=== PATIENT | female | born 1935 | race Caucasian/White ===

== ENCOUNTER 2023-07-15 08:33 | Emergency (ER) | payer MEDICARE, BC, SELFPAY ==
[2023-07-15 08:35] VITALS: BP 134/78
--- NOTE | 2023-07-15 11:21 | ED.GENMED ---
History of Present Illness
General
Chief Complaint: Fall
Source: patient
Exam Limitations: none
Time Seen by Provider: 07/15/23 09:14
Nursing documentation reviewed up to this point in time: agreed with
Travel History
Have you had any contact with someone who has COVID-19?: No
Do you have any symptoms of coronavirus? Fever > 100 degrees, chills, cough, shortness of breath, sore throat, loss of taste or smell, muscle aches, or headache?: No
History of Present Illness
History of Present Illness:
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
[facility]
she was using the side rail in her apt hallway to walk and had to let go to go past a door way and when she went to reach for the next railing she missed and fell onto her left side. She hit her left knee on the ground followed by her left elbow
into her ribs, wrist and then face on the left side. Patient had no loss of consciousness and she is not able to walk but she does have pain. Patient says she thought her pain would get better but it really has stayed the same. She has facial
bruising which is less significant than it was, she has continued left rib pain with deep breathing and movement, left knee pain with walking and flexion and mild left first dorsal soreness. Patient is wearing a home wrist brace on it and taking
Tylenol for pain. She decided to come today because she thought she should be better by now. Patient has not had any shortness of breath, fever, chills, coughing blood, passing out, vomiting, hematuria, hip pain
Past History
Past History
ED Past Medical History: COPD, GERD, Hypercholesterolemia, [place], Hypothyroidism, Psychiatric and Other (PE/DVT, Diverticulitis)
ED Past Surgical History: Cardiac (Stents) and Orthopedic
Patient has exhibited threatening behavior?: No
Social History
Tobacco: Former smoker
Alcohol: Daily ( Wine 2 glasses)
Drug: None
Personal:
Living: alone
Employment: Retired
Family History
Family History: Hypertension and Other (Other was prostate cancer)
Review of Systems
Review of Systems
Allergies reviewed?: Yes
All Other Systems: Not applicable
Phy Exam
Physical Exam
Physical Exam:
GENERAL: Alert , in no apparent distress
HEAD: Left periorbital area ecchymosis, slight superior orbital tenderness, able to open eye fully, EOMs intact, no other contusions on head
NECK: no midline tenderness, active ROM intact, no paraspinal muscle tenderness;
EYE: pupils equal and reactive, EOMs intact., No subconjunctival hemorrhage
ENT: o/p clr, mmm. no hemotympanum
CARDIAC: Regular rate and rhythm, no edema
LUNGS: Clear breath sounds bilaterally, no acute respiratory distress, no wheezes/rales/rhonchi
Chest wall: Left-sided lower rib in the mid axillary line with some point tenderness, no ecchymosis, probably in the area of ribs #6 or 7
ABDOMEN: Soft, without focal tenderness, no r/g, no cvat no left upper quadrant tenderness no bruising to the abdomen
NEUROLOGICAL: Alert and oriented, no focal neuro deficits, CN intact, 5/5 strength, sensation intact
SKIN: Warm and dry,
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 Patient has some faded bruising on her left knee and is tender to the patella, is able to flex 30 degrees. She has no calf,
ankle, hip pain on that side.
PSYCH: Normal and appropriate interaction.
Course
Orders/Labs/Results
Orders:
Orders
07/15/23 08:41
CT Head W/o Iv Contrast Urgent
Comment:
Reason For Exam: fall
Orbits wo Contrast CT [CT Orbits W/o Iv Contrast] Urgent
Comment:
Reason For Exam: fall
07/15/23 10:32
CR Knee - Left 4 Or More View* Urgent
Comment:
Reason For Exam: fall
CR Wrist - Left Min 3 Views Urgent
Comment:
Reason For Exam: fall
Ribs, Left 3 View W/PA Chest CR [CR Ribs-left 3 Vw W/pa Chest] Urgent
Comment:
Reason For Exam: fall
07/15/23 12:04
Acetaminophen [Tylenol] 650 mg .ROUTE .STK-MED ONE
07/15/23 12:10
Acetaminophen [Tylenol] 650 mg PO NOW STA
07/15/23 12:22
Incentive Spirometry [Rx Incentive Spirometry] [RESP] Urgent
Frequency: q1h while awake
Vital Signs
Initial and Last Documented VS:
Initial Vital Signs
Temp Pulse Resp BP Pulse Ox
98.4 F 92 18 134/78 97
07/15/23 08:35 07/15/23 08:35 07/15/23 08:35 07/15/23 08:35 07/15/23 08:35
Last Documented Vital Signs
Temp Pulse Resp BP Pulse Ox
98.4 F 92 18 134/78 97
07/15/23 08:35 07/15/23 08:35 07/15/23 08:35 07/15/23 08:35 07/15/23 08:35
MDM/Problems Addressed
Differential Diagnosis Includes:
Rib contusion, pneumonia, pneumothorax, rib fracture, knee contusion
MDM/Problems Addressed:
88-year-old female on thinners presents after a fall 1 week ago when she was walking and missed reaching out for the railing landing on her left side on the ground. She had no loss of consciousness. She has been having some continued left rib pain
especially with deep breathing or movement, left knee pain, left wrist pain. She does have ecchymosis around her left eye and did strike her head but had no loss of consciousness and no significant severe headache. Patient says she thought she
should be better by now. She is taking Tylenol for pain. On exam she does have obvious fading ecchymosis to her left periorbital region, she is otherwise neuro intact. She has no bruising but tenderness to the left lateral ribs, a soft nontender
abdomen, clear lungs, no hip tenderness, some mild discomfort with knee flexion on the left side and some bruising anteriorly with point tenderness over the patella. Her wrist is also arthritic but no obvious signs of trauma. Independently
reviewed the x-rays of her wrist and knee without any obvious fractures but with arthritis. Patient's CT head and CT orbits were negative for fracture or trauma.
CXR SHOWS LEFT 3RD RIB FX; indep reviewed by me
no ptx
atelectasiss
richard give incentive psirometer and recommend f/u with pcp
]
*Critical Care Note
Total Time (30-74mins, 75-104mins- exclusive of procedures): Not Applicable
ED Attending Note
-
Portions of this chart may have been created with voice recognition software.� Occasional wrong word or��sound alike� substitutions may have occurred due to the inherent limitations of voice recognition software.
Discharge Plan
Departure
Patient Disposition: Home (Routine Discharge)
Date of Disposition: 07/15/23
Time of Disposition: 12:13
Patient with high blood pressure during this ER visit?: No
Covid-19: Not Applicable
Discharge Problem:
Fracture of rib, Fall, Contusion
Instructions: Rib Fracture (DC), Contusion (DC)
Prescriptions:
New
lidocaine 5 % adhesive patch,medicated
1 patch topical DAILY PRN (Reason: rib pain) Qty: 15 0RF
No Action
aspirin 81 MG tablet,delayed release (DR/EC)
81 mg PO DAILY Qty: 0 0RF
pantoprazole 40 MG tablet,delayed release (DR/EC)
40 mg PO DAILY
cyanocobalamin (vitamin B-12) 100 MCG tablet
1,000 mcg PO DAILY
sertraline 50 MG tablet
50 mg PO DAILY
simvastatin 40 MG tablet
40 mg PO QPM
alendronate 70 MG tablet
70 mg PO PERSON
cyclosporine [Restasis] 10 DROPS dropperette
1 drp BOTH EYES Q12H
levothyroxine 137 mcg tablet
137 mcg PO DAILY AT 0700
gabapentin 300 mg capsule
300 mg PO BID
albuterol sulfate [ProAir HFA] 90 mcg/actuation Hfa Aerosol Inhaler
2 puff INHALATION R Q6HPRN PRN (Reason: sob)
budesonide-formoterol [Symbicort] 160-4.5 mcg/actuation Hfa Aerosol Inhaler
2 inh INHALATION R BID
Spiriva Respimat 2.5 mcg/actuation mist
2 puff INHALATION R DAILY
Hair, Skin and Nails Advanced 3.3 mg iron-25 mcg Tablet
1 tab PO DAILY
Eliquis 5 mg Tablet
5 mg PO BID
ciprofloxacin HCl 250 mg Tablet
250 mg PO BID@1000,2200 Qty: 12 0RF
prednisone 10 mg Tablet
See Rx Instructions .ROUTE .COMPLEX Qty: 30 0RF
Rx Instructions:
Take By Mouth:
40 mg daily x3 days, 30 mg daily x3 days,
20 mg daily x3 days, 10 mg daily x3 days.
Referrals:
Abraham Gibbs DO [Family Provider] -
Activity Restrictions/Additional Instructions:
You broke your third rib. Take Tylenol 3 times a day. You should take 2 to 6 weeks to heal.
You can apply a lidocaine patch 12 hours on, 12 hours off to the area of pain.
Use the incentive spirometer every 2 hours while awake to help you take deep breaths to avoid getting pneumonia. You had no signs of fracture in your knee or your wrist. Your head and facial bone CT showed no fractures or signs of trauma
Follow-up with your family doctor next week. Return to the ER for any concerns
Interventions
Interventions:
*Risk Screen - Suicide Last Done: 07/15/23 08:35
*General Assessment Last Done: 07/15/23 08:35
*Neglect/Abuse Screening Last Done: 07/15/23 08:35
ED- Fall Risk Assessment Last Done: 07/15/23 08:40
*ED COVID-19 Vaccine History Last Done: 07/15/23 08:40
*Nursing Disposition Last Done: 07/15/23 12:37
ED-Musculoskeletal Assessment Last Done: 07/15/23 12:36
ED- Neurological Assessment Last Done: 07/15/23 12:36
ED-Skin Assessment Last Done: 07/15/23 12:36
Discharge Date and Time
Discharge Date/Time: 07/15/23 12:37
[2023-07-15] MEDS: TYLENOL 650 MG PO (12:10)
== END 2023-07-15 12:37 | disposition home or self-care (01) ==
LOC: EMR 08:33
PROVIDERS: EMERGENCY PHYSICIAN Emergency Medicine; FAMILY PHYSICIAN Student in an Organized Health Care Education/Training Program
DX: S22.32XA Fracture of one rib, left side, initial encounter for closed fracture (principal); S00.12XA Contusion of left eyelid and periocular area, initial encounter; S00.83XA Contusion of other part of head, initial encounter; W22.09XA Striking against other stationary object, initial encounter; E03.9 Hypothyroidism, unspecified; E78.00 Pure hypercholesterolemia, unspecified; J44.9 Chronic obstructive pulmonary disease, unspecified; K21.9 Gastro-esophageal reflux disease without esophagitis; I25.2 Old myocardial infarction; Z82.49 Family history of ischemic heart disease and other diseases of the circulatory system; Z86.711 Personal history of pulmonary embolism; Z86.718 Personal history of other venous thrombosis and embolism; Z87.891 Personal history of nicotine dependence; Z95.5 Presence of coronary angioplasty implant and graft
CPT/HCPCS: 99284; 70450; 70480; 71101; 73110; 73564

== ENCOUNTER → 2024-02-20 07:39 | Outpatient (REF) | payer MEDICARE, BC, SELFPAY | LOC: MRI 07:39 | PROVIDERS: ATTENDING PHYSICIAN Anesthesiology | DX: M54.16 Radiculopathy, lumbar region (principal); M48.062 Spinal stenosis, lumbar region with neurogenic claudication | CPT/HCPCS: 72148 ==

== ENCOUNTER 2024-05-14 16:48 | Emergency (ER) | payer MEDICARE, BC, SELFPAY ==
[2024-05-14 16:54] VITALS: BP 98/63
[2024-05-14 17:02] VITALS: BP 114/75
[2024-05-14 17:06] VITALS: BMI 27.3
--- NOTE | 2024-05-14 17:26 | ED.GENMED ---
History of Present Illness
General
Chief Complaint: Breathing Problem
Source: patient
Exam Limitations: none
Time Seen by Provider: 05/14/24 17:13
History of Present Illness
History of Present Illness:
89-year-old female turned suddenly a week ago became lightheaded disequilibrium fell hitting her head and left lateral ribs. She did not get checked at that time. She has had ongoing left lateral rib pain. No headache no neck pain. Today she
became very lightheaded with standing. Dizziness. At times described more like disequilibrium. At times described more like near syncope. Minimal symptoms at rest except for the left lateral chest pain.
Past History
Past History
ED Past Medical History: COPD, GERD, Hypercholesterolemia, [place], Hypothyroidism, Psychiatric and Other (PE/DVT, Diverticulitis)
ED Past Surgical History: Cardiac (Stents) and Orthopedic
Patient has exhibited threatening behavior?: No
Social History
Tobacco: Former smoker
Alcohol: Daily ( Wine 2 glasses)
Drug: None
Personal:
Living: alone
Employment: Retired
Family History
Family History: Hypertension and Other (Other was prostate cancer)
Review of Systems
Review of Systems
All Other Systems: Not applicable
Constitutional: Denies fever or chills
Respiratory: Denies trouble breathing
ABD/GI: Denies abdominal pain
Phy Exam
Physical Exam
Physical Exam:
TRAUMA EXAM:
VITAL SIGNS: Vital signs reviewed, cooperative
DISTRESS: No active disease
EYES: Pupils reactive, no orbital trauma
NOSE: No deformity or epistaxis
FACE AND SCALP: Area of ecchymosis to the mid forehead. No other scalp trauma
NECK: Supple nontender
BACK: Back nontender, pelvis stable to compression
RESPIRATORY: No distress, breath sounds normal, tenderness left lateral and anterior chest wall that extends down to the left upper quadrant
CARDIAC: No murmur, pulses equal and strong
ABDOMEN: Soft mild tenderness left upper quadrant. Area of bruising to the upper and lower abdomen
SKIN: Skin intact no bleeding, color normal
EXTREMITIES: Scab to the right knee. Skin tear to the right lower leg. All appear to stage of healing. Ecchymosis to left lower leg. No bony tenderness to the extremities.
NEUROLOGICAL: Alert, oriented, no motor deficits
PSYCH: Mood affect normal
Scores
Heart Failure Risk
Heart Failure Risk Score: Not Applicable
Course
Orders/Labs/Results
Orders:
Orders
05/14/24 17:09
Complete Blood Count/With Diff Urgent
Comprehensive Metabolic Panel Urgent
05/14/24 17:23
CT Head W/o Iv Contrast Urgent
Comment:
Reason For Exam: Head injury/anticoagulated
Cardiac Monitoring- Treatment ONCE
Pulse Ox/spot Check [RESP] Urgent
Quantity: 1
05/14/24 17:24
CT Cervical Spine W/o Iv Contr Urgent
Comment:
Reason For Exam: Recent head injury/trauma
CT Chest/abd/pel W Iv Cont Urgent
Reason For Exam: Left lateral rib pain/trauma/anticoagulated
IV Insert/Care/Rem.- Treatment PRN
05/14/24 17:28
EKG [Electrocardiogram (*1)] Urgent
Reason for Study: Other
Other Reason for Exam: Near syncope/disequilibrium
Cardiac Monitoring- Treatment ONCE
Pulse Ox/spot Check [RESP] Urgent
Quantity: 1
05/14/24 17:29
EKG- Treatment ONCE
05/14/24 19:11
Type+Screen Urgent
PT/INR [Prothrombin Time] Urgent
PTT Urgent
Abnormal Lab Results
05/14/24 05/14/24
17:09 19:11
RBC 3.46 L 10^6/uL
(4.20-5.40)
Hgb 11.8 L g/dL
(12.0-16.0)
Hct 35.3 L %
(37.0-47.0)
MCV 102.0 H fL
(81.0-99.0)
MCH 34.1 H pg
(27.0-31.0)
RDW 14.6 H %
(11.5-14.5)
Abs Immat Gran (auto) 0.1 H 10^3/uL
(0-0.05)
Immature Gran % 0.7 H %
(0-0.5)
PT 14.7 H Sec
(11.4-14.6)
Potassium 3.4 L mmol/L
(3.5-5.1)
BUN 19 H mg/dl
(7-17)
Glucose 123 H mg/dl
(70-99)
05/14/24 17:09
05/14/24 17:09
Vital Signs
Initial and Last Documented VS:
Initial Vital Signs
Temp Pulse Resp BP Pulse Ox
98.6 F 98 16 98/63 93
05/14/24 16:54 05/14/24 16:54 05/14/24 16:54 05/14/24 16:54 05/14/24 16:54
Last Documented Vital Signs
Temp Pulse Resp BP Pulse Ox
98.6 F 101 24 113/64 93
05/14/24 16:54 05/14/24 20:00 05/14/24 20:00 05/14/24 20:00 05/14/24 20:00
MDM/Problems Addressed
Differential Diagnosis Includes:
Patient with a recent fall anticoagulated. Complaining of lightheadedness possibly near syncope. With the head injury and anticoagulation she needs a CT of the head along with the cervical spine. She is tenderness to the left lateral chest wall
left upper quadrant. Chest abdomen pelvis will also be scanned. Workup in progress.
*Radiology
Radiology exam reviewed: radiology read reviewed (No acute findings on trauma CT studies. Old left rib fractures)
*Critical Care Note
Total Time (30-74mins, 75-104mins- exclusive of procedures): Not Applicable
Data Reviewed
Review of Other/Old Records Reveals: Labs, Records and Testing
Update Note
Update Note:
Patient is remained medically stable and nontoxic. No arrhythmias. No significant trauma. For discharge to follow-up
ED Attending Note
-
Portions of this chart may have been created with voice recognition software.� Occasional wrong word or��sound alike� substitutions may have occurred due to the inherent limitations of voice recognition software.
Discharge Plan
Departure
Patient Disposition: Home (Routine Discharge)
Date of Disposition: 05/14/24
Time of Disposition: 21:08
Patient with high blood pressure during this ER visit?: No
Discharge Problem:
Recent fall, Closed head injury, Anticoagulated, Blunt chest trauma, Old rib fractures, Transient disequilibrium
Instructions: Head injury in adults, Dizziness, Nonvertigo, (DC), Blunt Chest Trauma (DC), Abrasions ED, Minor Contusion ED
Prescriptions:
No Action
aspirin 81 MG tablet,delayed release (DR/EC)
81 mg PO DAILY Qty: 0 0RF
pantoprazole 40 MG tablet,delayed release (DR/EC)
40 mg PO DAILY
cyanocobalamin (vitamin B-12) 100 MCG tablet
1,000 mcg PO DAILY
sertraline 50 MG tablet
50 mg PO DAILY
simvastatin 40 MG tablet
40 mg PO QPM
alendronate 70 MG tablet
70 mg PO PERSON
cyclosporine [Restasis] 10 DROPS dropperette
1 drp BOTH EYES Q12H
levothyroxine 137 mcg tablet
137 mcg PO DAILY AT 0700
gabapentin 300 mg capsule
300 mg PO BID
albuterol sulfate [ProAir HFA] 90 mcg/actuation Hfa Aerosol Inhaler
2 puff INHALATION R Q6HPRN PRN (Reason: sob)
budesonide-formoterol [Symbicort] 160-4.5 mcg/actuation Hfa Aerosol Inhaler
2 inh INHALATION R BID
Spiriva Respimat 2.5 mcg/actuation mist
2 puff INHALATION R DAILY
Hair, Skin and Nails Advanced 3.3 mg iron-25 mcg Tablet
1 tab PO DAILY
Eliquis 5 mg Tablet
5 mg PO BID
ciprofloxacin HCl 250 mg Tablet
250 mg PO BID@1000,2200 Qty: 12 0RF
prednisone 10 mg Tablet
See Rx Instructions .ROUTE .COMPLEX Qty: 30 0RF
Rx Instructions:
Take By Mouth:
40 mg daily x3 days, 30 mg daily x3 days,
20 mg daily x3 days, 10 mg daily x3 days.
lidocaine 5 % adhesive patch,medicated
1 patch topical DAILY PRN (Reason: rib pain) Qty: 15 0RF
Referrals:
NONE,* [Family Provider] - Follow up in 2-3 days
Activity Restrictions/Additional Instructions:
Follow-up with your physician in 2 to 3 days
Interventions
Interventions:
*Risk Screen - Suicide Last Done: 05/14/24 16:54
*General Assessment Last Done: 05/14/24 16:54
*Neglect/Abuse Screening Last Done: 05/14/24 16:54
ED- Fall Risk Assessment Last Done: 05/14/24 16:54
*ED COVID-19 Vaccine History Last Done: 05/14/24 16:54
ED- Cardiac Assessment Last Done: 05/14/24 17:22
ED- Pulmonary Assessment Last Done: 05/14/24 17:22
Discharge Date and Time
Print Language: MALAY
[2024-05-14 17:41] LABS: % Basophils 0.6 % (0-2); % Immature Granulocytes 0.7 % (0-0.5); % Lymphocytes 29.7 % (20.5-51.1); % Monocytes 7.8 % (1.7-9.3); % Neutrophils 60.2 % (42.2-75.2); Absolute Eosinophils 0.1 10^3/uL (0-0.7); Absolute Immature Granulocytes 0.1 10^3/uL (0-0.05); Absolute Lymphocytes 2.1 10^3/uL (1.2-3.4); Absolute Monocytes 0.5 10^3/uL (0.1-0.6); Absolute Neutrophils 4.2 10^3/uL (1.4-6.5); Hematocrit 35.3 % (37.0-47.0); Hemoglobin 11.8 g/dL (12.0-16.0); Mean Corp Hgb Conc. 33.4 g/dL (33.0-37.0); Mean Corpuscular Hgb 34.1 pg (27.0-31.0); Mean Platelet Volume 9.9 fL (7.4-10.4); Nucleated Red Blood Cells % 0 %; Platelet Count 240 10^3/uL (130-400); Red Blood Cell Count 3.46 10^6/uL (4.20-5.40); Red Cell Dist. Width 14.6 % (11.5-14.5); White Blood Cell Count 6.9 10^3/uL (4.8-10.8)
[2024-05-14 17:57] LABS: ALT (SGPT) 18 U/L (0-35); AST (SGOT) 25 U/L (14-36); Albumin 3.8 g/dl (3.5-5.0); Alkaline Phosphatase 60 U/L (38-126); Blood Urea Nitrogen 19 mg/dl (7-17); Calcium 9.1 mg/dl (8.4-10.2); Carbon Dioxide 25 mmol/L (22-30); Chloride 107 mmol/L (98-107); Estimated Creatinine Clearance 43 ml/min; Glucose 123 mg/dl (70-99); Potassium 3.4 mmol/L (3.5-5.1); Sodium 142 mmol/L (135-145); Total Bilirubin 0.4 mg/dl (0.2-1.3); Total Protein 6.8 g/dl (6.3-8.2); eGFR > 60.00
[2024-05-14 18:00] VITALS: BP 115/62
[2024-05-14 19:14] VITALS: BP 110/53
[2024-05-14 19:40] LABS: APTT 27.1 Sec (23.4-35.0); INR 1.12; PT 14.7 Sec (11.4-14.6)
[2024-05-14 20:00] VITALS: BP 113/64
[2024-05-14 21:00] VITALS: BP 121/65
== END 2024-05-14 22:32 | disposition home or self-care (01) ==
LOC: EMR 16:48
PROVIDERS: Emergency Medicine; EMERGENCY PHYSICIAN Emergency Medicine
DX: S09.90XA Unspecified injury of head, initial encounter (principal); S22.42XA Multiple fractures of ribs, left side, initial encounter for closed fracture; S00.83XA Contusion of other part of head, initial encounter; S80.12XA Contusion of left lower leg, initial encounter; S81.811A Laceration without foreign body, right lower leg, initial encounter; W19.XXXA Unspecified fall, initial encounter; R42 Dizziness and giddiness; E78.00 Pure hypercholesterolemia, unspecified; K21.9 Gastro-esophageal reflux disease without esophagitis; E03.9 Hypothyroidism, unspecified; I25.2 Old myocardial infarction; K57.92 Diverticulitis of intestine, part unspecified, without perforation or abscess without bleeding; Z95.5 Presence of coronary angioplasty implant and graft; Z86.718 Personal history of other venous thrombosis and embolism; Z87.891 Personal history of nicotine dependence; Z86.711 Personal history of pulmonary embolism; Z79.01 Long term (current) use of anticoagulants; Z88.1 Allergy status to other antibiotic agents; Z88.3 Allergy status to other anti-infective agents; Z88.5 Allergy status to narcotic agent; Z88.0 Allergy status to penicillin; Z88.8 Allergy status to other drugs, medicaments and biological substances; Z91.048 Other nonmedicinal substance allergy status
CPT/HCPCS: 99285; 94760; 70450; 71260; 72125; 74177; 80053; 85025; 85610; 85730; 86850; 86900; 86901; 93005; Q9967

== ENCOUNTER 2024-06-04 03:41 | Emergency (ER) | payer MEDICARE, BC, SELFPAY ==
[2024-06-04] VITALS (7 sets, daily range): BP systolic 113–147; BP diastolic 52–90
[2024-06-04 07:55] LABS: ALT (SGPT) 13 U/L (0-35); AST (SGOT) 23 U/L (14-36); Albumin 3.8 g/dl (3.5-5.0); Alkaline Phosphatase 85 U/L (38-126); Blood Urea Nitrogen 16 mg/dl (7-17); Calcium 8.9 mg/dl (8.4-10.2); Carbon Dioxide 27 mmol/L (22-30); Chloride 104 mmol/L (98-107); Glucose 112 mg/dl (70-99); Sodium 140 mmol/L (135-145); Total Bilirubin 0.3 mg/dl (0.2-1.3); Total Protein 6.8 g/dl (6.3-8.2); eGFR > 60.00
[2024-06-04 07:57] LABS: % Basophils 0.8 % (0-2); % Immature Granulocytes 0.4 % (0-0.5); % Lymphocytes 28.2 % (20.5-51.1); % Monocytes 8.1 % (1.7-9.3); % Neutrophils 61.5 % (42.2-75.2); Absolute Basophils 0.1 10^3/uL (0-0.2); Absolute Eosinophils 0.1 10^3/uL (0-0.7); Absolute Lymphocytes 2.1 10^3/uL (1.2-3.4); Absolute Monocytes 0.6 10^3/uL (0.1-0.6); Absolute Neutrophils 4.5 10^3/uL (1.4-6.5); Hematocrit 37.1 % (37.0-47.0); Hemoglobin 12.1 g/dL (12.0-16.0); Mean Corp Hgb Conc. 32.6 g/dL (33.0-37.0); Mean Corpuscular Hgb 33.2 pg (27.0-31.0); Mean Corpuscular Volume 101.6 fL (81.0-99.0); Mean Platelet Volume 10.3 fL (7.4-10.4); Nucleated Red Blood Cells % 0 %; Platelet Count 269 10^3/uL (130-400); Red Blood Cell Count 3.65 10^6/uL (4.20-5.40); White Blood Cell Count 7.3 10^3/uL (4.8-10.8)
[2024-06-04] MEDS: TYLENOL 650 MG PO (08:58)
[2024-06-04 09:24] LABS: Urine Albumin Trace (Neg - Trace); Urine Bilirubin Negative (Negative); Urine Character Very Cloudy (Clear); Urine Color Yellow; Urine Glucose Negative (Negative); Urine Ketone Negative (Negative); Urine Leukocyte 2+ (Negative); Urine Nitrite Positive (Negative); Urine Occult Blood 1+ (Negative); Urine Specific Gravity 1.025 (<1.030); Urine Urobilinogen Negative (Neg - 1+)
[2024-06-04] MEDS: CIPRO 500 MG PO (10:16)
--- NOTE | 2024-06-04 10:20 | ED.GENMED ---
History of Present Illness
General
Chief Complaint: Anxiety
Source: patient
Exam Limitations: none
Time Seen by Provider: 06/04/24 07:32
Nursing documentation reviewed up to this point in time: agreed with
History of Present Illness
History of Present Illness:
pt is a 89 y/o F with h/o COPD, PE, dvt, LAD stent, divertic, chronic R back pain/huip pain
here with multiple complaints
says she fell about 3. 5weeks ago and since has had acute on chronic R back pain/hip pain that is worse at times when she lays on her R hip. she doesn't feel the pain shoot down her leg
she has seen pain management for this for a few years but not recently. she says sometimes she has worse pain after lying and sometimes she feels better
take tylenol
today when she got up sh ehad to have BM but strained and was having R hip pain. she did a self disimpaction and then when she got up from the toilet she felt ok. walked to her bed and then got up a little later to get some water and felt more
pain in her R hip, shakiness all over, and felt like her legs would give out
she has not had any fall today, fever, vomiting, abdomianl pain, focal weakness, cp,k sob
she did notpass out
she uses a walker
from [place]
Past History
Past History
ED Past Medical History: COPD, GERD, Hypercholesterolemia, [place], Hypothyroidism, Psychiatric and Other (PE/DVT, Diverticulitis)
ED Past Surgical History: Cardiac (Stents) and Orthopedic
Patient has exhibited threatening behavior?: No
Social History
Tobacco: Former smoker
Alcohol: Daily ( Wine 2 glasses)
Drug: None
Personal:
Living: alone
Employment: Retired
Family History
Family History: Hypertension and Other (Other was prostate cancer)
Review of Systems
Review of Systems
Allergies reviewed?: Yes
All Other Systems: Not applicable
Phy Exam
Physical Exam
Physical Exam:
GENERAL: Alert , in no apparent distress, mildly anxious
HEAD: NCAT
NECK: no midline tenderness, active ROM intact, no paraspinal muscle tenderness;
CARDIAC: Regular rate and rhythm, no edema
LUNGS: Clear breath sounds bilaterally, no acute respiratory distress, no wheezes/rales/rhonchi
ABDOMEN: Soft, without focal tenderness, no r/g, no cvat, normal bowel sounds, nondistended
NEUROLOGICAL: Alert and oriented, no focal neuro deficits, CN intact, 5/5 strength, sensation intact, ambulation slight limp right leg
SKIN: Warm and dry, no rash
MUSCULOSKELETAL: No edema, well perfused. Normal inspection of the l right hip and leg
Patient has no tenderness to palpation of the hip, minimal tenderness in the SI joint
He has no pain with flexion of the right hip, external rotation, or internal rotation
Back: No midline tenderness, mild dextroscoliosis, slight right paraspinal muscle tenderness on exam, no swelling
negative straight leg raise Bilaterally
PSYCH: Normal and appropriate interaction.
Course
Orders/Labs/Results
Orders:
Orders
06/04/24 07:34
CMP [Comprehensive Metabolic Panel] Urgent
Complete Blood Count/With Diff Urgent
06/04/24 08:02
Electrocardiogram (*1) Urgent
Reason for Study: Vertigo / Dizzy
EKG- Treatment ONCE
06/04/24 08:03
Hip, Right 2-3 Views [CR Hip - RT w/wo Pel 2-3 Vw*] Urgent
Comment:
Reason For Exam: RUIGHT HIP PAIN, FALL 1 MO AGO
Include a pelvis x-ray?: Yes
Lumbar Spine Complete, 4 View [CR Lumbar Spine Comp Min 4 Vw*] Urgent
Comment:
Reason For Exam: LOWER BACK PAIN, FALL 1 MO AGO
06/04/24 08:52
Acetaminophen [Tylenol] 650 mg PO NOW STA
06/04/24 08:59
Urinalysis Reflex To Culture Urgent
Date Specimen was Collected: 06/04/24
Time Specimen was Collected: 08:51
Urine Microscopic Reflex Cult Urgent
Urine Culture Urgent
VAISHALI Source: U
Specimen Description:
Date Specimen was Collected: 06/04/24
Time Specimen was Collected: 08:51
06/04/24 10:10
Ciprofloxacin HCl [Cipro] 500 mg PO NOW STA
06/04/24 10:34
Case Management Consult ONCE
Case Management Consult: Other
Requested By:: NURSING
Comment: PT. is discharged and states she has no money and no way home. Pt. lives in [place].
Abnormal Lab Results
06/04/24 06/04/24
07:34 08:59
RBC 3.65 L 10^6/uL
(4.20-5.40)
MCV 101.6 H fL
(81.0-99.0)
MCH 33.2 H pg
(27.0-31.0)
MCHC 32.6 L g/dL
(33.0-37.0)
Glucose 112 H mg/dl
(70-99)
Ur Occult Blood Reflex 1+ A
(Negative)
Urine Nitrite (Reflex) Positive A
(Negative)
Leukocyte Esterase Rfl 2+ A
(Negative)
Urine WBC (Reflex) >100 A /HPF
(0-5)
Urine Bacteria (Reflex) Many A
(Negative)
06/04/24 07:34
06/04/24 07:34
Vital Signs
Initial and Last Documented VS:
Initial Vital Signs
Temp Pulse Resp BP Pulse Ox
36.4 C 98 22 122/72 98
06/04/24 03:53 06/04/24 03:53 06/04/24 03:53 06/04/24 03:53 06/04/24 03:53
Last Documented Vital Signs
Temp Pulse Resp BP Pulse Ox
36.4 C 98 22 117/58 96
06/04/24 03:53 06/04/24 03:53 06/04/24 03:53 06/04/24 13:00 06/04/24 13:45
MDM/Problems Addressed
Differential Diagnosis Includes:
anxiety, pain, lumbar djd, sciatica, hip arthritis, uti, constipation,
MDM/Problems Addressed:
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 Patient has had this pain in her back for years and saw pain
management and had shots at some point. She is not on any chronic opiates. Patient says that she takes Tylenol for pain but over the last couple weeks it seems like she is having more more trouble getting up from sitting and having pain in her
right hip. She has not had any numbness tingling or weakness. She is chronically mildly incontinent with stress incontinence. She can feel the urge to go the bathroom. She is not having any urinary symptoms but she was having a little bit of
lower abdominal pain that she related to being constipated. Patient self disimpacted this morning and then said after she had gotten up she felt shaky in her legs and a little anxious. Patient now feels better since being here. She was waiting in
the waiting room for a few hours. She is able to ambulate by herself to the bathroom. She has no focal weakness, she is afebrile, vitals are stable, her EKG is normal sinus rhythm without any ischemic changes, her white count is normal, creatinine
normal, urine is nitrate positive with blood and leuks. Given her shakiness and just not feeling right I am going to treat this with an antibiotic. Previous cultures have grown out Klebsiella and she has been sometimes sensitive to
fluoroquinolones and sometimes not. Patient has an allergy to penicillin and cephalosporins. Patient has tolerated Keflex previously however it is resistant to that on a previous urine culture. She could potentially do cefdinir if the Cipro is
resistant but I will try with Cipro since she has tolerated it previously.
Return precautions given
X-rays independently reviewed and show DJD without any obvious new compression fracture, discussed with radiologist
pt ambulated to the [facility]
*Critical Care Note
Total Time (30-74mins, 75-104mins- exclusive of procedures): Not Applicable
ED Attending Note
-
Portions of this chart may have been created with voice recognition software.� Occasional wrong word or��sound alike� substitutions may have occurred due to the inherent limitations of voice recognition software.
Discharge Plan
Departure
Patient Disposition: Home (Routine Discharge)
Date of Disposition: 06/04/24
Time of Disposition: 10:30
Patient with high blood pressure during this ER visit?: No
Condition: Fair
Covid-19: Not Applicable
Discharge Problem:
UTI (urinary tract infection)
Instructions: Degenerative Disc Disease ED, Urinary tract infection in adults - ED discharge instructions
Prescriptions:
New
ciprofloxacin HCl [Cipro] 250 mg tablet
250 mg PO BID Qty: 14 0RF
No Action
aspirin 81 MG tablet,delayed release (DR/EC)
81 mg PO DAILY Qty: 0 0RF
pantoprazole 40 MG tablet,delayed release (DR/EC)
40 mg PO DAILY
cyanocobalamin (vitamin B-12) 100 MCG tablet
1,000 mcg PO DAILY
sertraline 50 MG tablet
50 mg PO DAILY
simvastatin 40 MG tablet
40 mg PO QPM
alendronate 70 MG tablet
70 mg PO PERSON
cyclosporine [Restasis] 10 DROPS dropperette
1 drp BOTH EYES Q12H
levothyroxine 137 mcg tablet
137 mcg PO DAILY AT 0700
gabapentin 300 mg capsule
300 mg PO BID
albuterol sulfate [ProAir HFA] 90 mcg/actuation Hfa Aerosol Inhaler
2 puff INHALATION R Q6HPRN PRN (Reason: sob)
budesonide-formoterol [Symbicort] 160-4.5 mcg/actuation Hfa Aerosol Inhaler
2 inh INHALATION R BID
Spiriva Respimat 2.5 mcg/actuation mist
2 puff INHALATION R DAILY
Hair, Skin and Nails Advanced 3.3 mg iron-25 mcg Tablet
1 tab PO DAILY
Eliquis 5 mg Tablet
5 mg PO BID
ciprofloxacin HCl 250 mg Tablet
250 mg PO BID@1000,2200 Qty: 12 0RF
prednisone 10 mg Tablet
See Rx Instructions .ROUTE .COMPLEX Qty: 30 0RF
Rx Instructions:
Take By Mouth:
40 mg daily x3 days, 30 mg daily x3 days,
20 mg daily x3 days, 10 mg daily x3 days.
lidocaine 5 % adhesive patch,medicated
1 patch topical DAILY PRN (Reason: rib pain) Qty: 15 0RF
Referrals:
NONE,* [Family Provider] -
Activity Restrictions/Additional Instructions:
Your x-rays do show degenerative changes in your lumbar spine which could cause your pain
YOU HAVE A STABLE L4 COMPRESSION FRACTURE
THIS CAN CAUSE CHRONIC PAIN. As far as her shakiness this could be from a urinary tract infection. Take Cipro twice a day for 7 days starting tonight. Drink plenty of fluids. You can use lidocaine patch 12 hours on, 12 hours off for your back
pain. Continue Tylenol 2-3 times a day as needed. Use your walker. Follow-up with your family doctor, return for any concerns
Interventions
Interventions:
*Risk Screen - Suicide Last Done: 06/04/24 03:53
*General Assessment Last Done: 06/04/24 07:22
*Neglect/Abuse Screening Last Done: 06/04/24 03:53
ED- Fall Risk Assessment Last Done: 06/04/24 07:45
*ED COVID-19 Vaccine History Last Done: 06/04/24 07:22
*Nursing Disposition Last Done: 06/04/24 13:53
ED- Cardiac Assessment Last Done: 06/04/24 07:22
ED- Neurological Assessment Last Done: 06/04/24 07:22
ED-Psychological Assessment Last Done: 06/04/24 07:22
ED- Pulmonary Assessment Last Done: 06/04/24 07:22
Discharge Date and Time
Discharge Date/Time: 06/04/24 13:54
Print Language: GUAMANIAN
[2024-06-04 10:30] LABS: Urine Amorphous Seen; Urine Squamous Cell >30 /LPF (Few)
[2024-06-04 10:31] LABS: Urine Bacteria Many (Negative); Urine White Cell >100 /HPF (0-5)
[2024-06-04 10:39] LABS: Urine Red Blood Cell 0-2 /HPF (0-2)
--- NOTE | 2024-06-04 11:03 | CM ---
CM was consulted to assist with transportation. Patient is agreeable to pay for transportation via wheelchair van.
== END 2024-06-04 13:54 | disposition home or self-care (01) ==
LOC: EMR 03:41
PROVIDERS: Physician Assistant; EMERGENCY PHYSICIAN Emergency Medicine
DX: N39.0 Urinary tract infection, site not specified (principal); J44.9 Chronic obstructive pulmonary disease, unspecified; M25.551 Pain in right hip; E78.00 Pure hypercholesterolemia, unspecified; E03.9 Hypothyroidism, unspecified; K21.9 Gastro-esophageal reflux disease without esophagitis; I25.2 Old myocardial infarction; M16.11 Unilateral primary osteoarthritis, right hip; N39.3 Stress incontinence (female) (male); Z82.49 Family history of ischemic heart disease and other diseases of the circulatory system; Z86.718 Personal history of other venous thrombosis and embolism; Z87.891 Personal history of nicotine dependence; Z95.5 Presence of coronary angioplasty implant and graft
CPT/HCPCS: 99283; 72110; 73502; 80053; 81003; 81015; 85025; 87077; 87086; 87186; 93005

== ENCOUNTER 2024-06-22 09:17 | Inpatient (IN) | payer MEDICARE, BC, SELFPAY ==
[2024-06-21] VITALS (13 sets, daily range): BP systolic 99–135; BP diastolic 53–77; BMI 24.4
[2024-06-21 12:09] LABS: % Basophils 0.4 % (0-2); % Eosinophils 0.5 % (0-6); % Immature Granulocytes 0.7 % (0-0.5); % Lymphocytes 32.9 % (20.5-51.1); % Monocytes 10.4 % (1.7-9.3); % Neutrophils 55.1 % (42.2-75.2); Absolute Lymphocytes 1.9 10^3/uL (1.2-3.4); Absolute Monocytes 0.6 10^3/uL (0.1-0.6); Absolute Neutrophils 3.1 10^3/uL (1.4-6.5); Hematocrit 36.2 % (37.0-47.0); Hemoglobin 11.8 g/dL (12.0-16.0); Mean Corp Hgb Conc. 32.6 g/dL (33.0-37.0); Mean Corpuscular Hgb 31.9 pg (27.0-31.0); Mean Corpuscular Volume 97.8 fL (81.0-99.0); Nucleated Red Blood Cells % 0 %; Platelet Count 189 10^3/uL (130-400); Red Cell Dist. Width 13.3 % (11.5-14.5); White Blood Cell Count 5.7 10^3/uL (4.8-10.8)
[2024-06-21 12:10] LABS: Urine Albumin Trace (Neg - Trace); Urine Bilirubin Negative (Negative); Urine Character Very Cloudy (Clear); Urine Color Yellow; Urine Glucose Negative (Negative); Urine Ketone Negative (Negative); Urine Leukocyte 2+ (Negative); Urine Nitrite Negative (Negative); Urine Occult Blood Negative (Negative); Urine Urobilinogen Negative (Neg - 1+)
[2024-06-21 12:12] LABS: COVID-19 Antigen Positive (Negative)
[2024-06-21 12:26] LABS: ALT (SGPT) 16 U/L (0-35); AST (SGOT) 25 U/L (14-36); Alkaline Phosphatase 69 U/L (38-126); Blood Urea Nitrogen 17 mg/dl (7-17); Calcium 8.4 mg/dl (8.4-10.2); Carbon Dioxide 27 mmol/L (22-30); Chloride 100 mmol/L (98-107); Estimated Creatinine Clearance 36 ml/min; Glucose 105 mg/dl (70-99); Potassium 3.4 mmol/L (3.5-5.1); Sodium 135 mmol/L (135-145); Total Bilirubin 0.4 mg/dl (0.2-1.3); Total Protein 6.2 g/dl (6.3-8.2); eGFR 54.53
--- NOTE | 2024-06-21 13:11 | ED.GENMED ---
History of Present Illness
General
Chief Complaint: Weakness
Time Seen by Provider: 06/21/24 12:16
History of Present Illness
History of Present Illness:
89-year-old female with history of COPD, hypertension,, hyperlipidemia, and CAD presents to the emergency department for evaluation of general malaise and failure to thrive ongoing for the past month. She was seen in this emergency department just
over 2 weeks ago for similar symptoms and found to have pyuria, subsequent urine culture did grow out E. coli. She was prescribed Bactrim however her daughter states that she is only taken 1 dose thus far. Over the past week she has had
progressive decline, has been unable to ambulate and fell last night trying to get into the tub. Per daughter she has not been taking any of her medications for likely several weeks but clearly not in the past several days. Patient states she
feels weak and achy all over.
Past History
Past History
ED Past Medical History: COPD, GERD, Hypercholesterolemia, [place], Hypothyroidism, Psychiatric and Other (PE/DVT, Diverticulitis)
ED Past Surgical History: Cardiac (Stents) and Orthopedic
Patient has exhibited threatening behavior?: No
Social History
Tobacco: Former smoker
Alcohol: Daily ( Wine 2 glasses)
Drug: None
Personal:
Living: alone
Employment: Retired
Family History
Family History: Hypertension and Other (Other was prostate cancer)
Review of Systems
Review of Systems
Allergies reviewed?: Yes
All Other Systems: ROS reviewed and negative except as documented in HPI and ROS
Phy Exam
Physical Exam
Physical Exam:
GEN: Well appearing, NAD, WDWN
Eyes: PERRLA, EOMs intact, no scleral icterus
HENT: NCAT, oral mucosa dry. Positive low midline cervical spine tenderness
Lungs: CTAB, no wheezes, rales, rhonchi, normal chest wall excursion
Cardiac: RRR, no M/R/G, no peripheral edema. Radial pulses 2+ bilat
Abdomen: S, NT, ND, NABS, no masses or hepatosplenomegaly
Neuro: AO x 3, no focal deficits to BUE/BLE, normal sensation throughout
MSK: No gross deformity or ecchymosis. No edema. No digital clubbing
Skin: No rashes, petechiae. Normal color, no pallor or jaundice.
Psych: Calm, cooperative, proper hygiene
Course
Orders/Labs/Results
Orders:
Orders
06/21/24 11:42
COVID-19 Antigen Urgent
Source: Nasal Swab
Complete Blood Count/With Diff Urgent
Comprehensive Metabolic Panel Urgent
Creatine Phosphokinase Urgent
Comment: ADD ON
Urinalysis Reflex To Culture Urgent
Date Specimen was Collected: 06/21/24
Time Specimen was Collected: 11:38
Urine Microscopic Reflex Cult Urgent
Influenza A+B Rapid Molecular Urgent
VAISHALI Source: Nasal Swab
Specimen Description:
Date Specimen was Collected: 06/21/24
Time Specimen was Collected: 11:38
Urine Culture Urgent
VAISHALI Source: U
Specimen Description:
Obtained by: Random
Date Specimen was Collected: 06/21/24
Time Specimen was Collected: 11:38
06/21/24 11:59
Straight cath- Treatment ONCE
CXR2 [CR Chest - 2 Views ] Urgent
Comment:
Reason For Exam: cough
06/21/24 12:14
EKG [Electrocardiogram (*1)] Urgent
Reason for Study: Bradycardia / Tachycardia
EKG- Treatment ONCE
06/21/24 13:11
Add On- LAB Urgent
Tests Added?: CPK
CT Cervical Spine W/o Iv Contr Urgent
Comment:
Reason For Exam: fall neck pain
06/21/24 15:12
Sulfamethox./Trimethoprim Ds [Bactrim Ds 800 mg/160 mg] 1 tablet PO NOW STA
Abnormal Lab Results
06/21/24
11:42
RBC 3.70 L 10^6/uL
(4.20-5.40)
Hgb 11.8 L g/dL
(12.0-16.0)
Hct 36.2 L %
(37.0-47.0)
MCH 31.9 H pg
(27.0-31.0)
MCHC 32.6 L g/dL
(33.0-37.0)
MPV 11.0 H fL
(7.4-10.4)
Immature Gran % 0.7 H %
(0-0.5)
Monocytes % 10.4 H %
(1.7-9.3)
Potassium 3.4 L mmol/L
(3.5-5.1)
Glucose 105 H mg/dl
(70-99)
Total Protein 6.2 L g/dl
(6.3-8.2)
Albumin 3.0 L g/dl
(3.5-5.0)
Leukocyte Esterase Rfl 2+ A
(Negative)
Urine RBC 3-6 A /HPF
(0-2)
Urine WBC (Reflex) 16-20 A /HPF
(0-5)
Urine Bacteria (Reflex) Many A
(Negative)
SARS-CoV-2 Antigen Positive A
(Negative)
06/21/24 11:42
06/21/24 11:42
Vital Signs
Initial and Last Documented VS:
Initial Vital Signs
Temp Pulse Resp BP Pulse Ox
98.2 F 104 14 120/59 98
06/21/24 11:33 06/21/24 11:33 06/21/24 11:33 06/21/24 11:33 06/21/24 11:33
Last Documented Vital Signs
Temp Pulse Resp BP Pulse Ox
98.2 F 93 9 128/72 93
06/21/24 11:33 06/21/24 15:00 06/21/24 15:00 06/21/24 15:00 06/21/24 14:15
MDM/Problems Addressed
MDM/Problems Addressed:
Patient's urinalysis is consistent with UTI, prior urine culture grew pansensitive E. coli, will treat with Bactrim due to allergy profile. Ultimately she is profoundly weak and not suitable for discharge home given that she lives alone, she is
also positive for COVID-19 however not hypoxic with a clear chest x-ray. Labs are reassuring. CT of the cervical spine was obtained due to reports of neck pain after fall last night, this was unremarkable
*Critical Care Note
Total Time (30-74mins, 75-104mins- exclusive of procedures): Not Applicable
ED Attending Note
-
Portions of this chart may have been created with voice recognition software.� Occasional wrong word or��sound alike� substitutions may have occurred due to the inherent limitations of voice recognition software.
Discharge Plan
Departure
Patient Disposition: Admit
Date of Disposition: 06/21/24
Time of Disposition: 15:17
Presentation/result/management discussed w/ accepting MD/DO: Hospitalist
Discharge Problem:
COVID-19, Urinary tract infection
Prescriptions:
No Action
aspirin 81 MG tablet,delayed release (DR/EC)
81 mg PO DAILY Qty: 0 0RF
pantoprazole 40 MG tablet,delayed release (DR/EC)
40 mg PO DAILY
cyanocobalamin (vitamin B-12) 100 MCG tablet
1,000 mcg PO DAILY
sertraline 50 MG tablet
50 mg PO DAILY
simvastatin 40 MG tablet
40 mg PO QPM
alendronate 70 MG tablet
70 mg PO PERSON
cyclosporine [Restasis] 10 DROPS dropperette
1 drp BOTH EYES Q12H
levothyroxine 137 mcg tablet
137 mcg PO DAILY AT 0700
gabapentin 300 mg capsule
300 mg PO BID
albuterol sulfate [ProAir HFA] 90 mcg/actuation Hfa Aerosol Inhaler
2 puff INHALATION R Q6HPRN PRN (Reason: sob)
budesonide-formoterol [Symbicort] 160-4.5 mcg/actuation Hfa Aerosol Inhaler
2 inh INHALATION R BID
Spiriva Respimat 2.5 mcg/actuation mist
2 puff INHALATION R DAILY
Hair, Skin and Nails Advanced 3.3 mg iron-25 mcg Tablet
1 tab PO DAILY
Eliquis 5 mg Tablet
5 mg PO BID
ciprofloxacin HCl 250 mg Tablet
250 mg PO BID@1000,2200 Qty: 12 0RF
prednisone 10 mg Tablet
See Rx Instructions .ROUTE .COMPLEX Qty: 30 0RF
Rx Instructions:
Take By Mouth:
40 mg daily x3 days, 30 mg daily x3 days,
20 mg daily x3 days, 10 mg daily x3 days.
lidocaine 5 % adhesive patch,medicated
1 patch topical DAILY PRN (Reason: rib pain) Qty: 15 0RF
ciprofloxacin HCl [Cipro] 250 mg tablet
250 mg PO BID Qty: 14 0RF
Referrals:
PRIVATE,PHYSICIAN [Family Provider] -
Interventions
Interventions:
*Risk Screen - Suicide Last Done: 06/21/24 11:36
*General Assessment Last Done: 06/21/24 11:36
*Neglect/Abuse Screening Last Done: 06/21/24 11:36
ED- Fall Risk Assessment Last Done: 06/21/24 11:59
*ED COVID-19 Vaccine History Last Done: 06/21/24 11:36
ED- Cardiac Assessment Last Done: 06/21/24 12:00
ED- Neurological Assessment Last Done: 06/21/24 12:00
ED- Pulmonary Assessment Last Done: 06/21/24 12:00
Discharge Date and Time
Print Language: HEBREW
[2024-06-21 13:22] LABS: Urine Squamous Cell 16-20 /LPF (Few)
[2024-06-21 13:23] LABS: Urine Bacteria Many (Negative); Urine White Cell 16-20 /HPF (0-5)
[2024-06-21 14:43] LABS: Creatine Phosphokinase 37 U/L (30-135)
--- NOTE | 2024-06-21 15:20 | HPS.HSE ---
Family Physician
-
Family Physician: PHYSICIAN PRIVATE
Chief Complaint
-
general malaise and failure to thrive
History of Present Illness
Patient is a 89-year-old female with past medical history significant for COPD, hypertension, hyperlipidemia, hypothyroidism, GERD, depression and hx DVT/PE who presented to [facility] ED for evaluation of general malaise and failure to thrive for
the past month. Patient is poor historian with daughter present who states patient lives alone and she knows minimal, she also states patient son does not know details. Patient states she has not been feeling well for sometime and is tired of
feeling that way. She claims she stopped taking all her medication, she is unsure when she stopped but states it was when she started not feeling well. Daughter reports that her and her brother took patient to primary doctor on Wednesday who suggested
patient not return to apartment alone and wrote referrals to [facility] for services. They have not heard from [facility] since referral sent and patient had fall at daughters home yesterday evening where she hit head and neck on bathtub. Daughter states
her and her brother are both unable to care for mom in the home. Patient denies any fever, chills, cough, shortness of breath, chest pain, nausea, vomiting, constipation, diarrhea or urinary symptoms. Patient reports with decline and not being able
to be independent she wishes to speak with hospice to see if she is appropriate for care.
Medical History
Past Medical History
Past Medical History: Reports Other
Additional Past Medical History:
COPD
hypertension
hyperlipidemia
hypothyroidism
GERD
depression
hx DVT/PE
anxiety
Hx OR
TIA
Past Surgical History: Reports Other
Additional Past Surgical History:
right lung biopsy
cardiac cath (2013)
left shoulder replacement (2013)
cardiac stent
left rotator cuff
Social History
Tobacco: Non-smoker
Alcohol: Daily (winde daily up till a few weeks ago when she started feeling lousy)
Living: Alone
Employment: Retired
Family History
Family History: Not pertinent
Allergies / Home Medications
Allergies reflects when Allergies were last updated in [facility].
Home Medications with original date entered in [facility]
Allergy/Medication List:
Allergies
Allergy/AdvReac Type Severity Reaction Status Date / Time
atorvastatin calcium Allergy muscle Verified 06/21/24 11:32
[From Lipitor] aches
Cephalosporins Allergy Unknown Verified 06/21/24 11:32
erythromycin base Allergy Upset Verified 06/21/24 11:32
[Erythromycin Base] Stomach
grass pollen Allergy COUGH/CONFE Verified 06/21/24 11:32
STION
insulin detemir Allergy Unknown Verified 06/21/24 11:32
moxifloxacin HCl Allergy Unknown Verified 06/21/24 11:32
[From Avelox]
oxycodone HCl [From Percocet] Allergy Shaky and Verified 06/21/24 11:32
weakness
penicillin V Allergy Rash Verified 06/21/24 11:32
Penicillins Allergy Rash Verified 06/21/24 11:32
rosuvastatin calcium Allergy muscle Verified 06/21/24 11:32
[From Crestor] aches
tree and shrub pollen Allergy COUGH/CONGE Verified 06/21/24 11:32
STION
Home Medications
aspirin 81 mg tablet,delayed release 81 mg PO DAILY ##0 07/18/13
sertraline 50 mg tablet 75 mg PO DAILY Mental Health/Anxiety 09/12/13
alendronate 70 mg tablet 70 mg PO PERSON OSTEOPOROSIS 11/05/16
simvastatin 40 mg tablet 40 mg PO QPM High cholesterol 11/05/16
apixaban 5 mg tablet (Eliquis) 5 mg PO BID Blood Clot Prevention/Tx 12/18/22
levothyroxine 150 mcg tablet 150 mcg PO DAILY 06/21/24
meclizine 12.5 mg tablet 12.5 mg PO Q8HPRN PRN vertigo 06/21/24
ondansetron HCl 4 mg tablet 4 mg PO Q8HPRN PRN nausea 06/21/24
Review of Systems
-
History Source: Patient
Constitutional: Reports No Symptoms
EENT: Reports No Symptoms
Respiratory: Reports No Symptoms
Cardiac: Reports No Symptoms
Abdomen/GI: Reports No Symptoms
: Reports No Symptoms
Musculoskeletal: Reports No Symptoms
Skin: Reports No Symptoms
Neurological: Reports Weakness
Endocrine: Reports No Symptoms
Hematologic/Lymphatic: Reports No Symptoms
Psych: Reports No Symptoms
Physical Exam
Vital Signs
Vital Signs
Temp Pulse Resp BP Pulse Ox
98.2 F 93 9 128/72 93
06/21/24 11:33 06/21/24 15:00 06/21/24 15:00 06/21/24 15:00 06/21/24 14:15
Physical Exam
General: Well Developed, Well Nourished, No Apparent Distress, Comfortable and Conversant
HEENT: NormoCephalic, Moist mucous membranes, Atraumatic, Campus Conjunctivae, Nose Appears Normal and Ears Appear Normal
Respiratory: Clear, Non Labored Respirations and Decreased Breath Sounds
Cardiac: S1/S2 and Regular Rhythm; No Murmur, Rub or Gallop
Breast: Deferred by me
GI: Soft, Non Tender, Non Distended and Normal Bowel Sounds; No Organomegaly
Rectal: Deferred by Provider
Genito-urinary: Deferred by me
Musculoskeletal: No Clubbing, No Cyanosis, No Edema and Other (soreness to neck s/p fall, soreness to left lower extremity)
Skin: Warm and IV/Catheter Site; No Rash
Neuro: Awake, Alert, AO x 3 and Nonfocal/grossly intact
Psych: Calm and Depressed
Laboratory Results
-
06/21/24 11:42
06/21/24 11:42
Laboratory Results
Total Bilirubin 0.4 mg/dl (0.2-1.3) 06/21/24 11:42
AST 25 U/L (14-36) 06/21/24 11:42
ALT 16 U/L (0-35) 06/21/24 11:42
Alkaline Phosphatase 69 U/L (38-126) 06/21/24 11:42
Data Reviewed
-
CT Scan: Report Reviewed by me (C-Spine: No evidence of acute injury of the cervical spine. Multilevel degenerative disc disease as described above. Mild reversal of the normal cervical spinal lordosis. This can be seen with muscular spasm. Stable)
Lab Data: Labs Reviewed by me
Impression/Plan
-
IMPRESSION/PLAN:
#UTI
#Covid
UA: indicative of UTI
UA C&S: Pending
Covid: positive
Influenza: negative
CXR: pending report
- Admit to med/surg for observation
- candi IVF
- Cipro
- supportive care
#failure to thrive
#fall
Patient requests hospice consult
C-Spine CT: No evidence of acute injury of the cervical spine.
Multilevel degenerative disc disease as described above.
Mild reversal of the normal cervical spinal lordosis. This can be seen with muscular spasm. Stable
- PT/OT consult
- Case management consult
- hospice consult
#hypertension
- monitor VS
#hyperlipidemia
- continue simvastatin
#hypothyroidism
- continue levothyroxine
#depression
patient expresses dislike if unable to live independently
- continue sertraline
- consult hospice and case management
#hx DVT/PE
- continue eliquis
#GERD
#COPD
Code Status: DNR
DVT Prophylaxis: Eliquis
[2024-06-21] MEDS: BACTRIM DS 800 MG/160 MG 1 TABLET PO (15:27)
--- NOTE | 2024-06-21 16:07 | W.PN.UPDATE ---
Update Note
Progress Note Update
This is an addendum to the H&P written by Sandhya Alcantara on 06/21/2024. Patient seen and examined independently with BACK JOINER.
89-year-old female past medical history of CAD, COPD, hypertension, hyperlipidemia, hypothyroidism, DVT/PE, presenting with generalized malaise and failure to thrive for the past month. She came to the ER 2 weeks ago with similar symptoms found to
have pyuria with urine culture growing E. coli and prescribed Cipro but only took 1 dose.
Patient stating that she does not want to live if she cannot be independent. She lives at [facility] in her own apartment.
Urinalysis at this time shows 16-28 WBC, very cloudy urine, plus leukocyte Estrace. COVID also positive. Urine culture from 06/04 shows pansensitive E. coli.
Patient with normal vital signs. She is not hypoxic. Labs show mild hypokalemia.
Chest x-ray pending. Urine culture pending.
Weakness/generalized malaise secondary to UTI and COVID. IV fluids. Ciprofloxacin. PT/OT. Case management consulted.
--- NOTE | 2024-06-21 20:45 | PTCARENOTE ---
pt received as admission from ED to room 2122. pt pulled over from stretcher to bed. Pt AAOX3, forgetful at times. pt states she normally uses a walker at home. admission questions completed. pt oriented to room and unit.
[2024-06-21] MEDS: NSS 1000 IV (21:10)
[2024-06-21] MEDS: ZOFRAN 4 MG IV (21:36)
[2024-06-21] MEDS: TYLENOL 650 MG PO (21:59)
[2024-06-21] MEDS: CIPRO 250 MG PO (21:59)
[2024-06-21] MEDS: ELIQUIS 5 MG PO (21:59)
[2024-06-22] MEDS: SYNTHROID 150 MCG PO (05:09)
[2024-06-22 05:53] VITALS: BP 151/73
[2024-06-22 06:31] LABS: Hematocrit 34.1 % (37.0-47.0); Hemoglobin 11.3 g/dL (12.0-16.0); Mean Corp Hgb Conc. 33.1 g/dL (33.0-37.0); Mean Corpuscular Hgb 32.5 pg (27.0-31.0); Mean Platelet Volume 11.2 fL (7.4-10.4); Platelet Count 175 10^3/uL (130-400); Red Blood Cell Count 3.48 10^6/uL (4.20-5.40); Red Cell Dist. Width 13.5 % (11.5-14.5); White Blood Cell Count 4.8 10^3/uL (4.8-10.8)
[2024-06-22 06:57] LABS: Blood Urea Nitrogen 14 mg/dl (7-17); Calcium 7.6 mg/dl (8.4-10.2); Carbon Dioxide 26 mmol/L (22-30); Chloride 104 mmol/L (98-107); Estimated Creatinine Clearance 40 ml/min; Glucose 92 mg/dl (70-99); Potassium 3.8 mmol/L (3.5-5.1); Sodium 137 mmol/L (135-145); eGFR > 60.00
[2024-06-22 07:24] VITALS: BP 127/68
[2024-06-22] MEDS: ELIQUIS 5 MG PO ×2 (08:41→20:02)
[2024-06-22] MEDS: ASPIR LOW (ENTERIC COATED) 81 MG PO (08:42)
[2024-06-22] MEDS: ZOLOFT 75 MG PO (08:42)
[2024-06-22] MEDS: CIPRO 250 MG PO (08:42)
[2024-06-22] MEDS: NSS 1000 IV (08:43)
--- NOTE | 2024-06-22 09:29 | CM ---
CM consult completed for hospice eval
tt Kimberly Cobb -Referral entered in [facility]
[2024-06-22 09:44] VITALS: BP 141/72; BP 143/77; PULSE 90; O2SAT 98
--- NOTE | 2024-06-22 10:13 | HOSPNOTE ---
Addendum entered by Melanie Zee RN 06/22/24 11:17:
CM asked this RN to call Makenna and speak to her again about hospice. Makenna reports now that the patient can not go back home with her as she is not able to care for the patient. It is unclear at this moment if the patient would be safe to go back to
[facility] and live independently. Reviewed options with Makenna of placement with hospice. She requested that CM discuss patients options with the patient and see what the patient is thinking. Is it possible that the patient could go to a SNF for
rehab and then if unable to rehab transition to hospice care? I have updated CM and asked CM to speak with the patient. I reviewed with Makenna we will update her after speaking to the patient and developing a plan being that patient cant go back to
the home with Makenna. Hospice will continue to be available.
Original Note:
Referral received. I had spoken to this patients daughter regarding hospice prior to the patient going to the hospital. The daughter will need aide services 5-7 days a week. She is aware that our agency can not provide that. She was going to review
other agencies that could offer this service to her. CM is updated on this situation and will speak to the daughter and begin assisting with an agency that can provide the services she is requesting. Hospice will sign off.
[2024-06-22 12:18] VITALS: BMI 24.4
--- NOTE | 2024-06-22 12:31 | CM ---
Case management consult for eval for hospice completed.
Hospice nurse spoke with daughter Makenna prior to coming in to the hospital (see note)
CM met with patient at bedside.
Discussed options with the patient hospice, PT rec SNF - Patient has been at [facility] in past
Patient states would think about going to SNF, she states 'I don't feel good right now' 'come back later'
Discussed with daughter Makenna who stated maybe she will bounce back? CM to revisit conversation with patient tomorrow.
IA completed.
Lives at [facility] alone, no steps
PLOF: Ambulates with walker
DME: [facility] in past, [facility] in past
PCP: Bree Leslie
Pharmacy: [address], [place]
PLAN: ?SNF vs. hospice
--- NOTE | 2024-06-22 13:36 | W.PN.HOSP.TC ---
Today's Communication/Plan
-
abx
pt/ot
dispo
Assessment / Plan
Assessment / Plan
Physical Exam
General: Well Developed, Well Nourished, No Apparent Distress, Comfortable and Conversant
HEENT: NormoCephalic, Moist mucous membranes, Atraumatic, [place] Conjunctivae, Nose Appears Normal and Ears Appear Normal
Respiratory: Clear, Non Labored Respirations and Decreased Breath Sounds
Cardiac: S1/S2 and Regular Rhythm; No Murmur, Rub or Gallop
Breast: Deferred by me
GI: Soft, Non Tender, Non Distended and Normal Bowel Sounds; No Organomegaly
Rectal: Deferred by Provider
Genito-urinary: Deferred by me
Musculoskeletal: No Clubbing, No Cyanosis, No Edema and Other (soreness to neck s/p fall, soreness to left lower extremity)
Skin: Warm and IV/Catheter Site; No Rash
Neuro: Awake, Alert, AO x 3 and Nonfocal/grossly intact
Psych: Calm and Depressed
#UTI
#Covid
UA: indicative of UTI
UA C&S: Pending
Covid: positive
Influenza: negative
CXR: pending report
- Admit to med/surg for observation
- candi IVF
- Cipro
- supportive care
#failure to thrive
#fall
Patient requests hospice consult
C-Spine CT: No evidence of acute injury of the cervical spine.
Multilevel degenerative disc disease as described above.
Mild reversal of the normal cervical spinal lordosis. This can be seen with muscular spasm. Stable
- PT/OT consult
- Case management consult
- hospice consult
#hypertension
- monitor VS
#hyperlipidemia
- continue simvastatin
#hypothyroidism
- continue levothyroxine
#depression
patient expresses dislike if unable to live independently
- continue sertraline
- consult hospice and case management
#hx DVT/PE
- continue eliquis
#GERD
#COPD
Anticipated Discharge: Within 24 hours
Subjective/Interval History
-
Date of Service: June 22, 2024
No acute events overnight
Objective Data
-
Labs:
Laboratory Results
06/22/24
05:05
WBC 4.8
Hgb 11.3 L
Hct 34.1 L
Plt Count 175
Sodium 137
Potassium 3.8
Chloride 104
Carbon Dioxide 26
BUN 14
Creatinine 0.9
Glucose 92
Calcium 7.6 L
Vital Signs:
Vital Signs
Temp Pulse Resp BP Pulse Ox
97.7 F 88 16 127/68 93
06/22/24 07:24 06/22/24 07:24 06/22/24 07:24 06/22/24 07:24 06/22/24 07:24
Review of Systems
-
History Source: Patient
All other systems: Not reviewed unless documented
Physical Exam
-
General: No Apparent Distress
HEENT: Normocephalic and Atraumatic
Cardiac: Negative S1/S2 or Irregular Rhythm
GI: Soft
Genito-urinary: No Costovertebral Tender
Neuro: AO x 3
Hematologic / Lymphatic: No Lymphadenopathy
Psych: Calm
Data Reviewed
-
Total Time Spent with Patient (in minutes): 45
Diagnostic Radiology: Report Reviewed by me
CT Scan: Report Reviewed by me
Labs: Labs Reviewed by me
[2024-06-22] MEDS: ZOFRAN 4 MG IV (14:15)
[2024-06-22] MEDS: OMNICEF 300 MG PO (14:15)
[2024-06-22 15:19] VITALS: BP 103/60
[2024-06-22 23:18] VITALS: BP 129/76
[2024-06-23] MEDS: SYNTHROID 150 MCG PO (05:02)
[2024-06-23 06:25] VITALS: BMI 24.3
[2024-06-23 07:34] VITALS: BP 144/73
[2024-06-23] MEDS: ASPIR LOW (ENTERIC COATED) 81 MG PO (09:23)
[2024-06-23] MEDS: ZOLOFT 75 MG PO (09:23)
[2024-06-23] MEDS: ELIQUIS 5 MG PO ×2 (09:23→19:57)
[2024-06-23] MEDS: ZOFRAN 4 MG IV (11:49)
[2024-06-23] MEDS: MUCINEX 600 MG PO ×2 (12:44→19:57)
[2024-06-23] MEDS: SENOKOT 8.6 MG PO ×2 (12:44→19:57)
[2024-06-23] MEDS: KEFLEX 500 MG PO ×2 (12:44→19:57)
--- NOTE | 2024-06-23 13:55 | CM ---
Discussed discharge plan with patient.
PT recommending skilled rehab.
patient agreeable, will send referrals to area facilities.
Patient Covid + and she is aware many facilities will not accept with Covid.
Plan: skilled rehab once bed available
--- NOTE | 2024-06-23 14:52 | W.PN.HOSP.TC ---
Today's Communication/Plan
-
DC ready, bottle caser aware
Cephalexin
Assessment / Plan
Assessment / Plan
Physical Exam
General: Well Developed, Well Nourished, No Apparent Distress, Comfortable and Conversant
HEENT: NormoCephalic, Moist mucous membranes, Atraumatic, [place] Conjunctivae, Nose Appears Normal and Ears Appear Normal
Respiratory: Clear, Non Labored Respirations and Decreased Breath Sounds
Cardiac: S1/S2 and Regular Rhythm; No Murmur, Rub or Gallop
Breast: Deferred by me
GI: Soft, Non Tender, Non Distended and Normal Bowel Sounds; No Organomegaly
Rectal: Deferred by Provider
Genito-urinary: Deferred by me
Musculoskeletal: No Clubbing, No Cyanosis, No Edema and Other (soreness to neck s/p fall, soreness to left lower extremity)
Skin: Warm and IV/Catheter Site; No Rash
Neuro: Awake, Alert, AO x 3 and Nonfocal/grossly intact
Psych: Calm and Depressed
#UTI, Streptococcus
#Covid
UA: indicative of UTI
UA C&S: Pending
Covid: positive
Influenza: negative
CXR: pending report
- Admit to med/surg for observation
- candi IVF
- cephalexin
- supportive care
#failure to thrive
#fall
Patient requests hospice consult
C-Spine CT: No evidence of acute injury of the cervical spine.
Multilevel degenerative disc disease as described above.
Mild reversal of the normal cervical spinal lordosis. This can be seen with muscular spasm. Stable
- PT/OT consult
- Case management consult
- hospice consult
#hypertension
- monitor VS
#hyperlipidemia
- continue simvastatin
#hypothyroidism
- continue levothyroxine
#depression
patient expresses dislike if unable to live independently
- continue sertraline
- consult hospice and case management
#hx DVT/PE
- continue eliquis
#GERD
#COPD
Anticipated Discharge: Within 24 hours
Subjective/Interval History
-
Date of Service: June 23, 2024
no acute events, appears more energetic today
Objective Data
-
Vital Signs:
Vital Signs
Temp Pulse Resp BP Pulse Ox
98.8 F 94 17 144/73 92
06/23/24 07:34 06/23/24 07:34 06/23/24 07:34 06/23/24 07:34 06/23/24 08:00
I&O
06/22/24 06/23/24 06/24/24
06:59 06:59 06:59
Intake Total 780 / 780
Balance 780 / 780
Review of Systems
-
History Source: Patient
All other systems: Not reviewed unless documented
Physical Exam
-
General: No Apparent Distress
HEENT: Normocephalic and Atraumatic
Cardiac: Negative S1/S2 or Irregular Rhythm
GI: Soft
Genito-urinary: No Costovertebral Tender
Neuro: AO x 3
Hematologic / Lymphatic: No Lymphadenopathy
Psych: Calm
Data Reviewed
-
Total Time Spent with Patient (in minutes): 45
Diagnostic Radiology: Report Reviewed by me
CT Scan: Report Reviewed by me
Labs: Labs Reviewed by me
[2024-06-23 15:26] VITALS: BP 132/92
--- NOTE | 2024-06-23 16:30 | HOSPNOTE ---
Notified by CM that patient is agreeable to SNF with rehab. Patient does not wish for hospice services at this time. Hospice will sign off.
[2024-06-23 23:12] VITALS: BP 172/89
[2024-06-24 00:29] VITALS: BP 130/82
[2024-06-24 02:49] VITALS: BP 140/72
[2024-06-24 06:00] VITALS: BMI 23.5
[2024-06-24] MEDS: SYNTHROID 150 MCG PO (06:22)
[2024-06-24 07:15] VITALS: BP 147/90
[2024-06-24 08:13] LABS: Hematocrit 36.1 % (37.0-47.0); Hemoglobin 11.9 g/dL (12.0-16.0); Mean Corpuscular Hgb 32.3 pg (27.0-31.0); Mean Corpuscular Volume 98.1 fL (81.0-99.0); Mean Platelet Volume 10.1 fL (7.4-10.4); Platelet Count 213 10^3/uL (130-400); Red Blood Cell Count 3.68 10^6/uL (4.20-5.40); Red Cell Dist. Width 13.5 % (11.5-14.5); White Blood Cell Count 5.2 10^3/uL (4.8-10.8)
[2024-06-24 08:31] LABS: Blood Urea Nitrogen 8 mg/dl (7-17); Calcium 8.2 mg/dl (8.4-10.2); Carbon Dioxide 27 mmol/L (22-30); Chloride 101 mmol/L (98-107); Estimated Creatinine Clearance 45 ml/min; Glucose 89 mg/dl (70-99); Potassium 3.9 mmol/L (3.5-5.1); Sodium 136 mmol/L (135-145); eGFR > 60.00
[2024-06-24] MEDS: MUCINEX 600 MG PO ×2 (08:42→20:50)
[2024-06-24] MEDS: SENOKOT 8.6 MG PO ×2 (08:43→20:51)
[2024-06-24] MEDS: ELIQUIS 5 MG PO ×2 (08:43→20:49)
[2024-06-24] MEDS: KEFLEX 500 MG PO ×2 (08:43→20:50)
[2024-06-24] MEDS: ASPIR LOW (ENTERIC COATED) 81 MG PO (08:43)
[2024-06-24] MEDS: ZOLOFT 75 MG PO (08:43)
--- NOTE | 2024-06-24 11:00 | CM ---
Addendum entered by Carie Drummond 06/24/24 14:32:
no beds at [facility], [facility] or [facility], reviewed with liaison. She will look again on wednesday. CM sent message to Yefri with update regarding date of positive test.
Original Note:
CM spoke with admissions liaison at [facility], [facility] and [facility] awaiting confirmation of bed. Clarified the date of positive test. CM will continue to follow for discharge planning needs.
SNF; pending bed availability
--- NOTE | 2024-06-24 11:18 | W.PN.HOSP.TC ---
Today's Communication/Plan
-
dc ready, cm aware
Assessment / Plan
Assessment / Plan
Physical Exam
General: Well Developed, Well Nourished, No Apparent Distress, Comfortable and Conversant
HEENT: NormoCephalic, Moist mucous membranes, Atraumatic, [place] Conjunctivae, Nose Appears Normal and Ears Appear Normal
Respiratory: Clear, Non Labored Respirations and Decreased Breath Sounds
Cardiac: S1/S2 and Regular Rhythm; No Murmur, Rub or Gallop
Breast: Deferred by me
GI: Soft, Non Tender, Non Distended and Normal Bowel Sounds; No Organomegaly
Rectal: Deferred by Provider
Genito-urinary: Deferred by me
Musculoskeletal: No Clubbing, No Cyanosis, No Edema and Other (soreness to neck s/p fall, soreness to left lower extremity)
Skin: Warm and IV/Catheter Site; No Rash
Neuro: Awake, Alert, AO x 3 and Nonfocal/grossly intact
Psych: Calm and Depressed
#UTI, Streptococcus
#Covid
Influenza: negative
CXR: pending report
- Admit to med/surg for observation
- candi IVF
- cephalexin�complete 5-day course
- supportive care
#failure to thrive
#fall
Patient requests hospice consult
C-Spine CT: No evidence of acute injury of the cervical spine.
Multilevel degenerative disc disease as described above.
Mild reversal of the normal cervical spinal lordosis. This can be seen with muscular spasm. Stable
- PT/OT consult
- Case management consult
- hospice consult
#hypertension
- monitor VS
#hyperlipidemia
- continue simvastatin
#hypothyroidism
- continue levothyroxine
#depression
patient expresses dislike if unable to live independently
- continue sertraline
- consult hospice and case management
#hx DVT/PE
- continue eliquis
#GERD
#COPD
Anticipated Discharge: 24 - 48 hours
Subjective/Interval History
-
Date of Service: June 24, 2024
No acute events
Objective Data
-
Labs:
Laboratory Results
06/24/24
07:07
WBC 5.2
Hgb 11.9 L
Hct 36.1 L
Plt Count 213 D
Sodium 136
Potassium 3.9
Chloride 101
Carbon Dioxide 27
BUN 8
Creatinine 0.8
Glucose 89
Calcium 8.2 L
Vital Signs:
Vital Signs
Temp Pulse Resp BP Pulse Ox
98.4 F 98 16 147/90 96
06/24/24 07:15 06/24/24 07:15 06/24/24 07:15 06/24/24 07:15 06/24/24 09:56
I&O
06/23/24 06/24/24 06/25/24
06:59 06:59 06:59
Intake Total 780 / 780 360 / 360
Balance 780 / 780 360 / 360
Review of Systems
-
History Source: Patient
All other systems: Not reviewed unless documented
Physical Exam
-
General: No Apparent Distress
HEENT: Normocephalic and Atraumatic
Cardiac: Negative S1/S2 or Irregular Rhythm
GI: Soft
Genito-urinary: No Costovertebral Tender
Neuro: AO x 3
Hematologic / Lymphatic: No Lymphadenopathy
Psych: Calm
Data Reviewed
-
Total Time Spent with Patient (in minutes): 45
Diagnostic Radiology: Report Reviewed by me
CT Scan: Report Reviewed by me
Labs: Labs Reviewed by me
[2024-06-24 11:23] VITALS: BP 109/62
--- NOTE | 2024-06-24 11:26 | PTCARENOTE ---
Addendum entered by Corrina Christian RN 06/24/24 12:04:
Patient saturated brief and pad, post void bladder scan 0ml. Patient states relief in dizziness/lightheadedness upon laying down.
Original Note:
Patient encouraged to get OOB to chair with this RN, upon being assisted to sitting position on side of bed, patient c/o dizziness and lightheadedness. BP 109/62 HR 120, patient stating she cannot stand with assistance d/t dizziness. Patient
assisted back into bed in laying position. Bladder scan 400 ml, patient placed on bedpan and encouraged to urinate. MD made aware, no new orders at this time.
[2024-06-24 15:26] VITALS: BP 122/80; BP 149/89; PULSE 102; O2SAT 96
[2024-06-24 15:43] VITALS: BP 147/88
[2024-06-25 00:09] VITALS: BP 143/87
[2024-06-25] MEDS: TYLENOL 650 MG PO ×2 (00:13→16:54)
[2024-06-25 06:00] VITALS: BMI 23.4
[2024-06-25] MEDS: FOSAMAX 70 MG PO (06:41)
[2024-06-25] MEDS: SYNTHROID 150 MCG PO (06:41)
[2024-06-25 07:05] VITALS: BP 128/79
[2024-06-25] MEDS: MUCINEX 600 MG PO ×2 (08:57→21:34)
[2024-06-25] MEDS: ASPIR LOW (ENTERIC COATED) 81 MG PO (08:57)
[2024-06-25] MEDS: SENOKOT 8.6 MG PO (08:57)
[2024-06-25] MEDS: KEFLEX 500 MG PO ×2 (08:57→21:34)
[2024-06-25] MEDS: ELIQUIS 5 MG PO ×2 (08:58→21:34)
[2024-06-25] MEDS: ZOFRAN 4 MG IV ×2 (08:58→17:16)
[2024-06-25] MEDS: ZOLOFT 75 MG PO (08:58)
--- NOTE | 2024-06-25 12:02 | W.PN.HOSP.TC ---
Today's Communication/Plan
-
monitor fever, ensure fever free x 24 hours
awaiting dispo
cont abx
Assessment / Plan
Assessment / Plan
Physical Exam
General: Well Developed, Well Nourished, No Apparent Distress, Comfortable and Conversant
HEENT: NormoCephalic, Moist mucous membranes, Atraumatic, [place] Conjunctivae, Nose Appears Normal and Ears Appear Normal
Respiratory: Clear, Non Labored Respirations and Decreased Breath Sounds
Cardiac: S1/S2 and Regular Rhythm; No Murmur, Rub or Gallop
Breast: Deferred by me
GI: Soft, Non Tender, Non Distended and Normal Bowel Sounds; No Organomegaly
Rectal: Deferred by Provider
Genito-urinary: Deferred by me
Musculoskeletal: No Clubbing, No Cyanosis, No Edema and Other (soreness to neck s/p fall, soreness to left lower extremity)
Skin: Warm and IV/Catheter Site; No Rash
Neuro: Awake, Alert, AO x 3 and Nonfocal/grossly intact
Psych: Calm and Depressed
#UTI, Streptococcus
#Covid
Influenza: negative
CXR: pending report
- Admit to med/surg for observation
- candi IVF
- cephalexin�complete 5-day course
- supportive care
#Febrile episode
� 100.9 Fahrenheit overnight, continue to monitor
� Defervesced on her own
#failure to thrive
#fall
Patient requests hospice consult
C-Spine CT: No evidence of acute injury of the cervical spine.
Multilevel degenerative disc disease as described above.
Mild reversal of the normal cervical spinal lordosis. This can be seen with muscular spasm. Stable
- PT/OT consult
- Case management consult
- hospice consult
#hypertension
- monitor VS
#hyperlipidemia
- continue simvastatin
#hypothyroidism
- continue levothyroxine
#depression
patient expresses dislike if unable to live independently
- continue sertraline
- consult hospice and case management
#GERD
#COPD
#hx DVT/PE
- continue eliquis
Anticipated Discharge: Within 24 hours
Subjective/Interval History
-
Date of Service: June 25, 2024
Spiked temperature overnight 100.9, defervesced on her own
Objective Data
-
Vital Signs:
Vital Signs
Temp Pulse Resp BP Pulse Ox
98.7 F 98 16 128/79 96
06/25/24 07:05 06/25/24 07:05 06/25/24 07:05 06/25/24 07:05 06/25/24 07:05
I&O
06/24/24 06/25/24 06/26/24
06:59 06:59 06:59
Intake Total 360 / 360 720 / 720
Balance 360 / 360 720 / 720
Review of Systems
-
History Source: Patient
All other systems: Not reviewed unless documented
Physical Exam
-
General: No Apparent Distress
HEENT: Normocephalic and Atraumatic
Cardiac: Negative S1/S2 or Irregular Rhythm
GI: Soft
Genito-urinary: No Costovertebral Tender
Neuro: AO x 3
Hematologic / Lymphatic: No Lymphadenopathy
Psych: Calm
Data Reviewed
-
Total Time Spent with Patient (in minutes): 45
Diagnostic Radiology: Report Reviewed by me
CT Scan: Report Reviewed by me
Labs: Labs Reviewed by me
[2024-06-25 15:25] VITALS: BP 114/59
[2024-06-25] MEDS: SENOKOT PO (21:34)
[2024-06-25 22:58] VITALS: BP 114/58
[2024-06-26 05:03] VITALS: BMI 23.4
[2024-06-26] MEDS: SYNTHROID 150 MCG PO (05:48)
[2024-06-26 07:00] VITALS: BP 124/83
[2024-06-26 07:49] LABS: Blood Urea Nitrogen 11 mg/dl (7-17); Calcium 7.9 mg/dl (8.4-10.2); Carbon Dioxide 25 mmol/L (22-30); Chloride 102 mmol/L (98-107); Estimated Creatinine Clearance 51 ml/min; Glucose 83 mg/dl (70-99); Potassium 3.9 mmol/L (3.5-5.1); Sodium 136 mmol/L (135-145); eGFR > 60.00
[2024-06-26 07:50] LABS: Hematocrit 35.8 % (37.0-47.0); Hemoglobin 11.5 g/dL (12.0-16.0); Mean Corp Hgb Conc. 32.1 g/dL (33.0-37.0); Mean Corpuscular Hgb 31.8 pg (27.0-31.0); Mean Corpuscular Volume 98.9 fL (81.0-99.0); Mean Platelet Volume 10.2 fL (7.4-10.4); Platelet Count 298 10^3/uL (130-400); Red Blood Cell Count 3.62 10^6/uL (4.20-5.40); Red Cell Dist. Width 13.5 % (11.5-14.5); White Blood Cell Count 6.8 10^3/uL (4.8-10.8)
[2024-06-26] MEDS: ZOLOFT 75 MG PO (08:40)
[2024-06-26] MEDS: ASPIR LOW (ENTERIC COATED) 81 MG PO (08:40)
[2024-06-26] MEDS: MUCINEX 600 MG PO ×2 (08:40→20:19)
[2024-06-26] MEDS: SENOKOT PO ×3 (08:40→20:19)
[2024-06-26] MEDS: KEFLEX 500 MG PO ×2 (08:40→20:19)
[2024-06-26] MEDS: ELIQUIS 5 MG PO ×2 (08:41→20:19)
--- NOTE | 2024-06-26 12:32 | W.PN.HOSP.TC ---
Today's Communication/Plan
-
Keflex day 4/5
Continue supportive care
PT/OT
Assessment / Plan
Assessment / Plan
#UTI, Streptococcus
-Urinary culture growing Streptococcus species, unspecified, no sensitivities
-Was initially on ciprofloxacin, transition to Keflex for planned 5-day course
-Remains on supportive IV fluids; no fevers or leukocytosis today
-Continue to monitor clinically, trend CBC and temperature
-Last day of Keflex planned 06/27
#Covid
-Chest x-ray without any acute consolidation or opacifications
-Influenza testing and other viral respiratory testing negative
-Unclear when symptoms began, not started on Paxlovid at admission
-At this point likely no benefit to Paxlovid
-Not requiring O2, no indication for steroid
-Continue with supportive care
#Febrile episode
� 100.9 Fahrenheit overnight, continue to monitor
� Defervesced on her own
#failure to thrive
#fall
-Patient requested hospice consult upon admission, does not seem like she was seen by hospice
-CT C-spine without contrast did not show any acute traumatic injuries
-Case management and PT/OT are following
-Encourage p.o. intake, calorie counts, Ensure with meals
#Hypertension
-No known history of hypertensive systemic disease
-Home medications do not include any first-line antihypertensive
-Monitor VS, BP has been well-controlled
#Hyperlipidemia
-No known history of ASCVD
-Home medications include simvastatin
#Hypothyroidism
-Unclear etiology, home medications include levothyroxine 150 mcg
-Appears euthyroid at this time, no signs or symptoms of dysfunction
#Depression
-continue sertraline
-consult hospice and case management
#GERD
-Home medications do not include any PPI or antihistamines
-No known history of BE or erosive disease
#COPD
-Home medications do not include any standing inhalers
-No home O2 requirements, no signs of exacerbation
#H/O DVT/PE
-Unclear nature of her DVT/PE, remains on home Eliquis
DVT prophylaxis: Home Eliquis
Diet: 2 g sodium restricted
CODE STATUS: DNR
Anticipated Discharge: Within 24 hours
Subjective/Interval History
-
Date of Service: June 26, 2024
Seen and examined at the bedside. No acute events reported overnight. AFVSS this morning
Patient states she feels unwell. Not requiring any oxygen. Labs stable.
Denies any new complaints today
Objective Data
-
Labs:
Laboratory Results
06/26/24
06:34
WBC 6.8
Hgb 11.5 L
Hct 35.8 L
Plt Count 298 D
Sodium 136
Potassium 3.9
Chloride 102
Carbon Dioxide 25
BUN 11
Creatinine 0.7
Glucose 83
Calcium 7.9 L
Vital Signs:
Vital Signs
Temp Pulse Resp BP Pulse Ox
99.3 F 103 20 124/83 92
06/26/24 07:00 06/26/24 07:00 06/26/24 07:00 06/26/24 07:00 06/26/24 08:40
I&O
06/25/24 06/26/24 06/27/24
06:59 06:59 06:59
Intake Total 720 / 720 480 / 480
Balance 720 / 720 480 / 480
Review of Systems
-
History Source: Patient
All other systems: Reviewed and negative
Physical Exam
-
General: Well Developed, No Apparent Distress, Comfortable, Appears Chronically Ill and Other (Frail-appearing)
HEENT: Normocephalic, Atraumatic and Moist Mucous Membranes
Respiratory: Clear to Auscultation and Non Labored Respirations
Cardiac: Regular Rhythm and S1/S2; Negative Murmur, Rub or Gallop
GI: Soft, Nontender, Nondistended and Normal Bowel Sounds
Musculoskeletal: No Clubbing, No Cyanosis and No Edema
Skin: Warm, Dry and Normal Turgor; Negative Rash
Neuro: AO x 3 and Nonfocal/Grossly Intact; Negative Tremors
Psych: Calm
Data Reviewed
-
Labs: Labs Reviewed by me and Discussed with Patient
[2024-06-26 15:01] VITALS: BP 133/73
--- NOTE | 2024-06-26 15:39 | PTCARENOTE ---
pt worked with therapy. OOB to chair. eating a late lunch. continues to be flat/withdrawn. dtr called for update. No change in assessment.
--- NOTE | 2024-06-26 15:51 | CM ---
Patient chart reviewed.
PT rec SNF-Referrals entered
Called yolie Mensah & updated. Prefer [facility] will call CM regarding bed avail jrery & called Ebonie at [facility] &
PLAN: SNF, pending bed availability
[2024-06-26] MEDS: TYLENOL 650 MG PO (22:44)
[2024-06-26 23:27] VITALS: BP 135/75
[2024-06-27] MEDS: SYNTHROID 150 MCG PO (05:28)
[2024-06-27 07:22] VITALS: BP 136/85
[2024-06-27] MEDS: ASPIR LOW (ENTERIC COATED) 81 MG PO (08:58)
[2024-06-27] MEDS: ZOLOFT 75 MG PO (08:58)
[2024-06-27] MEDS: KEFLEX 500 MG PO ×2 (08:58→20:11)
[2024-06-27] MEDS: MUCINEX 600 MG PO ×2 (08:58→20:11)
[2024-06-27] MEDS: SENOKOT 8.6 MG PO ×2 (08:58→20:11)
[2024-06-27] MEDS: ELIQUIS 5 MG PO ×2 (08:59→20:12)
--- NOTE | 2024-06-27 10:55 | CM ---
Addendum entered by Renetta Weber 06/27/24 16:10:
spoke with son Kristian who stated he & his sister Makenna prefer [facility]
Called [facility] for bed availability
Addendum entered by Renetta Weber 06/27/24 11:47:
No bed available at [facility]
Called daughter Makenna and updated-she will get back to
Original Note:
Patient seen at bedside.
IMM explained & signed. In chart
[facility] at [facility] cannot accept at this time d/t Covid
Called Anastasiya at [facility] she is checking for bed availability
PLAN: SNF, pending bed availability
--- NOTE | 2024-06-27 12:08 | W.PN.HOSP.TC ---
Today's Communication/Plan
-
Last day of Keflex
Supportive management
Monitor temperature curve
Discharge to SNF when bed available
Assessment / Plan
Assessment / Plan
#UTI, Streptococcus
-Urinary culture growing Streptococcus species, unspecified, no sensitivities
-Was initially on ciprofloxacin, transition to Keflex for planned 5-day course
-Remains on supportive IV fluids; no fevers or leukocytosis today
-Continue to monitor clinically, trend CBC and temperature
-Last day of Keflex planned 06/27
#Covid
-Chest x-ray without any acute consolidation or opacifications
-Influenza testing and other viral respiratory testing negative
-Unclear when symptoms began, not started on Paxlovid at admission
-At this point likely no benefit to Paxlovid
-Not requiring O2, no indication for steroid
-Continue with supportive care
#Febrile episode
-Likely secondary to COVID and UTI
-100.9 Fahrenheit overnight, continue to monitor
-Defervesced on her own, no fever since
#failure to thrive
#fall
-Patient requested hospice consult upon admission, does not seem like she was seen by hospice
-CT C-spine without contrast did not show any acute traumatic injuries
-Case management and PT/OT are following
-Encourage p.o. intake, calorie counts, Ensure with meals
#Hypertension
-No known history of hypertensive systemic disease
-Home medications do not include any first-line antihypertensive
-Monitor VS, BP has been well-controlled
#Hyperlipidemia
-No known history of ASCVD
-Home medications include simvastatin
#Hypothyroidism
-Unclear etiology, home medications include levothyroxine 150 mcg
-Appears euthyroid at this time, no signs or symptoms of dysfunction
#Depression
-continue sertraline
-consult hospice and case management
#GERD
-Home medications do not include any PPI or antihistamines
-No known history of BE or erosive disease
#COPD
-Home medications do not include any standing inhalers
-No home O2 requirements, no signs of exacerbation
#H/O DVT/PE
-Unclear nature of her DVT/PE, remains on home Eliquis
DVT prophylaxis: Home Eliquis
Diet: 2 g sodium restricted
CODE STATUS: DNR
Medically stable for discharge to SNF when insurance authorization obtained and bed available
Anticipated Discharge: Within 24 hours
Subjective/Interval History
-
Date of Service: June 27, 2024
Seen and examined at the bedside. No acute events overnight. AFVSS this morning
States she feels slightly better than yesterday, though still weak
Denies any new complaints.
Objective Data
-
Vital Signs:
Vital Signs
Temp Pulse Resp BP Pulse Ox
98.5 F 98 18 136/85 96
06/27/24 07:22 06/27/24 07:22 06/27/24 07:22 06/27/24 07:22 06/27/24 07:22
I&O
06/26/24 06/27/24 06/28/24
06:59 06:59 06:59
Intake Total 480 / 480 240 / 240
Output Total 100 / 100
Balance 480 / 480 140 / 140
Review of Systems
-
History Source: Patient
All other systems: Reviewed and negative
Physical Exam
-
General: Well Developed, No Apparent Distress, Appears Chronically Ill and Other (Frail-appearing)
HEENT: Normocephalic, Atraumatic, Moist Mucous Membranes and Anicteric
Respiratory: Clear to Auscultation and Non Labored Respirations
Cardiac: Regular Rhythm and S1/S2; Negative Murmur, Rub or Gallop
GI: Soft, Nontender, Nondistended and Normal Bowel Sounds
Musculoskeletal: No Clubbing, No Cyanosis and No Edema
Skin: Warm and Dry; Negative Rash
Neuro: AO x 3 and Nonfocal/Grossly Intact
Psych: Calm
Data Reviewed
-
Labs: Labs Reviewed by me and Discussed with Patient
[2024-06-27 14:34] VITALS: BP 114/79; BP 99/61; PULSE 107; O2SAT 95
[2024-06-27 15:47] VITALS: BP 133/71
[2024-06-27 23:47] VITALS: BP 135/70
--- NOTE | 2024-06-28 02:32 | DOWNTIME ---
There was a [employer] Worker Downtime on 06/28/2024 from 0100 to 06/28/2023 at 0205 . Downtime documentation of patient's care, including medication administrations, has been reconciled in the electronic record per guidelines. Refer to the
patient's paper chart under the miscellaneous tab to see printed paper medication records and downtime forms.
[2024-06-28] MEDS: SYNTHROID 150 MCG PO (06:04)
[2024-06-28 07:15] VITALS: BP 140/76
[2024-06-28] MEDS: ELIQUIS 5 MG PO (09:25)
[2024-06-28] MEDS: SENOKOT 8.6 MG PO (09:25)
[2024-06-28] MEDS: ZOLOFT 75 MG PO (09:26)
[2024-06-28] MEDS: MUCINEX 600 MG PO (09:26)
[2024-06-28] MEDS: ASPIR LOW (ENTERIC COATED) 81 MG PO (09:26)
--- NOTE | 2024-06-28 09:48 | W.PN.HOSP.TC ---
Today's Communication/Plan
-
Discharge to SNF
Assessment / Plan
Assessment / Plan
#UTI, Streptococcus
-Urinary culture growing Streptococcus species, unspecified, no sensitivities
-Was initially on ciprofloxacin, transition to Keflex for planned 5-day course
-Remains on supportive IV fluids; no fevers or leukocytosis today
-Continue to monitor clinically, trend CBC and temperature
-S/p 5-day course of Keflex
#Covid
-Chest x-ray without any acute consolidation or opacifications
-Influenza testing and other viral respiratory testing negative
-Unclear when symptoms began, not started on Paxlovid at admission
-At this point likely no benefit to Paxlovid
-Not requiring O2, no indication for steroid
-Continue with supportive care
#Febrile episode
-Likely secondary to COVID and UTI
-100.9 Fahrenheit overnight, continue to monitor
-Defervesced on her own, no fever since
#failure to thrive
#fall
-Patient requested hospice consult upon admission, does not seem like she was seen by hospice
-CT C-spine without contrast did not show any acute traumatic injuries
-Case management and PT/OT are following
-Encourage p.o. intake, calorie counts, Ensure with meals
#Hypertension
-No known history of hypertensive systemic disease
-Home medications do not include any first-line antihypertensive
-Monitor VS, BP has been well-controlled
#Hyperlipidemia
-No known history of ASCVD
-Home medications include simvastatin
#Hypothyroidism
-Unclear etiology, home medications include levothyroxine 150 mcg
-Appears euthyroid at this time, no signs or symptoms of dysfunction
#Depression
-continue sertraline
-consult hospice and case management
#GERD
-Home medications do not include any PPI or antihistamines
-No known history of BE or erosive disease
#COPD
-Home medications do not include any standing inhalers
-No home O2 requirements, no signs of exacerbation
#H/O DVT/PE
-Unclear nature of her DVT/PE, remains on home Eliquis
DVT prophylaxis: Home Eliquis
Diet: 2 g sodium restricted
CODE STATUS: DNR
Medically stable for discharge to SNF when insurance authorization obtained and bed available
Anticipated Discharge: Today
Subjective/Interval History
-
Date of Service: June 28, 2024
Seen and examined at the bedside. No acute events overnight. AFVSS this morning
Patient appears more alert and vibrant. States she feels well, denies dyspnea or fevers and chills. Denies urinary issues
No new complaints
Objective Data
-
Vital Signs:
Vital Signs
Temp Pulse Resp BP Pulse Ox
98.6 F 102 17 140/76 96
06/28/24 07:15 06/28/24 07:15 06/28/24 07:15 06/28/24 07:15 06/28/24 07:15
I&O
06/27/24 06/28/24 06/29/24
06:59 06:59 06:59
Intake Total 240 / 240 840 / 840
Output Total 100 / 100
Balance 140 / 140 840 / 840
Review of Systems
-
History Source: Patient
All other systems: Reviewed and negative
Physical Exam
-
General: Well Developed, Well Nourished, No Apparent Distress, Comfortable and Other (Frail-appearing)
HEENT: Normocephalic, Atraumatic and Moist Mucous Membranes; Negative Good Dentition
Respiratory: Clear to Auscultation and Non Labored Respirations
Cardiac: Regular Rhythm and S1/S2; Negative Murmur, Rub or Gallop
GI: Soft, Nontender, Nondistended and Normal Bowel Sounds
Musculoskeletal: No Clubbing, No Cyanosis and No Edema
Skin: Warm and Dry; Negative Rash
Neuro: AO x 3 and Nonfocal/Grossly Intact
Psych: Calm
--- NOTE | 2024-06-28 10:19 | CM ---
Addendum entered by Renetta Weber 06/28/24 11:02:
Bed available at [facility] today
Discussed with patient
Called daughter Makenna and discussed
PLAN: [facility]
Report #: [phone]
Fax #: [phone]
Original Note:
Called Domitila liaison at [facility]
Will be getting back to CM on bed availability
--- NOTE | 2024-06-28 13:35 | W.DCSUMMARY ---
Discharge Summary
Discharge Data
Date of Admission: 06/22/24
Date of Discharge: 06/28/24
-
Pending Results: No
Hospital Course
89-year-old female with COPD, HTN, HLD, GERD, hypothyroidism, CAD s/p PCI, H/O DVT/PE on Eliquis that presented to the hospital with weakness. Found to have urinary tract infection and COVID. Did not require supplemental oxygen, was outside of the
window for Paxlovid. Received 5 days of antibiotics that included Keflex for her UTI. COVID symptoms were managed supportively, did not require steroid or other intervention while in the hospital. Mentions of failure to thrive in the outpatient
setting, was provided with oral nutrition and Ensure shakes, monitored with calorie counts in the hospital. PT recommending SNF at discharge. Stable for discharge to SNF on 06/28/2024
Discharge Plan
-
Patient Disposition: Longterm/SNF
Discharge Diagnosis/Procedures: Urinary tract infection
COVID
Weakness
Condition: Fair
Diet: No restrictions
Activity: As tolerated
Driving Restrictions: Not until seen by your Dr
Bathing Restrictions: None
Blood Work: BMP and CBC 1 week after hospital discharge
Others Tests: N/A
Other Services: PT and OT
Activity Restrictions/Additional Instructions:
Schedule follow-up appointment with family physician within 1 to 2 weeks of discharge from rehab
Instructions: Urinary tract infections in adults, COVID-19 - ED discharge instructions
Referrals:
PRIVATE,PHYSICIAN [Family Provider] -
Additional Discharge Medication Instructions: No more antibiotics needed, completed course 06/27/24
Prescriptions:
New
guaifenesin 600 mg Tablet Extended Release 12hr
600 mg PO Q12 7 Days Qty: 14 0RF
Continued
aspirin 81 MG tablet,delayed release (DR/EC)
81 mg PO DAILY Qty: 0 0RF
sertraline 50 MG tablet
75 mg PO DAILY
simvastatin 40 MG tablet
40 mg PO QPM
alendronate 70 MG tablet
70 mg PO PERSON
Eliquis 5 mg Tablet
5 mg PO BID
ondansetron HCl 4 mg tablet
4 mg PO Q8HPRN PRN (Reason: nausea)
levothyroxine 150 mcg tablet
150 mcg PO DAILY
Discontinued
meclizine 12.5 mg tablet
12.5 mg PO Q8HPRN PRN (Reason: vertigo)
Discharge Orders:
Discharge Patient (As Directed); Ordered 06/28/24
Ordered By: Jeremy Davis
Discharge Date and Time
Print Language: MALIAN
[2024-06-28 13:51] VITALS: BP 134/79
--- NOTE | 2024-06-28 14:13 | PTCARENOTE ---
This RN attempted to call report to Darleen Torres at #[phone]. Darleen Torres took call back number for the unit. This RN then attempted to call back x2 with no answer. Awaiting call back from SNF to give report on pt. 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
[phone].
== END 2024-06-28 15:04 | DRG 689 ==
LOC: 2 NORTH 09:17
PROVIDERS: Internal Medicine; Nurse Practitioner Family; ADMITTING PHYSICIAN Hospitalist; ATTENDING PHYSICIAN Internal Medicine; EMERGENCY PHYSICIAN Emergency Medicine
DX: N39.0 Urinary tract infection, site not specified (principal); U07.1 COVID-19; Z79.82 Long term (current) use of aspirin; Z79.83 Long term (current) use of bisphosphonates; Z79.01 Long term (current) use of anticoagulants; Z79.890 Hormone replacement therapy; R62.7 Adult failure to thrive; J44.9 Chronic obstructive pulmonary disease, unspecified; I10 Essential (primary) hypertension; E78.00 Pure hypercholesterolemia, unspecified; E03.9 Hypothyroidism, unspecified; K21.9 Gastro-esophageal reflux disease without esophagitis; F32.A Depression, unspecified; Z86.718 Personal history of other venous thrombosis and embolism; Z86.711 Personal history of pulmonary embolism; Z91.128 Patient's intentional underdosing of medication regimen for other reason; F41.9 Anxiety disorder, unspecified; I25.2 Old myocardial infarction; Z96.612 Presence of left artificial shoulder joint; Z95.5 Presence of coronary angioplasty implant and graft; Z87.891 Personal history of nicotine dependence; Z88.1 Allergy status to other antibiotic agents; Z88.0 Allergy status to penicillin; Z88.5 Allergy status to narcotic agent; Z88.8 Allergy status to other drugs, medicaments and biological substances; Z66 Do not resuscitate; B95.5 Unspecified streptococcus as the cause of diseases classified elsewhere; W18.30XA Fall on same level, unspecified, initial encounter; K57.90 Diverticulosis of intestine, part unspecified, without perforation or abscess without bleeding
CPT/HCPCS: 51701; 71046; 72125; 80048; 80053; 81003; 81015; 82550; 85025; 85027; 87040; 87077; 87086; 87502; 87811; 93005; 93970; 97162; 97166; 97530; 99285

== ENCOUNTER 2024-08-05 23:48 | Inpatient (IN) | payer MEDICARE, BC, SELFPAY ==
[2024-08-05 20:43] VITALS: BP 98/65
[2024-08-05 20:49] VITALS: BP 135/68
[2024-08-05 21:00] VITALS: BP 122/64
[2024-08-05 21:11] LABS: % Basophils 0.2 % (0-2); % Eosinophils 0.4 % (0-6); % Immature Granulocytes 0.2 % (0-0.5); % Lymphocytes 21.4 % (20.5-51.1); % Monocytes 7.1 % (1.7-9.3); % Neutrophils 70.7 % (42.2-75.2); Absolute Lymphocytes 1.1 10^3/uL (1.2-3.4); Absolute Monocytes 0.4 10^3/uL (0.1-0.6); Absolute Neutrophils 3.6 10^3/uL (1.4-6.5); Hematocrit 33.9 % (37.0-47.0); Hemoglobin 10.9 g/dL (12.0-16.0); Mean Corp Hgb Conc. 32.2 g/dL (33.0-37.0); Mean Corpuscular Hgb 31.2 pg (27.0-31.0); Mean Corpuscular Volume 97.1 fL (81.0-99.0); Mean Platelet Volume 10.6 fL (7.4-10.4); Nucleated Red Blood Cells % 0 %; Platelet Count 169 10^3/uL (130-400); Red Blood Cell Count 3.49 10^6/uL (4.20-5.40); Red Cell Dist. Width 13.3 % (11.5-14.5)
[2024-08-05] MEDS: NSS 1000 IV (21:13)
[2024-08-05 21:25] LABS: COVID-19 Antigen Negative (Negative)
[2024-08-05 21:27] LABS: ALT (SGPT) < 10 U/L (0-35); AST (SGOT) 22 U/L (14-36); Albumin 3.3 g/dl (3.5-5.0); Alkaline Phosphatase 69 U/L (38-126); Blood Urea Nitrogen 15 mg/dl (7-17); Calcium 8.3 mg/dl (8.4-10.2); Carbon Dioxide 25 mmol/L (22-30); Chloride 99 mmol/L (98-107); Glucose 93 mg/dl (70-99); Potassium 4.6 mmol/L (3.5-5.1); Sodium 132 mmol/L (135-145); Total Bilirubin 0.5 mg/dl (0.2-1.3); Total Protein 6.6 g/dl (6.3-8.2); eGFR > 60.00
[2024-08-05 22:01] VITALS: BP 130/63
--- NOTE | 2024-08-05 22:02 | ED.GENMED ---
History of Present Illness
General
Chief Complaint: Breathing Problem
Time Seen by Provider: 08/05/24 21:03
History of Present Illness
History of Present Illness:
89-year-old female with history of hyperlipidemia, CAD, hypertension, history of PE on Eliquis presenting to the emergency department for shortness of breath and cough. Patient reports symptoms for the past several weeks. Does note that she had
COVID a few weeks ago, however never felt better. Denies any known fevers. Denies chest pain. Cough has been productive. Denies abdominal pain or GI symptoms. Denies any known sick contacts. Denies additional acute medical complaints. She is
not on oxygen at home
Past History
Past History
ED Past Medical History: COPD, GERD, Hypercholesterolemia, [place], Hypothyroidism, Psychiatric and Other (PE/DVT, Diverticulitis)
ED Past Surgical History: Cardiac (Stents) and Orthopedic
Patient has exhibited threatening behavior?: No
Social History
Tobacco: Former smoker
Alcohol: Daily ( Wine 2 glasses)
Drug: None
Personal:
Living: alone
Employment: Retired
Family History
Family History: Hypertension and Other (Other was prostate cancer)
Phy Exam
Physical Exam
Physical Exam:
General: Well-appearing, no clinical signs of dehydration, nontoxic and in no acute distress
HEENT: protecting airway
Neck: appears supple
CV: Normal heart rate, regular rhythm
Resp: No accessory muscle use, no increased work of breathing, rhonchorous breath sounds bilaterally
Abd: Soft and non-distended, no tenderness to palpation
Extremities: No deformities, no swelling
Neuro: alert, no focal neurologic deficit
: deferred
Rectal: deferred
Psych: Normal affect
Skin: Intact
Scores
Heart Failure Risk
Heart Failure Risk Score: Not Applicable
Course
Orders/Labs/Results
Orders:
Orders
08/05/24 20:44
Electrocardiogram (*1) Urgent
Reason for Study: Shortness of Breath
EKG- Treatment ONCE
08/05/24 21:01
CXR2 [CR Chest - 2 Views ] Urgent
Comment:
Reason For Exam: shortness of breath, hypoxia
08/05/24 21:02
COVID-19 Antigen Urgent
Source: Nasal Swab
Complete Blood Count/With Diff Urgent
Comprehensive Metabolic Panel Urgent
Influenza A+B Rapid Molecular Urgent
VAISHALI Source: Nasal Swab
Specimen Description:
08/05/24 21:13
0.9% Sodium Chloride 1000 ml [Nss] 1,000 ml IV BOLUS
08/05/24 23:00
Flush (0.9% Sodium Chloride) [Flush (Nss)] See Dose Instructions IV PER PROTOCOL
08/05/24 23:31
Admit/Transfer Patient As Directed
Co-Sign Provider:
Level of Care: Inpatient admission
Assign to:: Medical/Surgical
Physician / Group: hospitalist
Diagnosis: influenza a
Reason for Hospitalization: hypoxia
Expected length of stay greater than two midnights?: Yes
ELOS- Estimated Length of Stay in days: 2
I certify the patient meets the requirements for IP care: Yes
PRN Pain Medication Management As Directed
May give lesser potent ordered pain med per pt: Yes
preference::
Protocol:: Medication orders for pain may be administered in a
manner that supports deferring to patient preference
when the pt is:
- Requesting an ordered lesser potent pain medication.
Least to most potent pain medications are defined
as: acetaminophen < NSAID < tramadol < opioids
(morphine, oxycodone, hydromorphone).
- Requesting a lesser dose of the same medication IF
ORDERED.
- Requesting a less intrusive route of administration
if both routes are prescribed by the provider (PO <
IV).
08/05/24 23:32
Code Status As Directed
Resuscitation Status: Do not resuscitate
Reached after discussion with pt or family/Healthcare POA: Yes
DNR Bracelet Application ONCE
08/05/24 23:35
Ipratropium/Albuterol Sulfate [Duoneb] 3 ml INH R NOW ONE
Prednisone [Deltasone] 40 mg PO NOW STA
08/06/24 00:54
0.9% Sodium Chloride 1000 ml [Nss] 1,000 ml IV 75 mls/hr
Acetaminophen [Tylenol] 650 mg PO Q4HPRN PRN
Guaifenesin/Dextromethorphan [Robitussin Dm] 5 ml PO Q4HPRN PRN
Ipratropium/Albuterol Sulfate [Duoneb] 3 ml INH R Q4HPRN PRN
Ondansetron Injectable [Zofran] 4 mg IV Q6HPRN PRN
08/06/24 00:54
VTE Contraindication Routine
VTE Mechanical Device Contraindication: Medical Contraindication
Pharmocologic Contraindication: Medical Contraindication
Activity As Directed
Activity Level: With Assistance
Vital Signs As Directed
Frequency: Per unit guidelines
Incentive Spirometry [Rx Incentive Spirometry] [RESP] Routine
Frequency: q1h while awake
O2 Therapy [RESP] Routine
Nasal Cannula Liter Flow: 2 LPM
Titrate/Wean O2 to maintain O2 sat greater than (%): 93
Contact provider if nasal cannula O2 requirement > 6 liters: Yes
Pt Eval And Treat Routine
Activity Level: With Assistance
08/06/24 06:00
Basic Metabolic Panel IN AM
Complete Blood Count/No Diff IN AM
Procalcitonin IN AM
PCT Algorithmm Indication: Respiratory
Levothyroxine [Synthroid] 150 mcg PO DAILY @ 0600
08/06/24 08:00
Apixaban [Eliquis] 5 mg PO BID
Aspirin Low Dose EC [Aspir Low (Enteric Coated)] 81 mg PO DAILY
Ipratropium/Albuterol Sulfate [Duoneb] 3 ml INH R QID
Prednisone [Deltasone] 40 mg PO DAILY
Sertraline HCl [Zoloft] 75 mg PO DAILY
08/06/24 Dinner
Regular
At Your Request: Full Participation
08/06/24 18:00
Atorvastatin [Lipitor] 20 mg PO QPM
Abnormal Lab Results
08/05/24
21:02
RBC 3.49 L 10^6/uL
(4.20-5.40)
Hgb 10.9 L g/dL
(12.0-16.0)
Hct 33.9 L %
(37.0-47.0)
MCH 31.2 H pg
(27.0-31.0)
MCHC 32.2 L g/dL
(33.0-37.0)
MPV 10.6 H fL
(7.4-10.4)
Absolute Lymphs (auto) 1.1 L 10^3/uL
(1.2-3.4)
Sodium 132 L mmol/L
(135-145)
Calcium 8.3 L mg/dl
(8.4-10.2)
Albumin 3.3 L g/dl
(3.5-5.0)
08/05/24 21:02
08/05/24 21:02
Vital Signs
Initial and Last Documented VS:
Initial Vital Signs
Temp Pulse Resp BP Pulse Ox
99.1 F 118 16 98/65 94
08/05/24 20:43 08/05/24 20:43 08/05/24 20:43 08/05/24 20:43 08/05/24 20:43
Last Documented Vital Signs
Temp Pulse Resp BP Pulse Ox
98.4 F 112 17 125/73 92
08/06/24 01:13 08/06/24 01:13 08/06/24 01:13 08/06/24 01:13 08/06/24 01:30
MDM/Problems Addressed
MDM/Problems Addressed:
89-year-old female with history of hyperlipidemia, PE on Eliquis, hypertension presenting for cough and shortness of breath. Vital signs on arrival significant for hypoxia to 88%, low-grade fever and tachycardia.
On exam, patient is in no acute respiratory distress, stable on supplemental O2. Symptoms concerning for pneumonia versus viral syndrome such as influenza or COVID. Plan for chest x-ray, viral swabs, laboratory analysis.
22:00 - Patient is positive for flu, consistent with symptoms. Given oxygen status, will require admission
*Critical Care Note
Total Time (30-74mins, 75-104mins- exclusive of procedures): Not Applicable
ED Attending Note
-
Portions of this chart may have been created with voice recognition software.� Occasional wrong word or��sound alike� substitutions may have occurred due to the inherent limitations of voice recognition software.
Discharge Plan
Departure
Patient Disposition: Admit
Date of Disposition: 08/05/24
Time of Disposition: 23:03
Presentation/result/management discussed w/ accepting MD/DO: Hospitalist
Patient with high blood pressure during this ER visit?: No
Condition: Fair
Discharge Problem:
Influenza A, Hypoxia
Interventions
Interventions:
*Risk Screen - Suicide Last Done: 08/06/24 01:36
*General Assessment Last Done: 08/05/24 21:03
*Neglect/Abuse Screening Last Done: 08/05/24 20:44
ED- Fall Risk Assessment Last Done: 08/05/24 23:08
*ED COVID-19 Vaccine History Last Done: 08/06/24 01:36
*Nursing Disposition Last Done: 08/06/24 00:52
ED- Cardiac Assessment Last Done: 08/05/24 21:03
ED- Pulmonary Assessment Last Done: 08/05/24 21:03
Discharge Date and Time
Discharge Date/Time: 08/06/24 00:53
[2024-08-05 22:31] VITALS: BP 113/78
[2024-08-05 23:00] VITALS: BP 123/63
--- NOTE | 2024-08-05 23:18 | HPS.HSE ---
Family Physician
-
Family Physician: Avery Morales MD
Chief Complaint
-
Cough and weakness.
History of Present Illness
Patient is a 89-year-old female with past medical history significant for COPD not on home O2, CAD status post PCI, history of pulmonary embolism on anticoagulation with Eliquis, hypothyroidism and hypertension as well as hyperlipidemia who was
recently admitted to the hospital for COVID and urinary tract infection about a month ago status post antibiotics Keflex for UTI, symptomatic management for COVID and discharged who now returns to the hospital with worsening cough and shortness of
breath as well as decreased appetite and weakness.
Patient reports that after discharge for COVID she was sent to rehab because she was not strong enough to return to her independent living. She states that she still has not gained her strength back but was not having any trouble with coughing or
shortness of breath until about 1 week ago. She says she has a mostly nonproductive cough. She feels some chest congestion. She denies nasal congestion, rhinorrhea, sore throat. She denies having fevers or chills. She reports mild dyspnea on
exertion. She denies having any increased wheezing. She reports that she has had decreased p.o. intake. More short of breath the last few days. She reported having an episode of diarrhea 4 days ago but now resolved. She also reports episode of
nausea with nonbloody nonbilious emesis at that time now resolved. He has no known sick contacts. She denies generalized myalgias or bone pain.
On arrival here in the ED she was hypoxic to 88%, afebrile, blood pressure was 113/80 and she was tachycardic to 103 with respiratory rate mildly elevated at 25. ECG shows sinus tachycardia at a rate of 103. She had T wave inversions throughout
all the leads. Influenza test was positive. Chest x-ray shows no acute infiltrates. CBC was unremarkable. Electrolytes BUN/creatinine were in the normal range and unremarkable.
Medical History
Past Medical History
Past Medical History: Reports Other
Additional Past Medical History:
COPD
hypertension
hyperlipidemia
hypothyroidism
GERD
depression
hx DVT/PE
anxiety
Hx [place]
TIA
Past Surgical History: Reports Other
Additional Past Surgical History:
right lung biopsy
cardiac cath (2013)
left shoulder replacement (2013)
cardiac stent
left rotator cuff
Social History
Tobacco: Former Smoker
Alcohol: Occasional (winde daily up till a few weeks ago when she started feeling lousy)
Living: Alone
Employment: Retired
Family History
Family History: Not pertinent
Allergies / Home Medications
Allergies reflects when Allergies were last updated in [facility].
Home Medications with original date entered in [facility]
Allergy/Medication List:
Allergies
Allergy/AdvReac Type Severity Reaction Status Date / Time
atorvastatin calcium Allergy muscle Verified 06/21/24 11:32
[From Lipitor] aches
erythromycin base Allergy Upset Verified 06/21/24 11:32
[Erythromycin Base] Stomach
grass pollen Allergy COUGH/CONFE Verified 06/21/24 11:32
STION
insulin detemir Allergy Unknown Verified 06/21/24 11:32
moxifloxacin HCl Allergy Unknown Verified 06/21/24 11:32
[From Avelox]
oxycodone HCl [From Percocet] Allergy Shaky and Verified 06/21/24 11:32
weakness
penicillin V Allergy Rash Verified 06/21/24 11:32
Penicillins Allergy Rash Verified 06/21/24 11:32
rosuvastatin calcium Allergy muscle Verified 06/21/24 11:32
[From Crestor] aches
tree and shrub pollen Allergy COUGH/CONGE Verified 06/21/24 11:32
STION
Home Medications
aspirin 81 mg tablet,delayed release 81 mg PO DAILY ##0 07/18/13
sertraline 50 mg tablet 75 mg PO DAILY Mental Health/Anxiety 09/12/13
alendronate 70 mg tablet 70 mg PO PERSON OSTEOPOROSIS 11/05/16
simvastatin 40 mg tablet 40 mg PO QPM High cholesterol 11/05/16
apixaban 5 mg tablet (Eliquis) 5 mg PO BID Blood Clot Prevention/Tx 12/18/22
levothyroxine 150 mcg tablet 150 mcg PO DAILY 06/21/24
ondansetron HCl 4 mg tablet 4 mg PO Q8HPRN PRN nausea 06/21/24
guaifenesin 600 mg tablet, extended release 12 hr 600 mg PO Q12 1 week #14 tabs 06/27/24
Review of Systems
-
History Source: Patient
Constitutional: Reports Fatigue
EENT: Reports No Symptoms
Respiratory: Reports Cough and Trouble Breathing
Cardiac: Reports No Symptoms
Abdomen/GI: Reports Nausea and Diarrhea
: Reports No Symptoms
Musculoskeletal: Reports No Symptoms
Skin: Reports No Symptoms
Neurological: Reports No Symptoms
Endocrine: Reports No Symptoms
Hematologic/Lymphatic: Reports No Symptoms
Psych: Reports No Symptoms
Physical Exam
Vital Signs
Vital Signs
Temp Pulse Resp BP Pulse Ox
99.1 F 102 27 123/63 97
08/05/24 20:43 08/05/24 23:00 08/05/24 23:00 08/05/24 23:00 08/05/24 23:00
Physical Exam
General: Well Developed, Comfortable and Conversant; No Fever or Chills
HEENT: NormoCephalic, Anicteric, Moist mucous membranes, Atraumatic, PERRLA and Oxygen
Respiratory: Wheezes (faint wheezes and occasional rhonchi mostly in the upper lobes bilaterally)
Cardiac: S1/S2 and Regular Rhythm
Breast: Deferred by me
GI: Soft, Non Tender, Non Distended and Normal Bowel Sounds
Rectal: Deferred by Provider
Genito-urinary: Deferred by me
Musculoskeletal: No Clubbing, No Cyanosis and No Edema
Skin: Warm
Neuro: AO x 3 and Nonfocal/grossly intact
Hematologic/Lymphatic: No Lymphadenopathy
Psych: Calm
Laboratory Results
-
08/05/24 21:02
08/05/24 21:
Laboratory Results
Total Bilirubin 0.5 mg/dl (0.2-1.3) 08/05/24 21:
AST 22 U/L (14-36) 08/05/24 21:
ALT < 10 U/L (0-35) 08/05/24 21:
Alkaline Phosphatase 69 U/L (38-126) 08/05/24 21:
Data Reviewed
-
Diagnostic Radiology: Image Personally Visualized and interpreted
Medical Tests (Nuc Med, Echo, EKG etc): Image Personally Visualized and interpreted
Lab Data: Labs Reviewed by me
Old Records: Reviewed
Impression/Plan
-
IMPRESSION:
89 y.o female with multiple commorbidities including COPD not on home O2, HTN, HLD, CAD s/p stents, PE on eliquis presents with 1 week of cough and found to be hypoxic to 88% with + Influenza. No infiltrates on Xray. Exam with mild wheezes
throughout. Suspect mild COPD exacerbation from flu. Symptoms started about 7 days ago. Afebrile and HD stable.
PLAN:
Influenza A with mild hypoxia - Out of window for tamiflu. No infiltrates to suggest pneumonia. No fevers or chills. Mild COPD exacerbation.
- admit to med/surg
- check procal
- no indication for tamiflu or abx at this time
- short steroid taper and nebs
- incentive spirometry
- gently hydration
- PT eval
PE
- continue eliquis 5 bid
CAD
- continue aaspirin and statin
Code status - DNR
[2024-08-06] VITALS (7 sets, daily range): BP systolic 104–125; BP diastolic 55–77; PULSE 96; O2SAT 97; BMI 22.1
[2024-08-06] MEDS: DUONEB 3 ML INH ×3 (00:26→11:17)
[2024-08-06] MEDS: DELTASONE 40 MG PO ×2 (00:26→10:34)
[2024-08-06] MEDS: NSS 1000 IV ×2 (01:15→15:17)
[2024-08-06] MEDS: SYNTHROID 150 MCG PO (05:09)
[2024-08-06] MEDS: TYLENOL 650 MG PO (05:36)
[2024-08-06 05:37] LABS: Hematocrit 31.8 % (37.0-47.0); Hemoglobin 10.5 g/dL (12.0-16.0); Mean Corpuscular Hgb 31.5 pg (27.0-31.0); Mean Corpuscular Volume 95.5 fL (81.0-99.0); Platelet Count 155 10^3/uL (130-400); Red Blood Cell Count 3.33 10^6/uL (4.20-5.40); Red Cell Dist. Width 13.2 % (11.5-14.5); White Blood Cell Count 4.2 10^3/uL (4.8-10.8)
[2024-08-06 06:01] LABS: Procalcitonin < 0.05 ng/ml (0.0-0.25)
[2024-08-06 06:08] LABS: Blood Urea Nitrogen 13 mg/dl (7-17); Calcium 7.7 mg/dl (8.4-10.2); Carbon Dioxide 20 mmol/L (22-30); Chloride 104 mmol/L (98-107); Estimated Creatinine Clearance 51 ml/min; Glucose 162 mg/dl (70-99); Potassium 4.5 mmol/L (3.5-5.1); Sodium 134 mmol/L (135-145); eGFR > 60.00
--- NOTE | 2024-08-06 08:27 | W.PN.HOSP.TC ---
Today's Communication/Plan
-
see bold
Assessment / Plan
Assessment / Plan
HPI: 89 y.o female with multiple commorbidities including COPD not on home O2, HTN, HLD, CAD s/p stents, PE on eliquis presents with 1 week of cough and found to be hypoxic to 88% with + Influenza. No infiltrates on Xray. Exam with mild wheezes
throughout. Suspect mild COPD exacerbation from flu. Symptoms started about 7 days ago. Afebrile and HD stable.
Acute hypoxic respiratory insufficiency
Acute mild COPD exacerbation
Influenza A with mild hypoxia
- Out of window for tamiflu. No infiltrates to suggest pneumonia. No fevers or chills. Procalcitonin negative
- Continue burst dose prednisone day 2/5, bronchodilators changed to ipratropium/Cefanex due to complaints of shakiness
- Start doxycycline 100 mg twice daily for 5 days anti-inflammatory effects
- Currently requiring 2 L of oxygen, wean as tolerated
- PT/OT, patient from [facility] short-term rehab, she resides at [facility]
Acute toxic metabolic encephalopathy
- Patient not oriented to time or place
- Suspect secondary to influenza infection, check B12, TSH/free T4, monitor for now
PE
- Continue Eliquis 5 bid
CAD
- Continue aspirin and statin
Hyponatremia
-Mild, monitor
Hypothyroidism
� Continue levothyroxine
Anxiety/depression
� Continue SSRI
Hyperlipidemia
� Continue statin
DVT prophylaxis�Eliquis as above
Code status - DNR
Updated daughter on phone 08/06
Total time spent to see the patient on the floor, examine the patient, review data and lab results, discuss treatment plan with patient, nursing staff around 51 minutes.
Physical Exam
General: No acute distress
HEENT: Normocephalic, Atraumatic, EOMI, MMM
Respiratory: Coarse breath
Cardiac: Normal S1/S2, Regular Rate and Rhythm
GI: Soft, Nontender, Nondistended, Normal Bowel Sounds
Extremities: No Clubbing, Cyanosis, or Edema
Neuro: Pleasantly confused
Psych: Calm, Cooperative
Anticipated Discharge: 24 - 48 hours
Subjective/Interval History
-
Date of Service: August 06, 2024
Patient denies shortness of breath, denies coughing. No chest pain. No fever, no vomiting.
Objective Data
-
Labs:
Laboratory Results
08/05/24 08/06/24
21:02 05:13
WBC 5.0 4.2 L
Hgb 10.9 L 10.5 L
Hct 33.9 L 31.8 L
Plt Count 169 155
Sodium 132 L 134 L
Potassium 4.6 4.5
Chloride 99 104
Carbon Dioxide 25 20 L
BUN 15 13
Creatinine 0.7 0.7
Glucose 93 162 H
Calcium 8.3 L 7.7 L
Total Bilirubin 0.5
AST 22
ALT < 10
Alkaline Phosphatase 69
Vital Signs:
Vital Signs
Temp Pulse Resp BP Pulse Ox
98.4 F 110 15 104/61 94
08/06/24 07:15 08/06/24 07:37 08/06/24 07:37 08/06/24 07:15 08/06/24 07:37
I&O
08/05/24 08/06/24 08/07/24
06:59 06:59 06:59
Intake Total 465 / 465
Balance 465 / 465
[2024-08-06] MEDS: ELIQUIS 5 MG PO ×2 (10:32→20:56)
[2024-08-06] MEDS: ASPIR LOW (ENTERIC COATED) 81 MG PO (10:32)
[2024-08-06] MEDS: ZOLOFT 75 MG PO (10:34)
[2024-08-06] MEDS: VIBRAMYCIN 100 MG PO ×2 (12:54→20:56)
[2024-08-06] MEDS: XOPENEX 1.25 MG INHALANT SOLUTION INH ×2 (13:27→19:58)
[2024-08-06] MEDS: PULMICORT INH (13:27)
[2024-08-06] MEDS: ATROVENT NEBULES INH (13:27)
[2024-08-06] MEDS: LIPITOR 20 MG PO (16:46)
[2024-08-06] MEDS: PULMICORT 0.5 MG INH (19:58)
[2024-08-06] MEDS: ATROVENT NEBULES 0.5 MG INH (19:58)
[2024-08-07] MEDS: SYNTHROID 150 MCG PO (05:07)
[2024-08-07] MEDS: PULMICORT 0.5 MG INH (07:29)
[2024-08-07] MEDS: XOPENEX 1.25 MG INHALANT SOLUTION INH ×2 (07:29→13:27)
[2024-08-07] MEDS: ATROVENT NEBULES 0.5 MG INH ×2 (07:29→13:27)
[2024-08-07 07:35] LABS: Hematocrit 27.9 % (37.0-47.0); Hemoglobin 8.9 g/dL (12.0-16.0); Mean Corp Hgb Conc. 31.9 g/dL (33.0-37.0); Mean Corpuscular Hgb 30.9 pg (27.0-31.0); Mean Corpuscular Volume 96.9 fL (81.0-99.0); Mean Platelet Volume 11.3 fL (7.4-10.4); Platelet Count 152 10^3/uL (130-400); Red Blood Cell Count 2.88 10^6/uL (4.20-5.40); Red Cell Dist. Width 13.3 % (11.5-14.5); White Blood Cell Count 4.2 10^3/uL (4.8-10.8)
[2024-08-07 07:40] VITALS: BP 129/77
[2024-08-07 07:59] LABS: Blood Urea Nitrogen 14 mg/dl (7-17); Calcium 7.9 mg/dl (8.4-10.2); Carbon Dioxide 22 mmol/L (22-30); Chloride 106 mmol/L (98-107); Estimated Creatinine Clearance 59 ml/min; Glucose 119 mg/dl (70-99); Magnesium 1.9 mg/dl (1.6-2.3); Potassium 4.2 mmol/L (3.5-5.1); Sodium 137 mmol/L (135-145); eGFR > 60.00
[2024-08-07 08:30] LABS: TSH Reflex To Free T4 < 0.02 uIU/ml (0.47-4.68)
[2024-08-07] MEDS: ZOLOFT 75 MG PO (08:37)
[2024-08-07] MEDS: ASPIR LOW (ENTERIC COATED) 81 MG PO (08:37)
[2024-08-07] MEDS: DELTASONE 40 MG PO (08:37)
[2024-08-07] MEDS: ELIQUIS 5 MG PO (08:37)
[2024-08-07] MEDS: VIBRAMYCIN 100 MG PO (08:37)
[2024-08-07 08:49] LABS: Vitamin B12 222 pg/ml (239-931)
[2024-08-07] MEDS: NSS IV (08:54)
[2024-08-07 08:56] LABS: Free T4 2.67 ng/dl (0.78-2.19)
[2024-08-07 09:31] VITALS: BP 122/70; PULSE 107
--- NOTE | 2024-08-07 10:57 | CM ---
Addendum entered by Renetta Weber 08/07/24 12:47:
IMM explained & signed. in chart
Notified Domitila
Called daughter - discussed cost of wheelchair van transport-agreeable
PLAN: [facility]
Report #:[phone]
Fax #: [phone]
wheelchair van transport, time tbd
Original Note:
Met with patient at bedside
+influenza
IA completed
Came from [facility] rehab stay, referral entered in [facility] to return to [facility]
PT rec SNF
Lives at [facility] alone, no steps
PLOF: Ambulates with walker
DME: walker
[facility] in past, [facility] in past
PCP: Bree Leslie
Pharmacy: [address], [place]
PLAN: Return to [facility] when medically stable
[facility]
Report #:[phone]
Fax #: [phone]
--- NOTE | 2024-08-07 12:28 | W.DS.TRANS ---
DC Summary - [place] Worker
-
Discharge Instructions:
Discharge Diagnosis/Procedures Influenza bronchitis
Diet Regular
Instructions:
Stand-Alone Forms:
Changes to Home Medications: Yes
Discharge Medications:
DC Medications w/original date entered in [facility]
aspirin 81 mg tablet,delayed release 81 mg PO DAILY ##0 07/18/13
sertraline 50 mg tablet 75 mg PO DAILY Mental Health/Anxiety 09/12/13
alendronate 70 mg tablet 70 mg PO PERSON OSTEOPOROSIS 11/05/16
simvastatin 40 mg tablet 40 mg PO QPM High cholesterol 11/05/16
apixaban 5 mg tablet (Eliquis) 5 mg PO BID Blood Clot Prevention/Tx 12/18/22
levothyroxine 150 mcg tablet 150 mcg PO DAILY 06/21/24
ondansetron HCl 4 mg tablet 4 mg PO Q8HPRN PRN nausea 06/21/24
guaifenesin 600 mg tablet, extended release 12 hr 600 mg PO Q12 1 week #14 tabs 06/27/24
budesonide 0.5 mg/2 mL suspension for nebulization 0.5 mg (2 mL) inhalation R BID #60 mL 08/07/24
doxycycline hyclate 100 mg capsule 100 mg PO Q12 #6 caps 08/07/24
Home Medication Changes
Antibiotics and ICS-LABA
Pending Results: No
[2024-08-07 15:13] VITALS: BP 120/89
== END 2024-08-07 15:16 | DRG 193 ==
LOC: 2 NORTH 23:48
PROVIDERS: Family Medicine; ADMITTING PHYSICIAN Internal Medicine; ATTENDING PHYSICIAN Internal Medicine; EMERGENCY PHYSICIAN Student in an Organized Health Care Education/Training Program; FAMILY PHYSICIAN Family Medicine
DX: J10.1 Influenza due to other identified influenza virus with other respiratory manifestations (principal); G93.41 Metabolic encephalopathy; J44.0 Chronic obstructive pulmonary disease with (acute) lower respiratory infection; J44.1 Chronic obstructive pulmonary disease with (acute) exacerbation; E87.1 Hypo-osmolality and hyponatremia; I25.10 Atherosclerotic heart disease of native coronary artery without angina pectoris; E86.0 Dehydration; E03.9 Hypothyroidism, unspecified; F32.A Depression, unspecified; F41.9 Anxiety disorder, unspecified; R09.02 Hypoxemia; Z86.711 Personal history of pulmonary embolism; Z79.01 Long term (current) use of anticoagulants; Z79.82 Long term (current) use of aspirin
CPT/HCPCS: 71046; 80048; 80053; 82607; 83735; 84145; 84439; 84443; 85025; 85027; 87502; 87811; 93005; 94640; 96360; 97116; 97163; 97166; 99285

== ENCOUNTER 2024-09-23 22:17 | Emergency (ER) | payer MEDICARE, BC, SELFPAY ==
[2024-09-23 22:22] VITALS: BP 114/59
--- NOTE | 2024-09-23 22:35 | ED.GENMED ---
History of Present Illness
General
Chief Complaint: Weakness
Source: patient
Exam Limitations: none
Time Seen by Provider: 09/23/24 22:25
Nursing documentation reviewed up to this point in time: agreed with
History of Present Illness
History of Present Illness:
89-year-old female with history as documented presents for generalized weakness. Admission in August for flu and bronchitis. Past few days has had increased generalized weakness, fever. Has had urinary frequency/urgency. She says she has also had
persistent cough. Denies abdominal pain. Denies flank pain. Denies nausea/vomiting. She denies any chest pain or shortness of breath.
Past History
Past History
ED Past Medical History: COPD, GERD, Hypercholesterolemia, [place], Hypothyroidism, Psychiatric and Other (PE/DVT, Diverticulitis)
ED Past Surgical History: Cardiac (Stents) and Orthopedic
Patient has exhibited threatening behavior?: No
Social History
Tobacco: Former smoker
Alcohol: Daily ( Wine 2 glasses)
Drug: None
Personal:
Living: alone
Employment: Retired
Family History
Family History: Hypertension and Other (Other was prostate cancer)
Review of Systems
Review of Systems
All Other Systems: ROS reviewed and negative except as documented in HPI and ROS
Constitutional: Reports fever, fatigue and chills
EENT: Reports runny nose
Respiratory: Reports cough; Denies trouble breathing
Cardiac: Denies chest pain or palpitations
ABD/GI: Denies abdominal pain, nausea, vomiting or diarrhea
: Reports dysuria and frequency; Denies flank pain
Musculoskeletal: Denies neck pain or back pain
Neurological: Denies dizzy or headache
Phy Exam
Physical Exam
Physical Exam:
General: Awake, alert, no acute distress
Head: Normocephalic, atraumatic
Eyes: Conjunctiva normal, sclera anicteric
Throat: Airway intact, handling secretions
Neck: Trachea midline, supple without meningismus
Lungs: Faint rales at the right lung base; lungs otherwise clear, pulse ox normal, respiratory rate normal
Heart: Regular rate and rhythm, no murmurs, gallops, or rubs
Abd: Soft, non distended, mild bladder tenderness
Neuro: No gross deficits
Skin: no rash
Extremities: Warm and well-perfused
Scores
Heart Failure Risk
Heart Failure Risk Score: Not Applicable
Heart Score for Chest Pain Patients
STEMI patient?: Not applicable
Withdrawal Assessment of Alcohol
Withdrawal Assessment Completed?: Not applicable
Course
Orders/Labs/Results
Orders:
Orders
09/23/24 22:32
Urinalysis Reflex To Culture Urgent
Date Specimen was Collected: 09/24/24
Time Specimen was Collected: 00:20
09/23/24 22:35
CR Chest Portable - 1 View Urgent
Comment:
Reason For Exam: fever
Reason Study Needs to be Portable: Unable to Transport
09/23/24 22:55
COVID-19 Antigen Urgent
Source: Nasal Swab
Complete Blood Count/With Diff Urgent
Comprehensive Metabolic Panel Urgent
Lactate Level [Lactic Acid] Urgent
Blood Culture Q30M
VAISHALI Source: Blood/Venous
Specimen Description:
Blood Culture Q30M
VAISHALI Source: Blood/Venous
Specimen Description:
Influenza A+B Rapid Molecular Urgent
VAISHALI Source: Nasal Swab
Specimen Description:
09/23/24 23:51
Straight cath- Treatment ONCE
09/24/24 00:20
Urine Microscopic Reflex Cult Urgent
Urine Culture Urgent
VAISHALI Source: U
Specimen Description:
Date Specimen was Collected: 09/24/24
Time Specimen was Collected: 00:20
09/24/24 00:40
CefTRIAXone [Rocephin] 1,000 mg IV NOW STA
09/24/24 00:53
NSS 500mL Bolus over 1 hr 0.9% Sodium Chloride 500 ml [Nss] 500 ml IV BOLUS
Abnormal Lab Results
09/23/24 09/24/24
22:55 00:20
RBC 2.73 L 10^6/uL
(4.20-5.40)
Hgb 8.1 L g/dL
(12.0-16.0)
Hct 24.8 L %
(37.0-47.0)
MCHC 32.7 L g/dL
(33.0-37.0)
RDW 15.4 H %
(11.5-14.5)
Lymphocytes % 15.6 L %
(20.5-51.1)
Calcium 7.6 L mg/dl
(8.4-10.2)
Total Protein 5.5 L g/dl
(6.3-8.2)
Albumin 2.1 L g/dl
(3.5-5.0)
Ur Occult Blood Reflex 1+ A
(Negative)
Urine Nitrite (Reflex) Positive A
(Negative)
Leukocyte Esterase Rfl 1+ A
(Negative)
09/23/24 22:55
09/23/24 22:55
Vital Signs
Initial and Last Documented VS:
Initial Vital Signs
Temp Pulse Resp BP Pulse Ox
37.4 C 107 19 114/59 95
09/23/24 22:22 09/23/24 22:22 09/23/24 22:22 09/23/24 22:22 09/23/24 22:22
Last Documented Vital Signs
Temp Pulse Resp BP Pulse Ox
37.4 C 97 22 123/54 92
09/23/24 22:22 09/24/24 00:30 09/24/24 00:30 09/24/24 00:00 09/24/24 00:30
MDM/Problems Addressed
Differential Diagnosis Includes:
UTI, pneumonia, viral illness
MDM/Problems Addressed:
89-year-old female with generalized weakness, fever, urinary symptoms, cough. Recent admission with flu and bronchitis. Check labs, urine studies, chest x-ray, viral swabs.
CBC shows stable anemia, CMP unremarkable. Her urinalysis is positive for infection. COVID and flu negative. Chest x-ray reviewed by me shows no pneumonia. Patient has been hemodynamically stable, blood pressure normal, heart rate in the 90s.
Offered admission patient prefers trial of outpatient antibiotics. Will dose with IV Rocephin here. Discharged on oral antibiotic with strict return precautions. [facility] spoke with [facility] staff to confirm close follow-up plan. All questions
answered.
*Radiology
Radiology exam reviewed: radiology read reviewed
*Pulse Oximetry
Patient hypoxic: no
*Critical Care Note
Total Time (30-74mins, 75-104mins- exclusive of procedures): Not Applicable
Data Reviewed
Review of Other/Old Records Reveals: Labs and Records
Source: patient and records
Patient Management
Social determinants of health affecting care: Living situation (Lives in an monitored setting)
Discussion with other providers: assisted staff (Spoke directly with nursing staff)
Escalation/DeEscalation of care consider admission/obs:
Offered admission�shared decision making we will discharge for trial of outpatient antibiotics
ED Attending Note
-
Portions of this chart may have been created with voice recognition software.� Occasional wrong word or��sound alike� substitutions may have occurred due to the inherent limitations of voice recognition software.
Discharge Plan
Departure
Discharge Problem:
Acute UTI
Instructions: Urinary tract infections in adults
Prescriptions:
New
cefdinir 300 mg capsule
300 mg PO BID Qty: 14 0RF
No Action
aspirin 81 MG tablet,delayed release (DR/EC)
81 mg PO DAILY Qty: 0 0RF
sertraline 50 MG tablet
75 mg PO DAILY
simvastatin 40 MG tablet
40 mg PO QPM
alendronate 70 MG tablet
70 mg PO PERSON
Eliquis 5 mg Tablet
5 mg PO BID
ondansetron HCl 4 mg tablet
4 mg PO Q8HPRN PRN (Reason: nausea)
levothyroxine 150 mcg tablet
150 mcg PO DAILY
guaifenesin 600 mg Tablet Extended Release 12hr
600 mg PO Q12 7 Days Qty: 14 0RF
budesonide 0.5 mg/2 mL Suspension For Nebulization
0.5 mg inhalation R BID Qty: 60 0RF
doxycycline hyclate 100 mg Capsule
100 mg PO Q12 Qty: 6 0RF
Referrals:
NONE,* [Family Provider] -
Activity Restrictions/Additional Instructions:
Thank you for visiting the Emergency Department at [facility].
1. Please schedule a follow up appointment as directed. Call first thing tomorrow morning to make an appointment.
2. If indicated, please take your medications as instructed and indicated on discharge paperwork.
3. If any of your symptoms do not improve, or persist, or become more severe within 6-12 hours, please return to the emergency department for further care.
4. Please return to the emergency department if you develop a headache, neck pain/stiffness, fever greater than 100.4F, chest pain, shortness of breath, persistent nausea, vomiting, slurred speech, difficulty walking, numbness/tingling, weakness,
signs of infection or any other symptoms that are worrisome to you.
Please call [phone] if you have any questions.
Interventions
Interventions:
*Risk Screen - Suicide Last Done: 09/23/24 22:22
*General Assessment Last Done: 09/23/24 22:22
*Neglect/Abuse Screening Last Done: 09/23/24 22:22
ED- Cardiac Assessment Last Done: 09/23/24 22:39
ED- Neurological Assessment Last Done: 09/23/24 22:39
ED- Pulmonary Assessment Last Done: 09/23/24 22:39
Discharge Date and Time
Print Language: BHUTANESE
[2024-09-23 22:39] VITALS: BMI 20.8
[2024-09-23 23:00] VITALS: BP 100/48
[2024-09-23 23:08] LABS: % Basophils 0.4 % (0-2); % Immature Granulocytes 0.4 % (0-0.5); % Lymphocytes 15.6 % (20.5-51.1); % Neutrophils 74.6 % (42.2-75.2); Absolute Eosinophils 0.1 10^3/uL (0-0.7); Absolute Lymphocytes 1.2 10^3/uL (1.2-3.4); Absolute Monocytes 0.6 10^3/uL (0.1-0.6); Absolute Neutrophils 5.9 10^3/uL (1.4-6.5); Hematocrit 24.8 % (37.0-47.0); Hemoglobin 8.1 g/dL (12.0-16.0); Mean Corp Hgb Conc. 32.7 g/dL (33.0-37.0); Mean Corpuscular Hgb 29.7 pg (27.0-31.0); Mean Corpuscular Volume 90.8 fL (81.0-99.0); Nucleated Red Blood Cells % 0 %; Platelet Count 251 10^3/uL (130-400); Red Blood Cell Count 2.73 10^6/uL (4.20-5.40); Red Cell Dist. Width 15.4 % (11.5-14.5); White Blood Cell Count 7.9 10^3/uL (4.8-10.8)
[2024-09-23 23:21] LABS: ALT (SGPT) 11 U/L (0-35); AST (SGOT) 20 U/L (14-36); Albumin 2.1 g/dl (3.5-5.0); Alkaline Phosphatase 96 U/L (38-126); Blood Urea Nitrogen 12 mg/dl (7-17); Calcium 7.6 mg/dl (8.4-10.2); Carbon Dioxide 25 mmol/L (22-30); Chloride 107 mmol/L (98-107); Estimated Creatinine Clearance 51 ml/min; Glucose 98 mg/dl (70-99); Lactic Acid 0.9 mmol/L (0.7-2.0); Potassium 4.4 mmol/L (3.5-5.1); Sodium 136 mmol/L (135-145); Total Bilirubin 0.3 mg/dl (0.2-1.3); Total Protein 5.5 g/dl (6.3-8.2); eGFR > 60.00
[2024-09-23 23:25] LABS: COVID-19 Antigen Negative (Negative)
[2024-09-24] VITALS: BP 123/54
[2024-09-24 00:33] LABS: Urine Albumin Negative (Neg - Trace); Urine Bilirubin Negative (Negative); Urine Character Clear (Clear); Urine Color Yellow; Urine Glucose Negative (Negative); Urine Ketone Negative (Negative); Urine Leukocyte 1+ (Negative); Urine Nitrite Positive (Negative); Urine Occult Blood 1+ (Negative); Urine Urobilinogen Negative (Neg - 1+)
[2024-09-24] MEDS: ROCEPHIN 1000 MG IV (00:46)
[2024-09-24] MEDS: NSS 500 IV (00:55)
[2024-09-24 01:00] VITALS: BP 125/54
[2024-09-24 01:12] LABS: Urine Bacteria Many (Negative)
[2024-09-24 01:13] LABS: Urine Red Blood Cell 0-2 /HPF (0-2); Urine White Cell 30-40 /HPF (0-5)
== END 2024-09-24 01:38 | disposition home or self-care (01) ==
LOC: EMR 22:17
PROVIDERS: EMERGENCY PHYSICIAN Emergency Medicine
DX: N39.0 Urinary tract infection, site not specified (principal); J44.9 Chronic obstructive pulmonary disease, unspecified; K21.9 Gastro-esophageal reflux disease without esophagitis; E78.00 Pure hypercholesterolemia, unspecified; I25.2 Old myocardial infarction; E03.9 Hypothyroidism, unspecified; Z82.49 Family history of ischemic heart disease and other diseases of the circulatory system; Z86.718 Personal history of other venous thrombosis and embolism; Z87.891 Personal history of nicotine dependence; Z95.5 Presence of coronary angioplasty implant and graft
CPT/HCPCS: 99283; 96374; 96361; 71045; 80053; 81003; 81015; 83605; 85025; 87040; 87077; 87086; 87502; 87811

== ENCOUNTER 2024-10-07 13:10 | Emergency (ER) | payer MEDICARE, BC, SELFPAY ==
[2024-10-07] VITALS (9 sets, daily range): BP systolic 96–138; BP diastolic 42–68; BMI 19.7
--- NOTE | 2024-10-07 13:34 | ED.GENMED ---
History of Present Illness
General
Chief Complaint: Fall
Source: patient
Exam Limitations: dementia
Time Seen by Provider: 10/07/24 13:17
History of Present Illness
History of Present Illness:
See MDM
Past History
Past History
ED Past Medical History: COPD, GERD, Hypercholesterolemia, ID, Hypothyroidism, Psychiatric and Other (PE/DVT, Diverticulitis)
ED Past Surgical History: Cardiac (Stents) and Orthopedic
Patient has exhibited threatening behavior?: No
Social History
Tobacco: Former smoker
Alcohol: Daily ( Wine 2 glasses)
Drug: None
Personal:
Living: alone
Employment: Retired
Family History
Family History: Hypertension and Other (Other was prostate cancer)
Phy Exam
Physical Exam
Physical Exam:
See MDM
Course
Orders/Labs/Results
Orders:
Orders
10/07/24 13:32
CT Head W/o Iv Contrast Urgent
Comment:
Reason For Exam: fall
0.9% Sodium Chloride 1000 ml [Nss] 1,000 ml IV BOLUS
Hip, Left 2-3 Views [CR Hip - LT w/wo Pel 2-3 Vw*] Urgent
Comment:
Reason For Exam: fall, left hip pain
Include a pelvis x-ray?: Yes
10/07/24 13:33
Electrocardiogram (*1) Urgent
Reason for Study: Tachycardia
EKG- Treatment ONCE
10/07/24 13:37
CR Chest - 2 Views Urgent
Comment:
Reason For Exam: cough
10/07/24 13:40
COVID-19 Antigen Urgent
Source: Nasal Swab
CPK [Creatine Phosphokinase] Urgent
Complete Blood Count/With Diff Urgent
Comprehensive Metabolic Panel Urgent
Influenza A+B Rapid Molecular Urgent
VAISHALI Source: Nasal Swab
Specimen Description:
10/07/24 16:21
Add On- LAB Urgent
Tests Added?: TSH reflex Free T4
Metoprolol [Lopressor] 5 mg IV NOW STA
10/07/24 16:32
Straight cath- Treatment ONCE
10/07/24 16:33
Acetaminophen [Tylenol] 1,000 mg PO NOW STA
10/07/24 17:01
Urinalysis Reflex To Culture Urgent
Date Specimen was Collected: 10/07/24
Time Specimen was Collected: 17:00
10/07/24 17:37
Azithromycin [Zithromax] 500 mg PO NOW STA
Abnormal Lab Results
10/07/24
13:40
RBC 3.33 L 10^6/uL
(4.20-5.40)
Hgb 9.8 L g/dL
(12.0-16.0)
Hct 30.8 L %
(37.0-47.0)
MCHC 31.8 L g/dL
(33.0-37.0)
RDW 15.3 H %
(11.5-14.5)
Abs Immat Gran (auto) 0.1 H 10^3/uL
(0-0.05)
Absolute Neuts (auto) 6.9 H 10^3/uL
(1.4-6.5)
Absolute Monos (auto) 0.9 H 10^3/uL
(0.1-0.6)
Absolute Eos (auto) 0.8 H 10^3/uL
(0-0.7)
Lymphocytes % 15.5 L %
(20.5-51.1)
Eosinophils % 7.6 H %
(0-6)
Chloride 109 H mmol/L
(98-107)
Glucose 109 H mg/dl
(70-99)
Albumin 2.7 L g/dl
(3.5-5.0)
10/07/24 13:40
10/07/24 13:40
Vital Signs
Initial and Last Documented VS:
Initial Vital Signs
Pulse Ox
77
10/07/24 13:14
Last Documented Vital Signs
Temp Pulse Resp BP Pulse Ox
100.9 F H 115 17 121/59 94
10/07/24 16:32 10/07/24 16:15 10/07/24 16:15 10/07/24 15:00 10/07/24 16:15
MDM/Problems Addressed
Differential Diagnosis Includes:
HPI and MDM Narrative:
89-year-old female presenting for 2 falls recently. Patient does not recollect how she fell and was apparently on the floor for an unknown amount of time. She complains of left hip and right foot pain. Although patient is sitting in bed
comfortably, she is mildly tachycardic. She denies head trauma but also does not remember if she hit her head or not. She does have a history of dementia.
Given unwitnessed fall, will obtain basic blood work and screening EKG. Given age and anticoagulation, will obtain CT head will obtain x-ray of left hip and right foot
Although patient does not complain of it, she is clearly congested and has a dry cough. Will obtain chest x-ray
Physical exam
General: Well appearing and non-toxic
HEENT: protecting airway. Mildly dry mucous membranes. Nasal congestion
Neck: Nontender, supple
CV: No evidence of cyanosis. Tachycardic
Resp: No accessory muscle use. Lungs clear
Abd: Non-distended
Extremities: Tenderness to palpation of left hip and right medial foot. Both legs are neurovascularly intact
Neuro: alert
Psych: Normal affect
Skin: Intact
Problems Addressed including Acute and Chronic Conditions affecting care:
1. Unwitnessed fall
Acuity: acute
Prognosis: stable
Details: Will obtain basic blood work and CT head
2. Cough
Acuity: acute
Prognosis: stable
Details: Will obtain chest x-ray
3. Left hip and right foot pain
Acuity: acute
Prognosis: stable
Details: Will obtain x-rays
Updates
I was called to the x-ray room when patient not complaining of left foot pain instead of right foot pain. I examined both feet. Patient does not appear to be in any sort of pain in regards to foot or ankle. X-ray canceled
Hip x-ray negative for fracture. CT head negative. Chest x-ray clear. On my reassessment, patient still mild tachycardic but fluids just started. Will give dose of metoprolol. Given anticoagulation, doubt PE. Will obtain TSH. Patient remains
to be very comfortable and in no acute distress. She is lying in bed with her feet crossed and she is twiddling her toes. She smiles when I walked by and offers no complaint anymore
Patient found to be febrile. Will give Tylenol. This is potentially the reason why she is tachycardic. Chest x-ray was clear and viral testing negative. She could still have a viral syndrome. She does have a wet appearing cough. Regardless,
will obtain urinalysis at this point. She continues to have a soft and nontender abdomen
Tachycardia improving. Patient still with persistent cough. Although chest x-ray clear, will treat as possible bronchitis with azithromycin. Erythromycin based medication is listed as an allergy with upset stomach being the allergy. This is not
a true allergy. I question the allergy to the patient. She also does not believe that this is a true allergy and states she believes she has tolerated the medicine before. Patient states she feels comfortable taking azithromycin
Differential Diagnosis (but not limited to): COVID, influenza, CPK, pneumonia, hip fracture
Testing considered: Urinalysis
Drug therapy (if applicable): OTC meds, please see d/c instruction regarding Rx drugs
Amount and/or Complexity of Data Reviewed
Clinical info obtained from: Patient
External data reviewed: N/A
Labs I independently reviewed (but not limited to): Anemia close to baseline
Radiology: The CT scan was personally and independently reviewed. In addition, official CT report reviewed.
Pulse Ox: not hypoxic
EKG independently reviewed: Sinus tachycardia, normal axis, no STEMI
[employer] Administrator: Sinus tachycardia
Critical Care: N/A
Risk of Complication:
Social Determinants of health: Good social support
Discussed with other providers: N/A
Escalation of Care includes Admit/Obs: After being observed in the Emergency Department, pt stable for discharge.
Occasional wrong word or 'sound a like' substitutions may have occurred due to the inherent limitations of voice recognition software. Read the chart carefully and recognize, using context, where substitutions have occurred.
*Critical Care Note
Total Time (30-74mins, 75-104mins- exclusive of procedures): Not Applicable
ED Attending Note
-
Portions of this chart may have been created with voice recognition software.� Occasional wrong word or��sound alike� substitutions may have occurred due to the inherent limitations of voice recognition software.
Discharge Plan
Departure
Patient Disposition: Home (Routine Discharge)
Date of Disposition: 10/07/24
Time of Disposition: 17:41
Patient with high blood pressure during this ER visit?: No
Discharge Problem:
Acute bronchitis, Contusion of hip, left
Instructions: Acute bronchitis in adults
Prescriptions:
New
azithromycin 250 mg tablet
250 mg PO DAILY 4 Days Qty: 4 0RF
No Action
aspirin 81 MG tablet,delayed release (DR/EC)
81 mg PO DAILY Qty: 0 0RF
sertraline 50 MG tablet
75 mg PO DAILY
simvastatin 40 MG tablet
40 mg PO QPM
alendronate 70 MG tablet
70 mg PO PERSON
Eliquis 5 mg Tablet
5 mg PO BID
ondansetron HCl 4 mg tablet
4 mg PO Q8HPRN PRN (Reason: nausea)
levothyroxine 150 mcg tablet
150 mcg PO DAILY
guaifenesin 600 mg Tablet Extended Release 12hr
600 mg PO Q12 7 Days Qty: 14 0RF
budesonide 0.5 mg/2 mL Suspension For Nebulization
0.5 mg inhalation R BID Qty: 60 0RF
doxycycline hyclate 100 mg Capsule
100 mg PO Q12 Qty: 6 0RF
cefdinir 300 mg capsule
300 mg PO BID Qty: 14 0RF
Referrals:
UNKNOWN - PT DOES,NOT KNOW [Family Provider] -
Activity Restrictions/Additional Instructions:
Please return for any worsening symptoms.
You may return at any time if you have further concerns.
Please follow up with your doctor at the first available appointment, preferably this week.
Thank you for choosing [facility].
Interventions
Interventions:
*Risk Screen - Suicide Last Done: 10/07/24 13:25
*General Assessment Last Done: 10/07/24 13:25
*Neglect/Abuse Screening Last Done: 10/07/24 13:25
*ED- Fall Risk Assessment Last Done: 10/07/24 13:25
*ED COVID-19 Vaccine History Last Done: 10/07/24 13:25
ED-Musculoskeletal Assessment Last Done: 10/07/24 16:18
ED- Neurological Assessment Last Done: 10/07/24 16:18
ED-Skin Assessment Last Done: 10/07/24 16:18
Discharge Date and Time
Print Language: WELSH
[2024-10-07 13:51] LABS: % Basophils 0.6 % (0-2); % Eosinophils 7.6 % (0-6); % Immature Granulocytes 0.5 % (0-0.5); % Lymphocytes 15.5 % (20.5-51.1); % Monocytes 8.9 % (1.7-9.3); % Neutrophils 66.9 % (42.2-75.2); Absolute Basophils 0.1 10^3/uL (0-0.2); Absolute Eosinophils 0.8 10^3/uL (0-0.7); Absolute Immature Granulocytes 0.1 10^3/uL (0-0.05); Absolute Lymphocytes 1.6 10^3/uL (1.2-3.4); Absolute Monocytes 0.9 10^3/uL (0.1-0.6); Absolute Neutrophils 6.9 10^3/uL (1.4-6.5); Hematocrit 30.8 % (37.0-47.0); Hemoglobin 9.8 g/dL (12.0-16.0); Mean Corp Hgb Conc. 31.8 g/dL (33.0-37.0); Mean Corpuscular Hgb 29.4 pg (27.0-31.0); Mean Corpuscular Volume 92.5 fL (81.0-99.0); Nucleated Red Blood Cells % 0 %; Platelet Count 399 10^3/uL (130-400); Red Blood Cell Count 3.33 10^6/uL (4.20-5.40); Red Cell Dist. Width 15.3 % (11.5-14.5); White Blood Cell Count 10.3 10^3/uL (4.8-10.8)
[2024-10-07 14:02] LABS: ALT (SGPT) 11 U/L (0-35); AST (SGOT) 20 U/L (14-36); Albumin 2.7 g/dl (3.5-5.0); Alkaline Phosphatase 74 U/L (38-126); Blood Urea Nitrogen 15 mg/dl (7-17); Calcium 8.7 mg/dl (8.4-10.2); Carbon Dioxide 26 mmol/L (22-30); Chloride 109 mmol/L (98-107); Creatine Phosphokinase 30 U/L (30-135); Estimated Creatinine Clearance 42 ml/min; Glucose 109 mg/dl (70-99); Potassium 4.3 mmol/L (3.5-5.1); Sodium 141 mmol/L (135-145); Total Bilirubin 0.5 mg/dl (0.2-1.3); Total Protein 6.5 g/dl (6.3-8.2); eGFR > 60.00
[2024-10-07 14:15] LABS: COVID-19 Antigen Negative (Negative)
[2024-10-07] MEDS: NSS 1000 IV (15:10)
[2024-10-07] MEDS: TYLENOL 1000 MG PO (16:59)
[2024-10-07 17:09] LABS: Urine Albumin Negative (Neg - Trace); Urine Bilirubin Negative (Negative); Urine Character Clear (Clear); Urine Color Yellow; Urine Glucose Negative (Negative); Urine Ketone Negative (Negative); Urine Leukocyte Negative (Negative); Urine Nitrite Negative (Negative); Urine Occult Blood Negative (Negative); Urine Specific Gravity 1.015 (<1.030); Urine Urobilinogen Negative (Neg - 1+)
[2024-10-07 18:48] LABS: TSH Reflex To Free T4 < 0.02 uIU/ml (0.47-4.68)
[2024-10-07 19:17] LABS: Free T4 2.01 ng/dl (0.78-2.19)
[2024-10-07] MEDS: ZITHROMAX 500 MG PO (19:21)
== END 2024-10-07 21:00 | disposition home or self-care (01) ==
LOC: EMR 13:10
PROVIDERS: EMERGENCY PHYSICIAN Student in an Organized Health Care Education/Training Program
DX: J20.9 Acute bronchitis, unspecified (principal); S70.02XA Contusion of left hip, initial encounter; W19.XXXA Unspecified fall, initial encounter; J44.0 Chronic obstructive pulmonary disease with (acute) lower respiratory infection; K21.9 Gastro-esophageal reflux disease without esophagitis; E78.00 Pure hypercholesterolemia, unspecified; I25.2 Old myocardial infarction; E03.9 Hypothyroidism, unspecified; F03.90 Unspecified dementia, unspecified severity, without behavioral disturbance, psychotic disturbance, mood disturbance, and anxiety; Z82.49 Family history of ischemic heart disease and other diseases of the circulatory system; Z86.718 Personal history of other venous thrombosis and embolism; Z87.891 Personal history of nicotine dependence; Z95.5 Presence of coronary angioplasty implant and graft
CPT/HCPCS: 99283; 96360; 70450; 71046; 73502; 80053; 81003; 82550; 84439; 84443; 85025; 87502; 87811; 93005

== ENCOUNTER 2024-11-14 19:14 | Inpatient (IN) | payer MEDICARE, BC, SELFPAY ==
[2024-11-14] VITALS (16 sets, daily range): BP systolic 102–132; BP diastolic 50–73; BMI 21.7; BMI 21.0
[2024-11-14 14:41] LABS: INR 1.01; PT 13.6 Sec (11.4-14.6)
[2024-11-14 14:42] LABS: % Basophils 0.3 % (0-2); % Eosinophils 4.5 % (0-6); % Immature Granulocytes 0.5 % (0-0.5); % Lymphocytes 25.3 % (20.5-51.1); % Monocytes 7.1 % (1.7-9.3); % Neutrophils 62.3 % (42.2-75.2); APTT 25.4 Sec (23.4-35.0); Absolute Eosinophils 0.5 10^3/uL (0-0.7); Absolute Immature Granulocytes 0.1 10^3/uL (0-0.05); Absolute Lymphocytes 2.6 10^3/uL (1.2-3.4); Absolute Monocytes 0.7 10^3/uL (0.1-0.6); Absolute Neutrophils 6.4 10^3/uL (1.4-6.5); Hematocrit 17.3 % (37.0-47.0); Hemoglobin 5.3 g/dL (12.0-16.0); Mean Corp Hgb Conc. 30.6 g/dL (33.0-37.0); Mean Corpuscular Hgb 28.3 pg (27.0-31.0); Mean Corpuscular Volume 92.5 fL (81.0-99.0); Mean Platelet Volume 9.8 fL (7.4-10.4); Nucleated Red Blood Cells % 0 %; Platelet Count 300 10^3/uL (130-400); Red Blood Cell Count 1.87 10^6/uL (4.20-5.40); Red Cell Dist. Width 15.4 % (11.5-14.5); White Blood Cell Count 10.3 10^3/uL (4.8-10.8)
--- NOTE | 2024-11-14 14:51 | ED.GENMED ---
History of Present Illness
General
Chief Complaint: Abnormal Lab Value
Source: patient
Exam Limitations: none
Time Seen by Provider: 11/14/24 14:02
Nursing documentation reviewed up to this point in time: agreed with
History of Present Illness
History of Present Illness:
89 Y/O F
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
from [facility] (was only there 5 days)
had labs today showing hg is 4.8
pt says she feels tired but otherwise asymptomatic
no bleeding from anywhere she knows
she has had unexplained weight loss th epast few months
no h/o colon ca
no black stool, vomiting, hematuria, syncope, cp
Past History
Past History
ED Past Medical History: COPD, GERD, Hypercholesterolemia, GA, Hypothyroidism, Psychiatric and Other (PE/DVT, Diverticulitis)
ED Past Surgical History: Cardiac (Stents) and Orthopedic
Patient has exhibited threatening behavior?: No
Social History
Tobacco: Former smoker
Alcohol: Daily ( Wine 2 glasses)
Drug: None
Personal:
Living: alone
Employment: Retired
Family History
Family History: Hypertension and Other (Other was prostate cancer)
Review of Systems
Review of Systems
Allergies reviewed?: Yes
All Other Systems: Not applicable
Phy Exam
Physical Exam
Physical Exam:
GENERAL: Alert , in no apparent distress, pale
EYE: pupils equal and reactive
NECK: Supple
ENT: o/p clr, mmm.
CARDIAC:tachycardic
LUNGS: Clear breath sounds bilaterally, no acute respiratory distress, no wheezes/rales/rhonchi
ABDOMEN: Soft, without focal tenderness, no r/g, no cvat, normal bowel sounds
HEME POS brown stool; hemorrhods
NEUROLOGICAL: Alert and oriented, no focal neuro deficits
SKIN: Warm and dry, skin intact.
MUSCULOSKELETAL: No edema, well perfused. neg santiago's sign
PSYCH: Normal and appropriate interaction.
Course
Orders/Labs/Results
Orders:
Orders
11/14/24 14:22
Type+Screen Urgent
Complete Blood Count/With Diff Urgent
Comprehensive Metabolic Panel Urgent
PTT Urgent
Prothrombin Time Urgent
11/14/24 14:35
Electrocardiogram (*1) Urgent
Reason for Study: Tachycardia
EKG- Treatment ONCE
11/14/24 14:51
* Blood Bank Products Urgent
Blood Bank Products: *Packed RBC Leuko(PRBC's)
Quantity: 2
Transfuse Today: Yes
Reason: Anemia
11/14/24 15:14
Pantoprazole [Protonix IV] 40 mg IV NOW STA
Abnormal Lab Results
11/14/24
14:22
RBC 1.87 L 10^6/uL
(4.20-5.40)
Hgb 5.3 L* g/dL
(12.0-16.0)
Hct 17.3 L* %
(37.0-47.0)
MCHC 30.6 L g/dL
(33.0-37.0)
RDW 15.4 H %
(11.5-14.5)
Abs Immat Gran (auto) 0.1 H 10^3/uL
(0-0.05)
Absolute Monos (auto) 0.7 H 10^3/uL
(0.1-0.6)
Chloride 113 H mmol/L
(98-107)
Glucose 115 H mg/dl
(70-99)
Calcium 8.2 L mg/dl
(8.4-10.2)
Albumin 3.1 L g/dl
(3.5-5.0)
11/14/24 14:22
11/14/24 14:22
Vital Signs
Initial and Last Documented VS:
Initial Vital Signs
Temp Pulse Resp BP Pulse Ox
36.8 C 113 17 132/61 98
11/14/24 14:04 11/14/24 14:04 11/14/24 14:04 11/14/24 14:04 11/14/24 14:04
Last Documented Vital Signs
Temp Pulse Resp BP Pulse Ox
36.8 C 108 12 132/61 98
11/14/24 14:04 11/14/24 14:30 11/14/24 14:30 11/14/24 14:10 11/14/24 14:15
MDM/Problems Addressed
Differential Diagnosis Includes:
anemia, gi bleed, malignancy
MDM/Problems Addressed:
89 y/o F
from [facility]
there only a few days
here with hg of 4.8 on outpatient labs
pt has had unexplained weight loss she says
but no obvoius GI bleeding
on eliquis
mild tachycardia
bp stable
well apeparing but pale
stool brown heme pos
protonix, blood consent, admit
*Critical Care Note
Total Time (30-74mins, 75-104mins- exclusive of procedures): Not Applicable
ED Attending Note
-
Portions of this chart may have been created with voice recognition software.� Occasional wrong word or��sound alike� substitutions may have occurred due to the inherent limitations of voice recognition software.
Discharge Plan
Departure
Patient Disposition: Admit
Date of Disposition: 11/14/24
Time of Disposition: 15:13
Admit to: Med/Surg
Presentation/result/management discussed w/ accepting MD/DO: Hospitalist
Condition: Fair
Covid-19: Not Applicable
Discharge Problem:
Symptomatic anemia
Prescriptions:
No Action
sertraline 50 MG tablet
75 mg PO DAILY@1230
simvastatin 40 MG tablet
40 mg PO HS
alendronate 70 MG tablet
70 mg PO PERSON
Eliquis 5 mg Tablet
5 mg PO BID
ondansetron HCl 4 mg tablet
4 mg PO Q8HPRN PRN (Reason: nausea)
levothyroxine 150 mcg tablet
150 mcg PO DAILY
fluticasone propion-salmeterol [Advair Diskus] 250-50 mcg/dose Blister With Device
1 inh INHALATION R BID
acetaminophen [Tylenol] 325 mg Tablet
650 mg PO Q4HPRN PRN (Reason: mild pain)
famotidine [Pepcid] 20 mg Tablet
20 mg PO DAILY
magnesium hydroxide [Milk of Magnesia] 400 mg/5 mL Suspension
2,400 mg PO HSPRN PRN (Reason: constipation)
bisacodyl [Dulcolax (bisacodyl)] 10 mg Suppository
10 mg [place] [id number] PRN (Reason: if no bm aftr mom)
docusate sodium [Colace] 100 mg Capsule
200 mg PO HS
mirtazapine 15 mg Tablet
15 mg PO HS
albuterol sulfate [ProAir HFA] 90 mcg/actuation Hfa Aerosol Inhaler
2 puff INHALATION R Q4HPRN PRN (Reason: sob)
aspirin 81 MG tablet,delayed release (DR/EC)
81 mg PO DAILY@1230
budesonide 0.5 mg/2 mL suspension for nebulization
0.5 mg inhalation R BID
Referrals:
Nick Sainz DO [Family Provider, Family Practice]
Interventions
Interventions:
*Risk Screen - Suicide Last Done: 11/14/24 14:04
*General Assessment Last Done: 11/14/24 14:04
*Neglect/Abuse Screening Last Done: 11/14/24 14:04
*ED- Fall Risk Assessment Last Done: 11/14/24 14:04
*ED COVID-19 Vaccine History Last Done: 11/14/24 14:04
Discharge Date and Time
Print Language: MACEDONIAN
[2024-11-14 15:00] LABS: ALT (SGPT) 11 U/L (0-35); AST (SGOT) 20 U/L (14-36); Albumin 3.1 g/dl (3.5-5.0); Alkaline Phosphatase 70 U/L (38-126); Blood Urea Nitrogen 16 mg/dl (7-17); Calcium 8.2 mg/dl (8.4-10.2); Carbon Dioxide 22 mmol/L (22-30); Chloride 113 mmol/L (98-107); Estimated Creatinine Clearance 51 ml/min; Glucose 115 mg/dl (70-99); Potassium 3.9 mmol/L (3.5-5.1); Sodium 139 mmol/L (135-145); Total Bilirubin 0.2 mg/dl (0.2-1.3); Total Protein 6.4 g/dl (6.3-8.2); eGFR > 60.00
[2024-11-14] MEDS: PROTONIX IV 40 MG IV (15:17)
--- NOTE | 2024-11-14 15:46 | HPS.HSE ---
Addendum entered and electronically signed by Shawnee De Luna MD 11/14/24 20:28:
Discussed with GI, will hold of on NPO for now pending Eliquis washout for possible future scope.
Original Note:
Family Physician
-
Family Physician: Nick Sainz DO
Chief Complaint
-
Severe anemia
History of Present Illness
89F COPD HTN HLD GERD Hypothyroidism CAD stent hx PE/DVT on Eliquis presents from [facility] rehab [facility] for evaluation severe anemia Hgb 4.8 noted on routine labs, precipitous drop from 9.8 a few weeks prior. No obvious signs of bleeding. Patient
denies dark or bloody stools. Multiple hospitalizations at this facility over the past year. Pt was here for COVID PNA back in Jun 2024. Review of records notes a gradual trickle down in Hgb from 11.8 in Jun to low 8.1 in September. Mild sinus
tachy but otherwise Vital signs stable on room air. Patient notes progressive fatigue, lightheadeness on sitting up, and unexpected weight loss 30 lbs over the past few months. Denies appetite loss, abd pain, or shortness of breath. Last
Colonoscopy with Dr Olea November 2019 noted severe diverticulosis but otherwise normal examination.
Medical History
Past Medical History
Past Medical History: Reports Other (as above)
Past Surgical History: Reports Other (as above)
Social History
Tobacco: Former Smoker
Alcohol: None
Drug: None
Personal:
Living: Assisted
Employment: Retired
Family History
Family History: Not pertinent (reviewed)
Allergies / Home Medications
Allergies reflects when Allergies were last updated in [employer].
Home Medications with original date entered in [employer]
Allergy/Medication List:
Allergies
Allergy/AdvReac Type Severity Reaction Status Date / Time
atorvastatin calcium (From Allergy muscle Verified 09/23/24 22:21
Lipitor) aches
erythromycin base Allergy Upset Verified 09/23/24 22:21
(Erythromycin Base) Stomach
grass pollen Allergy COUGH/CONFE Verified 09/23/24 22:21
STION
insulin detemir Allergy Unknown Verified 09/23/24 22:21
moxifloxacin HCl (From Allergy Unknown Verified 09/23/24 22:21
Avelox)
oxycodone HCl (From Percocet) Allergy Shaky and Verified 09/23/24 22:21
weakness
penicillin V Allergy Rash Verified 09/23/24 22:21
Penicillins Allergy Rash Verified 09/23/24 22:21
rosuvastatin calcium (From Allergy muscle Verified 09/23/24 22:21
Crestor) aches
tree and shrub pollen Allergy COUGH/CONGE Verified 09/23/24 22:21
STION
Home Medications
sertraline 50 mg tablet 75 mg PO DAILY@1230 Mental Health/Anxiety 09/12/13
alendronate 70 mg tablet 70 mg PO PERSON OSTEOPOROSIS 11/05/16
simvastatin 40 mg tablet 40 mg PO HS High cholesterol 11/05/16
apixaban 5 mg tablet (Eliquis) 5 mg PO BID Blood Clot Prevention/Tx 12/18/22
levothyroxine 150 mcg tablet 150 mcg PO DAILY Thyroid 06/21/24
ondansetron HCl 4 mg tablet 4 mg PO Q8HPRN PRN nausea 06/21/24
acetaminophen 325 mg tablet (Tylenol) 650 mg PO Q4HPRN PRN mild pain 11/14/24
albuterol sulfate 90 mcg/actuation aerosol inhaler 2 puff inhalation R Q4HPRN PRN sob 11/14/24
aspirin 81 mg tablet,delayed release 81 mg PO DAILY@1230 Heart Disease/Condition 11/14/24
bisacodyl 10 mg rectal suppository (Dulcolax (bisacodyl)) 10 mg [place] [id number] PRN if no bm aftr mom 11/14/24
budesonide 0.5 mg/2 mL suspension for nebulization 0.5 mg inhalation R BID Lung/Breathing Issues 11/14/24
docusate sodium 100 mg capsule (Colace) 200 mg PO HS Constipation 11/14/24
famotidine 20 mg tablet (Pepcid) 20 mg PO DAILY Gastrointestinal Issue 11/14/24
fluticasone 250 mcg-salmeterol 50 mcg/dose blistr powdr for inhalation (Advair Diskus) 1 inh inhalation R BID Lung/Breathing Issues 11/14/24
magnesium hydroxide 400 mg/5 mL oral suspension (Milk of Magnesia) 2,400 mg PO HSPRN PRN constipation 11/14/24
mirtazapine 15 mg tablet 15 mg PO HS Mental Health/Anxiety 11/14/24
Review of Systems
-
A 12 point ROS was completed and negative except as noted: Yes
Constitutional: Reports Other (as above)
Physical Exam
Vital Signs
Vital Signs
Temp Pulse Resp BP Pulse Ox
98.3 F 110 20 116/60 96
11/14/24 14:04 11/14/24 15:15 11/14/24 15:15 11/14/24 15:00 11/14/24 15:15
Physical Exam
General: Other (as below)
Laboratory Results
-
11/14/24 14:22
11/14/24 14:22
Laboratory Results
PT 13.6 Sec (11.4-14.6) 11/14/24 14:22
INR 1.01 11/14/24 14:22
APTT 25.4 Sec (23.4-35.0) 11/14/24 14:22
Total Bilirubin 0.2 mg/dl (0.2-1.3) 11/14/24 14:22
AST 20 U/L (14-36) 11/14/24 14:22
ALT 11 U/L (0-35) 11/14/24 14:22
Alkaline Phosphatase 70 U/L (38-126) 11/14/24 14:22
Impression/Plan
-
ROS
General: Denies fever chills night sweats reports unexpected weight loss 30 lbs over the past few months
Neuro: Denies seizure shaking loss of consciousness dizziness vertigo
Psych: denies depression hallucinations confusion manic episodes
Endocrine: Denies polyuria polydipsia polyphagia heat/cold intolerance
HEENT: Denies blindness visual disturbances epistaxis
Pulmonary: denies coughing hemoptysis sneezing sob dyspnea on exertion
Cardiovascular: denies chest pain palpitations leg swelling
Hematology: denies signs symptoms of anemia easy bruising/bleeding
Gastrointestinal: denies nausea vomiting diarrhea constipation hematemesis hematochezia melena
Genito-Urinary: denies retention incontinence dysuria notes urinary frequency
Musculoskeletal: denies joint pain weakness
Dermatology: denies rash laceration bruising
Physical Exam
General: noted pallor no cyanosis or jaundice.
HEENT: Throat clear. PERRLA Normocephalic atraumatic. Poor dentition, missing teeth
NECK: Supple. No JVD Carotid Bruits
RESPIRATORY: Lungs clear to auscultation. No crackles wheezes stridor
CVS: S1, S2 sinus tachy. No murmur, rub or gallop.
ABDOMEN: Soft, some epigastric tenderness noted No distension. BS+/normal.
EXTREMITIES: No peripheral cyanosis or edema.
PA[employer]RO[employer] TAX ANALYST: AOx3. No focal deficits.
IMPRESSION:
89F COPD HTN HLD GERD Hypothyroidism CAD stent hx PE/DVT on Eliquis presents from [facility] rehab [facility] for evaluation severe anemia Hgb 4.8 noted on routine labs, precipitous drop from 9.8 a few weeks prior. No obvious signs of bleeding. Patient
denies dark or bloody stools. Multiple hospitalizations at this facility over the past year. Pt was here for COVID PNA back in Jun 2024. Review of records notes a gradual trickle down in Hgb from 11.8 in Jun to low 8.1 in September. Mild sinus
tachy but otherwise Vital signs stable on room air. Patient notes progressive fatigue, lightheadedness on sitting up, and unexpected weight loss 30 lbs over the past few months. Denies appetite loss, abd pain, or shortness of breath. Last
Colonoscopy with Dr Olea November 2019 noted severe diverticulosis but otherwise normal examination
PLAN:
#Severe Anemia possible Acute on Chronic Blood loss anemia
#Iron studies notes Iron Deficiency anemia
#B12 deficiency
#GERD
#unexpected wt loss
Tele admit
monitor H&H, transfuse prn Hgb<8
GI eval
regular diet for now, npo after midnight
once IM B12 shot followed by daily B12 PO supplementation
IV iron infusion
IV protonix BID
Dietary Eval
#Hx DVT/PE
recent venous duplex Jun 2024 neg for DVT
August 2022 CT chest pos for PE
hold Eliquis at this time d/t severe anemia as above
stable respiratory status on room air, repeat CT Chest follow up PE
#COPD
stable respiratory status on room air
cont home inhalers
prn albuterol SOB/wheezing
#reported hx HTN
not on antihypertensive, monitor BP and consider starting as necessary
#HLD
cont home statin
#anxiety/depression
cont home mirtazapine sertraline
PT/OT eval
Ambulates with walker at baseline
DVT ppx SCDs
GI ppx Protonix
DNR as per patient and patient's daughter Makenna
discussed with patient and patient's daughter Makenna
I spent a total of 80 minutes with the patient or on the floor. More than 50% of this time involved counseling and coordination of care.
[2024-11-14 16:21] LABS: Iron 27 ug/dl (37-170)
[2024-11-14 16:32] LABS: Percent Saturation 7 % (20-50); Total Iron Binding Capacity 363 ug/dl (265-497)
[2024-11-14 16:56] LABS: Ferritin 10.7 ng/ml (11.1-264.0)
[2024-11-14 17:28] LABS: Folate 4.1 ng/ml (2.76-20); Vitamin B12 277 pg/ml (239-931)
--- NOTE | 2024-11-14 20:00 | PTCARENOTE ---
Pt received from ED via stretcher at 1945. Pt AAOx3, VSS, and able to ambulate into room with assistance. Pt absent of pain, dizziness, lightheadedness. Pt receptive to room and call wise. Pt bed in lowest position and call wise within reach. Pt
educated on importance of call wise usage, pt relays understanding and cooperation. Will continue with current plan of care.
[2024-11-14] MEDS: PULMICORT 0.5 MG INH (20:35)
[2024-11-14] MEDS: ADVAIR HFA 115/21 MCG INHALER 2 PUFF INH (20:35)
[2024-11-14] MEDS: CYANOCOBALAMIN 1000 MCG IM (20:44)
[2024-11-14] MEDS: COLACE 200 MG PO (22:38)
[2024-11-14] MEDS: REMERON 15 MG PO (22:39)
[2024-11-15] VITALS (12 sets, daily range): BP systolic 105–136; BP diastolic 53–86; PULSE 104; O2SAT 94–98; BMI 21.0
[2024-11-15 03:51] LABS: % Basophils 0.5 % (0-2); % Eosinophils 3.8 % (0-6); % Immature Granulocytes 0.3 % (0-0.5); % Lymphocytes 24.2 % (20.5-51.1); % Monocytes 8.6 % (1.7-9.3); % Neutrophils 62.6 % (42.2-75.2); Absolute Eosinophils 0.3 10^3/uL (0-0.7); Absolute Lymphocytes 2.1 10^3/uL (1.2-3.4); Absolute Monocytes 0.8 10^3/uL (0.1-0.6); Absolute Neutrophils 5.5 10^3/uL (1.4-6.5); Hematocrit 22.9 % (37.0-47.0); Hemoglobin 7.6 g/dL (12.0-16.0); Mean Corp Hgb Conc. 33.2 g/dL (33.0-37.0); Mean Corpuscular Hgb 29.5 pg (27.0-31.0); Mean Corpuscular Volume 88.8 fL (81.0-99.0); Mean Platelet Volume 9.6 fL (7.4-10.4); Nucleated Red Blood Cells % 0 %; Platelet Count 253 10^3/uL (130-400); Red Blood Cell Count 2.58 10^6/uL (4.20-5.40); Red Cell Dist. Width 15.3 % (11.5-14.5); White Blood Cell Count 8.8 10^3/uL (4.8-10.8)
[2024-11-15 04:04] LABS: Blood Urea Nitrogen 14 mg/dl (7-17); Calcium 8.2 mg/dl (8.4-10.2); Carbon Dioxide 23 mmol/L (22-30); Chloride 116 mmol/L (98-107); Estimated Creatinine Clearance 45 ml/min; Glucose 104 mg/dl (70-99); Magnesium 1.7 mg/dl (1.6-2.3); Potassium 4.5 mmol/L (3.5-5.1); Sodium 143 mmol/L (135-145); eGFR > 60.00
[2024-11-15] MEDS: SYNTHROID 150 MCG PO (05:25)
--- NOTE | 2024-11-15 06:41 | CON.GI ---
Addendum entered and electronically signed by Jeremy Tavera MD 11/15/24 10:08:
Patient seen and examined, agree with nurse practitioner note. Patient is an 89-year-old female past medical history of PE on Eliquis as well as other multiple medical issues, who presents with hemoglobin of 4.8 from group home. She has received
units of PRBCs and now in the sevens. She is not had any gross bleeding has been noted, and she denies any abdominal pain, change in bowel habits, melena or hematochezia. She has been on anticoagulation for some time given the DVT and PE.
Otherwise she is feeling well, denies any chest pain or shortness of breath. Her last colonoscopy in [address] Olea did have a tortuous and somewhat restricted mobility:, Though was completed with good prep and was unremarkable. EGD in 2012
was essentially normal. On exam she has no significant abdominal tenderness.
1. 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 Other etiologies including malignancy are not excluded, though do seem a bit less likely. I discussed with her
and her daughter at length. She is agreeable for EGD which we will plan tomorrow, though she is not sure if she wishes to proceed with colonoscopy. We discussed reasons for endoscopic evaluation is to evaluate for underlying malignancy, she is not
sure if she would pursue treatment if found, and wishes to think further about proceeding with colonoscopy given her issues in the past. Will continue supportive care, would continue iron supplementation and monitoring, and again will plan EGD
tomorrow.
Original Note:
Consultation
-
Date/Time Consultation Requested: 11/14/242029
Date/Time Consultation Performed: 11/15/24 0872
Requesting Provider: We--stanislaw De Luna MD
Performing Provider: LANDY Galvan, Jens Tavera MD
Reason for Consultation: anemia
Medical History
Chief Complaint / HPI
History of Present Illness:
Pt is a 89yo with hx PE/DVT on Eliquis, COPD, TIA, GERD, HTN, hyperlipidemia, hypothyroidism, CO, anxiety/depression,arthritis, diverticulitis, bronchiectasis, asbestos exposure presents from SNF for anemia with hbg down to 4.8 with prior hbg in
early October 9.8 with normal BUN with iron studies consistent with iron deficiency and noted B12 deficiency. In ER noted with brown heme + stool. Pt with several recent admissions/ER eval since June with covid, flu, COPD exacerbation, fall, and
UTI.
In review with pt she has some forgetfulness and lives as [facility]. She admits to some constipation with laxative use then diarrhea, urinary retention and occasional abdominal pain. She has also had 20 lb wt loss. She denies visible
blood or black in stools. She admits to some shortness of breath but denies dysphagia, GERD, nausea, or vomiting.
11/2019- colonoscopy - Olea- good prep to cecum with restricted mobility severe diverticulosis with narrowing
04/2013 EGD Olea normal esophagus, normal stomach and duodenum repeat 5 years bx neg
04/2013 colonoscopy Olea to IC valve diverticulosis bx neg for microscopic or active colitis
Past Medical History
Past Medical History: COPD, CVA (TIA), GERD, HTN, Hypercholesterolemia, Hypothyroidism, CO, Psychiatric (anxiety, depression) and Other (PE/DVT, arthritis, diverticulitis, bronchiectasis, asbestos exposure )
Past Surgical History: Cardiac (stent), Orthopedic (shoulder surgery) and Other (lung biopsy )
Social History
Alcohol: Occasional
Drug: None
Living: Half-Way
Employment: Retired
Family History
Family History: Other (mother with breast CA, father with ? prostate CA)
Allergies / Home Medications
Allergy/AdvReac Type Severity Reaction Status Date / Time
atorvastatin calcium (From Allergy muscle Verified 09/23/24 22:21
Lipitor) aches
erythromycin base Allergy Upset Verified 09/23/24 22:21
(Erythromycin Base) Stomach
grass pollen Allergy COUGH/CONFE Verified 09/23/24 22:21
STION
insulin detemir Allergy Unknown Verified 09/23/24 22:21
moxifloxacin HCl (From Allergy Unknown Verified 09/23/24 22:21
Avelox)
oxycodone HCl (From Percocet) Allergy Shaky and Verified 09/23/24 22:21
weakness
penicillin V Allergy Rash Verified 09/23/24 22:21
Penicillins Allergy Rash Verified 09/23/24 22:21
rosuvastatin calcium (From Allergy muscle Verified 09/23/24 22:21
Crestor) aches
tree and shrub pollen Allergy COUGH/CONGE Verified 09/23/24 22:21
STION
�Medication �Instructions �Recorded
sertraline 50 mg tablet 75 mg PO DAILY@1230 Mental 09/12/13
Health/Anxiety
alendronate 70 mg tablet 70 mg PO PERSON OSTEOPOROSIS 11/05/16
simvastatin 40 mg tablet 40 mg PO HS High cholesterol 11/05/16
apixaban 5 mg tablet (Eliquis) 5 mg PO BID Blood Clot 12/18/22
Prevention/Tx
levothyroxine 150 mcg tablet 150 mcg PO DAILY Thyroid 06/21/24
ondansetron HCl 4 mg tablet 4 mg PO Q8HPRN PRN nausea 06/21/24
acetaminophen 325 mg tablet 650 mg PO Q4HPRN PRN mild pain 11/14/24
(Tylenol)
albuterol sulfate 90 mcg/actuation 2 puff inhalation R Q4HPRN PRN sob 11/14/24
aerosol inhaler
aspirin 81 mg tablet,delayed 81 mg PO DAILY@1230 Heart 11/14/24
release Disease/Condition
bisacodyl 10 mg rectal suppository 10 mg TX [id number] PRN if no bm aftr 11/14/24
(Dulcolax (bisacodyl)) mom
budesonide 0.5 mg/2 mL suspension 0.5 mg inhalation R BID 11/14/24
for nebulization Lung/Breathing Issues
docusate sodium 100 mg capsule 200 mg PO HS Constipation 11/14/24
(Colace)
famotidine 20 mg tablet (Pepcid) 20 mg PO DAILY Gastrointestinal 11/14/24
Issue
fluticasone 250 mcg-salmeterol 50 1 inh inhalation R BID 11/14/24
mcg/dose blistr powdr for Lung/Breathing Issues
inhalation (Advair Diskus)
magnesium hydroxide 400 mg/5 mL 2,400 mg PO HSPRN PRN constipation 11/14/24
oral suspension (Milk of Magnesia)
mirtazapine 15 mg tablet 15 mg PO HS Mental Health/Anxiety 11/14/24
Review of Systems
-
History Source: Patient
Constitutional: Reports Weight Loss and Fatigue
Respiratory: Reports Trouble Breathing
Cardiac: Reports No Symptoms
Abdomen/GI: Reports Diarrhea and Constipated
: Reports Difficulty Voiding
Musculoskeletal: Reports No Symptoms
Skin: Reports No Symptoms
Neurological: Reports Weakness
Endocrine: Reports No Symptoms
Hematologic/Lymphatic: Reports No Symptoms
Vital Signs
Temp Pulse Resp BP Pulse Ox
98.6 F 113 16 134/83 99
11/15/24 05:31 11/15/24 05:31 11/15/24 05:31 11/15/24 05:31 11/15/24 05:31
Physical Exam
Exam
General: Well Developed, Well Nourished and No Apparent Distress
HEENT: Normocephalic and Anicteric
Respiratory: Clear
Cardiac: Regular Rhythm
GI: Soft, Non Tender and Non Distended
Musculoskeletal: No Clubbing and No Cyanosis
Skin: Warm and Dry
Neuro: Awake, Alert and Other (forgetful)
Psych: Calm
Results
WBC 8.8 10^3/uL (4.8-10.8) 11/15/24 03:21
Hgb 7.6 g/dL (12.0-16.0) L D 11/15/24 03:21
Hct 22.9 % (37.0-47.0) L 11/15/24 03:21
MCV 88.8 fL (81.0-99.0) 11/15/24 03:21
Plt Count 253 10^3/uL (130-400) 11/15/24 03:21
Absolute Neuts (auto) 5.5 10^3/uL (1.4-6.5) 11/15/24 03:21
PT 13.6 Sec (11.4-14.6) 11/14/24 14:22
INR 1.01 11/14/24 14:22
APTT 25.4 Sec (23.4-35.0) 11/14/24 14:22
Sodium 143 mmol/L (135-145) 11/15/24 03:21
Potassium 4.5 mmol/L (3.5-5.1) 11/15/24 03:21
Chloride 116 mmol/L (98-107) H 11/15/24 03:21
Carbon Dioxide 23 mmol/L (22-30) 11/15/24 03:21
BUN 14 mg/dl (7-17) 11/15/24 03:21
Creatinine 0.8 mg/dL (0.6-1.0) 11/15/24 03:21
Calcium 8.2 mg/dl (8.4-10.2) L 11/15/24 03:21
Total Bilirubin 0.2 mg/dl (0.2-1.3) 11/14/24 14:22
AST 20 U/L (14-36) 11/14/24 14:22
ALT 11 U/L (0-35) 11/14/24 14:22
Alkaline Phosphatase 70 U/L (38-126) 11/14/24 14:22
Diagnostic Image Results:
05/2024 CT Chest/abd/pel W Iv Cont
Old nondisplaced healed left rib fractures. No acute or displaced rib fracture.
No vertebral compression deformity.
Degenerative changes, as described.
No pneumothorax or pleural effusion. No evidence of pneumonia. Mild chronic pulmonary parenchymal changes. Mild emphysema.
No evidence of solid or hollow visceral organ injury within the abdomen or pelvis. Incidental findings include possible gallbladder adenomyomatosis. Probable small splenic hemangiomas. 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 Mild
diverticulosis without acute diverticulitis.
11/2019- colonoscopy - Olea- good prep to cecum with restricted mobility severe diverticulosis with narrowing
04/2013 EGD Olea normal esophagus, normal stomach and duodenum repeat 5 years bx neg
04/2013 colonoscopy Olea to IC valve diverticulosis bx neg for microscopic or active colitis
Assessment / Plan
-
Pt is a 89yo with hx PE/DVT on Eliquis, COPD, TIA, GERD, HTN, hyperlipidemia, hypothyroidism, CO, anxiety/depression,arthritis, diverticulitis, bronchiectasis, asbestos exposure presents from SNF for anemia with hbg down to 4.8 with prior hbg in
early October 9.8 with normal BUN with iron studies consistent with iron deficiency and also noted B12 deficiency . In ER noted with brown heme + stool.Pt with several recent admissions/ER eval since June with covid, flu, COPD exacerbation, fall,
and UTI. In review with pt she has some forgetfulness and lives as [place]. She admits to some constipation with laxative use then diarrhea, urinary retention and occasional abdominal pain. She has also had 20 lb wt loss. She denies
visible blood or black in stools. She admits to some shortness of breath but denies dysphagia, GERD, nausea, or vomiting.
11/2019- colonoscopy - Olea- good prep to cecum with restricted mobility severe diverticulosis with narrowing
04/2013 EGD Olea normal esophagus, normal stomach and duodenum repeat 5 years bx neg repeat 5 years
04/2013 colonoscopy Olea to IC valve diverticulosis bx neg for microscopic or active colitis
-symptomatic iron deficiency anemia
-heme + stool
-recent wt loss
-B12 deficiency on replacement
-hx PE/DVT on Eliquis
-hx tortuous colonoscopy in past
-diarrhea/constipation with occasional abdominal pain
- several recent admissions/ER eval since June with covid, flu, COPD exacerbation, fall, and UTI
other med problems:
-diverticulitis
-GERD
-COPD/bronchiectasis/prior asbestos exposure
-TIA
-HTN
-hyperlipidemia
-hypothyroidism
-CO
-anxiety/depression
arthritis
PLAN:
Etiology of iron deficiency related to GI loss- PUD, ectasia, mass vs other
last Eliquis 6/10 AM per review with SNF
reviewed with patient for EGD/colon -- she would be agreeable for EGD but unsure about colonoscopy with hx tortuous colon in past
hbg up to 7.6 today
cont IV iron
cont PPI
currently on regular diet
will need to review with family-- I attempted to call son with noted busy signal
-
-
Thank you for consultation and allowing me to participate in the patient's care. Please call the retail operations specialist GI physician during the after hours with any questions or concerns.
[2024-11-15] MEDS: ADVAIR HFA 115/21 MCG INHALER 2 PUFF INH ×2 (08:10→19:45)
[2024-11-15] MEDS: PULMICORT 0.5 MG INH ×2 (08:10→19:45)
[2024-11-15] MEDS: NSS (PRESERVATIVE FREE) 10 ML IV ×2 (08:21→19:31)
[2024-11-15] MEDS: VITAMIN B-12 1000 MCG PO (08:21)
[2024-11-15] MEDS: PROTONIX IV 40 MG IV ×2 (08:21→19:31)
--- NOTE | 2024-11-15 09:39 | W.PN.HOSP.TC ---
Today's Communication/Plan
-
monitor H&H, transfuse prn Hgb<8
NPO after midnight EGD +/- colonoscopy
PT/OT
Iron B12 supplementation
Assessment / Plan
Assessment / Plan
Physical Exam
General: noted pallor no cyanosis or jaundice.
HEENT: Throat clear. PERRLA Normocephalic atraumatic. Poor dentition, missing teeth
NECK: Supple. No JVD Carotid Bruits
RESPIRATORY: Lungs clear to auscultation. No crackles wheezes stridor
CVS: S1, S2 sinus tachy. No murmur, rub or gallop.
ABDOMEN: Soft, some epigastric tenderness noted No distension. BS+/normal.
EXTREMITIES: No peripheral cyanosis or edema.
AIR MARSHAL: AOx3. Conversant Coherent
IMPRESSION:
89F COPD HTN HLD GERD Hypothyroidism CAD stent hx PE/DVT on Eliquis presents from [facility] rehab [facility] for evaluation severe anemia Hgb 4.8 noted on routine labs, precipitous drop from 9.8 a few weeks prior. No obvious signs of bleeding. Patient
denies dark or bloody stools. Multiple hospitalizations at this facility over the past year. Pt was here for COVID PNA back in Jun 2024. Review of records notes a gradual trickle down in Hgb from 11.8 in Jun to low 8.1 in September. Mild sinus
tachy but otherwise Vital signs stable on room air. Patient notes progressive fatigue, lightheadedness on sitting up, and unexpected weight loss 30 lbs over the past few months. Denies appetite loss, abd pain, or shortness of breath. Last
Colonoscopy with Dr Olea November 2019 noted severe diverticulosis but otherwise normal examination
PLAN:
#Severe Anemia possible Acute on Chronic Blood loss anemia
#Iron studies notes Iron Deficiency anemia
#B12 deficiency
#GERD
#unexpected wt loss
Tele admit
monitor H&H, transfuse prn Hgb<8
Received total 3PRBC this hospitalization with good response noted
GI eval appreciated NPO after midnight for EGD +/- colonoscopy
once IM B12 shot followed by daily B12 PO supplementation
IV iron infusion
IV protonix BID
Dietary Eval appreciated
#Hx DVT/PE
recent venous duplex Jun 2024 neg for DVT
August 2022 CT chest pos for PE, follow up CT however notes no PE
hold Eliquis at this time d/t severe anemia as above
stable respiratory status on room air
#COPD
stable respiratory status on room air
cont home inhalers
prn albuterol SOB/wheezing
#reported hx HTN
not on antihypertensive, monitor BP and consider starting as necessary
#HLD
cont home statin
#anxiety/depression
cont home mirtazapine sertraline
#Sacrum Stage 1 Pressure Injury, POA
cont local wound care
PT/OT eval appreciated SNF rehab
Ambulates with walker at baseline
DVT ppx SCDs
GI ppx Protonix
DNR
I spent a total of 45 minutes with the patient or on the floor. More than 50% of this time involved counseling and coordination of care.
Anticipated Discharge: 24 - 48 hours
Subjective/Interval History
-
Date of Service: November 15, 2024
No acute distress sitting up comfortably in chair. Overall reports feeling well. Denies new acute issues at this time.
Objective Data
-
Labs:
Laboratory Results
11/15/24
03:21
WBC 8.8
Hgb 7.6 L D
Hct 22.9 L
Plt Count 253
Sodium 143
Potassium 4.5
Chloride 116 H
Carbon Dioxide 23
BUN 14
Creatinine 0.8
Glucose 104 H
Calcium 8.2 L
Vital Signs:
Vital Signs
Temp Pulse Resp BP Pulse Ox
98.5 F 72 16 132/86 97
11/15/24 06:54 11/15/24 08:11 11/15/24 08:11 11/15/24 06:54 11/15/24 08:11
I&O
11/14/24 11/15/24 11/16/24
06:59 06:59 06:59
Intake Total 1250 / 1250 120 / 120
Balance 1250 / 1250 120 / 120
--- NOTE | 2024-11-15 11:15 | PN.CDI ---
CDI
- -
CDI:
Physician Documentation Request
Admit Date: 11/14/24 19:14
Dear Doctor Annamarie,
Clinical Indicators:
Patient admitted with anemia.
11/14 RN skin/wound assessment: Sacrum Stage 1 Pressure Injury, POA
Treatment: Silicone border foam dressing
Physician documentation of the type and location of wounds is required for compliant documentation. Based on the above clinical findings and your assessment, please provide the following in your progress note:
1. Location of the ulcer/wound, including laterality.
2. Type (etiology) of ulcer/wound:
- Pressure (decubitus) ulcer
- Other, please specify
3. If a pressure ulcer, please also include the stage* of the ulcer:
- Stage 1 - Skin intact, non-blanchable redness
- Stage 2 - Partial thickness loss of dermis, includes intact or open blister
- Stage 3 - Full thickness tissue not including bone, tendon or muscle
- Stage 4 - Full thickness tissue loss, including exposed bone, tendon or muscle
- Unstageable - Full thickness loss in which the base of the ulcer is covered by slough (yellow, harrell, moore, green or brown) and/or eschar (harrell, brown or black) in the wound bed.
- Unable to determine
Use of terms such as suspected, likely, concern for, or probable (associated with a specific diagnosis that is being evaluated, monitored, or treated as if it exists) are acceptable and can be coded in the inpatient setting, when documented at the
time of discharge.
Thank you,
ODALYS Pizarro RN
CDI Specialist
available via tiger text
Please use your independent medical judgment in providing your response.
*Source: National Pressure Ulcer Advisory Panel (NPUAP)
[2024-11-15] MEDS: ASPIR LOW (ENTERIC COATED) 81 MG PO (11:52)
[2024-11-15] MEDS: ZOLOFT 75 MG PO (11:52)
[2024-11-15] MEDS: MAGNESIUM SULFATE 50 IV (11:53)
--- NOTE | 2024-11-15 13:16 | CM ---
CM reviewed chart, patient seen bedside, initial assessment completed. Patient resides at [facility], patient believes she is now living at [facility] and not just for rehab- CM will confirm with admissions at OR. Patient otherwise resides
at [facility]. Patient reports mostly using WC at SNF, also uses RW. Patient confirms PCP Dr. Sainz, pharmacy [facility]. Referral placed to [place] SNF. CM spoke with Cory, admissions at OR, confirmed patient did recently transition to LTC
the fourth of the month. CM will continue to follow for all discharge planning needs.
Plan; return to [facility] when stable
[2024-11-15] MEDS: FERRLECIT 110 MG IV (15:21)
[2024-11-15 18:38] LABS: Hematocrit 27.6 % (37.0-47.0); Hemoglobin 9.2 g/dL (12.0-16.0)
[2024-11-15] MEDS: COLACE PO (21:16)
[2024-11-15] MEDS: REMERON 15 MG PO (21:16)
[2024-11-16] VITALS (8 sets, daily range): BP systolic 116–147; BP diastolic 56–87
[2024-11-16] MEDS: SYNTHROID 150 MCG PO (05:11)
[2024-11-16 07:27] LABS: % Basophils 0.7 % (0-2); % Eosinophils 5.7 % (0-6); % Immature Granulocytes 0.6 % (0-0.5); % Lymphocytes 20.6 % (20.5-51.1); % Monocytes 8.8 % (1.7-9.3); % Neutrophils 63.6 % (42.2-75.2); Absolute Basophils 0.1 10^3/uL (0-0.2); Absolute Eosinophils 0.5 10^3/uL (0-0.7); Absolute Immature Granulocytes 0.1 10^3/uL (0-0.05); Absolute Lymphocytes 1.8 10^3/uL (1.2-3.4); Absolute Monocytes 0.8 10^3/uL (0.1-0.6); Absolute Neutrophils 5.6 10^3/uL (1.4-6.5); Hemoglobin 9.1 g/dL (12.0-16.0); Mean Corp Hgb Conc. 32.5 g/dL (33.0-37.0); Mean Corpuscular Hgb 28.5 pg (27.0-31.0); Mean Corpuscular Volume 87.8 fL (81.0-99.0); Mean Platelet Volume 9.6 fL (7.4-10.4); Nucleated Red Blood Cells % 0 %; Platelet Count 269 10^3/uL (130-400); Red Blood Cell Count 3.19 10^6/uL (4.20-5.40); Red Cell Dist. Width 15.8 % (11.5-14.5); White Blood Cell Count 8.8 10^3/uL (4.8-10.8)
[2024-11-16 07:56] LABS: Blood Urea Nitrogen 12 mg/dl (7-17); Calcium 8.3 mg/dl (8.4-10.2); Carbon Dioxide 24 mmol/L (22-30); Chloride 114 mmol/L (98-107); Estimated Creatinine Clearance 51 ml/min; Glucose 100 mg/dl (70-99); Magnesium 2.2 mg/dl (1.6-2.3); Potassium 4.8 mmol/L (3.5-5.1); Sodium 141 mmol/L (135-145); eGFR > 60.00
[2024-11-16] MEDS: PULMICORT 0.5 MG INH ×2 (08:03→19:15)
[2024-11-16] MEDS: ADVAIR HFA 115/21 MCG INHALER 2 PUFF INH ×2 (08:03→19:15)
[2024-11-16 08:04] LABS: Urine Albumin Negative (Neg - Trace); Urine Bilirubin Negative (Negative); Urine Character Clear (Clear); Urine Color Yellow; Urine Glucose Negative (Negative); Urine Ketone Negative (Negative); Urine Leukocyte 3+ (Negative); Urine Nitrite Negative (Negative); Urine Occult Blood 3+ (Negative); Urine Urobilinogen Negative (Neg - 1+)
--- NOTE | 2024-11-16 08:11 | W.PN.HOSP.TC ---
Today's Communication/Plan
-
monitor H&H
npo after midnight for colonoscopy as per GI
cont abx, follow urine cx
IV iron, B12 supplementation
Assessment / Plan
Assessment / Plan
Physical Exam
General: noted pallor no cyanosis or jaundice.
HEENT: Throat clear. PERRLA Normocephalic atraumatic. Poor dentition, missing teeth
NECK: Supple. No JVD Carotid Bruits
RESPIRATORY: Lungs clear to auscultation. No crackles wheezes stridor
CVS: S1, S2 sinus tachy. No murmur, rub or gallop.
ABDOMEN: Soft, some epigastric tenderness noted No distension. BS+/normal.
EXTREMITIES: No peripheral cyanosis or edema.
ACCESS REGISTRAR: AOx3. Conversant Coherent
IMPRESSION:
89F COPD HTN HLD GERD Hypothyroidism CAD stent hx PE/DVT on Eliquis presents from [facility] rehab [facility] for evaluation severe anemia Hgb 4.8 noted on routine labs, precipitous drop from 9.8 a few weeks prior. No obvious signs of bleeding. Patient
denies dark or bloody stools. Multiple hospitalizations at this facility over the past year. Pt was here for COVID PNA back in Jun 2024. Review of records notes a gradual trickle down in Hgb from 11.8 in Jun to low 8.1 in September. Mild sinus
tachy but otherwise Vital signs stable on room air. Patient notes progressive fatigue, lightheadedness on sitting up, and unexpected weight loss 30 lbs over the past few months. Denies appetite loss, abd pain, or shortness of breath. Last
Colonoscopy with Dr Olea November 2019 noted severe diverticulosis but otherwise normal examination
PLAN:
#Severe Anemia possible Acute on Chronic Blood loss anemia
#Iron studies notes Iron Deficiency anemia
#B12 deficiency
#GERD
#unexpected wt loss
Tele admit
monitor H&H, transfuse prn Hgb<8
Received total 3PRBC this hospitalization with good response noted, Hgb consistently stable in 9 range since transfusions
GI eval appreciated EGD performed 11/16/24 no source of bleeding noted, planned for colonoscopy 11/17/24
received once IM B12 shot followed by daily B12 PO supplementation, continue
IV iron infusion
IV protonix BID
Dietary Eval appreciated
#Hx DVT/PE
recent venous duplex Jun 2024 neg for DVT
August 2022 CT chest pos for PE, follow up CT however notes no PE
hold Eliquis at this time d/t severe anemia as above
stable respiratory status on room air
given no PE or DVT noted on recent imaging, could consider reducing Eliquis to dvt ppx dosage vs discontinuing entirely.
#UTI
patient developed dysuria, urinalysis suggestive UTI
follow up urine culture
empiric ceftriaxone
#COPD
stable respiratory status on room air
cont home inhalers
prn albuterol SOB/wheezing
#reported hx HTN
not on antihypertensive
BP relatively consistently at goal at this time
monitor BP for now, consider start antihypertensive if significant consistent elevations noted
#HLD
cont home statin
#anxiety/depression
cont home mirtazapine sertraline
#Sacrum Stage 1 Pressure Injury, POA
cont local wound care
#MRSA screen positive
maintain precautions
PT/OT eval appreciated SNF rehab
Ambulates with walker at baseline
DVT ppx SCDs
GI ppx Protonix
DNR
I spent a total of 45 minutes with the patient or on the floor. More than 50% of this time involved counseling and coordination of care.
Anticipated Discharge: 24 - 48 hours
Subjective/Interval History
-
Date of Service: November 16, 2024
No acute distress. Overall reports feeling well. Noted dysuria, urinalysis suggestive UTI. Empiric ceftriaxone started pending urine cx
Objective Data
-
Labs:
Laboratory Results
11/16/24
06:43
WBC 8.8
Hgb 9.1 L
Hct 28.0 L
Plt Count 269
Sodium 141
Potassium 4.8
Chloride 114 H
Carbon Dioxide 24
BUN 12
Creatinine 0.7
Glucose 100 H
Calcium 8.3 L
Vital Signs:
Vital Signs
Temp Pulse Resp BP Pulse Ox
98.5 F 103 18 117/71 98
11/16/24 03:23 11/16/24 08:05 11/16/24 08:05 11/16/24 03:23 11/16/24 08:05
I&O
11/15/24 11/16/24 11/17/24
06:59 06:59 06:59
Intake Total 1250 / 1250 120 / 120
Balance 1250 / 1250 120 / 120
[2024-11-16 08:25] LABS: Urine Bacteria Many (Negative); Urine White Cell 26-30 /HPF (0-5)
[2024-11-16] MEDS: PROTONIX IV 40 MG IV ×2 (08:46→19:52)
[2024-11-16] MEDS: NSS (PRESERVATIVE FREE) 10 ML IV ×2 (08:46→19:52)
[2024-11-16] MEDS: VITAMIN B-12 1000 MCG PO (08:47)
[2024-11-16] MEDS: ROCEPHIN 1000 MG IV (09:06)
[2024-11-16] MEDS: STERILE WATER FOR INJECTION 10 ML IV (09:06)
--- NOTE | 2024-11-16 12:47 | CM ---
CM reviewed chart, for EGD today, plan for colonoscopy tomorrow. Patient will return to [facility] when stable. CM will continue to follow for all discharge planning needs.
Plan; return to [facility] when stable
[facility]
Report: [phone]
[2024-11-16] MEDS: ZOLOFT 75 MG PO (13:43)
[2024-11-16] MEDS: ASPIR LOW (ENTERIC COATED) 81 MG PO (13:43)
[2024-11-16] MEDS: FERRLECIT 110 MG IV (15:04)
[2024-11-16] MEDS: TYLENOL 650 MG PO (16:55)
[2024-11-16] MEDS: NULYTELY SOLUTION 4 LITERS PO (17:22)
[2024-11-16] MEDS: COLACE PO (21:24)
[2024-11-16] MEDS: REMERON 15 MG PO (21:59)
[2024-11-17] VITALS (9 sets, daily range): BP systolic 104–160; BP diastolic 59–80
[2024-11-17] MEDS: SYNTHROID 150 MCG PO (05:35)
--- NOTE | 2024-11-17 07:06 | W.PN.HOSP.TC ---
Today's Communication/Plan
-
resume Eliquis
Monitor H&H
discharge planning SNF rehab
Assessment / Plan
Assessment / Plan
Physical Exam
General: noted pallor no cyanosis or jaundice.
HEENT: Throat clear. PERRLA Normocephalic atraumatic. Poor dentition, missing teeth
NECK: Supple. No JVD Carotid Bruits
RESPIRATORY: Lungs clear to auscultation. No crackles wheezes stridor
CVS: S1, S2 sinus tachy. No murmur, rub or gallop.
ABDOMEN: Soft, some epigastric tenderness noted No distension. BS+/normal.
EXTREMITIES: No peripheral cyanosis or edema.
MEDICAL STAFF CREDENTIALING COORDINATOR: AOx3. Conversant Coherent
IMPRESSION:
89F COPD HTN HLD GERD Hypothyroidism CAD stent hx PE/DVT on Eliquis presents from [facility] rehab [facility] for evaluation severe anemia Hgb 4.8 noted on routine labs, precipitous drop from 9.8 a few weeks prior. No obvious signs of bleeding. Patient
denies dark or bloody stools. Multiple hospitalizations at this facility over the past year. Pt was here for COVID PNA back in Jun 2024. Review of records notes a gradual trickle down in Hgb from 11.8 in Jun to low 8.1 in September. Mild sinus
tachy but otherwise Vital signs stable on room air. Patient notes progressive fatigue, lightheadedness on sitting up, and unexpected weight loss 30 lbs over the past few months. Denies appetite loss, abd pain, or shortness of breath. Last
Colonoscopy with Dr Olea November 2019 noted severe diverticulosis but otherwise normal examination
PLAN:
#Severe Anemia possible Acute on Chronic Blood loss anemia
#Iron studies notes Iron Deficiency anemia
#B12 deficiency
#GERD
#unexpected wt loss
Tele admit
monitor H&H, transfuse prn Hgb<8
Received total 3PRBC this hospitalization with good response noted, Hgb consistently stable since transfusions
GI eval appreciated EGD performed 11/16/24 no source of bleeding noted, colonoscopy 11/17/24 noted multiple angioectasia treated with APC and hemostatic clips, cecal mass was noted that was biopsied (if malignancy confirmed, CT chest/abd/pelvis and
colorectal evaluation recommended), cleared to resum home Eliquis.
received once IM B12 shot followed by daily B12 PO supplementation, continue
IV iron infusion
IV protonix BID
Dietary Eval appreciated
#Hx DVT/PE
recent venous duplex Jun 2024 neg for DVT
August 2022 CT chest pos for PE, follow up CT however notes no PE
stable respiratory status on room air
08/10/22 Dr Ayon Discharge Summary however notes patient should be on anticoagulation indefinitely given multiple occurrences PE/DVT
Eliquis since resumed following GI clearance
outpt Follow up Hematology/Oncology recommended
#UTI
patient developed dysuria, urinalysis suggestive UTI
follow up urine culture
empiric ceftriaxone
#COPD
stable respiratory status on room air
cont home inhalers
prn albuterol SOB/wheezing
#reported hx HTN
not on antihypertensive
BP relatively consistently at goal at this time
monitor BP for now, consider start antihypertensive if significant consistent elevations noted
#HLD
cont home statin
#anxiety/depression
cont home mirtazapine sertraline
#Sacrum Stage 1 Pressure Injury, POA
cont local wound care
#MRSA screen positive
maintain precautions
PT/OT eval appreciated SNF rehab
Ambulates with walker at baseline
DVT ppx SCDs
GI ppx Protonix
DNR
Discussed with patient and patient's daughter Makenna
I spent a total of 45 minutes with the patient or on the floor. More than 50% of this time involved counseling and coordination of care.
Anticipated Discharge: 24 - 48 hours
Subjective/Interval History
-
Date of Service: November 17, 2024
No acute distress, sitting up comfortably in bed. Overall patient reports feeling well. Denies new acute issues.
Objective Data
-
Labs:
Laboratory Results
11/17/24
06:00
WBC Pending
Hgb Pending
Hct Pending
Plt Count Pending
Sodium Pending
Potassium Pending
Chloride Pending
Carbon Dioxide Pending
BUN Pending
Creatinine Pending
Glucose Pending
Calcium Pending
Vital Signs:
Vital Signs
Temp Pulse Resp BP Pulse Ox
98.2 F 100 16 160/77 99
11/17/24 03:00 11/17/24 03:00 11/17/24 03:00 11/17/24 03:00 11/17/24 03:00
I&O
11/16/24 11/17/24 11/18/24
06:59 06:59 06:59
Intake Total 120 / 120 960 / 960
Balance 120 / 120 960 / 960
[2024-11-17] MEDS: ADVAIR HFA 115/21 MCG INHALER 2 PUFF INH ×2 (07:20→19:57)
[2024-11-17] MEDS: PULMICORT 0.5 MG INH ×2 (07:20→19:58)
[2024-11-17 08:08] LABS: % Basophils 0.7 % (0-2); % Eosinophils 4.5 % (0-6); % Immature Granulocytes 0.6 % (0-0.5); % Lymphocytes 17.3 % (20.5-51.1); % Monocytes 8.2 % (1.7-9.3); % Neutrophils 68.7 % (42.2-75.2); Absolute Basophils 0.1 10^3/uL (0-0.2); Absolute Eosinophils 0.4 10^3/uL (0-0.7); Absolute Immature Granulocytes 0.1 10^3/uL (0-0.05); Absolute Lymphocytes 1.5 10^3/uL (1.2-3.4); Absolute Monocytes 0.7 10^3/uL (0.1-0.6); Absolute Neutrophils 6.1 10^3/uL (1.4-6.5); Hematocrit 27.7 % (37.0-47.0); Hemoglobin 8.9 g/dL (12.0-16.0); Mean Corp Hgb Conc. 32.1 g/dL (33.0-37.0); Mean Corpuscular Hgb 28.4 pg (27.0-31.0); Mean Corpuscular Volume 88.5 fL (81.0-99.0); Mean Platelet Volume 9.7 fL (7.4-10.4); Nucleated Red Blood Cells % 0 %; Platelet Count 271 10^3/uL (130-400); Red Blood Cell Count 3.13 10^6/uL (4.20-5.40); Red Cell Dist. Width 15.9 % (11.5-14.5); White Blood Cell Count 8.8 10^3/uL (4.8-10.8)
[2024-11-17 08:56] LABS: Blood Urea Nitrogen 8 mg/dl (7-17); Calcium 8.6 mg/dl (8.4-10.2); Carbon Dioxide 22 mmol/L (22-30); Chloride 113 mmol/L (98-107); Estimated Creatinine Clearance 51 ml/min; Glucose 89 mg/dl (70-99); Magnesium 1.9 mg/dl (1.6-2.3); Phosphorus 3.9 mg/dl (2.5-4.5); Potassium 4.4 mmol/L (3.5-5.1); Sodium 140 mmol/L (135-145); eGFR > 60.00
--- NOTE | 2024-11-17 09:19 | W.PN.UPDATE ---
Update Note
Progress Note Update
See full colonoscopy report.
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
Cecal polypoid lesion concerning for malignancy.
OK to start regular diet and OK to start Eliquis 11/09/24
Will sign off but will f/u on the path and further plan after.
[2024-11-17] MEDS: PROTONIX IV 40 MG IV ×2 (10:11→20:29)
[2024-11-17] MEDS: VITAMIN B-12 1000 MCG PO (10:11)
[2024-11-17] MEDS: ROCEPHIN 1000 MG IV (10:12)
[2024-11-17] MEDS: STERILE WATER FOR INJECTION 10 ML IV (10:12)
[2024-11-17] MEDS: NSS (PRESERVATIVE FREE) 10 ML IV ×2 (10:12→20:29)
--- NOTE | 2024-11-17 11:02 | CM ---
CM reviewed chart, patient seen bedside with daughter, recently returned to room after colonoscopy. Plan remains return to [facility] when stable.
Plan; return to [facility] when stable
[facility]
Report: [phone]
[2024-11-17] MEDS: ASPIR LOW (ENTERIC COATED) 81 MG PO (13:09)
[2024-11-17] MEDS: ZOLOFT 75 MG PO (13:09)
[2024-11-17] MEDS: FERRLECIT 110 MG IV (13:11)
--- NOTE | 2024-11-17 13:51 | PN.CDI ---
CDI
- -
CDI:
Physician Documentation Request
Admit Date: 11/14/24 19:14
Dear Doctor Annamarie,
Clinical Indicators:
Patient admitted with Severe Anemia.
Home medication: Apixaban 5 mg tablet (Eliquis) 5 mg PO BID
6/12 PN, '...possible Acute on Chronic Blood loss anemia...hold Eliquis at this time d/t severe anemia as above...'
Please clarify the likely relationship between the anemia and Eliquis use:
Yes, anemia is related to/associated with/exacerbated by Eliquis use.
No, anemia is not related to/associated with/exacerbated by Eliquis use but it is due to ___. (Please specify)
Unable to determine
Use of terms such as suspected, likely, concern for, or probable (associated with a specific diagnosis that is being evaluated, monitored, or treated as if it exists) are acceptable and can be coded in the inpatient setting, when documented at the
time of discharge.
Thank you,
ODALYS Pizarro RN
CDI Specialist
available via tiger text
Please use your independent medical judgment in providing your response.
--- NOTE | 2024-11-17 14:42 | PTCARENOTE ---
At 10:00, this am, pt back from GI lab s/p Colonoscopy. pt is AAO*3, denies any pain. daughter at the bedside updated. call wise within the reach. plan of care ongoing.
[2024-11-17] MEDS: ELIQUIS 5 MG PO (20:29)
[2024-11-17] MEDS: COLACE PO (20:29)
[2024-11-17] MEDS: REMERON 15 MG PO (20:29)
[2024-11-18 03:25] VITALS: BP 145/89
[2024-11-18] MEDS: SYNTHROID 150 MCG PO (05:19)
[2024-11-18 07:07] LABS: % Basophils 0.6 % (0-2); % Eosinophils 4.3 % (0-6); % Immature Granulocytes 0.6 % (0-0.5); % Lymphocytes 19.4 % (20.5-51.1); % Neutrophils 65.1 % (42.2-75.2); Absolute Basophils 0.1 10^3/uL (0-0.2); Absolute Eosinophils 0.4 10^3/uL (0-0.7); Absolute Immature Granulocytes 0.1 10^3/uL (0-0.05); Absolute Lymphocytes 1.7 10^3/uL (1.2-3.4); Absolute Monocytes 0.9 10^3/uL (0.1-0.6); Absolute Neutrophils 5.8 10^3/uL (1.4-6.5); Hematocrit 28.6 % (37.0-47.0); Mean Corp Hgb Conc. 31.5 g/dL (33.0-37.0); Mean Corpuscular Volume 89.1 fL (81.0-99.0); Mean Platelet Volume 9.6 fL (7.4-10.4); Nucleated Red Blood Cells % 0 %; Platelet Count 284 10^3/uL (130-400); Red Blood Cell Count 3.21 10^6/uL (4.20-5.40); Red Cell Dist. Width 15.9 % (11.5-14.5); White Blood Cell Count 8.9 10^3/uL (4.8-10.8)
--- NOTE | 2024-11-18 07:07 | W.PN.HOSP.TC ---
Today's Communication/Plan
-
cont IV iron infusions
monitor H&H
possible discharge back to [facility] rehab tomorrow
Assessment / Plan
Assessment / Plan
Physical Exam
General: noted pallor no cyanosis or jaundice.
HEENT: Throat clear. PERRLA Normocephalic atraumatic. Poor dentition, missing teeth
NECK: Supple. No JVD Carotid Bruits
RESPIRATORY: Lungs clear to auscultation. No crackles wheezes stridor
CVS: S1, S2 sinus tachy. No murmur, rub or gallop.
ABDOMEN: Soft, some epigastric tenderness noted No distension. BS+/normal.
EXTREMITIES: No peripheral cyanosis or edema.
SUPERVISOR DRILLING AND SHOOTING: AOx3. Conversant Coherent
IMPRESSION:
89F COPD HTN HLD GERD Hypothyroidism CAD stent hx PE/DVT on Eliquis presents from [facility] rehab [facility] for evaluation severe anemia Hgb 4.8 noted on routine labs, precipitous drop from 9.8 a few weeks prior. No obvious signs of bleeding. Patient
denies dark or bloody stools. Multiple hospitalizations at this facility over the past year. Pt was here for COVID PNA back in Jun 2024. Review of records notes a gradual trickle down in Hgb from 11.8 in Jun to low 8.1 in September. Mild sinus
tachy but otherwise Vital signs stable on room air. Patient notes progressive fatigue, lightheadedness on sitting up, and unexpected weight loss 30 lbs over the past few months. Denies appetite loss, abd pain, or shortness of breath. Last
Colonoscopy with Dr Olea November 2019 noted severe diverticulosis but otherwise normal examination
PLAN:
#Severe Anemia possible Acute on Chronic Blood loss anemia
#Iron studies notes Iron Deficiency anemia
#B12 deficiency
#GERD
#unexpected wt loss
Tele admit
monitor H&H, transfuse prn Hgb<8
Received total 3PRBC this hospitalization with good response noted, Hgb consistently stable since transfusions
GI eval appreciated EGD performed 11/16/24 no source of bleeding noted, colonoscopy 11/17/24 noted multiple angioectasia treated with APC and hemostatic clips, cecal mass was noted that was biopsied (if malignancy confirmed, CT chest/abd/pelvis and
colorectal evaluation recommended), cleared to resum home Eliquis.
received once IM B12 shot followed by daily B12 PO supplementation, continue
IV iron infusion
IV protonix BID
Dietary Eval appreciated
#Hx DVT/PE
recent venous duplex Jun 2024 neg for DVT
August 2022 CT chest pos for PE, follow up CT however notes no PE
stable respiratory status on room air
08/10/22 Dr Ayon Discharge Summary however notes patient should be on anticoagulation indefinitely given multiple occurrences PE/DVT
Eliquis since resumed following GI clearance
outpt Follow up Hematology/Oncology recommended
#UTI
patient developed dysuria, urinalysis suggestive UTI
follow up urine culture
empiric ceftriaxone
#COPD
stable respiratory status on room air
cont home inhalers
prn albuterol SOB/wheezing
#reported hx HTN
not on antihypertensive
BP relatively consistently at goal at this time
monitor BP for now, consider start antihypertensive if significant consistent elevations noted
#HLD
cont home statin
#anxiety/depression
cont home mirtazapine sertraline
#Sacrum Stage 1 Pressure Injury, POA
cont local wound care
#MRSA screen positive
maintain precautions
PT/OT eval appreciated SNF rehab
Ambulates with walker at baseline
DVT ppx SCDs
GI ppx Protonix
DNR
Discussed with patient and patient's daughter Makenna
I spent a total of 45 minutes with the patient or on the floor. More than 50% of this time involved counseling and coordination of care.
Anticipated Discharge: Within 24 hours
Subjective/Interval History
-
Date of Service: November 18, 2024
No acute distress, overall reports feeling well
Objective Data
-
Labs:
Laboratory Results
11/18/24
06:39
WBC Pending
Hgb Pending
Hct Pending
Plt Count Pending
Sodium Pending
Potassium Pending
Chloride Pending
Carbon Dioxide Pending
BUN Pending
Creatinine Pending
Glucose Pending
Calcium Pending
Vital Signs:
Vital Signs
Temp Pulse Resp BP Pulse Ox
97.2 F 102 18 145/89 96
11/18/24 03:25 11/18/24 03:25 11/18/24 03:25 11/18/24 03:25 11/18/24 03:25
I&O
11/17/24 11/18/24 11/19/24
06:59 06:59 06:59
Intake Total 960 / 960 2160 / 2160
Balance 960 / 960 2160 / 2160
[2024-11-18 07:23] LABS: Blood Urea Nitrogen 12 mg/dl (7-17); Carbon Dioxide 23 mmol/L (22-30); Chloride 116 mmol/L (98-107); Estimated Creatinine Clearance 45 ml/min; Glucose 110 mg/dl (70-99); Magnesium 1.8 mg/dl (1.6-2.3); Sodium 142 mmol/L (135-145); eGFR > 60.00
[2024-11-18] MEDS: PULMICORT 0.5 MG INH ×2 (07:32→19:53)
[2024-11-18] MEDS: ADVAIR HFA 115/21 MCG INHALER 2 PUFF INH ×2 (07:32→19:53)
[2024-11-18 07:41] VITALS: BP 144/88
[2024-11-18] MEDS: PROTONIX IV 40 MG IV ×2 (09:31→20:17)
[2024-11-18] MEDS: VITAMIN B-12 1000 MCG PO (09:31)
[2024-11-18] MEDS: ELIQUIS 5 MG PO ×2 (09:31→20:17)
[2024-11-18] MEDS: NSS (PRESERVATIVE FREE) 10 ML IV ×2 (09:31→20:18)
[2024-11-18] MEDS: STERILE WATER FOR INJECTION 10 ML IV (09:32)
[2024-11-18] MEDS: ROCEPHIN 1000 MG IV (09:33)
[2024-11-18 11:53] VITALS: BP 105/66
[2024-11-18] MEDS: ZOLOFT 75 MG PO (12:16)
[2024-11-18] MEDS: FERRLECIT 110 MG IV (13:44)
[2024-11-18 15:54] VITALS: BP 102/58
[2024-11-18 19:28] VITALS: BP 120/61
[2024-11-18] MEDS: COLACE PO (20:18)
[2024-11-18] MEDS: REMERON 15 MG PO (20:22)
[2024-11-18 23:27] VITALS: BP 100/55
[2024-11-19 03:16] VITALS: BP 108/69
[2024-11-19] MEDS: SYNTHROID 150 MCG PO (05:52)
[2024-11-19 06:13] LABS: % Eosinophils 6.3 % (0-6); % Immature Granulocytes 0.7 % (0-0.5); % Lymphocytes 25.1 % (20.5-51.1); % Monocytes 8.8 % (1.7-9.3); % Neutrophils 58.1 % (42.2-75.2); Absolute Basophils 0.1 10^3/uL (0-0.2); Absolute Eosinophils 0.5 10^3/uL (0-0.7); Absolute Immature Granulocytes 0.1 10^3/uL (0-0.05); Absolute Monocytes 0.7 10^3/uL (0.1-0.6); Absolute Neutrophils 4.7 10^3/uL (1.4-6.5); Hematocrit 28.2 % (37.0-47.0); Mean Corp Hgb Conc. 31.9 g/dL (33.0-37.0); Mean Corpuscular Hgb 28.8 pg (27.0-31.0); Mean Corpuscular Volume 90.4 fL (81.0-99.0); Mean Platelet Volume 9.8 fL (7.4-10.4); Nucleated Red Blood Cells % 0 %; Platelet Count 267 10^3/uL (130-400); Red Blood Cell Count 3.12 10^6/uL (4.20-5.40); Red Cell Dist. Width 16.6 % (11.5-14.5); White Blood Cell Count 8.1 10^3/uL (4.8-10.8)
[2024-11-19 06:41] LABS: Blood Urea Nitrogen 11 mg/dl (7-17); Calcium 8.9 mg/dl (8.4-10.2); Carbon Dioxide 24 mmol/L (22-30); Chloride 115 mmol/L (98-107); Estimated Creatinine Clearance 45 ml/min; Glucose 102 mg/dl (70-99); Magnesium 1.7 mg/dl (1.6-2.3); Phosphorus 4.7 mg/dl (2.5-4.5); Potassium 4.4 mmol/L (3.5-5.1); Sodium 144 mmol/L (135-145); eGFR > 60.00
[2024-11-19 07:03] VITALS: BP 151/77
[2024-11-19] MEDS: PULMICORT 0.5 MG INH ×2 (07:34→19:37)
[2024-11-19] MEDS: ADVAIR HFA 115/21 MCG INHALER 2 PUFF INH ×2 (07:34→19:37)
--- NOTE | 2024-11-19 08:24 | W.PN.HOSP.TC ---
Today's Communication/Plan
-
ID eval
IV iron infusion last day
H&H stable on Eliquis
possible discharge SNF rehab tomorrow
Assessment / Plan
Assessment / Plan
Physical Exam
General: noted pallor no cyanosis or jaundice.
HEENT: Throat clear. PERRLA Normocephalic atraumatic. Poor dentition, missing teeth. Hard of hearing
NECK: Supple. No JVD Carotid Bruits
RESPIRATORY: Lungs clear to auscultation. No crackles wheezes stridor
CVS: S1, S2 sinus tachy. No murmur, rub or gallop.
ABDOMEN: Soft, some epigastric tenderness noted No distension. BS+/normal.
EXTREMITIES: No peripheral cyanosis or edema.
ZONING ADMINISTRATOR: AOx3. Conversant Coherent
IMPRESSION:
89F COPD HTN HLD GERD Hypothyroidism CAD stent hx PE/DVT on Eliquis presents from [facility] rehab [facility] for evaluation severe anemia Hgb 4.8 noted on routine labs, precipitous drop from 9.8 a few weeks prior. No obvious signs of bleeding. Patient
denies dark or bloody stools. Multiple hospitalizations at this facility over the past year. Pt was here for COVID PNA back in Jun 2024. Review of records notes a gradual trickle down in Hgb from 11.8 in Jun to low 8.1 in September. Mild sinus
tachy but otherwise Vital signs stable on room air. Patient notes progressive fatigue, lightheadedness on sitting up, and unexpected weight loss 30 lbs over the past few months. Denies appetite loss, abd pain, or shortness of breath. Last
Colonoscopy with Dr Olea November 2019 noted severe diverticulosis but otherwise normal examination
PLAN:
#Severe Anemia possible Acute on Chronic Blood loss anemia
#Anemia likely exacerbated by Eliquis use
#Iron studies notes Iron Deficiency anemia
#B12 deficiency
#GERD
#unexpected wt loss, Cecal mass noted on Colonoscopy
Tele admit
monitor H&H, transfuse prn Hgb<8
Received total 3PRBC this hospitalization with good response noted, Hgb consistently stable since transfusions
GI eval appreciated EGD performed 11/16/24 no source of bleeding noted, colonoscopy 11/17/24 noted multiple angioectasia treated with APC and hemostatic clips, cecal mass was noted that was biopsied (if malignancy confirmed, CT chest/abd/pelvis and
colorectal evaluation recommended), cleared to resum home Eliquis.
received once IM B12 shot followed by daily B12 PO supplementation, continue
IV iron infusion complete 5 days then transitioned to PO
IV protonix BID
Dietary Eval appreciated
#Hx DVT/PE
recent venous duplex Jun 2024 neg for DVT
August 2022 CT chest pos for PE, follow up CT however notes no PE
stable respiratory status on room air
08/10/22 Dr Ayon Discharge Summary however notes patient should be on anticoagulation indefinitely given multiple occurrences PE/DVT
Eliquis since resumed following GI clearance
outpt Follow up Hematology/Oncology recommended
#UTI
patient developed dysuria, urinalysis suggestive UTI
follow up urine culture noted ESBL Klebsiella
Dysuria persists
empiric ceftriaxone (bacteria resistant) switched to Ertapenem
abx options limited with PCN allergy
ID eval requested
#COPD
stable respiratory status on room air
cont home inhalers
prn albuterol SOB/wheezing
#reported hx HTN
not on antihypertensive
BP relatively consistently at goal at this time
no need for antihypertensives at this time
#HLD
cont home statin
#anxiety/depression
cont home mirtazapine sertraline
#Sacrum Stage 1 Pressure Injury, POA
cont local wound care
#MRSA screen positive
maintain precautions
PT/OT eval appreciated SNF rehab
Ambulates with walker at baseline
DVT ppx SCDs
GI ppx Protonix
DNR
Discussed with patient and patient's daughter Makenna
I spent a total of 40 minutes with the patient or on the floor. More than 50% of this time involved counseling and coordination of care.
Anticipated Discharge: Within 24 hours
Subjective/Interval History
-
Date of Service: November 19, 2024
No acute distress resting comfortably in bed. Overall reports feeling well but also reports dysuria. VSS on room air
Objective Data
-
Labs:
Laboratory Results
11/19/24
05:50
WBC 8.1
Hgb 9.0 L
Hct 28.2 L
Plt Count 267
Sodium 144
Potassium 4.4
Chloride 115 H
Carbon Dioxide 24
BUN 11
Creatinine 0.8
Glucose 102 H
Calcium 8.9
Vital Signs:
Vital Signs
Temp Pulse Resp BP Pulse Ox
98.3 F 100 14 151/77 98
11/19/24 07:03 11/19/24 07:37 11/19/24 07:37 11/19/24 07:03 11/19/24 07:37
I&O
11/18/24 11/19/24 11/20/24
06:59 06:59 06:59
Intake Total 2160 / 2160 720 / 720
Balance 2160 / 2160 720 / 720
[2024-11-19] MEDS: ELIQUIS 5 MG PO ×2 (09:46→20:34)
[2024-11-19] MEDS: ROCEPHIN 1000 MG IV (09:47)
[2024-11-19] MEDS: VITAMIN B-12 1000 MCG PO (09:47)
[2024-11-19] MEDS: PROTONIX IV 40 MG IV ×2 (09:47→20:36)
[2024-11-19] MEDS: NSS (PRESERVATIVE FREE) 10 ML IV ×2 (09:47→20:36)
[2024-11-19] MEDS: STERILE WATER FOR INJECTION 10 ML IV (09:48)
[2024-11-19 11:07] VITALS: BP 129/72
[2024-11-19] MEDS: ZOLOFT 75 MG PO (12:47)
[2024-11-19] MEDS: INVANZ 60 MG IV (12:48)
[2024-11-19] MEDS: FERRLECIT 110 MG IV (13:31)
--- NOTE | 2024-11-19 15:05 | CON.ID ---
Consultation
-
Date/Time Consultation Requested: 11/19/2024 1129
Date/Time Consultation Performed: 11/19/2024 1506
Requesting Provider: Dr. De Luna
Performing Provider: Dr. Long
Reason for Consultation: Complicated urinary tract infection
Chief Complaint / Past History
History of Present Illness
Radhika Quinn is an 89-year-old female being evaluated the request of Dr. De Luna regarding ESBL Klebsiella recovered from the urine. History is obtained from chart review, along with patient interview. Additional history was obtained from the
patient's daughter who was at the bedside.
The patient presented to [facility] on 11/[address] [facility] where she had been for only several days. Outpatient lab testing revealed a hemoglobin of 4.8 and she was sent to the emergency room for further evaluation. Workup in the
emergency room included urinalysis and urine culture which has now been found to be positive for ESBL Klebsiella. Infectious Diseases is asked to comment upon further antibiotic therapy.
Patient denies significant dysuria prior to admission. She describes no fevers or chills. She denies any flank pain. The patient's daughter reports the diagnosis of 'frequent urinary tract infections 'in the past, but she is unsure what criteria
was used to determine the 'UTI'.
Past History
Additional Past Medical History:
COPD
GERD
Dyslipidemia
CAD; Hx MD
Hypothyroidism
DVT/PE
Diverticulitis
Additional Past Surgical History:
PCI with stenting
Orthopedic Sx
Allergy History:
atorvastatin calcium (From Lipitor) Allergy (Verified 09/23/24 22:21)
muscle aches
erythromycin base (Erythromycin Base) Allergy (Verified 09/23/24 22:21)
Upset Stomach
grass pollen Allergy (Verified 09/23/24 22:21)
COUGH/CONFESTION
insulin detemir Allergy (Verified 09/23/24 22:21)
Unknown
moxifloxacin HCl (From Avelox) Allergy (Verified 09/23/24 22:21)
Unknown
oxycodone HCl (From Percocet) Allergy (Verified 09/23/24 22:21)
Shaky and weakness
penicillin V Allergy (Verified 09/23/24 22:21)
Rash
Penicillins Allergy (Verified 09/23/24 22:21)
Rash
rosuvastatin calcium (From Crestor) Allergy (Verified 09/23/24 22:21)
muscle aches
tree and shrub pollen Allergy (Verified 09/23/24 22:21)
COUGH/CONGESTION
Medications Reviewed: Yes
Current Antibiotics:
Ertapenem 1 g IV every 24 hours (day #1)
Ceftriaxone (11/16 - 11/19)
Social History
Tobacco: Former Smoker
Alcohol: Daily
Drug: None
Personal:
Living: Penitentiary
Employment: Retired
Family History
Family History: Not Pertinent
Review of Systems
Vital Signs
Temp Pulse Resp BP Pulse Ox
97.5 F 116 18 129/72 98
11/19/24 11:07 11/19/24 11:07 11/19/24 11:07 11/19/24 11:07 11/19/24 11:07
Physical Exam
Physical Exam
Constitutional: No Acute Distress, Comfortable, Chronically Ill and Non-toxic
Head: Normocephalic
Eyes: Pupils Equal, Pupils Round, No Conjunctival Hemorrhage and Sclera Anicteric
Oral: Poor Dentition, No Thrush and No Ulcers
Cardiovascular: Regular Rate and S1/S2; Negative S3/S4
Pulmonary: Clear; Negative Wheezes or Rales
Gastrointestinal: Soft and Non Tender
Genito-Urinary: Negative Suprapubic Tenderness or CVA Tenderness
Extremities: Negative Edema or Cyanosis
Neurological: Awake and Alert
Psychological: Calm
Lab / Diagnostic Study Results
11/19/24 05:50
11/19/24 05:50
Abs Immat Gran (auto) 0.1 10^3/uL (0-0.05) H 11/19/24 05:50
Absolute Neuts (auto) 4.7 10^3/uL (1.4-6.5) 11/19/24 05:50
Absolute Lymphs (auto) 2.0 10^3/uL (1.2-3.4) 11/19/24 05:50
Absolute Monos (auto) 0.7 10^3/uL (0.1-0.6) H 11/19/24 05:50
Absolute Basos (auto) 0.1 10^3/uL (0-0.2) 11/19/24 05:50
Immature Gran % 0.7 % (0-0.5) H 11/19/24 05:50
Neutrophils % 58.1 % (42.2-75.2) 11/19/24 05:50
Lymphocytes % 25.1 % (20.5-51.1) 11/19/24 05:50
Monocytes % 8.8 % (1.7-9.3) 11/19/24 05:50
Eosinophils % 6.3 % (0-6) H 11/19/24 05:50
Basophils % 1.0 % (0-2) 11/19/24 05:50
PT 13.6 Sec (11.4-14.6) 11/14/24 14:22
INR 1.01 11/14/24 14:22
Ur Squamous Epith Cells 6-10 /LPF (Few) 11/16/24 07:43
Microbiology Results
Micro:
11/16/24 07:43 Urine Culture - Final
Urine Klebsiella pneumoniae-ESBL#2
Klebsiella pneumoniae-ESBL
11/14/24 21:39 MRSA Screen - Final
Nose Staph aureus MRSA
Imaging:
11/15/2024 CT chest: No evidence of central pulmonary embolism. Aberrant right subclavian artery noted. Biapical pleural/parenchymal scarring. Tiny bilateral pleural effusions are seen. Please see full dictation for additional detail.
Assessment / Plan
Asymptomatic bacteriuria
- Urine culture with 2 isolates of ESBL Klebsiella pneumonia
Symptomatic anemia
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
COPD
GERD
Dyslipidemia
CAD; Hx MD
Hypothyroidism
DVT/PE
Diverticulitis
Recommendations:
At present, patient without urinary symptomatology, thus the finding of Klebsiella on urine culture is to be considered asymptomatic bacteriuria.
Discontinue further antibiotics and observe.
Encouraged good fluid hydration and frequent urination to decrease overall bioburden.
May consider the initiation of vaginal steroid cream.
May consider outpatient urology evaluation.
The above was discussed with the patient's daughter at the bedside.
[2024-11-19 15:37] VITALS: BP 137/70
[2024-11-19] MEDS: COLACE PO (20:37)
[2024-11-19] MEDS: REMERON 15 MG PO (20:37)
[2024-11-19] MEDS: Pyridium 100 MG PO (21:48)
[2024-11-19 23:28] VITALS: BP 129/68
[2024-11-20] MEDS: SYNTHROID 150 MCG PO (06:00)
[2024-11-20 07:00] VITALS: BP 144/84
[2024-11-20] MEDS: ADVAIR HFA 115/21 MCG INHALER 2 PUFF INH (07:31)
[2024-11-20] MEDS: PULMICORT 0.5 MG INH (07:31)
[2024-11-20] MEDS: FEOSOL 325 MG PO (08:03)
[2024-11-20] MEDS: PROTONIX IV 40 MG IV (08:03)
[2024-11-20] MEDS: VITAMIN B-12 1000 MCG PO (08:03)
[2024-11-20] MEDS: ELIQUIS 5 MG PO (08:03)
[2024-11-20] MEDS: NSS (PRESERVATIVE FREE) 10 ML IV (08:03)
--- NOTE | 2024-11-20 10:35 | W.PN.HOSP.TC ---
Today's Communication/Plan
-
dc to SNF today
Assessment / Plan
Assessment / Plan
Assessment:
Severe Anemia possible Acute on Chronic Blood loss anemia
Anemia likely exacerbated by Eliquis use
Iron studies notes Iron Deficiency anemia
B12 deficiency
GERD
unexpected wt loss, Cecal mass noted on Colonoscopy
- GI eval appreciated EGD performed 11/16/24 no source of bleeding noted, colonoscopy 11/17/24 noted multiple angioectasia treated with APC and hemostatic clips, cecal mass was noted that was biopsied - OP Colorectal eval if malignancy concern
- s/p 3 units PRBC and IV iron, IM B12. Oral supplements at discharge
Hx DVT/PE
- continue Eliquis
- OP Heme/Onc f/u
Dysuria
- ID evaluated; culture with ESBL but no definitive UTI symptoms. Observing off Abx
- OP Uro-Diamond Assorter evaluation. Estradiol cream ordered
COPD
- stable respiratory status on room air
- cont home inhalers
- prn albuterol SOB/wheezing
reported hx HTN
- not on antihypertensive
- BP relatively consistently at goal at this time
- no need for antihypertensives at this time
HLD
- cont home statin
anxiety/depression
- cont home mirtazapine sertraline
Sacrum Stage 1 Pressure Injury, POA
- cont local wound care
DVT ppx: SCDs
Code: DNR/DNI
More than 30 minutes spent in discharge including
Final examination of the patient
Summarizing hospital stay
Instructions for continuing care to all relevant caregivers
Preparation of discharge records, prescriptions, and referral forms
Total time spent (in minutes): 41
Anticipated Discharge: Today
Subjective/Interval History
-
Date of Service: November 20, 2024
resting comfortably, no complaints
Objective Data
-
Labs:
Laboratory Results
11/20/24
06:00
WBC Cancelled
Hgb Cancelled
Hct Cancelled
Plt Count Cancelled
Sodium Cancelled
Potassium Cancelled
Chloride Cancelled
Carbon Dioxide Cancelled
BUN Cancelled
Creatinine Cancelled
Glucose Cancelled
Calcium Cancelled
Vital Signs:
Vital Signs
Temp Pulse Resp BP Pulse Ox
98.2 F 106 14 144/84 96
11/20/24 07:00 11/20/24 07:34 11/20/24 07:34 11/20/24 07:00 11/20/24 07:34
I&O
11/19/24 11/20/24 11/21/24
06:59 06:59 06:59
Intake Total 720 / 720 240 / 240
Balance 720 / 720 240 / 240
Physical Exam
-
General: No Apparent Distress
HEENT: Normocephalic and Atraumatic
Respiratory: Negative Wheezes
Cardiac: Regular Rhythm and S1/S2
GI: Soft and Nontender
Genito-urinary: No Costovertebral Tender
Neuro: AO x 3
Psych: Calm
Data Reviewed
-
Total Time Spent with Patient (in minutes): 42
Labs: Labs Reviewed by me
--- NOTE | 2024-11-20 10:54 | CM ---
Addendum entered by Corrina Gonzalez 11/20/24 11:16:
Patient scheduled for 3:30 p.m. ambulance transport, [facility] update,
VM left for patients Makenna urbano, with time.
Original Note:
CM reviewed chart, patient for discharge today, back to [facility], updated clinicals sent to [facility] via [facility]. Call to patients Makenna urbano, aware of discharge and ambulance transport back to facility. Patient seen bedside, reviewed
IMM verbally, provided with copy, placed in chart. CM will continue to follow for all discharge planning needs.
Plan; return to [facility], ambulance transport scheduled
[facility]
Report: [phone]
[2024-11-20] MEDS: ZOLOFT 75 MG PO (12:05)
--- NOTE | 2024-11-20 13:57 | W.DS.TRANS ---
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
-
Discharge Instructions:
Discharge Diagnosis/Procedures acute GI bleed with acute anemia
Diet Regular
Activity As tolerated
Other Services PT,OT
Instructions:
Stand-Alone Forms:
Changes to Home Medications: No
Discharge Medications:
DC Medications w/original date entered in [employer]
sertraline 50 mg tablet 75 mg PO DAILY@1230 Mental Health/Anxiety 09/12/13
alendronate 70 mg tablet 70 mg PO PERSON OSTEOPOROSIS 11/05/16
simvastatin 40 mg tablet 40 mg PO HS High cholesterol 11/05/16
apixaban 5 mg tablet (Eliquis) 5 mg PO BID Blood Clot Prevention/Tx 12/18/22
levothyroxine 150 mcg tablet 150 mcg PO DAILY Thyroid 06/21/24
ondansetron HCl 4 mg tablet 4 mg PO Q8HPRN PRN nausea 06/21/24
acetaminophen 325 mg tablet (Tylenol) 650 mg PO Q4HPRN PRN mild pain 11/14/24
albuterol sulfate 90 mcg/actuation aerosol inhaler 2 puff inhalation R Q4HPRN PRN sob 11/14/24
aspirin 81 mg tablet,delayed release 81 mg PO DAILY@1230 Heart Disease/Condition 11/14/24
bisacodyl 10 mg rectal suppository (Dulcolax (bisacodyl)) 10 mg IA [id number] PRN if no bm aftr mom 11/14/24
budesonide 0.5 mg/2 mL suspension for nebulization 0.5 mg inhalation R BID Lung/Breathing Issues 11/14/24
docusate sodium 100 mg capsule (Colace) 200 mg PO HS Constipation 11/14/24
famotidine 20 mg tablet (Pepcid) 20 mg PO DAILY Gastrointestinal Issue 11/14/24
fluticasone 250 mcg-salmeterol 50 mcg/dose blistr powdr for inhalation (Advair Diskus) 1 inh inhalation R BID Lung/Breathing Issues 11/14/24
magnesium hydroxide 400 mg/5 mL oral suspension (Milk of Magnesia) 2,400 mg PO HSPRN PRN constipation 11/14/24
mirtazapine 15 mg tablet 15 mg PO HS Mental Health/Anxiety 11/14/24
cyanocobalamin (vitamin B-12) 1,000 mcg tablet (Vitamin B-12) 1,000 mcg PO DAILY #100 tabs 11/20/24
ferrous sulfate 325 mg (65 mg iron) tablet (FeroSul) 325 mg PO DAILY #100 tabs 11/20/24
pantoprazole 40 mg tablet,delayed release (Protonix) 40 mg PO DAILY #30 tabs 11/20/24
Home Medication Changes
Pending Results: No
Total time spent discharging patient (in min): 41
--- NOTE | 2024-11-20 14:44 | W.PN.ID1 ---
Date of Service
Date of Service: November 20, 2024
Today's Communication
Continue off antibiotics.
Assessment / Plan
Asymptomatic bacteriuria
- Urine culture with 2 isolates of ESBL Klebsiella pneumonia
Symptomatic anemia
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
COPD
GERD
Dyslipidemia
CAD; Hx [place]
Hypothyroidism
DVT/PE
Diverticulitis
Recommendations:
At present, patient without urinary symptomatology, thus the finding of Klebsiella on urine culture would be considered asymptomatic bacteriuria.
Continue off antibiotics.
Encouraged good fluid hydration and frequent urination to decrease overall bioburden.
Consider the initiation of vaginal steroid cream.
Consider outpatient Urology evaluation.
����������������������������������������������������������
Chief Complaint
-: UTI
Subjective / Review of Systems
Review of Systems: No Fever, No Chills and No Dysuria
Vital Signs / Physical Exam
Vital Signs
Vital Signs
Temp Pulse Resp BP Pulse Ox
98.2 F 106 14 144/84 96
11/20/24 07:00 11/20/24 07:34 11/20/24 07:34 11/20/24 07:00 11/20/24 07:34
Physical Exam
Constitutional: No Acute Distress, Comfortable, Chronically Ill and Non-toxic
Eyes: Sclera Anicteric
Cardiovascular: S1/S2; Negative S3/S4
Pulmonary: Non Labored
Gastrointestinal: Soft, Non Tender and Non Distended
Neurological: Awake and Alert
Psychological: Calm
Objective Data
Lab Data
Lab Results
11/20/24 06:00
11/20/24 06:00
PT 13.6 Sec (11.4-14.6) 11/14/24 14:22
INR 1.01 11/14/24 14:22
APTT 25.4 Sec (23.4-35.0) 11/14/24 14:22
Estimated Creat Clear Cancelled 11/20/24 06:00
Total Bilirubin 0.2 mg/dl (0.2-1.3) 11/14/24 14:22
AST 20 U/L (14-36) 11/14/24 14:22
ALT 11 U/L (0-35) 11/14/24 14:22
Alkaline Phosphatase 70 U/L (38-126) 11/14/24 14:22
Most recent labs reviewed.
Micro Results:
11/16/24 07:43 Urine Culture - Final
Urine Klebsiella pneumoniae-ESBL#2
Klebsiella pneumoniae-ESBL
11/14/24 21:39 MRSA Screen - Final
Nose Staph aureus MRSA
Imaging:
11/15/2024 CT chest: No evidence of central pulmonary embolism. Aberrant right subclavian artery noted. Biapical pleural/parenchymal scarring. Tiny bilateral pleural effusions are seen. Please see full dictation for additional detail.
[2024-11-20 15:07] VITALS: BP 109/66
== END 2024-11-20 17:22 | DRG 378 ==
LOC: 4 WEST ACU 19:14
PROVIDERS: Internal Medicine Gastroenterology; Physician Assistant; ADMITTING PHYSICIAN Internal Medicine; ATTENDING PHYSICIAN Internal Medicine; CONSULT PHYSICIAN Internal Medicine Gastroenterology; CONSULT PHYSICIAN Internal Medicine Infectious Disease; EMERGENCY PHYSICIAN Student in an Organized Health Care Education/Training Program; FAMILY PHYSICIAN Student in an Organized Health Care Education/Training Program
PROC: 30233N1 Transfusion of Nonautologous Red Blood Cells into Peripheral Vein, Percutaneous Approach (ICD-10-PCS; 2024-11-14)
PROC: 0DJ08ZZ Inspection of Upper Intestinal Tract, Via Natural or Artificial Opening Endoscopic (ICD-10-PCS; 2024-11-16)
PROC: 0W3P8ZZ Control Bleeding in Gastrointestinal Tract, Via Natural or Artificial Opening Endoscopic (ICD-10-PCS; 2024-11-17)
PROC: 0DBH8ZX Excision of Cecum, Via Natural or Artificial Opening Endoscopic, Diagnostic (ICD-10-PCS; 2024-11-17)
DX: K55.21 Angiodysplasia of colon with hemorrhage (principal); D62 Acute posthemorrhagic anemia; D68.32 Hemorrhagic disorder due to extrinsic circulating anticoagulants; N39.0 Urinary tract infection, site not specified; K22.2 Esophageal obstruction; K44.9 Diaphragmatic hernia without obstruction or gangrene; K64.4 Residual hemorrhoidal skin tags; D50.9 Iron deficiency anemia, unspecified; Z86.711 Personal history of pulmonary embolism; Z86.718 Personal history of other venous thrombosis and embolism; N95.2 Postmenopausal atrophic vaginitis; F32.A Depression, unspecified; F41.9 Anxiety disorder, unspecified; L89.151 Pressure ulcer of sacral region, stage 1; Z79.890 Hormone replacement therapy; M81.0 Age-related osteoporosis without current pathological fracture; E78.00 Pure hypercholesterolemia, unspecified; K59.00 Constipation, unspecified; Z79.82 Long term (current) use of aspirin; Z79.51 Long term (current) use of inhaled steroids; Z79.01 Long term (current) use of anticoagulants; Z79.83 Long term (current) use of bisphosphonates; Z79.899 Other long term (current) drug therapy; Z86.16 Personal history of COVID-19; Z77.090 Contact with and (suspected) exposure to asbestos; Z66 Do not resuscitate; Z86.73 Personal history of transient ischemic attack (TIA), and cerebral infarction without residual deficits; D17.71 Benign lipomatous neoplasm of kidney; E03.9 Hypothyroidism, unspecified; E53.8 Deficiency of other specified B group vitamins; I10 Essential (primary) hypertension; I25.10 Atherosclerotic heart disease of native coronary artery without angina pectoris; I25.2 Old myocardial infarction; K21.9 Gastro-esophageal reflux disease without esophagitis; Z87.01 Personal history of pneumonia (recurrent); Z87.440 Personal history of urinary (tract) infections; Z87.891 Personal history of nicotine dependence; Z88.0 Allergy status to penicillin; Z95.5 Presence of coronary angioplasty implant and graft
CPT/HCPCS: 88305; 36415; 71275; 80048; 80053; 80061; 81003; 81015; 82607; 82728; 82746; 83540; 83550; 83735; 84100; 84439; 84443; 85014; 85018; 85025; 85610; 85730; 86850; 86900; 86901; 86920; 87070; 87077; 87086; 87147; 87186; 93005; 94640; 96374; 97116; 97163; 97166; 99285; J1335; J2916; P9016; Q9967

== ENCOUNTER → 2024-11-23 09:06 | Outpatient (REF) | payer MEDICARE, BC, SELFPAY ==
[2024-11-23 10:17] LABS: % Basophils 1.2 % (0-2); % Eosinophils 5.7 % (0-6); % Monocytes 7.4 % (1.7-9.3); % Neutrophils 54.7 % (42.2-75.2); Absolute Basophils 0.1 10^3/uL (0-0.2); Absolute Eosinophils 0.5 10^3/uL (0-0.7); Absolute Immature Granulocytes 0.1 10^3/uL (0-0.05); Absolute Lymphocytes 2.4 10^3/uL (1.2-3.4); Absolute Monocytes 0.6 10^3/uL (0.1-0.6); Absolute Neutrophils 4.4 10^3/uL (1.4-6.5); Hematocrit 30.1 % (37.0-47.0); Hemoglobin 9.4 g/dL (12.0-16.0); Mean Corp Hgb Conc. 31.2 g/dL (33.0-37.0); Mean Corpuscular Hgb 28.8 pg (27.0-31.0); Mean Corpuscular Volume 92.3 fL (81.0-99.0); Mean Platelet Volume 10.5 fL (7.4-10.4); Nucleated Red Blood Cells % 0 %; Platelet Count 263 10^3/uL (130-400); Red Blood Cell Count 3.26 10^6/uL (4.20-5.40); Red Cell Dist. Width 17.2 % (11.5-14.5); White Blood Cell Count 8.1 10^3/uL (4.8-10.8)
[2024-11-23 10:47] LABS: ALT (SGPT) 18 U/L (0-35); AST (SGOT) 27 U/L (14-36); Albumin 3.1 g/dl (3.5-5.0); Alkaline Phosphatase 76 U/L (38-126); Blood Urea Nitrogen 12 mg/dl (7-17); Calcium 8.5 mg/dl (8.4-10.2); Carbon Dioxide 25 mmol/L (22-30); Chloride 111 mmol/L (98-107); Glucose 100 mg/dl (70-99); HDL Cholesterol 41 mg/dl; LDL Cholesterol, Calculated 71 mg/dl; Potassium 4.7 mmol/L (3.5-5.1); Sodium 142 mmol/L (135-145); Total Bilirubin 0.3 mg/dl (0.2-1.3); Total Cholesterol 154 mg/dl (50-199); Total Protein 6.4 g/dl (6.3-8.2); Triglyceride 213 mg/dl (10-149); Very Low Density Lipoprotein 42 mg/dl (0-30); eGFR > 60.00
[2024-11-23 11:02] LABS: Free T4 1.11 ng/dl (0.78-2.19); Vitamin D, 25-OH*** 16.6 ng/mL (30-80)
[2024-11-23 11:15] LABS: TSH 0.06 uIU/ml (0.47-4.68)
[2024-11-23 11:35] LABS: Vitamin B12 481 pg/ml (239-931)
== END ==
LOC: OLABN 09:06
PROVIDERS: ATTENDING PHYSICIAN Student in an Organized Health Care Education/Training Program
DX: E78.5 Hyperlipidemia, unspecified (principal); D64.9 Anemia, unspecified; E03.9 Hypothyroidism, unspecified; E53.8 Deficiency of other specified B group vitamins; E55.9 Vitamin D deficiency, unspecified
CPT/HCPCS: 36415; 80053; 80061; 82306; 82607; 84439; 84443; 85025

== ENCOUNTER 2024-11-30 18:13 | Inpatient (IN) | payer MEDICARE, BC, SELFPAY ==
[2024-11-30] VITALS (17 sets, daily range): BP systolic 76–143; BP diastolic 50–70; BMI 21.3
[2024-11-30 15:09] LABS: % Basophils 0.7 % (0-2); % Eosinophils 3.5 % (0-6); % Immature Granulocytes 0.6 % (0-0.5); % Lymphocytes 23.7 % (20.5-51.1); % Monocytes 7.3 % (1.7-9.3); % Neutrophils 64.2 % (42.2-75.2); Absolute Basophils 0.1 10^3/uL (0-0.2); Absolute Eosinophils 0.4 10^3/uL (0-0.7); Absolute Immature Granulocytes 0.1 10^3/uL (0-0.05); Absolute Lymphocytes 2.5 10^3/uL (1.2-3.4); Absolute Monocytes 0.8 10^3/uL (0.1-0.6); Absolute Neutrophils 6.8 10^3/uL (1.4-6.5); Hemoglobin 8.8 g/dL (12.0-16.0); Mean Corp Hgb Conc. 31.4 g/dL (33.0-37.0); Mean Corpuscular Hgb 29.3 pg (27.0-31.0); Mean Corpuscular Volume 93.3 fL (81.0-99.0); Mean Platelet Volume 10.1 fL (7.4-10.4); Nucleated Red Blood Cells % 0 %; Platelet Count 261 10^3/uL (130-400); Red Cell Dist. Width 18.6 % (11.5-14.5); White Blood Cell Count 10.5 10^3/uL (4.8-10.8)
[2024-11-30 15:19] LABS: INR 1.34; PT 16.9 Sec (11.4-14.6)
[2024-11-30 15:20] LABS: APTT 30.5 Sec (23.4-35.0)
[2024-11-30 15:34] LABS: ALT (SGPT) 14 U/L (0-35); AST (SGOT) 22 U/L (14-36); Albumin 3.3 g/dl (3.5-5.0); Alkaline Phosphatase 64 U/L (38-126); Blood Urea Nitrogen 24 mg/dl (7-17); Calcium 8.8 mg/dl (8.4-10.2); Carbon Dioxide 24 mmol/L (22-30); Chloride 111 mmol/L (98-107); Estimated Creatinine Clearance 45 ml/min; Glucose 108 mg/dl (70-99); Potassium 4.9 mmol/L (3.5-5.1); Sodium 141 mmol/L (135-145); Total Bilirubin 0.2 mg/dl (0.2-1.3); Total Protein 6.5 g/dl (6.3-8.2); eGFR > 60.00
--- NOTE | 2024-11-30 15:37 | ED.GENMED ---
History of Present Illness
General
Chief Complaint: Rectal Bleeding
Source: patient
Exam Limitations: none
Time Seen by Provider: 11/30/24 14:39
History of Present Illness
History of Present Illness:
89-year-old female presents for evaluation from [facility]. She had a large amount of bright red blood per rectum today. She is on Eliquis. She was discharged from this hospital 10 days ago after severe anemia secondary to GI bleeding. She
was transfused at that time and her hemoglobin stabilized. She had an endoscopy with colonoscopy. She had been doing well up until today. She also notes lower abdominal pain. She denies chest pain or shortness of breath. No fevers. No other
complaints
Past History
Past History
ED Past Medical History: COPD, GERD, Hypercholesterolemia, [place], Hypothyroidism, Psychiatric and Other (PE/DVT, Diverticulitis)
ED Past Surgical History: Cardiac (Stents) and Orthopedic
Patient has exhibited threatening behavior?: No
Social History
Tobacco: Former smoker
Alcohol: Daily ( Wine 2 glasses)
Drug: None
Personal:
Living: alone
Employment: Retired
Family History
Family History: Hypertension and Other (Other was prostate cancer)
Phy Exam
Physical Exam
Physical Exam:
General: Well-appearing female no acute respiratory distress
HEENT normocephalic atraumatic
Heart: Regular rate and rhythm
Lungs: Clear no wheeze abdomen soft tender to the lower abdomen rectal exam: Please note rectal exam was performed with female nurse, Zulema in the room as a director long term care. There are external hemorrhoids that are nonbleeding and nonthrombosed. Stool on
the glove was dark red and heme positive
Extremities: No cyanosis or edema
Course
Orders/Labs/Results
Orders:
Orders
11/30/24 14:55
CT Abd/pelvis W Iv Cont Urgent
Comment:
Reason For Exam: lower abdominal pain
11/30/24 15:00
Type+Screen Urgent
Complete Blood Count/With Diff Urgent
Comprehensive Metabolic Panel Urgent
PTT Urgent
Prothrombin Time Urgent
Abnormal Lab Results
11/30/24
15:00
RBC 3.00 L 10^6/uL
(4.20-5.40)
Hgb 8.8 L g/dL
(12.0-16.0)
Hct 28.0 L %
(37.0-47.0)
MCHC 31.4 L g/dL
(33.0-37.0)
RDW 18.6 H %
(11.5-14.5)
Abs Immat Gran (auto) 0.1 H 10^3/uL
(0-0.05)
Absolute Neuts (auto) 6.8 H 10^3/uL
(1.4-6.5)
Absolute Monos (auto) 0.8 H 10^3/uL
(0.1-0.6)
Immature Gran % 0.6 H %
(0-0.5)
PT 16.9 H Sec
(11.4-14.6)
Chloride 111 H mmol/L
(98-107)
BUN 24 H mg/dl
(7-17)
Glucose 108 H mg/dl
(70-99)
Albumin 3.3 L g/dl
(3.5-5.0)
11/30/24 15:00
11/30/24 15:00
Vital Signs
Initial and Last Documented VS:
Initial Vital Signs
Pulse Ox
100
11/30/24 14:22
Last Documented Vital Signs
Temp Pulse Resp BP Pulse Ox
99.2 F 105 16 111/51 99
11/30/24 14:25 11/30/24 15:45 11/30/24 15:45 11/30/24 15:00 11/30/24 15:39
MDM/Problems Addressed
Differential Diagnosis Includes:
Red blood from rectum. No obvious bleeding external hemorrhoids. Consider diverticular bleed or other GI bleed. Vital signs are stable will check labs. Given the tenderness on exam will order CT scan she last had her Eliquis this morning
*Pulse Oximetry
SaO2: 99
Oxygen Mode of Delivery: Room air
Patient hypoxic: no
*Critical Care Note
Total Time (30-74mins, 75-104mins- exclusive of procedures): Not Applicable
Update Note
Update Note:
Hemoglobin 8.8. Patient did have a another bloody bowel movement since being here. She is on Eliquis. Will admit to hospital for further evaluation
ED Attending Note
-
Portions of this chart may have been created with voice recognition software.� Occasional wrong word or��sound alike� substitutions may have occurred due to the inherent limitations of voice recognition software.
Discharge Plan
Departure
Patient Disposition: Admit
Date of Disposition: 11/30/24
Time of Disposition: 17:20
Presentation/result/management discussed w/ accepting MD/DO: Hospitalist
Discharge Problem:
GI bleed
Prescriptions:
No Action
sertraline 50 MG tablet
75 mg PO DAILY@1230
simvastatin 40 MG tablet
40 mg PO HS
alendronate 70 MG tablet
70 mg PO PERSON
Eliquis 5 mg Tablet
5 mg PO BID
ondansetron HCl 4 mg tablet
4 mg PO Q8HPRN PRN (Reason: nausea)
fluticasone propion-salmeterol [Advair Diskus] 250-50 mcg/dose Blister With Device
1 inh INHALATION R BID
acetaminophen [Tylenol] 325 mg Tablet
650 mg PO Q4HPRN PRN (Reason: mild pain)
famotidine [Pepcid] 20 mg Tablet
20 mg PO DAILY
magnesium hydroxide [Milk of Magnesia] 400 mg/5 mL Suspension
2,400 mg PO HSPRN PRN (Reason: constipation)
bisacodyl [Dulcolax (bisacodyl)] 10 mg Suppository
10 mg IA [id number] PRN (Reason: if no bm aftr mom)
docusate sodium [Colace] 100 mg Capsule
200 mg PO HS
mirtazapine 15 mg Tablet
15 mg PO HS
albuterol sulfate 90 mcg/actuation Hfa Aerosol Inhaler
2 puff INHALATION R Q4HPRN PRN (Reason: sob)
aspirin 81 MG tablet,delayed release (DR/EC)
81 mg PO DAILY@1230
budesonide 0.5 mg/2 mL suspension for nebulization
0.5 mg inhalation R BID
cyanocobalamin (vitamin B-12) [Vitamin B-12] 1,000 mcg Tablet
1,000 mcg PO DAILY Qty: 100 0RF
ferrous sulfate [FeroSul] 325 mg (65 mg iron) Tablet
325 mg PO DAILY Qty: 100 0RF
pantoprazole [Protonix] 40 mg tablet,delayed release (DR/EC)
40 mg PO DAILY Qty: 30 0RF
levothyroxine [Synthroid] 125 mcg Tablet
125 mcg PO DAILY
cholecalciferol (vitamin D3) 1,250 mcg (50,000 unit) Tablet
1,250 mcg PO MO
estradiol [Estrace] 0.01 % (0.1 mg/gram) cream
0.1 g vaginal DAILY
Referrals:
Nick Sainz DO [Family Provider, Family Practice]
Interventions
Interventions:
*Risk Screen - Suicide Last Done: 11/30/24 14:25
*General Assessment Last Done: 11/30/24 14:25
*Neglect/Abuse Screening Last Done: 11/30/24 14:25
*ED- Fall Risk Assessment Last Done: 11/30/24 14:32
*ED COVID-19 Vaccine History Last Done: 11/30/24 14:32
XA-Bndyob-Qrudqvzqsk Assessment Last Done: 11/30/24 15:00
ED- Cardiac Assessment Last Done: 11/30/24 15:00
ED- Pulmonary Assessment Last Done: 11/30/24 15:00
Discharge Date and Time
Print Language: TAIWANESE
--- NOTE | 2024-11-30 17:45 | HPS.HSE ---
Addendum entered and electronically signed by Chiquis Amaro MD 11/30/24 19:41:
Patient with significant rectal bleeding. Blood pressure dropped to 80s systolic. 1 more unit of blood transfusion ordered. 1 L of IV fluids given with improvement in blood pressure. Kcentra to be given. CT angio abdomen pelvis ordered. GI
notified.
Addendum entered and electronically signed by Chiquis Amaro MD 11/30/24 18:38:
Patient with continued rectal bleeding. Repeat hemoglobin shows hemoglobin 7.8. 1 unit of blood transfusion ordered.
Original Note:
Family Physician
-
Family Physician: Nick Sainz DO
Chief Complaint
-
Gi bleeding
History of Present Illness
89-year-old female past medical history of cecal mass, severe anemia/blood loss anemia, iron deficiency anemia, B12 deficiency, GERD, CAD status post stents, COPD, hypertension, hyperlipidemia, hypothyroidism, DVT/PE on Eliquis, anxiety/depression,
sacral stage I pressure injury, presenting from [facility] with large amount of bright red blood per rectum today. She complains of abdominal pain in the lower belly. Denies vomiting.
She was discharged 10 days ago after severe anemia receiving 3 units of PRBCs at that time. She underwent endoscopy and colonoscopy which showed AVMs in cecum status post APC/hemoclips, cecal polypoid lesion concerning for malignancy.
Denies chest pain or shortness of breath or dizziness. No fevers.
She denies smoking or alcohol use.
Medical History
Past Medical History
Past Medical History: Reports Other (cecal mass, severe anemia/blood loss anemia, iron deficiency anemia, B12 deficiency, GERD, CAD status post stents, COPD, hypertension, hyperlipidemia, hypothyroidism, DVT/PE on Eliquis, anxiety/depression, sacral
stage I pressure injury)
Past Surgical History: Reports None
Social History
Tobacco: Non-smoker
Alcohol: None
Drug: None
Family History
Family History: Not pertinent
Allergies / Home Medications
Allergies reflects when Allergies were last updated in [employer].
Home Medications with original date entered in [employer]
Allergy/Medication List:
Allergies
Allergy/AdvReac Type Severity Reaction Status Date / Time
atorvastatin calcium (From Allergy muscle Verified 11/30/24 14:25
Lipitor) aches
erythromycin base Allergy Upset Verified 11/30/24 14:25
(Erythromycin Base) Stomach
grass pollen Allergy COUGH/CONFE Verified 11/30/24 14:25
STION
insulin detemir Allergy Unknown Verified 11/30/24 14:25
moxifloxacin HCl (From Allergy Unknown Verified 11/30/24 14:25
Avelox)
oxycodone HCl (From Percocet) Allergy Shaky and Verified 11/30/24 14:25
weakness
penicillin V Allergy Rash Verified 11/30/24 14:25
Penicillins Allergy Rash Verified 11/30/24 14:25
rosuvastatin calcium (From Allergy muscle Verified 11/30/24 14:25
Crestor) aches
tree and shrub pollen Allergy COUGH/CONGE Verified 11/30/24 14:25
STION
Home Medications
sertraline 50 mg tablet 75 mg PO DAILY@1230 Mental Health/Anxiety 09/12/13
alendronate 70 mg tablet 70 mg PO PERSON OSTEOPOROSIS 11/05/16
simvastatin 40 mg tablet 40 mg PO HS High cholesterol 11/05/16
apixaban 5 mg tablet (Eliquis) 5 mg PO BID Blood Clot Prevention/Tx 12/18/22
ondansetron HCl 4 mg tablet 4 mg PO Q8HPRN PRN nausea 06/21/24
acetaminophen 325 mg tablet (Tylenol) 650 mg PO Q4HPRN PRN mild pain 11/14/24
albuterol sulfate 90 mcg/actuation aerosol inhaler 2 puff inhalation R Q4HPRN PRN sob 11/14/24
aspirin 81 mg tablet,delayed release 81 mg PO DAILY@1230 Heart Disease/Condition 11/14/24
bisacodyl 10 mg rectal suppository (Dulcolax (bisacodyl)) 10 mg OH [id number] PRN if no bm aftr mom 11/14/24
budesonide 0.5 mg/2 mL suspension for nebulization 0.5 mg inhalation R BID Lung/Breathing Issues 11/14/24
docusate sodium 100 mg capsule (Colace) 200 mg PO HS Constipation 11/14/24
famotidine 20 mg tablet (Pepcid) 20 mg PO DAILY Gastrointestinal Issue 11/14/24
fluticasone 250 mcg-salmeterol 50 mcg/dose blistr powdr for inhalation (Advair Diskus) 1 inh inhalation R BID Lung/Breathing Issues 11/14/24
magnesium hydroxide 400 mg/5 mL oral suspension (Milk of Magnesia) 2,400 mg PO HSPRN PRN constipation 11/14/24
mirtazapine 15 mg tablet 15 mg PO HS Mental Health/Anxiety 11/14/24
cyanocobalamin (vitamin B-12) 1,000 mcg tablet (Vitamin B-12) 1,000 mcg PO DAILY #100 tabs 11/20/24
ferrous sulfate 325 mg (65 mg iron) tablet (FeroSul) 325 mg PO DAILY #100 tabs 11/20/24
pantoprazole 40 mg tablet,delayed release (Protonix) 40 mg PO DAILY #30 tabs 11/20/24
cholecalciferol (vitamin D3) 1,250 mcg (50,000 unit) tablet 1,250 mcg PO MO 11/30/24
estradiol 0.01% (0.1 mg/gram) vaginal cream (Estrace) 0.1 g vaginal DAILY 11/30/24
levothyroxine 125 mcg tablet (Synthroid) 125 mcg PO DAILY 11/30/24
Review of Systems
-
History Source: Patient
A 12 point ROS was completed and negative except as noted: Yes
Constitutional: Reports No Symptoms
EENT: Reports No Symptoms
Respiratory: Reports No Symptoms
Cardiac: Reports No Symptoms
Abdomen/GI: Reports See HPI
: Reports No Symptoms
Musculoskeletal: Reports No Symptoms
Skin: Reports No Symptoms
Neurological: Reports No Symptoms
Endocrine: Reports No Symptoms
Hematologic/Lymphatic: Reports No Symptoms
Psych: Reports No Symptoms
Physical Exam
Vital Signs
Vital Signs
Temp Pulse Resp BP Pulse Ox
99.2 F 105 16 111/51 99
11/30/24 14:25 11/30/24 15:45 11/30/24 15:45 11/30/24 15:00 11/30/24 15:39
Physical Exam
General: Well Developed, Well Nourished and No Apparent Distress
HEENT: NormoCephalic, Moist mucous membranes and Atraumatic
Respiratory: Clear
Cardiac: S1/S2 and Regular Rhythm; No Murmur or Rub
GI: Soft, Non Distended, Normal Bowel Sounds and Tender (lower quadrants); No Organomegaly
Rectal: Deferred by Provider
Musculoskeletal: No Clubbing, No Cyanosis and No Edema
Skin: No Rash
Neuro: Nonfocal/grossly intact
Laboratory Results
-
11/30/24 15:00
11/30/24 15:00
Laboratory Results
PT 16.9 Sec (11.4-14.6) H 11/30/24 15:00
INR 1.34 11/30/24 15:00
APTT 30.5 Sec (23.4-35.0) 11/30/24 15:00
Total Bilirubin 0.2 mg/dl (0.2-1.3) 11/30/24 15:00
AST 22 U/L (14-36) 11/30/24 15:00
ALT 14 U/L (0-35) 11/30/24 15:00
Alkaline Phosphatase 64 U/L (38-126) 11/30/24 15:00
Data Reviewed
-
Lab Data: Labs Reviewed by me
Old Records: Reviewed
Impression/Plan
-
IMPRESSION:
PLAN:
# Recurrent GI bleeding likely secondary to cecal AVMs/cecal lesion
- Hemoglobin 8.8 from 9.4
-Dark red heme positive stool
- CT abdomen pelvis shows questionable perianal abscess posteriorly on the right measuring 1 x 1.7 x 2 cm versus excreted contents in this region but on physical examination patient only had external hemorrhoids
-Hold Eliquis
-Clear liquid diet
-Hold stool softeners
- GI consulted
B12 deficiency
- Continue B12 supplement
Iron deficiency anemia
- Hold iron for now
GERD
- Continue Protonix
CAD status post stents
- Hold aspirin
COPD
- Continue budesonide, albuterol, Advair
Essential hypertension
Hyperlipidemia
- Continue statin
Hypothyroidism
- Continue levothyroxine
History of DVT/PE
- Hold Eliquis
Anxiety/depression
- Continue sertraline, mirtazapine
Sacral stage I pressure injury
Osteoporosis
-Continue alendronate
Full code
DVT prophylaxis-SCDs
Clear liquid diet
[2024-11-30] MEDS: ZOFRAN 4 MG IV (17:57)
[2024-11-30 18:20] LABS: Hemoglobin 7.8 g/dL (12.0-16.0)
[2024-11-30] MEDS: KCENTRA 60 UNIT IV (19:49)
[2024-11-30 21:48] LABS: Glucose - Point of Care 106 mg/dl (70-99)
[2024-11-30] MEDS: TYLENOL 650 MG PO (22:27)
[2024-11-30] MEDS: REMERON 15 MG PO (22:27)
[2024-11-30] MEDS: ADVAIR HFA 115/21 MCG INHALER 2 PUFF INH (22:38)
[2024-11-30] MEDS: PULMICORT 0.5 MG INH (22:38)
--- NOTE | 2024-11-30 23:00 | PTCARENOTE ---
Resumed care of pt this evening. Received pt during blood transfusion. Pt passing large amounts of bloody stools. Pt is A&Ox3, can move all 4 extremities, and make needs known.
[2024-12-01] VITALS (50 sets, daily range): BP systolic 82–143; BP diastolic 37–81; PULSE 94–102; O2SAT 100; BMI 20.7
--- NOTE | 2024-12-01 04:00 | PTCARENOTE ---
2nd unit of PRBCs transfused per protocol. Pt tolerated transfusion.
[2024-12-01 06:06] LABS: % Basophils 0.7 % (0-2); % Eosinophils 3.3 % (0-6); % Immature Granulocytes 0.7 % (0-0.5); % Lymphocytes 27.6 % (20.5-51.1); % Monocytes 7.3 % (1.7-9.3); % Neutrophils 60.4 % (42.2-75.2); Absolute Basophils 0.1 10^3/uL (0-0.2); Absolute Eosinophils 0.3 10^3/uL (0-0.7); Absolute Immature Granulocytes 0.1 10^3/uL (0-0.05); Absolute Lymphocytes 2.4 10^3/uL (1.2-3.4); Absolute Monocytes 0.6 10^3/uL (0.1-0.6); Absolute Neutrophils 5.3 10^3/uL (1.4-6.5); Hematocrit 30.8 % (37.0-47.0); Hemoglobin 10.1 g/dL (12.0-16.0); Mean Corp Hgb Conc. 32.8 g/dL (33.0-37.0); Mean Corpuscular Hgb 29.6 pg (27.0-31.0); Mean Corpuscular Volume 90.3 fL (81.0-99.0); Mean Platelet Volume 9.7 fL (7.4-10.4); Nucleated Red Blood Cells % 0 %; Platelet Count 193 10^3/uL (130-400); Red Blood Cell Count 3.41 10^6/uL (4.20-5.40); Red Cell Dist. Width 17.8 % (11.5-14.5); White Blood Cell Count 8.7 10^3/uL (4.8-10.8)
[2024-12-01] MEDS: SYNTHROID 125 MCG PO (06:08)
[2024-12-01 06:22] LABS: ALT (SGPT) 12 U/L (0-35); AST (SGOT) 21 U/L (14-36); Albumin 2.9 g/dl (3.5-5.0); Alkaline Phosphatase 59 U/L (38-126); Blood Urea Nitrogen 20 mg/dl (7-17); Calcium 8.2 mg/dl (8.4-10.2); Carbon Dioxide 22 mmol/L (22-30); Chloride 114 mmol/L (98-107); Estimated Creatinine Clearance 50 ml/min; Glucose 93 mg/dl (70-99); Potassium 4.5 mmol/L (3.5-5.1); Sodium 140 mmol/L (135-145); Total Bilirubin 0.6 mg/dl (0.2-1.3); Total Protein 5.7 g/dl (6.3-8.2); eGFR > 60.00
[2024-12-01] MEDS: ADVAIR HFA 115/21 MCG INHALER 2 PUFF INH ×2 (07:25→20:18)
[2024-12-01] MEDS: PULMICORT 0.5 MG INH ×2 (07:25→20:19)
--- NOTE | 2024-12-01 07:30 | PTCARENOTE ---
Received patient A&Ox3, on RA, NSR, BP stable, no IV infusions, BM overnight with dark clots, Purewick in place draining yellow urine.
--- NOTE | 2024-12-01 08:27 | CON.INTV ---
Consultation
Consultation Request
Date/Time Consultation Requested: 12/01/2024
Date/Time Consultation Performed: 12/01/2024
Requesting Provider: Dr. Long
Performing Provider: Dr. Diaz
Reason for Consultation: GIB
Medical History
-
Chief Complaint: Rectal bleeding + abdominal cramping
History of Present Illness:
89-year-old female with a past medical history of diverticular disease, hyperlipidemia, anxiety, hypothyroidism, hypertension, Hx of diverticulitis, CAD s/p LAD stent, TIA, Hx of bronchiectasis, GERD, asbestos exposure and Hx of UTI and p/w rectal
bleeding and lower abdominal cramping. Pt previously followed with GI back in [address] Olea for diverticular disease. She was recommended to consume high-fiber diet with the use of a bulking agent like Benefiber once per week. She was
recently hospitalized from 11/14 - 11/20/2024 due to acute anemia with an hemoglobin of 4.8. She underwent an EGD on 11/16/2024 which showed a mild Schatzki ring with small hiatal hernia and normal examined duodenum. Colonoscopy was performed on
11/17/2024 showing multiple large localized angioectasias in the cecum which was treated with APC and she required 4 hemostatic clips. 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
And lastly, there was multiple large mouth and small mouth diverticula in the rectosigmoid colon, sigmoid colon and descending colon. She is now coming in with continued rectal bleeding. Initial temperature 99.2 �F, pulse rate 103, respiratory
rate 15, BP 109/66 and saturating 100% on room air. Hb was 8.8, platelet count 261, INR 1.34, and BUN 24. CT abdomen/pelvis was performed showing a questionable perianal abscess with otherwise no significant acute abnormality. Patient had a
subsequent CTA abdomen/pelvis on 11/30/2024 showing no evidence for an active GI bleed. She was given Zofran in the ER, and then transfused 2 units PRBCs and admitted to the ICU for further care with GI consulted. Lead Pharmacy Technician services consulted for
additional management/recommendations.
Pt was seen and evaluated this AM. No BM this AM. Rectal bleeding overnight. HR 96, SpO2 98% on room air and BP 107/48. She feels okay with some lower abdominal discomfort. Currently denies chest pain, SOB, MEJÍA, nausea, fevers or chills.
Of note, patient follows with us in the [facility] office, last visit on 09/06/2024 with Kimber aShu. She recently had influenza A with bronchitis, hospitalized in August 2024 here at . She was told to resume her DuoNebs + budesonide. CXR was
ordered � performed 09/23/2024 showing no acute cardiopulmonary process. She does not produce phlegm although she has a history of bronchiectasis. History of mucous plugging in October 2016. Spirometry performed on 09/06/2024 showed a mild restrictive
lung defect with postbronchodilator FVC of 1.62 L / 71% predicted. Last full PFT performed in April 2021 showing a mild persistent obstructive lung defect with borderline mild restriction, with mildly reduced gas exchange capacity which
normalized when accounting for alveolar volume involved in gas exchange (DLco: 64%, DLco/VA: 84%).
PMHx: Hyperlipidemia, anxiety, hypothyroidism, hypertension, arthritis, FL, depression, history of diverticulitis, diverticulosis, CAD s/p coronary stent, history of TIA, history of bronchiectasis, history of COPD, GERD, asbestos exposure, history
of UTI, sciatica, history of PE/DVT on Eliquis
PSHx: Right lung biopsy (benign), left shoulder replacement (2014), coronary stent to LAD, left torn rotator cuff surgery
Past Medical History
Past Medical History: Other (Above as per HPI)
Past Surgical History: Other (Above as per HPI)
Social History
Tobacco: Former Smoker ([id number] history, quit 37 years ago (at age 52))
Alcohol: Daily (2 glasses of wine per night)
Personal:
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
Family History
Family History: CAD (Father) and Cancer (Mother + sibling: Breast cancer (mother age 38 from breast cancer); father: Prostate cancer)
Allergies / Home Medications
Allergies
Allergy/AdvReac Type Severity Reaction Status Date / Time
atorvastatin calcium (From Allergy muscle Verified 11/30/24 14:25
Lipitor) aches
erythromycin base Allergy Upset Verified 11/30/24 14:25
(Erythromycin Base) Stomach
grass pollen Allergy COUGH/CONFE Verified 11/30/24 14:25
STION
insulin detemir Allergy Unknown Verified 11/30/24 14:25
moxifloxacin HCl (From Allergy Unknown Verified 11/30/24 14:25
Avelox)
oxycodone HCl (From Percocet) Allergy Shaky and Verified 11/30/24 14:25
weakness
penicillin V Allergy Rash Verified 11/30/24 14:25
Penicillins Allergy Rash Verified 11/30/24 14:25
rosuvastatin calcium (From Allergy muscle Verified 11/30/24 14:25
Crestor) aches
tree and shrub pollen Allergy COUGH/CONGE Verified 11/30/24 14:25
STION
Home Medications
�Medication �Instructions �Recorded �Confirmed �Last Taken �Type
sertraline 50 mg tablet 75 mg PO DAILY@1230 Mental 09/12/13 11/30/24 11/04/16 History
Health/Anxiety
alendronate 70 mg tablet 70 mg PO PERSON OSTEOPOROSIS 11/05/16 11/30/24 02/11/20 History
simvastatin 40 mg tablet 40 mg PO HS High cholesterol 11/05/16 11/30/24 11/04/16 History
apixaban 5 mg tablet (Eliquis) 5 mg PO BID Blood Clot 12/18/22 11/30/24 Unknown History
Prevention/Tx
ondansetron HCl 4 mg tablet 4 mg PO Q8HPRN PRN nausea 06/21/24 11/30/24 Unknown History
acetaminophen 325 mg tablet 650 mg PO Q4HPRN PRN mild pain 11/14/24 11/30/24 Unknown History
(Tylenol)
albuterol sulfate 90 mcg/actuation 2 puff inhalation R Q4HPRN PRN sob 11/14/24 11/30/24 Unknown History
aerosol inhaler
aspirin 81 mg tablet,delayed 81 mg PO DAILY@1230 Heart 11/14/24 11/30/24 Unknown History
release Disease/Condition
bisacodyl 10 mg rectal suppository 10 mg SD [id number] PRN if no bm aftr 11/14/24 11/30/24 Unknown History
(Dulcolax (bisacodyl)) mom
budesonide 0.5 mg/2 mL suspension 0.5 mg inhalation R BID 11/14/24 11/30/24 Unknown History
for nebulization Lung/Breathing Issues
docusate sodium 100 mg capsule 200 mg PO HS Constipation 11/14/24 11/30/24 Unknown History
(Colace)
famotidine 20 mg tablet (Pepcid) 20 mg PO DAILY Gastrointestinal 11/14/24 11/30/24 Unknown History
Issue
fluticasone 250 mcg-salmeterol 50 1 inh inhalation R BID 11/14/24 11/30/24 Unknown History
mcg/dose blistr powdr for Lung/Breathing Issues
inhalation (Advair Diskus)
magnesium hydroxide 400 mg/5 mL 2,400 mg PO HSPRN PRN constipation 11/14/24 11/30/24 Unknown History
oral suspension (Milk of Magnesia)
mirtazapine 15 mg tablet 15 mg PO HS Mental Health/Anxiety 11/14/24 11/30/24 Unknown History
cyanocobalamin (vitamin B-12) 1,000 mcg PO DAILY #100 tabs 11/20/24 11/30/24 Unknown Rx
1,000 mcg tablet (Vitamin B-12)
ferrous sulfate 325 mg (65 mg 325 mg PO DAILY #100 tabs 11/20/24 11/30/24 Unknown Rx
iron) tablet (FeroSul)
pantoprazole 40 mg tablet,delayed 40 mg PO DAILY #30 tabs 11/20/24 11/30/24 Unknown Rx
release (Protonix)
cholecalciferol (vitamin D3) 1,250 1,250 mcg PO MO 11/30/24 11/30/24 Unknown History
mcg (50,000 unit) tablet
estradiol 0.01% (0.1 mg/gram) 0.1 g vaginal DAILY 11/30/24 11/30/24 Unknown History
vaginal cream (Estrace)
levothyroxine 125 mcg tablet 125 mcg PO DAILY 11/30/24 11/30/24 Unknown History
(Synthroid)
Review of Systems
-
History Source: Patient
All other systems: Negative unless noted
Vitals / Labs / Diagnostic Testing
Vital Signs
Temp Pulse Resp BP Pulse Ox
97.6 F 96 24 128/65 98
12/01/24 07:48 12/01/24 07:27 12/01/24 07:27 12/01/24 06:00 12/01/24 07:27
Lab Data
12/01/24 05:42
12/01/24 05:42
Laboratory Results
11/30/24
15:00
PT 16.9 H
INR 1.34
APTT 30.5
Diagnostic Testing:
Physical Exam
-
HEENT: Normocephalic and Anicteric
Cardiovascular: S1/S2 and Peripheral Edema (negative)
Respiratory: Wheeze (negative), Rales (negative), Rhonchi (negative) and Non-Labored Respirations
GI: Soft, Non Distended, Non Tender and Normal Bowel Sounds
Neurology: AO x 3 and Tremors (negative)
Skin: Warm and Dry
General: Respiratory Distress (negative), Comfortable, Chills (negative) and Sweats (negative)
Assessment
-
Assessment: 89-year-old female with a past medical history of diverticular disease, hyperlipidemia, anxiety, hypothyroidism, hypertension, Hx of diverticulitis, CAD s/p LAD stent, TIA, Hx of bronchiectasis, GERD, asbestos exposure and Hx of UTI and
p/w rectal bleeding and lower abdominal cramping. Pt previously followed with GI back in [address] Olea for diverticular disease. She was recommended to consume high-fiber diet with the use of a bulking agent like Benefiber once per week. She
was recently hospitalized from 11/14 - 11/20/2024 due to acute anemia with an hemoglobin of 4.8. She underwent an EGD on 11/16/2024 which showed a mild Schatzki ring with small hiatal hernia and normal examined duodenum. Colonoscopy was performed on
11/17/2024 showing multiple large localized angioectasias in the cecum which was treated with APC and she required 4 hemostatic clips. 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
And lastly, there was multiple large mouth and small mouth diverticula in the rectosigmoid colon, sigmoid colon and descending colon. She is now coming in with continued rectal bleeding. Initial temperature 99.2 �F, pulse rate 103, respiratory
rate 15, BP 109/66 and saturating 100% on room air. Hb was 8.8, platelet count 261, INR 1.34, and BUN 24. CT abdomen/pelvis was performed showing a questionable perianal abscess with otherwise no significant acute abnormality. Patient had a
subsequent CTA abdomen/pelvis on 11/30/2024 showing no evidence for an active GI bleed. She was given Zofran in the ER, and then transfused 2 units PRBCs and admitted to the ICU for further care with GI consulted. Lead Pharmacy Technician services consulted for
additional management/recommendations.
Chronic conditions [employer]: Hyperlipidemia, anxiety, hypothyroidism, hypertension, arthritis, FL, depression, history of diverticulitis, diverticulosis, CAD s/p coronary stent, history of TIA, history of bronchiectasis, history of COPD, GERD, asbestos
exposure, history of UTI, sciatica, history of PE/DVT on Eliquis
Impression:
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
#Acute blood loss anemia due to above
#Chronic anticoagulation due to Eliquis s/p Kcentra
#History of DVT/PE on Eliquis as an outpatient
#Hx of multiple non-bleeding cecal angioectasias s/p APC + clipping x4; also history of rectal�sigmoid/sigmoid and descending colonic diverticulosis/2 cm polypoid lesion in cecum (tubulovillous adenoma) - per colonoscopy on 11/17/2024
#Mild schatzki ring with small hiatal hernia (seen on EGD from 11/16/2024)
#CAD s/p stent to LAD
#Bronchiectasis
#Asbestos exposure
#GERD
#Depression
#Hypertension/hyperlipidemia
#Former tobacco smoker ([id number] history, quit 37 years ago - at age 52)
# History of COPD however spirometry performed 09/06/2024 showed mild restrictive lung defect with no evidence of an obstructive lung defect
Plan:
- Large-bore IV x2
- GI consulted � recs appreciated
- Diet deferred to GI - on full liquid diet
- Monitor for recurrence of rectal bleeding, and trend H/H and transfuse if needed to keep Hb>7g/dL; keep plt>50k, and keep INR<1.8
- May need repeat colonoscopy if bleeding recurs (last colonoscopy on 11/17/2024; last EGD 11/16/2024)
- Hold antiplatelet/anticoagulants until told otherwise by GI
- She has a history of DVT/PE in 2022 and was on Eliquis for this; will need to hold Eliquis for now and need to weigh the risks versus benefits of resuming Eliquis once his GI bleed is controlled
- I will consult hematology to see their recommendations on resuming anticoagulation, and if she has a high risk of a recurrent venous thromboembolism, then perhaps we should discuss inserting an IVC filter given the high risk of rebleeding while
on anticoagulation
- Patient also takes aspirin, hence if her bleeding recurs and is severe, then would administer DDAVP
- Given that it is likely that her GI bleed is due to her 2 cm polypoid cecal lesion which pathology showed focal acute surface mucosal erosion, if bleeding does not stop she will likely require endoscopic mucosal resection versus right
hemicolectomy
- Maintain SpO2 >90-94%
- Continue aspiration precautions
- Of note, it has been reported in the past that she has mild dysphagia to solid foods; this is likely due to her history of a Schatzki ring
- Patient is on Advair as an outpatient and this should be continued during her hospitalization
- Maintain MAP>65
- Replete electrolytes with K>4, Mg>2
- Maintain euglycemia with goal BG 140-180
- prn nebulized bronchodilators - not currently bronchospastic
- Incentive spirometer encouraged 10x per hour for at least 4 hrs a day
- DVT ppx: SCDs for now
Code status: Full code
Continue ICU level care for this critically ill
Critical care statement: A total of 42 minutes of critical care time was provided for this patient today. This includes management of unstable vital signs, evaluation of the patient at bedside, reviewing the patient's pertinent medical records
including radiographs, microbiology, laboratory evaluations, and discussion with primary team, consultants, pharmacy, nutrition, physical therapy, case management, charge nurse, critical care nursing, and respiratory therapy.
Data:
CTA Abd/pelvis w/wo IV contrast 11/30/2024:
1. No CTA evidence for active GI bleed.
2. No abdominal aortic aneurysm or dissection.
3. No significant acute abnormality identified in the abdomen or pelvis within the limits of this exam, as described above. No evidence for perianal abscess on the current exam.
--- NOTE | 2024-12-01 08:27 | CON.GI ---
Consultation
-
Date/Time Consultation Requested: 11/30/242122
Date/Time Consultation Performed: 12/01/24 0815
Requesting Provider: Dr Amaro
Performing Provider: Dr Hong / Yojana Rdz PA-C
Reason for Consultation: GI bleed / BRBPR
Medical History
Chief Complaint / HPI
Chief Complaint: rectal bleeding
History of Present Illness:
This is an 89 year old female with a past medical history of PE/DVT (on Eliquis), COPD, TIA, GERD, HTN, hyperlipidemia, hypothyroidism, bronchiectasis, asbestos exposure, anxiety/depression, arthritis, h/o diverticulitis, with recent admission for
severe anemia with Hgb dropping down to 4.8 on 11/14/24. She was just discharged 10 days ago. During prior admission she had both endoscopy and colonoscopy, with EGD essentially unremarkable and colonoscopy that showed multiple AVMs that were treated
with APC and hemoclips, as well as a 2cm polypoid cecal lesion (biopsies were taken, lesion not removed; bx showed tubulovillous adenoma) noted to be concerning for malignancy. Plan was to set patient up with Dr. Chavez for removal of the cecal polyp.
Yesterday 11/30, patient developed rectal bleeding described as bright red blood without any abdominal pain or diarrhea/constipation and presented back to the hospital. Hgb upon arrival in ER noted to be 8.8. Eliquis was held, her last dose was 11/30
in the AM. She unfortunately continued to have bleeding with Hgb dropping further to 7.8 and did become hypotensive with systolic BP in the 80s, requiring 2 units of PRBCs. She had a CT angiogram of the abdomen/pelvis that did not identify any
active bleeding. CT abdomen/pelvis did note moderate stool burden as well as a questionable perianal abscess (vs excreted contents).
Patient is feeling OK currently, states the bleeding has stopped. She denies dizziness, lightheadedness, chest pain, SOB, abdominal pain, nausea or vomiting. Never had any prior episodes of rectal bleeding before November. Hgb today improved to 10.1
after 2 units of PRBCs this admission. She did also receive Kcentra.
Past Medical History
Past Medical History: COPD, CVA (TIA), GERD, HTN, Hypercholesterolemia, Hypothyroidism, [place], Psychiatric (anxiety, depression) and Other (PE/DVT, arthritis, diverticulitis, bronchiectasis, asbestos exposure )
Past Surgical History: Cardiac (stent), Orthopedic (shoulder surgery) and Other (lung biopsy )
Social History
Tobacco: Former Smoker
Alcohol: Occasional
Drug: None
Living: Snf
Employment: Retired
Family History
Family History: Other (no family history of GI malignancies)
Allergies / Home Medications
Allergy/AdvReac Type Severity Reaction Status Date / Time
atorvastatin calcium (From Allergy muscle Verified 11/30/24 14:25
Lipitor) aches
erythromycin base Allergy Upset Verified 11/30/24 14:25
(Erythromycin Base) Stomach
grass pollen Allergy COUGH/CONFE Verified 11/30/24 14:25
STION
insulin detemir Allergy Unknown Verified 11/30/24 14:25
moxifloxacin HCl (From Allergy Unknown Verified 11/30/24 14:25
Avelox)
oxycodone HCl (From Percocet) Allergy Shaky and Verified 11/30/24 14:25
weakness
penicillin V Allergy Rash Verified 11/30/24 14:25
Penicillins Allergy Rash Verified 11/30/24 14:25
rosuvastatin calcium (From Allergy muscle Verified 11/30/24 14:25
Crestor) aches
tree and shrub pollen Allergy COUGH/CONGE Verified 11/30/24 14:25
STION
�Medication �Instructions �Recorded
sertraline 50 mg tablet 75 mg PO DAILY@1230 Mental 09/12/13
Health/Anxiety
alendronate 70 mg tablet 70 mg PO PERSON OSTEOPOROSIS 11/05/16
simvastatin 40 mg tablet 40 mg PO HS High cholesterol 11/05/16
apixaban 5 mg tablet (Eliquis) 5 mg PO BID Blood Clot 12/18/22
Prevention/Tx
ondansetron HCl 4 mg tablet 4 mg PO Q8HPRN PRN nausea 06/21/24
acetaminophen 325 mg tablet 650 mg PO Q4HPRN PRN mild pain 11/14/24
(Tylenol)
albuterol sulfate 90 mcg/actuation 2 puff inhalation R Q4HPRN PRN sob 11/14/24
aerosol inhaler
aspirin 81 mg tablet,delayed 81 mg PO DAILY@1230 Heart 11/14/24
release Disease/Condition
bisacodyl 10 mg rectal suppository 10 mg IN [id number] PRN if no bm aftr 11/14/24
(Dulcolax (bisacodyl)) mom
budesonide 0.5 mg/2 mL suspension 0.5 mg inhalation R BID 11/14/24
for nebulization Lung/Breathing Issues
docusate sodium 100 mg capsule 200 mg PO HS Constipation 11/14/24
(Colace)
famotidine 20 mg tablet (Pepcid) 20 mg PO DAILY Gastrointestinal 11/14/24
Issue
fluticasone 250 mcg-salmeterol 50 1 inh inhalation R BID 11/14/24
mcg/dose blistr powdr for Lung/Breathing Issues
inhalation (Advair Diskus)
magnesium hydroxide 400 mg/5 mL 2,400 mg PO HSPRN PRN constipation 11/14/24
oral suspension (Milk of Magnesia)
mirtazapine 15 mg tablet 15 mg PO HS Mental Health/Anxiety 11/14/24
cyanocobalamin (vitamin B-12) 1,000 mcg PO DAILY #100 tabs 11/20/24
1,000 mcg tablet (Vitamin B-12)
ferrous sulfate 325 mg (65 mg 325 mg PO DAILY #100 tabs 11/20/24
iron) tablet (FeroSul)
pantoprazole 40 mg tablet,delayed 40 mg PO DAILY #30 tabs 11/20/24
release (Protonix)
cholecalciferol (vitamin D3) 1,250 1,250 mcg PO MO 11/30/24
mcg (50,000 unit) tablet
estradiol 0.01% (0.1 mg/gram) 0.1 g vaginal DAILY 11/30/24
vaginal cream (Estrace)
levothyroxine 125 mcg tablet 125 mcg PO DAILY 11/30/24
(Synthroid)
Review of Systems
-
History Source: Patient
All other systems: A 12 pt ROS was Negative except as stated above in HPI
Vital Signs
Temp Pulse Resp BP Pulse Ox
97.6 F 96 24 128/65 98
12/01/24 07:48 12/01/24 07:27 12/01/24 07:27 12/01/24 06:00 12/01/24 07:27
Physical Exam
Exam
General: Well Developed, Well Nourished and No Apparent Distress
Respiratory: Clear
Cardiac: Regular Rhythm
GI: Soft, Non Tender, Non Distended and Normal Bowel Sounds
Rectal: Other (ER rectal exam: dark red heme + stool, non-bleeding external hemorrhoids)
Skin: Warm
Neuro: AO x 3
Psych: Calm
Results
WBC 8.7 10^3/uL (4.8-10.8) 12/01/24 05:42
Hgb 10.1 g/dL (12.0-16.0) L D 12/01/24 05:42
Hct 30.8 % (37.0-47.0) L 12/01/24 05:42
MCV 90.3 fL (81.0-99.0) 12/01/24 05:42
Plt Count 193 10^3/uL (130-400) D 12/01/24 05:42
Absolute Neuts (auto) 5.3 10^3/uL (1.4-6.5) 12/01/24 05:42
PT 16.9 Sec (11.4-14.6) H 11/30/24 15:00
INR 1.34 11/30/24 15:00
APTT 30.5 Sec (23.4-35.0) 11/30/24 15:00
Sodium 140 mmol/L (135-145) 12/01/24 05:42
Potassium 4.5 mmol/L (3.5-5.1) 12/01/24 05:42
Chloride 114 mmol/L (98-107) H 12/01/24 05:42
Carbon Dioxide 22 mmol/L (22-30) 12/01/24 05:42
BUN 20 mg/dl (7-17) H 12/01/24 05:42
Creatinine 0.7 mg/dL (0.6-1.0) 12/01/24 05:42
Calcium 8.2 mg/dl (8.4-10.2) L 12/01/24 05:42
Total Bilirubin 0.6 mg/dl (0.2-1.3) 12/01/24 05:42
AST 21 U/L (14-36) 12/01/24 05:42
ALT 12 U/L (0-35) 12/01/24 05:42
Alkaline Phosphatase 59 U/L (38-126) 12/01/24 05:42
Diagnostic Image Results:
CT angiongraphy abd/pelvis:
CT Abdomen/pelvis:
Prior GI Procedures:
--11/16/2024 EGD: Dr Tavera. Mild Schatzki ring.
- Small hiatal hernia.
- Normal examined duodenum.
- No specimens collected.
--11/17/2024 Colonoscopy: Dr Alamo.
Skin tags were found on perianal exam.
The terminal ileum appeared normal.
Multiple large localized angioectasias without bleeding were found in
the cecum. Coagulation for tissue destruction using argon plasma at 2
liters/minute and 20 miramontes was successful. For hemostasis, four
hemostatic clips were successfully placed.
A 20 mm polypoid lesion was found in the cecum. The lesion was
ulcerated. No bleeding was present. Biopsies were taken with a cold
forceps for histology.
Multiple large-mouthed and small-mouthed diverticula were found in the
recto-sigmoid colon, sigmoid colon and descending colon.
No additional abnormalities were found on retroflexion.
Path: Tubulovillous adenoma with focal acute surface mucosal erosion.
--11/2019- colonoscopy - Olea- good prep to cecum with restricted mobility severe diverticulosis with narrowing
--04/2013 EGD Olea normal esophagus, normal stomach and duodenum repeat 5 years bx neg
--04/2013 colonoscopy Olea to IC valve diverticulosis bx neg for microscopic or active colitis
Assessment / Plan
-
89 year old female with a history of PE/DVT (on Eliquis- last dose 11/30 AM), recently admitted for severe anemia secondary to GI bleeding 10 days ago, now admitted again with recurrent rectal bleeding with Hgb 8.8 on arrival that did drop to 7.8
with continued bleeding and patient became hypotensive, requiring 2 units PRBCs and ICU admission. She is now hemodynamically stable with no further bleeding, and Hgb 10.1.
IMPRESSION / PLAN:
Recurrent rectal bleeding - etiology suspected from cecal lesion vs cecal AVMs vs diverticular bleed, in the setting of chronic anticoagulation
- Hgb currently stable, 10.1 after 2 units PRBCs
- continue to trend Hgb, transfuse if falls below 7
- CT abdomen pelvis shows questionable perianal abscess posteriorly on the right measuring 1 x 1.7 x 2 cm versus excreted contents in this region but on physical examination patient only had external hemorrhoids, and on repeat CT imaging this
was not identified.
- biopsies of the cecal lesion revealed tubulovillous adenoma, but concern for malignancy was noted during colonoscopy. Will still plan for eventual polypectomy with Dr. Chavez.
- close monitoring now to ensure no further bleeding.
- per discussion with Dr. Hong, if the bleeding recurs, patient to be transferred for EMR (Dr Chavez is currently away) vs partial colectomy
We will follow.
-
-
Thank you for consultation and allowing me to participate in the patient's care. Please call the personal injury attorney GI physician during the after hours with any questions or concerns.
--- NOTE | 2024-12-01 08:47 | W.PN.HOSP.TC ---
Addendum entered and electronically signed by Ngozi Long MD 12/01/24 17:34:
# Acute blood loss anemia with baseline chronic anemia
Addendum entered and electronically signed by Ngozi Long MD 12/01/24 16:31:
# Moderate Malnutrition
Original Note:
Today's Communication/Plan
-
see A/P
Assessment / Plan
Assessment / Plan
HPI: 89-year-old female past medical history of cecal mass, severe anemia/blood loss anemia, iron deficiency anemia, B12 deficiency, GERD, CAD status post stents, COPD, hypertension, hyperlipidemia, hypothyroidism, DVT/PE on Eliquis,
anxiety/depression, sacral stage I pressure injury, presented from [facility] with large amount of bright red blood per rectum. She complained of abdominal pain in the lower belly. Denies vomiting.
She was diagnosed with PE in 2022, was started with Eliquis at that time.
She was recently admitted for GIB. Had colonoscopy 11/17/24 which noted cecal mass s/p biopsied. Plan was for outpatient mass removal by Interventional GI.
She came back this time for recurrent GIB in setting of cecal mass and Eliquis use.
A/P:
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
s/p 2 units PRBC transfusion, Hgb improved from 7.8 to 10
s/p PCC
CT Angio negative for active GI bleed.
Stop further Eliquis
BL LE US from Jun 2024 was negative for BL DVT- hence no need for IVC filter
Monitor Hgb , monitor GIB
Diet advanced to full liquid
GI on board
# Ruled out perianal abscess on subsequent CT Angio
# B12 deficiency
Continue B12 supplement
# Iron deficiency anemia
Hold iron for now
# GERD
Continue Protonix
# CAD status post stents
Hold aspirin
# COPD
Continue budesonide, albuterol, Advair
# Essential hypertension
# Hyperlipidemia
Continue statin
# Hypothyroidism
Continue levothyroxine
# History of DVT/PE
Stop further Eliquis
# Anxiety/depression
Continue sertraline, mirtazapine
# Sacral stage I pressure injury
# Osteoporosis
Continue alendronate
Full code
DVT prophylaxis-SCDs
DW GI
total time spent 51 min
Anticipated Discharge: 24 - 48 hours
Subjective/Interval History
-
Date of Service: December 01, 2024
Objective Data
-
Labs:
Laboratory Results
12/01/24
05:42
WBC 8.7
Hgb 10.1 L D
Hct 30.8 L
Plt Count 193 D
Sodium 140
Potassium 4.5
Chloride 114 H
Carbon Dioxide 22
BUN 20 H
Creatinine 0.7
Glucose 93
Calcium 8.2 L
Total Bilirubin 0.6
AST 21
ALT 12
Alkaline Phosphatase 59
Vital Signs:
Vital Signs
Temp Pulse Resp BP Pulse Ox
36.4 C 96 24 128/65 98
12/01/24 07:48 12/01/24 07:27 12/01/24 07:27 12/01/24 06:00 12/01/24 07:27
I&O
11/30/24 12/01/24 12/02/24
06:59 06:59 06:59
Intake Total 500 / 500
Output Total 650 / 650
Balance -150 / -150
[2024-12-01] MEDS: PROTONIX 40 MG PO (08:53)
[2024-12-01] MEDS: PEPCID 20 MG PO (08:53)
[2024-12-01] MEDS: VITAMIN B-12 1000 MCG PO (08:53)
--- NOTE | 2024-12-01 10:27 | CM ---
Addendum entered by Ester Tejeda 12/01/24 11:01:
Received consult for AD. Patient declined forms. She said she did not want the information.
Original Note:
Recent admission 11/14/24 to 11/20/24 for HGB of 4.8. Initial assessment completed with patient and medical records. Patient has recently transitioned from [facility] to LTC at [facility]. She ambulates with a or W/CH. She occasionally receives
physical therapy. PCP is Dr. Nick Sainz and pharmacy is [facility]. Discharge POC: Return to [facility] for resumption of LTC services. Referral forwarded.
--- NOTE | 2024-12-01 12:00 | PTCARENOTE ---
Reassessed the patient, arousable to voice from sleep, on RA, NSR, BP stable, on full liquid diet, swallow whole pills, had one small maroon BM, incontinent, Calazime cream and foam dressing applied to Sacrum.
[2024-12-01] MEDS: ZOLOFT 75 MG PO (13:28)
[2024-12-01] MEDS: TYLENOL 650 MG PO (13:32)
[2024-12-01 15:25] LABS: Hematocrit 25.3 % (37.0-47.0); Hemoglobin 8.6 g/dL (12.0-16.0); Mean Corpuscular Hgb 30.6 pg (27.0-31.0); Mean Platelet Volume 10.3 fL (7.4-10.4); Platelet Count 186 10^3/uL (130-400); Red Blood Cell Count 2.81 10^6/uL (4.20-5.40); Red Cell Dist. Width 18.2 % (11.5-14.5); White Blood Cell Count 9.5 10^3/uL (4.8-10.8)
--- NOTE | 2024-12-01 15:40 | PTCARENOTE ---
Notified all doctors that spot check hgb went down to 8.6 and patient's BP became more softer (80s to 90s over 40s, MAP less than 65). Hospitalist Dr. Long will order a small bolus. Per GI Dr. Hong, recheck hgb in evening.
--- NOTE | 2024-12-01 16:22 | PN.CDI ---
CDI
- -
CDI:
Physician Documentation Request
Admit Date: 11/30/24 18:13
Dear Doctor,
Please review the following and provide your response in the progress notes.
Clinical Indicators:
Pt admitted with recurrent GI bleed.
12/01 Registered Dietitian Note: ' Chart reviewed due to consult pt with weight loss....
RD met with pt who reports decreased appetite and was 150 lbs but unsure when.
CBW: 124 lbs 1.924 oz BMI 20.7 normal range (12/01). Pts weight previous admission listed as 126 lbs 11/14, 140 lbs 06/26 reflective of a 12% weight loss in 6 months, significant.
RD able to visulize temporal wasting and slight protrusion of clavical.
With weight loss of > 10% in 1 month and < 75% estimated needs > 1 month pt meets AND/ASPEN criteria for moderate protein calorie malnutrition of chronic illness.'
Based on the above information and your assessment, which of the following most accurately represents the patient's nutritional status?
Moderate Malnutrition
Other
[place] Criteria (ACP Hospitalist 2017)
2 or more criteria must be present for either
non severe or severe malnutrition
Note that the criteria differs related to the
presence of an acute or chronic illness
Chronic Illness
Energy Intake Non Severe: <75% for >1 month
Severe: <75% for >1 month
Weight Loss Non Severe: 5% over 1 month
7.5% over 3 months
10% over 6 months
20% over 1 year
Severe: >5% over 1 month
>7.5% over 3 months
>10% over 6 months
>20% over 1 year
Body Fat Non Severe: Mild Loss
Severe: Severe Loss
Muscle Mass Non Severe: Mild Loss
Severe: Severe Loss
Additional criteria that can be used to Determine if Mild or Moderate Malnutrition (Merck Manual 2018)
Use of terms such as suspected, likely, concern for, or probable (associated with a specific diagnosis that is being evaluated, monitored, or treated as if it exists) are acceptable and can be coded in the inpatient setting, when documented at the
time of discharge.
Thank you,
Essie Cabrera RN, BSN
CDI Specialist
[place] [facility]
Please use your independent medical judgment in providing your response.
--- NOTE | 2024-12-01 16:28 | PN.CDI ---
CDI
- -
CDI:
Physician Documentation Request
Admit Date: 11/30/24 18:13
Dear Doctor,
Please review the following and provide your response in the progress notes.
Clinical Indicators:
Pt admitted for recurrent GI bleed.
12/01 Progress Note: ' 89-year-old female past medical history of cecal mass, severe anemia/blood loss anemia, iron deficiency anemia, B12 deficiency'
'A/P:
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
s/p 2 units PRBC transfusion, Hgb improved from 7.8 to 10 '
Based on the above, could you clarify, in your progress note, which of the following is the most likely type of anemia you are evaluating, monitoring and/or treating?
Acute blood loss anemia
Acute blood loss anemia with baseline chronic anemia
Chronic iron deficiency anemia due to blood loss
Other
Use of terms such as suspected, likely, concern for, or probable (associated with a specific diagnosis that is being evaluated, monitored, or treated as if it exists) are acceptable and can be coded in the inpatient setting, when documented at the
time of discharge.
Thank you,
Essie Cabrera RN, BSN
CDI Specialist
[place] [employer]
Please use your independent medical judgment in providing your response.
[2024-12-01] MEDS: NSS 500 IV (16:57)
[2024-12-01 20:08] LABS: Hemoglobin 7.9 g/dL (12.0-16.0)
--- NOTE | 2024-12-01 21:25 | PTCARENOTE ---
Pt Aox3, but forgetful at times. NSR on monitor. no edema, + pulses. Denies pain. Had large bloody BM, hemoglobin 7.9.
[2024-12-01] MEDS: REMERON 15 MG PO (23:09)
[2024-12-02] VITALS (29 sets, daily range): BP systolic 95–144; BP diastolic 41–105; BMI 19.8
--- NOTE | 2024-12-02 01:10 | PTCARENOTE ---
Pt became confused and agitated, aggressive towards staff, punching, kicking and throwing equipment. 4point soft restraints applied. Zyprexa ordered. pt has new skin tear on left abbott.
[2024-12-02] MEDS: STERILE WATER FOR INJECTION 2.1 ML IM (01:16)
[2024-12-02] MEDS: ZYPREXA 5 MG IM (01:17)
[2024-12-02 04:54] LABS: Hematocrit 25.9 % (37.0-47.0); Hemoglobin 8.5 g/dL (12.0-16.0); Mean Corp Hgb Conc. 32.8 g/dL (33.0-37.0); Mean Corpuscular Volume 91.5 fL (81.0-99.0); Mean Platelet Volume 10.4 fL (7.4-10.4); Platelet Count 188 10^3/uL (130-400); Red Blood Cell Count 2.83 10^6/uL (4.20-5.40); Red Cell Dist. Width 18.3 % (11.5-14.5); White Blood Cell Count 8.4 10^3/uL (4.8-10.8)
[2024-12-02 05:21] LABS: Blood Urea Nitrogen 21 mg/dl (7-17); Calcium 8.4 mg/dl (8.4-10.2); Carbon Dioxide 21 mmol/L (22-30); Chloride 115 mmol/L (98-107); Estimated Creatinine Clearance 50 ml/min; Glucose 101 mg/dl (70-99); Magnesium 1.9 mg/dl (1.6-2.3); Potassium 4.3 mmol/L (3.5-5.1); Sodium 142 mmol/L (135-145); eGFR > 60.00
[2024-12-02] MEDS: SYNTHROID 125 MCG PO (06:39)
[2024-12-02] MEDS: ADVAIR HFA 115/21 MCG INHALER 2 PUFF INH ×2 (07:35→19:42)
[2024-12-02] MEDS: PULMICORT 0.5 MG INH ×2 (07:35→19:42)
--- NOTE | 2024-12-02 08:21 | W.PN.INTV ---
Today's Communication / Plan
Recommendations
Advance diet as per GI
Continue trending H&H, transfusing to keep Hb >7 g/dL
Keep platelet count >50k, INR<1.8
Hold antiplatelet/anticoagulation until told otherwise by GI
Recommend to indefinitely hold Eliquis/anticoagulation per hematology
No current role for IVC filter
Patient has been downgraded to IMU. Continue trending H&H as stated above. No additional recommendations at this time. Corporate Wellness Coordinator/Pulmonary service will now sign off. Please reconsult if there are any additional questions/concerns, or if
patient's respiratory status deteriorates.
Assessment
-
Assessment: 89-year-old female with a past medical history of diverticular disease, hyperlipidemia, anxiety, hypothyroidism, hypertension, Hx of diverticulitis, CAD s/p LAD stent, TIA, Hx of bronchiectasis, GERD, asbestos exposure and Hx of UTI and
p/w rectal bleeding and lower abdominal cramping. Pt previously followed with GI back in [address] Olea for diverticular disease. She was recommended to consume high-fiber diet with the use of a bulking agent like Benefiber once per week. She
was recently hospitalized from 11/14 - 11/20/2024 due to acute anemia with an hemoglobin of 4.8. She underwent an EGD on 11/16/2024 which showed a mild Schatzki ring with small hiatal hernia and normal examined duodenum. Colonoscopy was performed on
11/17/2024 showing multiple large localized angioectasias in the cecum which was treated with APC and she required 4 hemostatic clips. 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
And lastly, there was multiple large mouth and small mouth diverticula in the rectosigmoid colon, sigmoid colon and descending colon. She is now coming in with continued rectal bleeding. Initial temperature 99.2 �F, pulse rate 103, respiratory
rate 15, BP 109/66 and saturating 100% on room air. Hb was 8.8, platelet count 261, INR 1.34, and BUN 24. CT abdomen/pelvis was performed showing a questionable perianal abscess with otherwise no significant acute abnormality. Patient had a
subsequent CTA abdomen/pelvis on 11/30/2024 showing no evidence for an active GI bleed. She was given Zofran in the ER, and then transfused 2 units PRBCs and admitted to the ICU for further care with GI consulted. Corporate Wellness Coordinator services consulted for
additional management/recommendations.
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
exposure, history of UTI, sciatica, history of PE/DVT on Eliquis
Impression:
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
#Acute blood loss anemia due to above
#Chronic anticoagulation due to Eliquis s/p Kcentra
#History of DVT/PE on Eliquis as an outpatient
#Hx of multiple non-bleeding cecal angioectasias s/p APC + clipping x4; also history of rectal�sigmoid/sigmoid and descending colonic diverticulosis/2 cm polypoid lesion in cecum (tubulovillous adenoma) - per colonoscopy on 11/17/2024
#Mild schatzki ring with small hiatal hernia (seen on EGD from 11/16/2024)
#CAD s/p stent to LAD
#Bronchiectasis
#Asbestos exposure
#GERD
#Depression
#Hypertension/hyperlipidemia
#Former tobacco smoker ([id number] history, quit 37 years ago - at age 52)
# History of COPD however spirometry performed 09/06/2024 showed mild restrictive lung defect with no evidence of an obstructive lung defect
Plan:
- Large-bore IV x2
- GI consulted � recs appreciated
- Diet deferred to GI - now being upgraded to low residue diet per GI
- Monitor for recurrence of rectal bleeding, and trend H/H and transfuse if needed to keep Hb>7g/dL; keep plt>50k, and keep INR<1.8
- May need repeat colonoscopy if bleeding recurs (last colonoscopy on 11/17/2024; last EGD 11/16/2024)
- Hold antiplatelet/anticoagulants until told otherwise by GI
- She has a history of DVT/PE in 2022 and was on Eliquis for this; will need to hold Eliquis for now and need to weigh the risks versus benefits of resuming Eliquis once his GI bleed is controlled
- Hematology consulted to see their recommendations on resuming anticoagulation, and if she has a high risk of a recurrent venous thromboembolism, then perhaps we should discuss inserting an IVC filter given the high risk of rebleeding while on
anticoagulation --> recommend stopping Eliquis with no plans to resume for now. Also no role for IVC filter given no recent evidence for DVT.
- Patient also takes aspirin, hence if her bleeding recurs and is severe, then would administer DDAVP
- Given that it is likely that her GI bleed is due to her 2 cm polypoid cecal lesion which pathology showed focal acute surface mucosal erosion, if bleeding does not stop she will likely require endoscopic mucosal resection versus right
hemicolectomy
- Maintain SpO2 >90-94%
- Continue aspiration precautions
- Of note, it has been reported in the past that she has mild dysphagia to solid foods; this is likely due to her history of a Schatzki ring
- Patient is on Advair as an outpatient and this should be continued during her hospitalization
- Maintain MAP>65
- Replete electrolytes with K>4, Mg>2
- Maintain euglycemia with goal BG 140-180
- prn nebulized bronchodilators - not currently bronchospastic
- Incentive spirometer encouraged 10x per hour for at least 4 hrs a day
- DVT ppx: SCDs for now
Code status: Full code
Patient has been downgraded to IMU. Continue trending H&H as stated above. No additional recommendations at this time. Corporate Wellness Coordinator/Pulmonary service will now sign off. Thank you for allowing us to be involved in the care of this patient. Please
reconsult if there are any additional questions/concerns, or if patient's respiratory status deteriorates.
Data:
CTA Abd/pelvis w/wo IV contrast 11/30/2024:
1. No CTA evidence for active GI bleed.
2. No abdominal aortic aneurysm or dissection.
3. No significant acute abnormality identified in the abdomen or pelvis within the limits of this exam, as described above. No evidence for perianal abscess on the current exam.
Total time spent today was 59 minutes for this encounter. Time includes reviewing laboratory test/imaging results, reviewing pertinent medical records, obtaining and reviewing medical history, performing an appropriate exam, ordering medications,
tests and procedures. Time also includes documentation of this encounter, coordinating patient care and communicating with other healthcare professionals. Total time does not include separately billed tests performed on this date of service.
Subjective Dataa
Subjective Data
Date of Service:
Date of Service: December 02, 2024
Chief Complaint: Corporate Wellness Coordinator Follow Up
Subjective:
Patient seen and evaluated this morning. Resting in chair no acute distress. She denies abdominal pain. On room air breathing comfortably, saturating 99% with BP 114/57 and heart rate 96. Hb this morning is 8.5. Last blood transfusion was
yesterday shortly after midnight.
Review of Systems
General: Other (Negative unless mentioned above)
Objective Data
Data Reviewed
Vital Signs / I&O / Oxygen:
Vital Signs
Temp Pulse Resp BP Pulse Ox
98.0 F 97 16 111/64 97
12/02/24 07:25 12/02/24 07:38 12/02/24 07:38 12/02/24 05:30 12/02/24 07:38
Intake and Output
12/01/24 12/02/24 12/03/24
06:59 06:59 06:59
Intake Total 500 / 500 1700 / 1700
Output Total 650 / 650 650 / 650
Balance -150 / -150 1050 / 1050
SaO2 97
Physical Exam
General: Respiratory Distress (negative), Comfortable, Chills (negative) and Sweats (negative)
HEENT: Normocephalic and Anicteric
Cardiovascular: S1-S2 and Peripheral Edema (negative)
Respiratory: Clear, Wheeze (negative), Crackles (negative), Rhonchi (negative) and Non-Labored Respirations
GI: Soft, Non Distended, Non Tender and Normal Bowel Sounds
Neurology: AO x 3 and Tremors (negative)
Skin: Warm, Dry, Cyanosis (negative) and Jaundice (negative)
Labs/Micro/Reports
Lab Data
12/02/24 04:27
--- NOTE | 2024-12-02 08:34 | W.PN.HOSP.TC ---
Today's Communication/Plan
-
HGB today at 8.5, down from 10. Continue on full liquid diet. Follow HH for trend. Keep in IMU or ICU.
Assessment / Plan
Assessment / Plan
HPI: 89-year-old female past medical history of:
cecal mass,
severe anemia/blood loss anemia,
iron deficiency anemia,
B12 deficiency,
GERD,
CAD status post stents,
COPD,
hypertension,
hyperlipidemia,
hypothyroidism,
DVT/PE on Eliquis,
anxiety/depression,
sacral stage I pressure injury,
presented from [facility] with large amount of bright red blood per rectum. She complained of abdominal pain in the lower belly. Denies vomiting.
She was diagnosed with PE in 2022, was started with Eliquis at that time.
She was recently admitted for GIB. Had colonoscopy 11/17/24 which noted cecal mass s/p biopsied. Plan was for outpatient mass removal by Interventional GI.
She came back this time for recurrent GIB in setting of cecal mass and Eliquis use.
A/P:
1. 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
s/p 2 units PRBC transfusion, Hgb improved from 7.8 to 10 then down to 25.9
s/p PCC
CT Angio negative for active GI bleed.
Stopped further Eliquis
BL LE US from Jun 2024 was negative for BL DVT- hence no need for IVC filter
Monitor Hgb , monitor GIB
Diet advanced to full liquid - continue on full L
GI consulted
2. Possible abscess - Ruled out perianal abscess on subsequent CT Angio
3. B12 deficiency - chronic
Continue B12 supplement
4. Iron deficiency anemia - chronic
Hold oral iron supplementation for now given GIB
5. GERD - chronic
Continue Protonix
6. CAD status post stents - chronic
Hold aspirin given GIB
7. COPD - chronic, stable
Continue budesonide, albuterol, Advair
8. Essential hypertension
9. Hyperlipidemia - chronic
Continue statin
10. Hypothyroidism - chronic
Continue levothyroxine
11. History of DVT/PE
Stopped further Eliquis
12. Anxiety/depression
Continue sertraline, mirtazapine
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
Wound care as needed
14. Osteoporosis - chronic
Continue alendronate
Full code
DVT prophylaxis-SCDs
total time spent 51 min
Anticipated Discharge: > 48 hours
Subjective/Interval History
-
Date of Service: December 02, 2024
tolerating liquid diet. No complaints.
Objective Data
-
Labs:
Laboratory Results
12/02/24
04:27
WBC 8.4
Hgb 8.5 L
Hct 25.9 L
Plt Count 188
Sodium 142
Potassium 4.3
Chloride 115 H
Carbon Dioxide 21 L
BUN 21 H
Creatinine 0.7
Glucose 101 H
Calcium 8.4
Vital Signs:
Vital Signs
Temp Pulse Resp BP Pulse Ox
98.0 F 97 16 111/64 97
12/02/24 07:25 12/02/24 07:38 12/02/24 07:38 12/02/24 05:30 12/02/24 07:38
I&O
12/01/24 12/02/24 12/03/24
06:59 06:59 06:59
Intake Total 500 / 500 1700 / 1700
Output Total 650 / 650 650 / 650
Balance -150 / -150 1050 / 1050
Review of Systems
-
History Source: Patient
All other systems: Reviewed and negative
Physical Exam
-
General: No Apparent Distress and Comfortable
HEENT: Moist Mucous Membranes; Negative Good Dentition
Respiratory: Clear to Auscultation
Cardiac: Regular Rhythm and S1/S2
GI: Soft, Nontender and Nondistended
Musculoskeletal: No Clubbing, No Cyanosis and No Edema
Skin: Warm and Dry
Neuro: Awake and Alert
Psych: Calm
Data Reviewed
-
Labs: Labs Reviewed by me
--- NOTE | 2024-12-02 08:36 | CON.ONC ---
Consultation
-
Date Consultation Requested: 12/01/24
Date Consultation Performed: 12/02/24
Requesting Provider: Wilner Diaz
Performing Provider: Patrick
Reason for Consultation: Hx DVT. ? IVC Filter
Impression
Impression
Lower gastrointestinal hemorrhage
Acute blood loss anemia due to above
Chronic anticoagulation due to Eliquis s/p Kcentra
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
Hx of multiple non-bleeding cecal angioectasias
CAD s/p stent to LAD
Plan
Plan
Typical duration of anticoagulation after DVT/PE in 3-6 months.
For unprovoked, we sometime do longer prophylactic anticoagulation but clearly risks>>>benefits in her in light of her current recurrent GI bleeding.
In light of major GI bleeding, agree with STOPPING Eliquis now with no plans to resume.
Doppler U/S Negative in 06/23/2024.
No role for what would basically be a 'prophylactic' IVC filter now without thrombosis.
No other recommendations. Will sign Off.
Patient History
History of Present Illness
CC: Rectal bleeding
HPI:
89-year-old female with a past medical history of diverticular disease p/w rectal bleeding and lower abdominal cramping. Pt previously followed with GI back in [address] Olea for diverticular disease. She was recently hospitalized from 11/14 -
11/20/2024 due to acute anemia with an hemoglobin of 4.8. She underwent an EGD on 11/16/2024 which showed a mild Schatzki ring with small hiatal hernia and normal examined duodenum. Colonoscopy was performed on 11/17/2024 showing multiple large
localized angioectasias in the cecum which was treated with APC and she required 4 hemostatic clips. 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 And lastly, there was multiple
large mouth and small mouth diverticula in the rectosigmoid colon, sigmoid colon and descending colon. She is now coming in with continued rectal bleeding. HgB was 8.8, platelet count 261, INR 1.34, and BUN 24. She had a CTA abdomen/pelvis on
11/30/2024 showing no evidence for an active GI bleed. She was transfused 2 units PRBCs and admitted to the ICU for further care with GI consulted. She has a history of DVT/PE in 08/2022 and was on Eliquis for this manager long term care; Eliquis was reversed
with Kcentra and held. We are asked to assess risks versus benefits of resuming Eliquis once her GI bleed is controlled vs. IVC Filter. Doppler U/S 06/23/2024 was negative for clot.
Past-Medical/Surgical History
PMHx: Hyperlipidemia, anxiety, hypothyroidism, hypertension, arthritis, NC, depression, history of diverticulitis, diverticulosis, CAD s/p coronary stent, history of TIA, history of bronchiectasis, history of COPD, GERD, asbestos exposure, history
of UTI, sciatica, history of PE/DVT on Eliquis
PSHx: Right lung biopsy (benign), left shoulder replacement (2013), coronary stent to LAD, left torn rotator cuff surgery
Past Medical History
Social History
Tobacco: Former Smoker (14-vndy-ftue history, quit 37 years ago (at age 52))
Alcohol: Daily (2 glasses of wine per night)
Personal:
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
Family History
Family History: CAD (Father) and Cancer (Mother + sibling: Breast cancer (mother age 38 from breast cancer); father: Prostate cancer)
Patient Medication
�Medication �Instructions �Recorded �Confirmed �Last Taken �Type
sertraline 50 mg tablet 75 mg PO DAILY@1230 Mental 09/12/13 11/30/24 11/04/16 History
Health/Anxiety
alendronate 70 mg tablet 70 mg PO PERSON OSTEOPOROSIS 11/05/16 11/30/24 02/11/20 History
simvastatin 40 mg tablet 40 mg PO HS High cholesterol 11/05/16 11/30/24 11/04/16 History
apixaban 5 mg tablet (Eliquis) 5 mg PO BID Blood Clot 12/18/22 11/30/24 Unknown History
Prevention/Tx
ondansetron HCl 4 mg tablet 4 mg PO Q8HPRN PRN nausea 06/21/24 11/30/24 Unknown History
acetaminophen 325 mg tablet 650 mg PO Q4HPRN PRN mild pain 11/14/24 11/30/24 Unknown History
(Tylenol)
albuterol sulfate 90 mcg/actuation 2 puff inhalation R Q4HPRN PRN sob 11/14/24 11/30/24 Unknown History
aerosol inhaler
aspirin 81 mg tablet,delayed 81 mg PO DAILY@1230 Heart 11/14/24 11/30/24 Unknown History
release Disease/Condition
bisacodyl 10 mg rectal suppository 10 mg SC [id number] PRN if no bm aftr 11/14/24 11/30/24 Unknown History
(Dulcolax (bisacodyl)) mom
budesonide 0.5 mg/2 mL suspension 0.5 mg inhalation R BID 11/14/24 11/30/24 Unknown History
for nebulization Lung/Breathing Issues
docusate sodium 100 mg capsule 200 mg PO HS Constipation 11/14/24 11/30/24 Unknown History
(Colace)
famotidine 20 mg tablet (Pepcid) 20 mg PO DAILY Gastrointestinal 11/14/24 11/30/24 Unknown History
Issue
fluticasone 250 mcg-salmeterol 50 1 inh inhalation R BID 11/14/24 11/30/24 Unknown History
mcg/dose blistr powdr for Lung/Breathing Issues
inhalation (Advair Diskus)
magnesium hydroxide 400 mg/5 mL 2,400 mg PO HSPRN PRN constipation 11/14/24 11/30/24 Unknown History
oral suspension (Milk of Magnesia)
mirtazapine 15 mg tablet 15 mg PO HS Mental Health/Anxiety 11/14/24 11/30/24 Unknown History
cyanocobalamin (vitamin B-12) 1,000 mcg PO DAILY #100 tabs 11/20/24 11/30/24 Unknown Rx
1,000 mcg tablet (Vitamin B-12)
pantoprazole 40 mg tablet,delayed 40 mg PO DAILY #30 tabs 11/20/24 11/30/24 Unknown Rx
release (Protonix)
cholecalciferol (vitamin D3) 1,250 1,250 mcg PO MO Supplement 11/30/24 11/30/24 Unknown History
mcg (50,000 unit) tablet
estradiol 0.01% (0.1 mg/gram) 0.1 g vaginal DAILY Hormonal Agent 11/30/24 11/30/24 Unknown History
vaginal cream (Estrace)
levothyroxine 125 mcg tablet 125 mcg PO DAILY Thyroid 11/30/24 11/30/24 Unknown History
(Synthroid)
ferrous sulfate 325 mg (65 mg 325 mg PO DAILY Supplement 12/01/24 11/30/24 Unknown History
iron) tablet (FeroSul)
Active Medications
Generic Name Dose Route Start Last Admin
Trade Name Freq PRN Reason Stop Dose Admin
Acetaminophen 650 mg 11/30/24 21:23 12/01/24 13:32
Acetaminophen 325 Mg Tablet PO 12/28/24 21:22 650 mg
Q4HPRN PRN Administration
mild pain
Albuterol 2 puff 11/30/24 21:23
Albuterol Hfa [90 Mcg/Dose] Inhaler INH
R Q4HPRN PRN
sob
Protocol
Alendronate Sodium 70 mg 12/03/24 06:00
Alendronate 70 Mg Tablet PO 12/31/24 05:59
PERSON@0600 SIMÓN
Budesonide 0.5 mg 11/30/24 21:23 12/02/24 07:35
Budesonide (Pulmicort Respules) 0.5 Mg/2 Ml INH 0.5 mg
R BID SIMÓN Administration
Protocol
Cyanocobalamin 1,000 mcg 12/01/24 08:00 12/01/24 08:53
Cyanocobalamin 1,000 Mcg Tablet PO 12/29/24 07:59 1,000 mcg
DAILY SIMÓN Administration
Famotidine 20 mg 12/01/24 08:00 12/01/24 08:53
Famotidine 20 Mg Tablet PO 12/29/24 07:59 20 mg
DAILY SIMÓN Administration
Levothyroxine Sodium 125 mcg 12/01/24 06:00 12/02/24 06:39
Levothyroxine 125 Mcg Tablet PO 12/29/24 05:59 125 mcg
DAILY @ 0600 SIMÓN Administration
Magnesium Hydroxide 30 ml 11/30/24 21:23
Milk Of Magnesia 30 Ml Cup PO 12/28/24 21:22
HSPRN PRN
constipation
Mirtazapine 15 mg 11/30/24 22:00 12/01/24 23:09
Mirtazapine 15 Mg Regular Release Tablet PO 12/28/24 21:59 15 mg
HS SIMÓN Administration
Ondansetron HCl 4 mg 11/30/24 21:23
Ondansetron 4 Mg Tablet PO 12/28/24 21:22
Q8HPRN PRN
nausea
Pantoprazole Sodium 40 mg 12/01/24 08:00 12/01/24 08:53
Pantoprazole 40 Mg Delayed Release Tablet PO 12/29/24 07:59 40 mg
DAILY SIMÓN Administration
Fluticasone/Salmeterol 2 puff 11/30/24 22:15 12/02/24 07:35
Advair Hfa 115/21 Inhaler INH 12/28/24 22:14 2 puff
R BID SIMÓN Administration
Protocol
Sertraline HCl 75 mg 12/01/24 12:30 12/01/24 13:28
Sertraline 50 Mg Tablet PO 12/29/24 12:29 75 mg
DAILY@1230 SIMÓN Administration
Sodium Chloride 0 flush 11/30/24 22:00
Sodium Chloride 0.9% (Flush) Syringe IV 12/28/24 21:59
PER PROTOCOL SIMÓN
Physical Exam
-
General: Comfortable and Conversant
Cardiology: Normal Sinus Rhythm, S1 and S2
Pulmonary: Clear
GI: Soft
Extremities: No C/C/E
Labs
Lab Results
WBC 8.4 10^3/uL (4.8-10.8) 12/02/24 04:27
RBC 2.83 10^6/uL (4.20-5.40) L 12/02/24 04:27
Hgb 8.5 g/dL (12.0-16.0) L 12/02/24 04:27
Hct 25.9 % (37.0-47.0) L 12/02/24 04:27
MCV 91.5 fL (81.0-99.0) 12/02/24 04:27
MCH 30.0 pg (27.0-31.0) 12/02/24 04:27
MCHC 32.8 g/dL (33.0-37.0) L 12/02/24 04:27
RDW 18.3 % (11.5-14.5) H 12/02/24 04:27
Plt Count 188 10^3/uL (130-400) 12/02/24 04:27
MPV 10.4 fL (7.4-10.4) 12/02/24 04:27
Abs Immat Gran (auto) 0.1 10^3/uL (0-0.05) H 12/01/24 05:42
Absolute Neuts (auto) 5.3 10^3/uL (1.4-6.5) 12/01/24 05:42
Absolute Lymphs (auto) 2.4 10^3/uL (1.2-3.4) 12/01/24 05:42
Absolute Monos (auto) 0.6 10^3/uL (0.1-0.6) 12/01/24 05:42
Absolute Eos (auto) 0.3 10^3/uL (0-0.7) 12/01/24 05:42
Absolute Basos (auto) 0.1 10^3/uL (0-0.2) 12/01/24 05:42
Immature Gran % 0.7 % (0-0.5) H 12/01/24 05:42
Neutrophils % 60.4 % (42.2-75.2) 12/01/24 05:42
Lymphocytes % 27.6 % (20.5-51.1) 12/01/24 05:42
Monocytes % 7.3 % (1.7-9.3) 12/01/24 05:42
Eosinophils % 3.3 % (0-6) 12/01/24 05:42
Basophils % 0.7 % (0-2) 12/01/24 05:42
Creatinine 0.7 mg/dL (0.6-1.0) 12/02/24 04:27
Vital Signs
Vital Signs
Temp Pulse Resp BP Pulse Ox
98.0 F 97 16 111/64 97
12/02/24 07:25 12/02/24 07:38 12/02/24 07:38 12/02/24 05:30 12/02/24 07:38
[2024-12-02] MEDS: VITAMIN B-12 1000 MCG PO (10:19)
[2024-12-02] MEDS: PEPCID 20 MG PO (10:19)
[2024-12-02] MEDS: PROTONIX 40 MG PO (10:19)
[2024-12-02] MEDS: ZOLOFT 75 MG PO (12:04)
--- NOTE | 2024-12-02 12:36 | W.PN.GI.CBS2 ---
Today's Communication / Plan
-
Check hemoglobin at 1300, monitor rectal output. If has clinical signs of persistent bleeding will prep for colonoscopy for tomorrow versus Wednesday
Assessment / Plan
-
89 year old female with a history of PE/DVT (on Eliquis- last dose 11/30 AM), recently admitted for severe anemia without overt bleeding >10 days ago, now admitted again with hematochezia with Hgb 8.8 on arrival that did drop to 7.8 with continued
bleeding and patient became hypotensive, requiring 2 units PRBCs, Eliquis reversal with Kcentra and ICU admission. She is now hemodynamically stable
IMPRESSION / PLAN:
Transfusion history packed RBCs:
11/30/2024 20:00
12/01/2024 00:48
# Hematochezia -initially unstable requiring 2 units of blood and Kcentra to reverse her Eliquis
--Etiology of bleeding is likely secondary to the ulcerated 2 cm polypoid lesion in the cecum that was biopsied or the large angioectasias that were treated with APC. Dr. Alamo commented that she thought the polypoid lesion appeared malignant.
Superficial biopsy showed tubulovillous adenoma. No metastatic disease on recent imaging or enlarged lymph nodes suggesting anything outside of the colon.
-- Eliquis needs to be held -please determine if she needs an IVC filter. Based on the records I can find she had negative duplex venous Dopplers in June and a negative CT chest/PE study in November 2024. Hematology also saw the patient and said no
IVC filter needed
-- Currently she is hemodynamically stable, alert and oriented. Normotensive
-- ok for full liquid diet -
-- if the bleeding returns or doesn't stop would prep her for colonoscopy with me to determine etiology of bleeding and if we can stop it here versus need transfer for EMR vs right hemicolectomy
-- Spoke to Makenna her daughter on 12/01/2024 who has understanding of her recent and current admission as well as the plan
--Also spoke to the hospitalist today 12/02/2024 and the RN
Subjective
Subjective
Date of Service: December 02, 2024
Patient's last bowel movement was last evening burgundy color small amount. Hemoglobin has been stable since the last transfusion. Vital signs are stable.
Objective
Data Reviewed
Laboratory Data:
Laboratory Results
12/02/24 04:27
Laboratory Results
PT 16.9 Sec (11.4-14.6) H 11/30/24 15:00
INR 1.34 11/30/24 15:00
APTT 30.5 Sec (23.4-35.0) 11/30/24 15:00
Magnesium 1.9 mg/dl (1.6-2.3) 12/02/24 04:27
Total Bilirubin 0.6 mg/dl (0.2-1.3) 12/01/24 05:42
AST 21 U/L (14-36) 12/01/24 05:42
ALT 12 U/L (0-35) 12/01/24 05:42
Alkaline Phosphatase 59 U/L (38-126) 12/01/24 05:42
Vital Signs and I&O:
Vital Signs
Temp Pulse Resp BP Pulse Ox
98.0 F 91 23 100/50 97
12/02/24 11:11 12/02/24 10:13 12/02/24 10:13 12/02/24 10:13 12/02/24 07:38
I&O
12/01/24 12/02/24 12/03/24
06:59 06:59 06:59
Intake Total 500 / 500 1700 / 1700
Output Total 650 / 650 650 / 650 200 / 200
Balance -150 / -150 1050 / 1050 -200 / -200
Physical Exam
Physical Exam
HEENT: Anicteric
GI: Soft, Non Distended and Non Tender
Extremities: No Edema
[2024-12-02 13:03] LABS: Hemoglobin 8.7 g/dL (12.0-16.0)
--- NOTE | 2024-12-02 14:07 | PTCARENOTE ---
Pt was rec'd in report from night RN at 07:15, she remains AOx2 confused to place/situation, redirectable, pleasant but forgetful, bed alarm in place and activated. Vitals stable, no pain reported. Assisted by PCT oob to use bathroom, standby assist
with rolling walker, washed up and oral care provided, then seated in chair for breakfast. Purewick removed. Pt is tolerating full liquid diet, no BMs so far this shift. Per Dr. Hong, plan is to watch for any additional bleeding, follow hgb and
consider colonoscopy if any more bleeding occurs, considering transfer to [place] for mass removal if necessary...pt updated and daughter also updated by phone by RN. Chair alarm in place and armed. Per Dr. Hong orders, pt now cleared for low residue
diet. Call wise in reach, safe environment continues.
[2024-12-02] MEDS: ZYPREXA ZYDIS (ORALLY DISINTEGRATING) 5 MG PO ×2 (16:34→22:29)
--- NOTE | 2024-12-02 17:08 | PTCARENOTE ---
pt continues with visual and tactile hallucinations, seeing cats on the shelf and feeling them 'batting her back.' Per Dr. Chase, one time dose 5 mg SL Zyprexa ordered and given. Bed alarm in place and armed. Emotional support provided.
--- NOTE | 2024-12-02 17:31 | PTCARENOTE ---
Ca Gluconate ordered and hung, plan discussed again with Photo Specialist, consult for IR placed for HD access. Pt's peripheral IV sites marginally patent on left arm, orders rec'd for PICC line - VAT RN in room to assess pt, IR called to discuss plan
for HD access as well. Pt more awake, moving arms and withdrawing to painful stim, occ opening eyes.
[2024-12-02] MEDS: REMERON 15 MG PO (19:31)
--- NOTE | 2024-12-02 19:57 | PTCARENOTE ---
Pt is confused, very anxious, hallucinating, redirected as much as possible. Remeron given earlier then scheduled time. Sinus tach on the monitor. Bed alarm active and audible, pt challenges often.
[2024-12-03] VITALS (7 sets, daily range): BP systolic 105–129; BP diastolic 61–90; BMI 19.8
--- NOTE | 2024-12-03 01:04 | PTCARENOTE ---
Patient continues to hallucinate, seeing cats in her room. Multiple attempts to redirect, pt becomes more agitated. 5mg PO zyprexa was given earlier in the night. Pt remains in restraints, trying to climb out of bed, aggressive towards staff and
removing monitoring equipment.
[2024-12-03] MEDS: SYNTHROID 125 MCG PO (05:21)
[2024-12-03] MEDS: FOSAMAX 70 MG PO (05:22)
[2024-12-03 05:36] LABS: Hemoglobin 8.2 g/dL (12.0-16.0); Mean Corp Hgb Conc. 32.8 g/dL (33.0-37.0); Mean Corpuscular Volume 91.6 fL (81.0-99.0); Platelet Count 205 10^3/uL (130-400); Red Blood Cell Count 2.73 10^6/uL (4.20-5.40); Red Cell Dist. Width 18.3 % (11.5-14.5); White Blood Cell Count 7.7 10^3/uL (4.8-10.8)
[2024-12-03 05:59] LABS: Blood Urea Nitrogen 15 mg/dl (7-17); Calcium 8.6 mg/dl (8.4-10.2); Carbon Dioxide 19 mmol/L (22-30); Chloride 116 mmol/L (98-107); Estimated Creatinine Clearance 48 ml/min; Glucose 105 mg/dl (70-99); Potassium 4.7 mmol/L (3.5-5.1); Sodium 141 mmol/L (135-145); eGFR > 60.00
[2024-12-03] MEDS: PULMICORT 0.5 MG INH (07:31)
[2024-12-03] MEDS: ADVAIR HFA 115/21 MCG INHALER 2 PUFF INH (07:31)
[2024-12-03] MEDS: PEPCID 20 MG PO (07:52)
[2024-12-03] MEDS: VITAMIN B-12 1000 MCG PO (07:52)
[2024-12-03] MEDS: PROTONIX 40 MG PO (07:52)
[2024-12-03] MEDS: TYLENOL 650 MG PO ×2 (07:56→12:17)
--- NOTE | 2024-12-03 08:08 | W.PN.HOSP.TC ---
Today's Communication/Plan
-
Discuss with GI timing of colonoscopy. Otherwise supportive care to help with delirium.
Assessment / Plan
Assessment / Plan
HPI: 89-year-old female past medical history of:
cecal mass,
severe anemia/blood loss anemia,
iron deficiency anemia,
B12 deficiency,
GERD,
CAD status post stents,
COPD,
hypertension,
hyperlipidemia,
hypothyroidism,
DVT/PE on Eliquis,
anxiety/depression,
sacral stage I pressure injury,
presented from [facility] with large amount of bright red blood per rectum. She complained of abdominal pain in the lower belly. Denied vomiting. She was diagnosed with PE in 2022, was started with Eliquis at that time. She was recently
admitted for GIB. Had colonoscopy 11/17/24 which noted cecal mass s/p biopsied. Plan was for outpatient mass removal by Interventional GI. She came back this time for recurrent GIB in setting of cecal mass and Eliquis use.
A/P:
1. 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
s/p 2 units PRBC transfusion, Hgb improved from 7.8 to 10 then down to 25.9, today down to 25.0
s/p PCC
CT Angio negative for active GI bleed.
Stopped further Eliquis, permanently
BL LE US from Jun 2024 was negative for BL DVT- hence no need for IVC filter
Monitor Hgb , monitor GIB
Diet advanced to full liquid - further diet advancement per GI
GI consulted, consult appreciated.
GI plan:
'-- if the bleeding returns or doesn't stop would prep her for colonoscopy with me to determine etiology of bleeding
and if we can stop it here versus need transfer for EMR vs right hemicolectomy.'
2. Possible abscess - Ruled out perianal abscess on subsequent CT Angio
3. B12 deficiency - chronic
Continue B12 supplement
4. Iron deficiency anemia - chronic
Hold oral iron supplementation for now given GIB
5. GERD - chronic
Continue Protonix
6. CAD status post stents - chronic
Hold aspirin given GIB
7. COPD - chronic, stable
Continue budesonide, albuterol, Advair
8. Essential hypertension
9. Hyperlipidemia - chronic
Continue statin
10. Hypothyroidism - chronic
Continue levothyroxine
11. History of DVT/PE
Stopped further Eliquis
12. Anxiety/depression
Continue sertraline, mirtazapine
13. Sacral stage I pressure injury - [employer], no abscess on CT
Wound care as needed
14. Osteoporosis - chronic
Continue alendronate
15. Sundowning/delirium
Supportive care / protective care
Emergency meds if needed
Full code
DVT prophylaxis-SCDs
Case DW daughter on the phone
total time spent 51 min
Anticipated Discharge: > 48 hours
Subjective/Interval History
-
Date of Service: December 03, 2024
confused. Likely sun downing.
Objective Data
-
Labs:
Laboratory Results
12/03/24
05:13
WBC 7.7
Hgb 8.2 L
Hct 25.0 L
Plt Count 205
Sodium 141
Potassium 4.7
Chloride 116 H
Carbon Dioxide 19 L
BUN 15
Creatinine 0.7
Glucose 105 H
Calcium 8.6
Vital Signs:
Vital Signs
Temp Pulse Resp BP Pulse Ox
98.3 F 116 20 121/65 96
12/03/24 03:09 12/03/24 07:34 12/03/24 07:34 12/03/24 06:00 12/02/24 20:19
I&O
12/02/24 12/03/24 12/04/24
06:59 06:59 06:59
Intake Total 1700 / 1700 960 / 960
Output Total 650 / 650 200 / 200
Balance 1050 / 1050 760 / 760
Review of Systems
-
Unable to obtain full review of systems at this time due to: Other (patient confused. Not answering questions appropriately)
Physical Exam
-
General: Well Developed, Well Nourished, Conversant and Other (confused. Refused exam.)
HEENT: Nose Appears Normal and Ears Appear Normal
Neuro: Awake and Alert; Negative Oriented
Psych: Confused
Data Reviewed
-
Labs: Labs Reviewed by me
--- NOTE | 2024-12-03 09:35 | CM ---
Addendum entered by Latanya Bowen 12/03/24 13:02:
Ambulance meat pickler scheduled for 1430; facility notified
Addendum entered by Latanya Bowen 12/03/24 11:35:
CM spoke with patient's daughter via phone; notified of discharge plan; IMM benefit explained to patient's daughter via phone @ [phone]
Nursing Export Traffic Department Manager @ [facility] notified of discharge plan and able to accept patient today
Addendum entered by Latanya Bowen 12/03/24 11:13:
Plan changed; patient is stable to return to [facility] SNF today. Will transport via ambulance.
Report # [phone]

Addendum entered by Latanya Bowen 12/03/24 10:10:
Per Attending, patient is being transferred to IMU today; if patient remains stable, she can return to [facility] tomorrow
Addendum entered by Latanya Bowen 12/03/24 09:49:
Patient may be stable to return to [facility] today; facility notified; spoke with Nursing Export Traffic Department Manager; she reported that they can accept if discharged and will transition patient to SNF
Report # [phone]

Original Note:
Chart Reviewed
PT recommended SNF when patient returns to [facility]; [facility]
--- NOTE | 2024-12-03 10:21 | PTCARENOTE ---
Pt was rec'd from night RN -Aox2, confused to place and situation, but redirectable. Pleasant. Restraints removed, pt assisted to use bathroom, brush teeth and sit in chair for breakfast. Ate 100% LRD tray; pancakes, eggs, pudding and coffee. Pt
slightly wobbly on feet with rolling walker, x1 assistance required. Medications and assessment as documented, VSS. Plan discussed with Drs. Chase and Gely. Pt for discharge back to [facility] today and plan for eventual removal of mass as outpatient
per GI. Pt provided with coloring pages and photo books, linens to fold... calmer and more cooperative with staff. Pt talking almost nonstop with RN, stated it makes her 'feel better to get it out of my brain.' Emotional support provided, chair and
bed alarm utilized for safety. Pt drowsy and assisted back to bed for nap at 10:00.
--- NOTE | 2024-12-03 10:48 | W.DCSUMMARY ---
Discharge Summary
Discharge Data
Date of Admission: 11/30/24
Date of Discharge: 12/03/24
-
Pending Results: No
Hospital Course
HPI and initial presentation:
This is an 89-year-old female past medical history of:
cecal mass,
severe anemia/blood loss anemia,
iron deficiency anemia,
B12 deficiency,
GERD,
CAD status post stents,
COPD,
hypertension,
hyperlipidemia,
hypothyroidism,
DVT/PE on Eliquis,
anxiety/depression,
sacral stage I pressure injury,
Who presented from [facility] with large amount of bright red blood per rectum. She complained of abdominal pain in the lower belly. Denied vomiting. She was diagnosed with PE in 2022, was started with Eliquis at that time. She was recently
admitted for GIB. Had colonoscopy 11/17/24 which noted cecal mass s/p biopsied. Plan was for outpatient mass removal by Interventional GI. She came back this time for recurrent GIB in setting of cecal mass and Eliquis use.
Initial admit diagnosis:
GIB, with BRBPR
Hospital course by probelm and A/P:
1. 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
She received 2 units PRBC transfusion, then her Hgb improved from 7.8 to 10 then stabilized in the mid s
The CT Angio was negative for active GI bleed.
We Stopped further Eliquis, permanently
BL LE US from Jun 2024 was negative for BL DVT- hence no need for IVC filter
Monitor for Hgb decrease as an outpatient
Her Diet was advanced to full liquid - she tolerated this well
GI was consulted, and the consult appreciated.
GI plan:
'-- if the bleeding returns would prep her for colonoscopy with me to determine etiology of bleeding
and if we can stop it here versus need transfer for EMR vs right hemicolectomy.'
2. Possible abscess - Ruled out perianal abscess on subsequent CT Angio
3. B12 deficiency - chronic
Continue B12 supplement
4. Iron deficiency anemia - chronic
Hold oral iron supplementation for now given GIB
Resume iron upon discharge
5. GERD - chronic
Continue Protonix
6. CAD status post stents - chronic
Hold aspirin given GIB
Discuss risk/benefit with PCP as outpatient
7. COPD - chronic, stable
Continue budesonide, albuterol, Advair
8. Essential hypertension - stable
Continue plan ANALYTICAL TECH
9. Hyperlipidemia - chronic
Continue statin
10. Hypothyroidism - chronic
Continue levothyroxine
11. History of DVT/PE
Stopped further Eliquis
Do not resume it
12. Anxiety/depression
Continue sertraline, mirtazapine
13. Sacral stage I pressure injury - ANALYTICAL TECH, no abscess on CT
Wound care as needed
14. Osteoporosis - chronic
Continue alendronate
15. Sundowning/delirium
Supportive care / protective care
Emergency meds if needed
Should improve with her discharge and return to familiar surroundings.
Discharge Plan
-
Discharge Diagnosis/Procedures: GIB, s/p colonoscopy
Diet: As tolerated
Activity: With assistance
Driving Restrictions: As prior to admission
Bathing Restrictions: None
Blood Work: Check a cbc on 12/05/04
Referrals:
Nick Sainz DO [Family Provider, Family Practice]
Prescriptions:
Continued
sertraline 50 MG tablet
75 mg PO DAILY@1230
simvastatin 40 MG tablet
40 mg PO HS
alendronate 70 MG tablet
70 mg PO PERSON
ondansetron HCl 4 mg tablet
4 mg PO Q8HPRN PRN (Reason: nausea)
fluticasone propion-salmeterol [Advair Diskus] 250-50 mcg/dose Blister With Device
1 inh INHALATION R BID
acetaminophen [Tylenol] 325 mg Tablet
650 mg PO Q4HPRN PRN (Reason: mild pain)
famotidine [Pepcid] 20 mg Tablet
20 mg PO DAILY
magnesium hydroxide [Milk of Magnesia] 400 mg/5 mL Suspension
2,400 mg PO HSPRN PRN (Reason: constipation)
bisacodyl [Dulcolax (bisacodyl)] 10 mg Suppository
10 mg NH [id number] PRN (Reason: if no bm aftr mom)
docusate sodium [Colace] 100 mg Capsule
200 mg PO HS
mirtazapine 15 mg Tablet
15 mg PO HS
albuterol sulfate 90 mcg/actuation Hfa Aerosol Inhaler
2 puff INHALATION R Q4HPRN PRN (Reason: sob)
budesonide 0.5 mg/2 mL suspension for nebulization
0.5 mg inhalation R BID
cyanocobalamin (vitamin B-12) [Vitamin B-12] 1,000 mcg Tablet
1,000 mcg PO DAILY Qty: 100 0RF
pantoprazole [Protonix] 40 mg tablet,delayed release (DR/EC)
40 mg PO DAILY Qty: 30 0RF
levothyroxine [Synthroid] 125 mcg Tablet
125 mcg PO DAILY
cholecalciferol (vitamin D3) 1,250 mcg (50,000 unit) Tablet
1,250 mcg PO MO
estradiol [Estrace] 0.01 % (0.1 mg/gram) cream
0.1 g vaginal DAILY
ferrous sulfate [FeroSul] 325 mg (65 mg iron) tablet
325 mg PO DAILY
Discontinued
Eliquis 5 mg Tablet
5 mg PO BID
aspirin 81 MG tablet,delayed release (DR/EC)
81 mg PO DAILY@1230
Discharge Date and Time
Print Language: KITTITIAN
--- NOTE | 2024-12-03 10:52 | W.PN.GI.CBS2 ---
Today's Communication / Plan
-
discharge to rehab
weekly CBC
awaiting timing on polypectomy
hold Eliquis
Assessment / Plan
-
89 year old female with a history of PE/DVT (on Eliquis- last dose 11/30 AM), recently admitted for severe anemia without overt bleeding >10 days ago, now admitted again with hematochezia with Hgb 8.8 on arrival that did drop to 7.8 with continued
bleeding and patient became hypotensive, requiring 2 units PRBCs, Eliquis reversal with Kcentra and ICU admission. She is now hemodynamically stable
IMPRESSION / PLAN:
Transfusion history packed RBCs:
11/30/2024 20:00
12/01/2024 00:48
# Hematochezia -initially unstable requiring 2 units of blood and Kcentra to reverse her Eliquis
--Etiology of bleeding is likely secondary to the ulcerated 2 cm polypoid lesion in the cecum that was biopsied or the large angioectasias that were treated with APC. Dr. Alamo commented that she thought the polypoid lesion appeared malignant.
Superficial biopsy showed tubulovillous adenoma. No metastatic disease on recent imaging or enlarged lymph nodes suggesting anything outside of the colon.
-- Eliquis needs to be held - no IVC filter needed Based on the records I can find she had negative duplex venous Dopplers in June and a negative CT chest/PE study in November 2024. Hematology also saw the patient and said no IVC filter needed
-- Currently she is hemodynamically stable, alert and oriented. Normotensive
-- doing well on LRdiet
-- if the bleeding returns or doesn't stop would prep her for colonoscopy with me to determine etiology of bleeding and if we can stop it here versus need transfer for EMR vs right hemicolectomy
OVERALL, hgb is stable and stools are now brown. Give 1 dose of IV iron today to help get her blood levels up quicker
Okay for discharge back to her rehab
Patient will need CBC checks weekly for now until we get her large polyp removed
Will send a message to our office to see if we can expedite her colonoscopy
Discussed with Makenna her daughter and hospitalist.
Subjective
Subjective
Date of Service: December 03, 2024
Patient is confused. According to the nurse she had a brown formed stool patient is sitting up eating breakfast in the chair
Objective
Data Reviewed
Laboratory Data:
Laboratory Results
12/03/24 05:13
12/03/24 05:13
Laboratory Results
PT 16.9 Sec (11.4-14.6) H 11/30/24 15:00
INR 1.34 11/30/24 15:00
APTT 30.5 Sec (23.4-35.0) 11/30/24 15:00
Magnesium 1.9 mg/dl (1.6-2.3) 12/02/24 04:27
Total Bilirubin 0.6 mg/dl (0.2-1.3) 12/01/24 05:42
AST 21 U/L (14-36) 12/01/24 05:42
ALT 12 U/L (0-35) 12/01/24 05:42
Alkaline Phosphatase 59 U/L (38-126) 12/01/24 05:42
Vital Signs and I&O:
Vital Signs
Temp Pulse Resp BP Pulse Ox
98 F 104 19 119/73 95
12/03/24 08:30 12/03/24 10:11 12/03/24 10:11 12/03/24 10:11 12/03/24 08:26
I&O
12/02/24 12/03/24 12/04/24
06:59 06:59 06:59
Intake Total 1700 / 1700 960 / 960
Output Total 650 / 650 200 / 200
Balance 1050 / 1050 760 / 760
Physical Exam
Physical Exam
HEENT: Anicteric
GI: Soft, Non Distended and Non Tender
--- NOTE | 2024-12-03 11:00 | W.DCSUMMARY ---
Discharge Summary
Discharge Data
Date of Admission: 11/30/24
Date of Discharge: 12/03/24
-
Pending Results: No
Hospital Course
HPI and initial presentation:
This is an 89-year-old female past medical history of:
cecal mass,
severe anemia/blood loss anemia,
iron deficiency anemia,
B12 deficiency,
GERD,
CAD status post stents,
COPD,
hypertension,
hyperlipidemia,
hypothyroidism,
DVT/PE on Eliquis,
anxiety/depression,
sacral stage I pressure injury,
Who presented from [facility] with large amount of bright red blood per rectum. She complained of abdominal pain in the lower belly. Denied vomiting. She was diagnosed with PE in 2022, was started with Eliquis at that time. She was recently
admitted for GIB. Had colonoscopy 11/17/24 which noted cecal mass s/p biopsied. Plan was for outpatient mass removal by Interventional GI. She came back this time for recurrent GIB in setting of cecal mass and Eliquis use.
Initial admit diagnosis:
GIB, with BRBPR
Hospital course by probelm and A/P:
1. 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
She received 2 units PRBC transfusion, then her Hgb improved from 7.8 to 10 then stabilized in the mid s
The CT Angio was negative for active GI bleed.
We Stopped further Eliquis, permanently
BL LE US from Jun 2024 was negative for BL DVT- hence no need for IVC filter
Monitor for Hgb decrease as an outpatient
Her Diet was advanced to full liquid - she tolerated this well
GI was consulted, and the consult appreciated.
GI plan:
'-- if the bleeding returns would prep her for colonoscopy with me to determine etiology of bleeding
and if we can stop it here versus need transfer for EMR vs right hemicolectomy.'
2. Possible abscess - Ruled out perianal abscess on subsequent CT Angio
3. B12 deficiency - chronic
Continue B12 supplement
4. Iron deficiency anemia - chronic
Hold oral iron supplementation for now given GIB
Resume iron upon discharge
5. GERD - chronic
Continue Protonix
6. CAD status post stents - chronic
Hold aspirin given GIB
Discuss risk/benefit with PCP as outpatient
7. COPD - chronic, stable
Continue budesonide, albuterol, Advair
8. Essential hypertension - stable
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
9. Hyperlipidemia - chronic
Continue statin
10. Hypothyroidism - chronic
Continue levothyroxine
11. History of DVT/PE
Stopped further Eliquis
Do not resume it
12. Anxiety/depression
Continue sertraline, mirtazapine
13. 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
Wound care as needed
14. Osteoporosis - chronic
Continue alendronate
15. Sundowning/delirium
Supportive care / protective care
Emergency meds if needed
Should improve with her discharge and return to familiar surroundings.
Discharge Plan
-
Patient Disposition: Skilled Nursing/SNF
Discharge Diagnosis/Procedures: GIB, s/p colonoscopy
Diet: As tolerated
Activity: With assistance
Driving Restrictions: As prior to admission
Bathing Restrictions: None
Blood Work: Check a cbc on 12/05/04
Referrals:
Nick Sainz DO [Family Provider, Family Practice]
Prescriptions:
Continued
sertraline 50 MG tablet
75 mg PO DAILY@1230
simvastatin 40 MG tablet
40 mg PO HS
alendronate 70 MG tablet
70 mg PO PERSON
ondansetron HCl 4 mg tablet
4 mg PO Q8HPRN PRN (Reason: nausea)
fluticasone propion-salmeterol [Advair Diskus] 250-50 mcg/dose Blister With Device
1 inh INHALATION R BID
acetaminophen [Tylenol] 325 mg Tablet
650 mg PO Q4HPRN PRN (Reason: mild pain)
famotidine [Pepcid] 20 mg Tablet
20 mg PO DAILY
magnesium hydroxide [Milk of Magnesia] 400 mg/5 mL Suspension
2,400 mg PO HSPRN PRN (Reason: constipation)
bisacodyl [Dulcolax (bisacodyl)] 10 mg Suppository
10 mg MO [id number] PRN (Reason: if no bm aftr mom)
docusate sodium [Colace] 100 mg Capsule
200 mg PO HS
mirtazapine 15 mg Tablet
15 mg PO HS
albuterol sulfate 90 mcg/actuation Hfa Aerosol Inhaler
2 puff INHALATION R Q4HPRN PRN (Reason: sob)
budesonide 0.5 mg/2 mL suspension for nebulization
0.5 mg inhalation R BID
cyanocobalamin (vitamin B-12) [Vitamin B-12] 1,000 mcg Tablet
1,000 mcg PO DAILY Qty: 100 0RF
pantoprazole [Protonix] 40 mg tablet,delayed release (DR/EC)
40 mg PO DAILY Qty: 30 0RF
levothyroxine [Synthroid] 125 mcg Tablet
125 mcg PO DAILY
cholecalciferol (vitamin D3) 1,250 mcg (50,000 unit) Tablet
1,250 mcg PO MO
estradiol [Estrace] 0.01 % (0.1 mg/gram) cream
0.1 g vaginal DAILY
ferrous sulfate [FeroSul] 325 mg (65 mg iron) tablet
325 mg PO DAILY
Discontinued
Eliquis 5 mg Tablet
5 mg PO BID
aspirin 81 MG tablet,delayed release (DR/EC)
81 mg PO DAILY@1230
Discharge Orders:
Discharge Patient (As Directed); Ordered 12/03/24
Ordered By: Anthony Chase
Discharge Date and Time
Print Language: ITALIAN
--- NOTE | 2024-12-03 11:46 | PTCARENOTE ---
Pt awake and helped into bathroom, voided, now back in chair coloring and watching relaxation video and looking at photo books.
[2024-12-03] MEDS: ZOLOFT 75 MG PO (12:17)
[2024-12-03] MEDS: FERRLECIT 110 MG IV (12:18)
--- NOTE | 2024-12-03 12:39 | PTCARENOTE ---
Report called to Jannie RODRIGUEZ at [facility], pickup scheduled for 14:30. IV Ferrlecit obtained and infusing now.
--- NOTE | 2024-12-03 13:39 | PTCARENOTE ---
Iron infusion completed, patient dressed, PIVs removed, monitoring equipment dc'd. Pt ate 100% of lunch tray, now coloring and awaiting transport.
--- NOTE | 2024-12-03 14:38 | TRANSFER ---
Pt picked up by [facility] at 14:35. Pt discharged back to [facility].
== END 2024-12-03 14:32 | DRG 378 ==
LOC: ICU 18:13
PROVIDERS: Internal Medicine; Physician Assistant; ADMITTING PHYSICIAN Hospitalist; ATTENDING PHYSICIAN Internal Medicine; CONSULT PHYSICIAN Internal Medicine; CONSULT PHYSICIAN Internal Medicine Hematology & Oncology; EMERGENCY PHYSICIAN Emergency Medicine; FAMILY PHYSICIAN Student in an Organized Health Care Education/Training Program; OTHER PHYSICIAN Internal Medicine Critical Care Medicine
PROC: 30283B1 Transfusion of Nonautologous 4-Factor Prothrombin Complex Concentrate into Vein, Percutaneous Approach (ICD-10-PCS; 2024-11-30)
PROC: 30233N1 Transfusion of Nonautologous Red Blood Cells into Peripheral Vein, Percutaneous Approach (ICD-10-PCS; 2024-11-30)
DX: K55.21 Angiodysplasia of colon with hemorrhage (principal); D62 Acute posthemorrhagic anemia; E44.0 Moderate protein-calorie malnutrition; D68.32 Hemorrhagic disorder due to extrinsic circulating anticoagulants; Z87.891 Personal history of nicotine dependence; K57.33 Diverticulitis of large intestine without perforation or abscess with bleeding; Z79.01 Long term (current) use of anticoagulants; I10 Essential (primary) hypertension; E78.00 Pure hypercholesterolemia, unspecified; F32.A Depression, unspecified; K21.9 Gastro-esophageal reflux disease without esophagitis; J47.9 Bronchiectasis, uncomplicated; E03.9 Hypothyroidism, unspecified; L89.151 Pressure ulcer of sacral region, stage 1; M81.0 Age-related osteoporosis without current pathological fracture; Z79.82 Long term (current) use of aspirin; Z86.711 Personal history of pulmonary embolism; Z95.5 Presence of coronary angioplasty implant and graft; I25.10 Atherosclerotic heart disease of native coronary artery without angina pectoris; Z79.899 Other long term (current) drug therapy
CPT/HCPCS: 36430; 74174; 74177; 80048; 80053; 82962; 83735; 85018; 85025; 85027; 85610; 85730; 86850; 86900; 86901; 86920; 94640; 96374; 96375; 97163; 99285; J2358; J2916; J7168; P9016; Q9967

== ENCOUNTER → 2024-12-05 09:43 | Outpatient (REF) | payer MEDICARE, BC, SELFPAY ==
[2024-12-05 10:24] LABS: Hematocrit 23.9 % (37.0-47.0); Hemoglobin 7.5 g/dL (12.0-16.0); Mean Corp Hgb Conc. 31.4 g/dL (33.0-37.0); Mean Corpuscular Volume 95.2 fL (81.0-99.0); Platelet Count 215 10^3/uL (130-400); Red Cell Dist. Width 18.8 % (11.5-14.5)
[2024-12-05 10:40] LABS: Blood Urea Nitrogen 19 mg/dl (7-17); Calcium 8.0 mg/dl (8.4-10.2); Carbon Dioxide 22 mmol/L (22-30); Chloride 112 mmol/L (98-107); Glucose 95 mg/dl (70-99); Potassium 4.2 mmol/L (3.5-5.1); Sodium 140 mmol/L (135-145); eGFR > 60.00
[2024-12-05 10:52] LABS: Vitamin D, 25-OH*** 17.9 ng/mL (30-80)
[2024-12-06 07:06] LABS: Iron 48 ug/dl (37-170)
[2024-12-06 07:16] LABS: Total Iron Binding Capacity 279 ug/dl (265-497)
[2024-12-06 07:49] LABS: Ferritin 315.0 ng/ml (11.1-264.0)
== END ==
LOC: OLABN 09:43
PROVIDERS: ATTENDING PHYSICIAN Student in an Organized Health Care Education/Training Program
DX: E78.5 Hyperlipidemia, unspecified (principal); K92.2 Gastrointestinal hemorrhage, unspecified; E55.9 Vitamin D deficiency, unspecified; D64.9 Anemia, unspecified
CPT/HCPCS: 36415; 80048; 82306; 82728; 83540; 83550; 85027

== ENCOUNTER 2024-12-05 15:50 | Emergency (ER) | payer MEDICARE, BC, SELFPAY ==
[2024-12-05 15:53] VITALS: BP 109/62
[2024-12-05 15:58] VITALS: BMI 21.9
[2024-12-05 16:00] VITALS: BP 115/61
--- NOTE | 2024-12-05 16:02 | ED.GENMED ---
History of Present Illness
General
Chief Complaint: Abnormal Lab Value
Source: patient
Exam Limitations: none
Time Seen by Provider: 12/05/24 16:01
Nursing documentation reviewed up to this point in time: agreed with
History of Present Illness
History of Present Illness:
The patient is an 89-year-old female presenting with complaints of rectal bleeding and fatigue. She resides at [facility]. She reports today she had a bBM with 'a little' blood in the toilet this morning. The patient denies any chest pain,
trouble breathing, or significant abdominal pain beyond a general description of discomfort that she has had recently. She has noticed increased fatigue over the past few days, especially noticeable today.
Hgb at OR this a.m. 7.5 (from 8.2 on 11/06 2 9)
Admitted 11/30 to 12/03 for rectal bleeding in setting of cecal mass and lower abdominal pain, on Eliquis for history of PE 2022. Had colonoscopy 11/17/2024 which noted a cecal mass, plan was for outpatient mass removal by interventional GI.
Her Eliquis was DC'd that visit, CT angio was neg for active GI bleed her bilateral ultrasound was negative at that time so no need for IVC filter.
[facility] to monitor Hemoglobin as an outpatient
Past History
Past History
ED Past Medical History: COPD, GERD, Hypercholesterolemia, [place], Hypothyroidism, Psychiatric and Other (PE/DVT, Diverticulitis)
ED Past Surgical History: Cardiac (Stents) and Orthopedic
Patient has exhibited threatening behavior?: No
Social History
Tobacco: Former smoker
Alcohol: Daily ( Wine 2 glasses)
Drug: None
Personal:
Living: alone
Employment: Retired
Family History
Family History: Hypertension and Other (Other was prostate cancer)
Review of Systems
Review of Systems
Allergies reviewed?: Yes
All Other Systems: ROS reviewed and negative except as documented in HPI and ROS
Constitutional: Reports fatigue; Denies fever
Respiratory: Denies trouble breathing
Cardiac: Denies chest pain
ABD/GI: Reports abdominal pain and bloody stools; Denies nausea, vomiting or diarrhea
Musculoskeletal: Denies edema
Skin: Reports no symptoms
Neurological: Denies dizzy, headache or numbness
Phy Exam
Physical Exam
Physical Exam:
GENERAL: No acute distress. A&Ox3.
CONSTITUTIONAL: Afebrile.
EYES: clear, conjunctivae normal
ENMT: moist mucus membranes, multiple missing teeth
RESPIRATORY: Regular respirations, nonlabored, lungs clear.
CARDIOVASCULAR: Regular rate and rhythm, no murmurs, no rubs.
GI: Soft, mild tenderness across lower abdomen, normal BS
Rectal: Small amounts of dried, dark almost black blood on the skin around the rectum, no active bleeding
MUSCULOSKELETAL: Moves with ease. Well perfused.
SKIN: Warm, dry, pink
PSYCH: Normal mood and affect. Well kept, interactive and appropriate
NEUROLOGIC: Awake, alert and oriented x 3. Strength equal throughout. No focal neurological deficits
Course
Orders/Labs/Results
Orders:
Orders
12/05/24 15:54
IV Insert/Care/Rem.- Treatment PRN
12/05/24 15:55
Complete Blood Count/With Diff Urgent
Comprehensive Metabolic Panel Urgent
Lipase Urgent
Reticulocyte Count Urgent
Comment: ADD
12/05/24 15:56
Type And Crossmatch [Type+Screen] Urgent
12/05/24 16:25
Straight cath- Treatment ONCE
12/05/24 16:28
0.9% Sodium Chloride 1000 ml [Nss] 1,000 ml IV BOLUS
12/05/24 16:40
Urinalysis Reflex To Culture Urgent
Date Specimen was Collected: 12/05/24
Time Specimen was Collected: 16:33
Abnormal Lab Results
12/05/24
15:55
RBC 2.78 L 10^6/uL
(4.20-5.40)
Hgb 8.5 L g/dL
(12.0-16.0)
Hct 26.4 L %
(37.0-47.0)
MCHC 32.2 L g/dL
(33.0-37.0)
RDW 19.0 H %
(11.5-14.5)
Abs Immat Gran (auto) 0.1 H 10^3/uL
(0-0.05)
Immature Gran % 0.6 H %
(0-0.5)
Retic Count 4.0 H %
(0.4-2.8)
Chloride 111 H mmol/L
(98-107)
BUN 21 H mg/dl
(7-17)
Albumin 3.4 L g/dl
(3.5-5.0)
12/05/24 15:55
12/05/24 15:55
Vital Signs
Initial and Last Documented VS:
Initial Vital Signs
Temp Pulse Resp Pulse Ox
98.7 F 95 18 100
12/05/24 15:51 12/05/24 15:51 12/05/24 15:51 12/05/24 15:51
Last Documented Vital Signs
Temp Pulse Resp BP Pulse Ox
98.7 F 104 22 121/66 99
12/05/24 15:51 12/05/24 18:00 12/05/24 18:00 12/05/24 18:00 12/05/24 17:00
MDM/Problems Addressed
Differential Diagnosis Includes:
UTI, bleeding from known rectal mass
MDM/Problems Addressed:
The patient is an 89-year-old female presenting with complaints of rectal bleeding and fatigue. She resides at [facility]. She reports today she had a BM with 'a little' blood in the toilet this morning. The patient denies any chest pain,
trouble breathing, or significant abdominal pain beyond a general description of discomfort that she has had recently. She has noticed increased fatigue over the past few days, especially noticeable today.
Hgb at OR this a.m. 7.5 (from 8.2 on 11/26 this is most ER yeah yeah)
Admitted 11/30 to 12/03 for rectal bleeding in setting of cecal mass and lower abdominal pain, on Eliquis for history of PE 2022. Had colonoscopy 11/17/2024 which noted a cecal mass, plan was for outpatient mass removal by interventional GI.
Her Eliquis was DC'd that visit, CT angio was neg for active GI bleed her bilateral ultrasound was negative at that time so no need for IVC filter.
[facility] to monitor Hemoglobin as an outpatient
4:20 p.m.
Hgb repeat here: 8.5
No active rectal bleeding
VSS
No need to address the rectal mass, bleeding (which has stopped) as pt is to f/u as out pt.
Spoke with RN at [facility] who states concern for pt being confused yesterday, thinking was in the bed next to her, they were unsuccessful in getting U/A as she 'missed the container.'
Concern for UTI
States pt daughter said pt is to have surgery for rectal mass but the doctor is on vacation this week.
Plan: Hydration w IVF's, check U/A
U/A neg
Hydrated for mild dehydration.
Pt stable for discharge back to OR to f/u with colorectal
Report given to JENNIFER Townsend at [facility]
*Pulse Oximetry
SaO2: 100
Patient hypoxic: no
*Critical Care Note
Total Time (30-74mins, 75-104mins- exclusive of procedures): Not Applicable
ED Attending Note
-
Portions of this chart may have been created with voice recognition software.� Occasional wrong word or��sound alike� substitutions may have occurred due to the inherent limitations of voice recognition software.
Discharge Plan
Departure
Patient Disposition: Home (Routine Discharge)
Date of Disposition: 12/05/24
Time of Disposition: 18:20
Patient with high blood pressure during this ER visit?: No
Condition: Good
Discharge Problem:
Mild dehydration
Instructions: Dehydration, Adult (DC)
Prescriptions:
No Action
sertraline 50 MG tablet
75 mg PO DAILY@1230
simvastatin 40 MG tablet
40 mg PO HS
alendronate 70 MG tablet
70 mg PO PERSON
ondansetron HCl 4 mg tablet
4 mg PO Q8HPRN PRN (Reason: nausea)
fluticasone propion-salmeterol [Advair Diskus] 250-50 mcg/dose Blister With Device
1 inh INHALATION R BID
acetaminophen [Tylenol] 325 mg Tablet
650 mg PO Q4HPRN PRN (Reason: mild pain)
famotidine [Pepcid] 20 mg Tablet
20 mg PO DAILY
magnesium hydroxide [Milk of Magnesia] 400 mg/5 mL Suspension
2,400 mg PO HSPRN PRN (Reason: constipation)
bisacodyl [Dulcolax (bisacodyl)] 10 mg Suppository
10 mg UT [id number] PRN (Reason: if no bm aftr mom)
docusate sodium [Colace] 100 mg Capsule
200 mg PO HS
mirtazapine 15 mg Tablet
15 mg PO HS
albuterol sulfate 90 mcg/actuation Hfa Aerosol Inhaler
2 puff INHALATION R Q4HPRN PRN (Reason: sob)
budesonide 0.5 mg/2 mL suspension for nebulization
0.5 mg inhalation R BID
cyanocobalamin (vitamin B-12) [Vitamin B-12] 1,000 mcg Tablet
1,000 mcg PO DAILY Qty: 100 0RF
pantoprazole [Protonix] 40 mg tablet,delayed release (DR/EC)
40 mg PO DAILY Qty: 30 0RF
levothyroxine [Synthroid] 125 mcg Tablet
125 mcg PO DAILY
cholecalciferol (vitamin D3) 1,250 mcg (50,000 unit) Tablet
1,250 mcg PO MO
estradiol [Estrace] 0.01 % (0.1 mg/gram) cream
0.1 g vaginal DAILY
ferrous sulfate [FeroSul] 325 mg (65 mg iron) tablet
325 mg PO DAILY
Referrals:
Nick Sainz DO [Family Provider, Family Practice]
Activity Restrictions/Additional Instructions:
Ms. Quinn received 1 L of normal saline IV while here today for mild dehydration
Urine is clear. Hgb 8.5
Follow up with colorectal surgeon as planned.
Interventions
Interventions:
*Risk Screen - Suicide Last Done: 12/05/24 15:52
*General Assessment Last Done: 12/05/24 15:52
*Neglect/Abuse Screening Last Done: 12/05/24 15:52
*ED- Fall Risk Assessment Last Done: 12/05/24 15:52
*ED COVID-19 Vaccine History Last Done: 12/05/24 15:53
*Nursing Disposition Last Done: 12/05/24 18:31
Discharge Date and Time
Discharge Date/Time: 12/05/24 18:31
Print Language: UKRAINIAN
[2024-12-05 16:08] LABS: Hematocrit 26.4 % (37.0-47.0); Hemoglobin 8.5 g/dL (12.0-16.0); Mean Corp Hgb Conc. 32.2 g/dL (33.0-37.0); Mean Corpuscular Volume 95.0 fL (81.0-99.0); Nucleated Red Blood Cells % 0 %; Platelet Count 249 10^3/uL (130-400); Red Cell Dist. Width 19.0 % (11.5-14.5)
[2024-12-05 16:39] LABS: ALT (SGPT) 12 U/L (0-35); AST (SGOT) 26 U/L (14-36); Albumin 3.4 g/dl (3.5-5.0); Alkaline Phosphatase 56 U/L (38-126); Blood Urea Nitrogen 21 mg/dl (7-17); Calcium 8.6 mg/dl (8.4-10.2); Carbon Dioxide 24 mmol/L (22-30); Chloride 111 mmol/L (98-107); Estimated Creatinine Clearance 43 ml/min; Glucose 94 mg/dl (70-99); Lipase 100 U/L (23-300); Potassium 4.7 mmol/L (3.5-5.1); Sodium 139 mmol/L (135-145); Total Protein 6.5 g/dl (6.3-8.2); eGFR > 60.00
[2024-12-05] MEDS: NSS 1000 IV (16:43)
[2024-12-05 16:45] LABS: Urine Character Clear (Clear)
[2024-12-05 17:00] VITALS: BP 126/60
[2024-12-05 18:00] VITALS: BP 121/66
[2024-12-06 06:45] LABS: Reticulocyte Count 4.0 % (0.4-2.8)
== END 2024-12-05 18:31 | disposition home or self-care (01) ==
LOC: EMR 15:50
PROVIDERS: Registered Nurse; EMERGENCY PHYSICIAN Student in an Organized Health Care Education/Training Program; FAMILY PHYSICIAN Student in an Organized Health Care Education/Training Program
DX: K62.5 Hemorrhage of anus and rectum (principal); R53.83 Other fatigue; E86.0 Dehydration; J44.9 Chronic obstructive pulmonary disease, unspecified; E78.00 Pure hypercholesterolemia, unspecified; K21.9 Gastro-esophageal reflux disease without esophagitis; I25.2 Old myocardial infarction; E03.9 Hypothyroidism, unspecified; K57.92 Diverticulitis of intestine, part unspecified, without perforation or abscess without bleeding; M19.90 Unspecified osteoarthritis, unspecified site; Z79.01 Long term (current) use of anticoagulants; Z95.5 Presence of coronary angioplasty implant and graft; Z86.711 Personal history of pulmonary embolism; Z86.718 Personal history of other venous thrombosis and embolism; Z87.891 Personal history of nicotine dependence; Z88.1 Allergy status to other antibiotic agents; Z88.5 Allergy status to narcotic agent; Z88.0 Allergy status to penicillin; Z88.8 Allergy status to other drugs, medicaments and biological substances; Z91.048 Other nonmedicinal substance allergy status
CPT/HCPCS: 99284; 96360; 51701; 36415; 80048; 80053; 81003; 82306; 83690; 85025; 85027; 85045; 86850; 86900; 86901

== ENCOUNTER → 2024-12-11 11:32 | Outpatient (REF) | payer OTHER, MEDICARE, BC, SELFPAY ==
[2024-12-11 12:16] LABS: Hematocrit 25.2 % (37.0-47.0); Hemoglobin 7.8 g/dL (12.0-16.0); Mean Corp Hgb Conc. 31.0 g/dL (33.0-37.0); Mean Corpuscular Volume 97.7 fL (81.0-99.0); Nucleated Red Blood Cells % 0 %; Platelet Count 231 10^3/uL (130-400); Red Cell Dist. Width 18.8 % (11.5-14.5)
[2024-12-11 13:14] LABS: Reticulocyte Count 2.7 % (0.4-2.8)
== END ==
LOC: OLABN 11:32
PROVIDERS: ATTENDING PHYSICIAN Student in an Organized Health Care Education/Training Program
DX: D64.9 Anemia, unspecified (principal)
CPT/HCPCS: 36415; 85025; 85045

== ENCOUNTER → 2024-12-13 12:14 | Outpatient (REF) | payer OTHER, MEDICARE, BC, SELFPAY ==
[2024-12-13 12:36] LABS: Hematocrit 27.5 % (37.0-47.0); Hemoglobin 8.4 g/dL (12.0-16.0); Mean Corp Hgb Conc. 30.5 g/dL (33.0-37.0); Mean Corpuscular Volume 99.3 fL (81.0-99.0); Nucleated Red Blood Cells % 0 %; Platelet Count 220 10^3/uL (130-400); Red Cell Dist. Width 18.6 % (11.5-14.5)
== END ==
LOC: OLABN 12:14
PROVIDERS: ATTENDING PHYSICIAN Student in an Organized Health Care Education/Training Program
DX: D64.9 Anemia, unspecified (principal)
CPT/HCPCS: 36415; 85025

== ENCOUNTER → 2024-12-20 11:33 | Outpatient (REF) | payer MEDICARE, BC, SELFPAY ==
[2024-12-20 12:16] LABS: Hematocrit 28.1 % (37.0-47.0); Hemoglobin 8.9 g/dL (12.0-16.0); Mean Corp Hgb Conc. 31.7 g/dL (33.0-37.0); Mean Corpuscular Volume 97.9 fL (81.0-99.0); Platelet Count 191 10^3/uL (130-400); Red Cell Dist. Width 17.5 % (11.5-14.5)
== END ==
LOC: OLABN 11:33
PROVIDERS: ATTENDING PHYSICIAN Student in an Organized Health Care Education/Training Program
DX: D64.9 Anemia, unspecified (principal)
CPT/HCPCS: 36415; 85027

== ENCOUNTER → 2024-12-21 11:01 | Outpatient (REF) | payer MEDICARE, BC, SELFPAY ==
[2024-12-21 13:59] LABS: TSH < 0.02 uIU/ml (0.47-4.68)
== END ==
LOC: OLABN 11:01
PROVIDERS: ATTENDING PHYSICIAN Student in an Organized Health Care Education/Training Program
DX: E03.9 Hypothyroidism, unspecified (principal)
CPT/HCPCS: 36415; 84443

== ENCOUNTER → 2025-01-18 10:59 | Outpatient (REF) | payer MEDICARE, BC, SELFPAY ==
[2025-01-18 13:42] LABS: Vitamin D, 25-OH*** 76.6 ng/mL (30-80)
== END ==
LOC: OLABN 10:59
PROVIDERS: ATTENDING PHYSICIAN Student in an Organized Health Care Education/Training Program
DX: E55.9 Vitamin D deficiency, unspecified (principal)
CPT/HCPCS: 36415; 82306

== ENCOUNTER 2025-01-19 16:53 | Inpatient (IN) | payer MEDICARE, BC, SELFPAY ==
[2025-01-18] VITALS (11 sets, daily range): BP systolic 93–133; BP diastolic 58–69; BMI 22.8
[2025-01-18 18:10] LABS: COVID-19 Antigen Positive (Negative)
[2025-01-18 18:11] LABS: Hematocrit 37.4 % (37.0-47.0); Hemoglobin 11.9 g/dL (12.0-16.0); Mean Corp Hgb Conc. 31.8 g/dL (33.0-37.0); Mean Corpuscular Volume 94.4 fL (81.0-99.0); Nucleated Red Blood Cells % 0 %; Platelet Count 180 10^3/uL (130-400); Red Cell Dist. Width 14.9 % (11.5-14.5)
[2025-01-18 18:27] LABS: Blood Urea Nitrogen 26 mg/dl (7-17); Calcium 8.7 mg/dl (8.4-10.2); Carbon Dioxide 27 mmol/L (22-30); Chloride 102 mmol/L (98-107); Glucose 103 mg/dl (70-99); Sodium 135 mmol/L (135-145); eGFR 54.53
[2025-01-18] MEDS: TYLENOL 1000 MG PO (18:32)
[2025-01-18 19:20] LABS: Urine Character Cloudy (Clear)
[2025-01-18 19:39] LABS: Urine Urothelial Cell 0-2 /LPF (FEW)
[2025-01-18 19:40] LABS: Urine Red Blood Cell 26-30 /HPF (0-2); Urine White Cell 50-60 /HPF (0-5)
[2025-01-18 20:06] LABS: Potassium 4.9 mmol/L (3.5-5.1)
--- NOTE | 2025-01-18 21:34 | ED.GENMED ---
History of Present Illness
General
Chief Complaint: Fever
Source: patient
Time Seen by Provider: 01/18/25 17:51
History of Present Illness
History of Present Illness:
Note:
CHIEF COMPLAINT(S)
Fall from sitting position, fever, and positive COVID-19 status.
HISTORY OF PRESENT ILLNESS
The patient is a 30-year-old female who presented after experiencing a fall this morning while attempting to get up from a sitting position on the bed. The patient reports no head injury but complains of mild pain in the right pelvic region when
moving her knees. This pain has a slight severity and discomfort. Additionally, she has tested positive for COVID-19 and experienced a fever today. Congestion has not been a significant issue. The patient noted feeling unwell, possibly related to
her illness. She states, 'I have been very well-tolerated; you didnt even know you had it,' regarding the overall experience of her COVID-19 symptoms, which she describes mostly as mild.
PHYSICAL EXAM
General: Patient is awake, alert, and oriented. No acute respiratory distress noted.
Musculoskeletal: Full range of motion in bilateral hips and knees. No swelling or bruising of the knees. Pain is noted in the right pelvic region upon knee movement.
Respiratory: Notable cough during the exam.
Vital Signs: Fever present.
Neuroexam awake with no focal motor deficits. At times confused
Abdomen soft nontender nondistended
Lungs clear to auscultation
No lower extremity edema
PLAN
1. Obtain an X-ray of the patients pelvis to assess for any possible injury resulting from the fall.
2. Obtain an X-ray of the chest to further evaluate for any implications related to the positive COVID-19 status.
3. Administer medication for fever management.
DIFFERENTIAL DIAGNOSIS
The Differential Diagnosis includes, in no particular order and is not limited to:
1. Pelvic contusion
2. Hip strain
3. Sacroiliac joint dysfunction
4. Muscle strain in the pelvic region
5. Viral infection due to COVID-19
6. Fever secondary to COVID-19
7. Respiratory infection due to COVID-19
8. Pulmonary symptoms caused by COVID-19
9. Viral myalgia
10. Non-specific viral syndrome
CARE-UPDATE
01/18/25 - 21:33
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 Notable allergy to ampicillin limits treatment options.
Disposition:
SUMMARY OF ENCOUNTER
The patient is an 89-year-old female who presented with fever and weakness. Her fever reached 102.9�F. A fall was noted in her history, but imaging showed no pelvic fracture. A chemistry review revealed a slightly elevated blood urea nitrogen (BUN)
to creatinine ratio at 26:1. Hemoglobin, sodium, potassium, and lactic acid were normal. Urinalysis showed 50-60 white blood cells, positive nitrite, and many bacteria. The patient also tested positive for COVID-19. Given her fever and history of
extended-spectrum beta-lactamase (ESBL) producing Klebsiella pneumoniae with multiple resistances from prior cultures, she was treated with IV meropenem and admitted for further monitoring and antibiotic treatment.
DISPOSITION
Admit.
ASSESSMENT
Urinary tract infection with evidence from urine analysis and history of ESBL resistance; fever and COVID-19 positive status; weakness possibly related to infection and viral illness.
PLAN
Admit the patient for in-hospital antibiotic treatment with IV meropenem due to her history of ESBL-producing Klebsiella with resistance. Continue monitoring her clinical status closely, addressing fever and weakness, and managing her COVID-19
symptoms.
INDEPENDENT REVIEW OF LABS AND INTERPRETATION OF TESTS
My independent review of the chemistry panel shows an elevated BUN/Creatinine ratio of 26:1. Normal hemoglobin, sodium, potassium, and a normal lactic acid level of 1.2. My independent review of urinalysis shows 50-60 white blood cells, positive
nitrite, and many bacteria, indicating a urinary tract infection.
Radiology Results:
- My independent interpretation of chest imaging shows no pneumonia.
- My independent interpretation of the pelvic imaging shows no fracture.
MEDICATION RECONCILIATION
1. Administered: IV meropenem for antibiotic treatment.
MEDICAL DECISION MAKING
- Complexity of Data Reviewed: Chronic conditions affecting care include a history of ESBL-producing infections. Differential Diagnosis includes urinary tract infection due to Klebsiella pneumoniae, fever secondary to infection, viral infection due
to COVID-19.
- Data:
Category 1
- Non-emergency department records reviewed, including previous admission records from November 2024 showing GI bleeding and resistant urinary pathogens.
- My independent interpretation of chest and pelvic imaging.
Category 2
- Not applicable.
Category 3
- Risk:
- Prescription medication was administered and IV antibiotics were initiated due to resistant urinary pathogens.
- Hospital admission for monitoring and continued antibiotic therapy due to the complexity and potential complications of her condition.
DIAGNOSIS
1. Urinary tract infection with ESBL resistance - ICD-10 Code: N39.0
2. COVID-19 infection - ICD-10 Code: U07.1
3. Fever - ICD-10 Code: R50.9
4. Weakness - ICD-10 Code: R53.1
Past History
Past History
ED Past Medical History: COPD, GERD, Hypercholesterolemia, NE, Hypothyroidism, Psychiatric and Other (PE/DVT, Diverticulitis)
ED Past Surgical History: Cardiac (Stents) and Orthopedic
Patient has exhibited threatening behavior?: No
Social History
Tobacco: Former smoker
Alcohol: Daily ( Wine 2 glasses)
Drug: None
Personal:
Living: alone
Employment: Retired
Family History
Family History: Hypertension and Other (Other was prostate cancer)
Phy Exam
Physical Exam
Physical Exam:
.
Sepsis
Sepsis Screening
Sepsis Assessment: Sepsis Ruled Out
Sepsis Screen
Sepsis Screen: Sepsis Ruled Out
Date: 01/18/25
Time: 23:34
Course
Orders/Labs/Results
Orders:
Orders
01/18/25 17:55
Basic Metabolic Panel Urgent
COVID-19 Antigen Urgent
Source: Nasal Swab
Complete Blood Count/With Diff Urgent
Lactic Acid Urgent
Blood Culture Urgent
VAISHALI Source: Blood/Venous
Specimen Description:
Date Specimen was Collected: 01/18/25
Time Specimen was Collected: 17:45
Influenza A+B Rapid Molecular Urgent
VAISHALI Source: Nasal Swab
Specimen Description:
Date Specimen was Collected: 01/18/25
Time Specimen was Collected: 17:45
01/18/25 18:23
Acetaminophen [Tylenol] 1,000 mg PO NOW STA
Pelvis, 1 or 2 Views CR [CR Pelvis - 1 Or 2 Views ] Urgent
Comment:
Reason For Exam: fall
01/18/25 18:24
CR Chest - 2 Views Urgent
Comment:
Reason For Exam: fall, cough, fever
01/18/25 18:51
Urinalysis Reflex To Culture Urgent
Date Specimen was Collected: 01/18/25
Time Specimen was Collected: 17:45
Urine Microscopic Reflex Cult Urgent
Blood Culture Urgent
VAISHALI Source: Blood/Venous
Specimen Description:
Urine Culture Urgent
VAISHALI Source: U
Specimen Description:
Date Specimen was Collected: 01/18/25
Time Specimen was Collected: 17:45
01/18/25 19:46
Potassium Urgent
01/18/25 21:32
Meropenem [Merrem] 1,000 mg IV NOW STA
01/18/25 22:08
Sterile Water [Sterile Water For Injection] 20 ml .ROUTE .STK-MED
01/18/25 22:38
Admit/Transfer Patient As Directed
Co-Sign Provider:
Level of Care: Observation services
Assign to:: Medical/Surgical
Physician / Group: Jose Moralez
Diagnosis: UTI, Covid, gait dysfunction
01/18/25 22:39
PRN Pain Medication Management As Directed
May give lesser potent ordered pain med per pt: Yes
preference::
Protocol:: Medication orders for pain may be administered in a
manner that supports deferring to patient preference
when the pt is:
- Requesting an ordered lesser potent pain medication.
Least to most potent pain medications are defined
as: acetaminophen < NSAID < tramadol < opioids
(morphine, oxycodone, hydromorphone).
- Requesting a lesser dose of the same medication IF
ORDERED.
- Requesting a less intrusive route of administration
if both routes are prescribed by the provider (PO <
IV).
01/18/25 22:40
Code Status As Directed
Resuscitation Status: Do not resuscitate
Based on pt advanced directive or healthcare POA form: Yes
Physician note:: POLST
DNR Bracelet Application ONCE
01/18/25 22:43
0.9% Sodium Chloride 1000 ml [Nss] 1,000 ml IV BOLUS
Abnormal Lab Results
01/18/25 01/18/25
17:55 18:51
RBC 3.96 L 10^6/uL
(4.20-5.40)
Hgb 11.9 L g/dL
(12.0-16.0)
MCHC 31.8 L g/dL
(33.0-37.0)
RDW 14.9 H %
(11.5-14.5)
Absolute Neuts (auto) 6.7 H 10^3/uL
(1.4-6.5)
Absolute Lymphs (auto) 1.0 L 10^3/uL
(1.2-3.4)
Neutrophils % 79.2 H %
(42.2-75.2)
Lymphocytes % 11.9 L %
(20.5-51.1)
BUN 26 H mg/dl
(7-17)
Glucose 103 H mg/dl
(70-99)
Ur Occult Blood Reflex 3+ A
(Negative)
Urine Nitrite (Reflex) Positive A
(Negative)
Leukocyte Esterase Rfl 3+ A
(Negative)
Urine RBC 26-30 A /HPF
(0-2)
Urine WBC (Reflex) 50-60 A /HPF
(0-5)
Urine Bacteria (Reflex) Many A
(Negative)
Urine Albumin (Reflex) 2+ A
(Neg - Trace)
SARS-CoV-2 Antigen Positive A
(Negative)
01/18/25 17:55
01/18/25 19:46
Vital Signs
Initial and Last Documented VS:
Initial Vital Signs
Temp Pulse Resp BP Pulse Ox
102.9 F H 99 18 116/64 98
01/18/25 17:44 01/18/25 17:44 01/18/25 17:44 01/18/25 17:44 01/18/25 17:44
Last Documented Vital Signs
Temp Pulse Resp BP Pulse Ox
99.8 F 89 20 108/58 94
01/18/25 20:09 01/18/25 23:26 01/18/25 23:26 01/18/25 23:26 01/18/25 23:15
*Pulse Oximetry
SaO2: 95
Oxygen Mode of Delivery: Room air
Patient hypoxic: no
*Critical Care Note
Total Time (30-74mins, 75-104mins- exclusive of procedures): Not Applicable
Data Reviewed
Review of Other/Old Records Reveals: Labs and Discharge Summary
Source: patient
ED Attending Note
-
Portions of this chart may have been created with voice recognition software.� Occasional wrong word or��sound alike� substitutions may have occurred due to the inherent limitations of voice recognition software.
Discharge Plan
Departure
Patient Disposition: Admit
Date of Disposition: 01/18/25
Time of Disposition: 21:39
Admit to: Med/Surg
Presentation/result/management discussed w/ accepting MD/DO: Hospitalist
Discharge Problem:
Acute UTI, COVID-19
Prescriptions:
No Action
sertraline 50 MG tablet
75 mg PO DAILY@1230
simvastatin 40 MG tablet
40 mg PO HS
alendronate 70 MG tablet
70 mg PO PERSON
ondansetron HCl 4 mg tablet
4 mg PO Q8HPRN PRN (Reason: nausea)
acetaminophen [Tylenol] 325 mg Tablet
650 mg PO Q4HPRN PRN (Reason: mild pain)
famotidine [Pepcid] 20 mg Tablet
20 mg PO DAILY
magnesium hydroxide [Milk of Magnesia] 400 mg/5 mL Suspension
2,400 mg PO HSPRN PRN (Reason: constipation)
bisacodyl [Dulcolax (bisacodyl)] 10 mg Suppository
10 mg ME [id number] PRN (Reason: if no bm aftr mom)
docusate sodium [Colace] 100 mg Capsule
200 mg PO HS
mirtazapine 15 mg Tablet
15 mg PO HS
albuterol sulfate 90 mcg/actuation Hfa Aerosol Inhaler
2 puff INHALATION R Q4HPRN PRN (Reason: sob)
budesonide 0.5 mg/2 mL suspension for nebulization
0.5 mg inhalation R BID
cyanocobalamin (vitamin B-12) [Vitamin B-12] 1,000 mcg Tablet
1,000 mcg PO DAILY Qty: 100 0RF
pantoprazole [Protonix] 40 mg tablet,delayed release (DR/EC)
40 mg PO DAILY Qty: 30 0RF
levothyroxine [Synthroid] 125 mcg Tablet
100 mcg PO DAILY
cholecalciferol (vitamin D3) 1,250 mcg (50,000 unit) Tablet
1,250 mcg PO MO
ferrous sulfate [FeroSul] 325 mg (65 mg iron) tablet
325 mg PO DAILY
Referrals:
Nick Sainz DO [Family Provider, Family Practice]
Interventions
Interventions:
*Risk Screen - Suicide Last Done: 01/18/25 17:48
*General Assessment Last Done: 01/18/25 17:48
*Neglect/Abuse Screening Last Done: 01/18/25 17:48
*ED- Fall Risk Assessment Last Done: 01/18/25 17:48
*ED COVID-19 Vaccine History Last Done: 01/18/25 17:48
ED- Neurological Assessment Last Done: 01/18/25 17:53
ED-Skin Assessment Last Done: 01/18/25 17:53
Discharge Date and Time
Print Language: MAURITIAN
--- NOTE | 2025-01-18 21:58 | HPS.HSE ---
Family Physician
<LANDY Vargas - Last Filed: 01/18/25 22:44>
-
Family Physician: Nick Sainz DO
Chief Complaint
<LANDY Vargas - Last Filed: 01/18/25 22:44>
-
s/p mechanical fall
History of Present Illness
Patient is a 89-year-old female with past medical history significant for COPD, hypertension, hyperlipidemia, hypothyroidism, GERD, depression, hx DVT/PE, anxiety, Hx IN, TIA and Hx GI bleed who presented to [facility] ED for evaluation of s/p mechanical
fall. Facility reported to ED that patient was being worked up for UTI at facility when daughter requested she be sent to ED for evaluation. Patient presents confused and is poor historian. Patient denies any fever, chills, cough, shortness of
breath, chest pain, nausea, vomiting, constipation, diarrhea or urinary symptoms.
Medical History
<LANDY Vargas - Last Filed: 01/18/25 22:44>
Past Medical History
Past Medical History: Reports Other
Additional Past Medical History:
COPD
hypertension
hyperlipidemia
hypothyroidism
GERD
depression
hx DVT/PE
anxiety
Hx IN
TIA
Hx GI bleed
Past Surgical History: Reports Other
Additional Past Surgical History:
right lung biopsy
cardiac cath (2013)
left shoulder replacement (2013)
cardiac stent
left rotator cuff
Social History
Tobacco: Former Smoker
Alcohol: Occasional (wine daily up till a few weeks ago when she started feeling lousy)
Living: Alone
Employment: Retired
Family History
Family History: Not pertinent
Allergies / Home Medications
Allergies reflects when Allergies were last updated in [employer].
Home Medications with original date entered in [employer]
<Jose Moralez MD - Last Filed: 01/19/25 06:14>
Allergies / Home Medications
Allergy/Medication List:
Allergies
Allergy/AdvReac Type Severity Reaction Status Date / Time
atorvastatin calcium (From Allergy muscle Verified 11/30/24 14:25
Lipitor) aches
erythromycin base Allergy Upset Verified 11/30/24 14:25
(Erythromycin Base) Stomach
grass pollen Allergy COUGH/CONFE Verified 11/30/24 14:25
STION
insulin detemir Allergy Unknown Verified 11/30/24 14:25
moxifloxacin HCl (From Allergy Unknown Verified 11/30/24 14:25
Avelox)
oxycodone HCl (From Percocet) Allergy Shaky and Verified 11/30/24 14:25
weakness
penicillin V Allergy Rash Verified 11/30/24 14:25
Penicillins Allergy Rash Verified 11/30/24 14:25
rosuvastatin calcium (From Allergy muscle Verified 11/30/24 14:25
Crestor) aches
tree and shrub pollen Allergy COUGH/CONGE Verified 11/30/24 14:25
STION
Home Medications
sertraline 50 mg tablet 75 mg PO DAILY@1230 Mental Health/Anxiety 09/12/13
alendronate 70 mg tablet 70 mg PO PERSON OSTEOPOROSIS 11/05/16
simvastatin 40 mg tablet 40 mg PO HS High cholesterol 11/05/16
ondansetron HCl 4 mg tablet 4 mg PO Q8HPRN PRN nausea 06/21/24
acetaminophen 325 mg tablet (Tylenol) 650 mg PO Q4HPRN PRN mild pain 11/14/24
albuterol sulfate 90 mcg/actuation aerosol inhaler 2 puff inhalation R Q4HPRN PRN sob 11/14/24
bisacodyl 10 mg rectal suppository (Dulcolax (bisacodyl)) 10 mg FL [id number] PRN if no bm aftr mom 11/14/24
budesonide 0.5 mg/2 mL suspension for nebulization 0.5 mg inhalation R BID Lung/Breathing Issues 11/14/24
docusate sodium 100 mg capsule (Colace) 200 mg PO HS Constipation 11/14/24
famotidine 20 mg tablet (Pepcid) 20 mg PO DAILY Gastrointestinal Issue 11/14/24
magnesium hydroxide 400 mg/5 mL oral suspension (Milk of Magnesia) 2,400 mg PO HSPRN PRN constipation 11/14/24
mirtazapine 15 mg tablet 15 mg PO HS Mental Health/Anxiety 11/14/24
cyanocobalamin (vitamin B-12) 1,000 mcg tablet (Vitamin B-12) 1,000 mcg PO DAILY #100 tabs 11/20/24
pantoprazole 40 mg tablet,delayed release (Protonix) 40 mg PO DAILY #30 tabs 11/20/24
cholecalciferol (vitamin D3) 1,250 mcg (50,000 unit) tablet 1,250 mcg PO MO Supplement 11/30/24
levothyroxine 125 mcg tablet (Synthroid) 100 mcg PO DAILY Thyroid 11/30/24
ferrous sulfate 325 mg (65 mg iron) tablet (FeroSul) 325 mg PO DAILY Supplement 12/01/24
Review of Systems
<LANDY Vargas - Last Filed: 01/18/25 22:44>
-
Unable to obtain full review of systems at this time due to: Dementia
History Source: Patient
Physical Exam
<LANDY Vargas - Last Filed: 01/18/25 22:44>
Vital Signs
Vital Signs
Temp Pulse Resp BP Pulse Ox
99.8 F 90 14 93/63 98
01/18/25 20:09 01/18/25 21:45 01/18/25 21:45 01/18/25 21:30 01/18/25 21:45
Physical Exam
General: No Apparent Distress, Appears Chronically Ill and Cachectic
HEENT: NormoCephalic, Moist mucous membranes and Atraumatic
Respiratory: Clear and Non Labored Respirations
Cardiac: S1/S2 and Regular Rhythm; No Murmur, Rub or Gallop
Breast: Deferred by me
GI: Soft, Non Tender, Non Distended and Normal Bowel Sounds; No Organomegaly
Rectal: Deferred by Provider
Genito-urinary: Deferred by me
Musculoskeletal: No Clubbing and No Cyanosis; No No Edema
Skin: Warm and IV/Catheter Site
Neuro: Awake, Alert and Nonfocal/grossly intact
Psych: Confused and Agitated
Laboratory Results
<LANDY Vargas - Last Filed: 01/18/25 22:44>
-
01/18/25 17:55
01/18/25 19:46
Laboratory Results
Lactic Acid 1.2 mmol/L (0.7-2.0) 01/18/25 17:55
Total Bilirubin Cancelled 01/18/25 17:55
AST Cancelled 01/18/25 17:55
ALT Cancelled 01/18/25 17:55
Alkaline Phosphatase Cancelled 01/18/25 17:55
Data Reviewed
<LANDY Vargas - Last Filed: 01/18/25 22:44>
-
Diagnostic Radiology: Report Reviewed by me (CXR: No acute cardiopulmonary process.; Pelvic: No acute osseous abnormality of the pelvis.)
Lab Data: Labs Reviewed by me (BUN 26, Creat 1.0, eGFR 54.53)
Impression/Plan
<LANDY Vargas - Last Filed: 01/18/25 22:44>
-
IMPRESSION/PLAN:
#UTI
#Covid
BUN 26, Creat 1.0, eGFR 54.53
Covid: positive
Influenza: negative
CXR: No acute cardiopulmonary process.
Pelvic x-ray: No acute osseous abnormality of the pelvis.
- Admit to med/surg for observation
- IVF NSS 1000cc bolus
- IV meropenem
- supportive care
#mechanical fall
- consult PT
#COPD
- continue Advair
#hyperlipidemia
- continue simvastatin
#hypothyroidism
- continue levothyroxine
#GERD
#depression/anxiety
- continue sertraline and mirtazapine
#hypertension
#TIA
#Hx GI bleed
#Hx IN
#hx DVT/PE
Code status: DNR
DVT prophylaxis: heparin sq
--- NOTE | 2025-01-18 22:04 | W.PN.UPDATE ---
Update Note
Progress Note Update
Patient seen with COUNTER [facility]OP. I agree with the findings on history and physical. I concur with the assessment and plan
This is a 89-year-old female with past medical history significant for dmentia, COPD not on home O2, GERD w/ h/o GI bleed, hyperlipidemia, hypothyroid, history of prior pulmonary embolism wit and hypertension presenting to the emergency department
following a fall at home. She was trying to go to the bathroom and transferring to the wheelchair when she fell. She reports pain in pelvic region with movement of her lower extremities. Denies striking her head. She denies feeling dizzy or
lightheaded. She denied any other symptoms. Patient reported that she had slow flow in her urine but otherwise was asymptomatic. Denies any dysuria, urgency or frequency. She states typically she has had burning sensations with UTIs in the past.
She denies any shortness of breath. She denies feeling chills. She denies having any chest pain. She denies any palpitations.
She was febrile to 102.9 in the emergency department, blood pressure was 93/63 with a pulse of 90 and she was satting 98% on room air. Chest x-ray showed no acute infiltrates. She had a x-ray of her pelvis which shows no acute fracture or
dislocation. CBC was unremarkable. Electrolytes BUN/creatinine were in the normal range. UA was positive for leukocyte esterase nitrites WBCs and bacteria. She also tested positive for COVID-19. Initially confused in ED.
Assessment and plan
Patient with a fall incidentally found to have a positive UA for UTI as well as COVID-19 in setting of high fevers but otherwise asymptomatic. Xray negative for fractures. Wheel chair bound
UTI - Clear positive u/a, questionable symptoms and no systemic signs. Given meropenem in ED. Likely colonized given recurrrent cx for resistant Klebsiella in the past year. COVID likely etiology of fevers. During her last admisison incidentally
found to have + u/a but was asymptomatic and monitored off abx
- admit to med/surg for now
- urine cultures
- blood cx
- given fever, continue meropenem.
- ID consultation
COVID - febrile but otherwise asymptomatic
- supportive measures
- continue her home inhalers with prn duonebs
- she is not hypoxic, no indication for steroids
- she has no immunosuppression and is not otherwise symptomatic, hold off on paxlovid
- for the fevers, abx as above. for now with anti-pyretics
GERD/hx of GI bleed - Had angioectasias tx with APC. Hiatal hernia. Hgb has rebounded and stayed stable
- off AC
- contiue ppi
Mechanical Fall
- pt consult
DVT PPX - sq heparin
Code status
[2025-01-18] MEDS: MERREM 1000 MG IV (22:13)
[2025-01-18] MEDS: NSS 1000 IV (23:23)
[2025-01-19 00:15] VITALS: BP 121/58; BMI 21.0
[2025-01-19] MEDS: HEPARIN 5000 UNITS SC (00:25)
[2025-01-19] MEDS: REMERON 15 MG PO ×2 (00:25→21:49)
--- NOTE | 2025-01-19 02:22 | PTCARENOTE ---
Patient received from ED via stretcher and was assisted to bed by staff. She was oriented to room and surroundings. Bed alarm in place for safety. IVF from ED completed. See nursing assessment for physical findings.
[2025-01-19] MEDS: TYLENOL 650 MG PO ×2 (03:43→23:28)
[2025-01-19] MEDS: STERILE WATER FOR INJECTION 10 ML IV ×3 (05:55→21:05)
[2025-01-19] MEDS: SYNTHROID 100 MCG PO (05:55)
[2025-01-19] MEDS: MERREM 500 MG IV ×3 (05:55→21:05)
[2025-01-19 06:33] LABS: Hematocrit 33.8 % (37.0-47.0); Hemoglobin 10.9 g/dL (12.0-16.0); Mean Corp Hgb Conc. 32.2 g/dL (33.0-37.0); Mean Corpuscular Volume 95.2 fL (81.0-99.0); Platelet Count 162 10^3/uL (130-400); Red Cell Dist. Width 15.1 % (11.5-14.5)
[2025-01-19 07:00] VITALS: BP 134/65
[2025-01-19 07:03] LABS: Blood Urea Nitrogen 21 mg/dl (7-17); Calcium 8.1 mg/dl (8.4-10.2); Carbon Dioxide 24 mmol/L (22-30); Chloride 108 mmol/L (98-107); Estimated Creatinine Clearance 45 ml/min; Glucose 88 mg/dl (70-99); Potassium 4.2 mmol/L (3.5-5.1); Sodium 138 mmol/L (135-145); eGFR > 60.00
[2025-01-19] MEDS: FEOSOL 325 MG PO (09:57)
[2025-01-19] MEDS: PROTONIX 40 MG PO (09:57)
[2025-01-19] MEDS: VITAMIN B-12 1000 MCG PO (09:57)
[2025-01-19] MEDS: PEPCID 20 MG PO (09:57)
[2025-01-19] MEDS: ELIQUIS 5 MG PO ×2 (09:59→19:10)
[2025-01-19] MEDS: HEPARIN SC (10:05)
--- NOTE | 2025-01-19 12:11 | CM ---
Reviewed the chart notes. Patient admitted for weakness and Covid. Patient is admitted under observational status. The SARGENT letter information was left on daughters voice mail along with CM contact information. Attempted to contact patient's
son, phone number is not in services.
CM spoke with [facility] admissions liaison Cory. Patient is a half-way resident. The patient is able to ambulate small distance with rolling walker, but mainly self propels in wheelchair. CM continues to be available to patient/family and is
monitoring medical plan for needs at discharge.
Plan: Discharge back to [facility] when medically stable. No precert required.
--- NOTE | 2025-01-19 13:49 | W.PN.HOSP.TC ---
Today's Communication/Plan
-
maintain on empiric merrem
hold on ID consult
f/u urine cs report
f/u LE venous doppler US
Assessment / Plan
Assessment / Plan
#UTI
#COVID 19 Viral infection
-Covid: positive, Influenza negative.
-CXR: No acute cardiopulmonary process.
-Pelvic x-ray: No acute osseous abnormality of the pelvis.
-Patient has a history of ESBL Klebsiella pneumonia UTI in the past
-Urine cs report pending .
-cover patient with meropenem for now
#Mechanical fall
- consult PT
#COPD
- continue Advair
#hyperlipidemia
- continue simvastatin
#hypothyroidism
- continue levothyroxine
#GERD
#depression/anxiety
- continue sertraline and mirtazapine
#hx DVT/PE
-Patient have DVT diagnosed in 2017 and 2021
-patient has been taken off of Eliquis on previous visit due to GI bleed from cecal polyp
-repeat venous doppler LE ordered for concern of swelling/pain
-Eliquis resumed back
#hypertension
#TIA
#Hx GI bleed
#Hx MD
Code status: DNR
DVT prophylaxis: heparin sq
Total time spent : 54 mins
Previous visit imaging/documents information reviewed.
Anticipated Discharge: 24 - 48 hours
Subjective/Interval History
-
Date of Service: January 19, 2025
feeling fatigued/lethargic
remains afebrile
Objective Data
-
Labs:
Laboratory Results
01/19/25
05:27
WBC 7.8
Hgb 10.9 L
Hct 33.8 L
Plt Count 162
Sodium 138
Potassium 4.2
Chloride 108 H
Carbon Dioxide 24
BUN 21 H
Creatinine 0.8
Glucose 88
Calcium 8.1 L
Vital Signs:
Vital Signs
Temp Pulse Resp BP Pulse Ox
99.6 F 96 20 134/65 96
01/19/25 07:00 01/19/25 07:41 01/19/25 07:41 01/19/25 07:00 01/19/25 07:41
Review of Systems
-
Respiratory: Reports No Symptoms
Cardiac: Reports No Symptoms
Abdomen/GI: Reports No Symptoms
Physical Exam
-
General: Conversant and Other (confused. Refused exam.)
HEENT: Negative Oxygen
Cardiac: Regular Rhythm and S1/S2; Negative Irregular Rhythm
GI: Soft, Nontender and Nondistended
Neuro: Awake, Alert and Oriented
Psych: Confused
[2025-01-19] MEDS: ZOLOFT 75 MG PO (14:15)
[2025-01-19 14:35] VITALS: BP 117/68; PULSE 102
[2025-01-19 14:40] VITALS: BP 122/68; PULSE 102; O2SAT 99
[2025-01-19 15:00] VITALS: BP 99/52
[2025-01-19] MEDS: FLOVENT 110 MCG INHALER 2 PUFF INH (18:34)
[2025-01-19] MEDS: LIPITOR 20 MG PO (21:05)
[2025-01-19] MEDS: COLACE 200 MG PO (21:05)
[2025-01-19 23:10] VITALS: BP 102/58
[2025-01-20] MEDS: SYNTHROID 100 MCG PO (05:07)
[2025-01-20] MEDS: MERREM 500 MG IV ×3 (05:07→21:00)
[2025-01-20] MEDS: STERILE WATER FOR INJECTION 10 ML IV ×3 (05:07→21:00)
[2025-01-20] MEDS: FLOVENT 110 MCG INHALER 2 PUFF INH ×2 (07:34→18:20)
[2025-01-20 07:45] VITALS: BP 112/64
[2025-01-20 08:01] LABS: Hematocrit 36.4 % (37.0-47.0); Hemoglobin 11.6 g/dL (12.0-16.0); Mean Corp Hgb Conc. 31.9 g/dL (33.0-37.0); Mean Corpuscular Volume 96.3 fL (81.0-99.0); Platelet Count 189 10^3/uL (130-400); Red Cell Dist. Width 15.0 % (11.5-14.5)
[2025-01-20] MEDS: PROTONIX 40 MG PO (08:50)
[2025-01-20] MEDS: PEPCID 20 MG PO (08:50)
[2025-01-20] MEDS: FEOSOL 325 MG PO (08:51)
[2025-01-20] MEDS: ELIQUIS 5 MG PO ×2 (08:51→19:15)
[2025-01-20] MEDS: VITAMIN B-12 1000 MCG PO (08:51)
[2025-01-20 09:09] LABS: Blood Urea Nitrogen 22 mg/dl (7-17); Calcium 8.5 mg/dl (8.4-10.2); Carbon Dioxide 29 mmol/L (22-30); Chloride 108 mmol/L (98-107); Estimated Creatinine Clearance 40 ml/min; Glucose 95 mg/dl (70-99); Potassium 4.8 mmol/L (3.5-5.1); Sodium 139 mmol/L (135-145); eGFR > 60.00
[2025-01-20] MEDS: TYLENOL 650 MG PO (09:09)
--- NOTE | 2025-01-20 09:22 | W.PN.HOSP.TC ---
Today's Communication/Plan
-
f/u urine cs report
maintain on merrem
Assessment / Plan
Assessment / Plan
#UTI
#COVID 19 Viral infection
-Covid: positive, Influenza negative.
-CXR: No acute cardiopulmonary process.
-Pelvic x-ray: No acute osseous abnormality of the pelvis.
-Patient has a history of ESBL Klebsiella pneumonia UTI in the past
-Urine cs report pending .
-cover patient with meropenem for now
#Mechanical fall
- consult PT
#COPD
- continue Advair
#hyperlipidemia
- continue simvastatin
#hypothyroidism
- continue levothyroxine
#GERD
#depression/anxiety
- continue sertraline and mirtazapine
#hx DVT/PE
-Patient have DVT diagnosed in 2017 and 2021
-patient has been taken off of Eliquis on previous visit due to GI bleed from cecal polyp
-repeat venous doppler LE ordered for concern of swelling/pain
-Eliquis resumed back
#hypertension
#TIA
#Hx GI bleed
#Hx ID
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
Code status: DNR
DVT prophylaxis: heparin sq
PT evaluated and appropriate for transfer back to [facility] when medically appropriate.
Anticipated Discharge: 24 - 48 hours
Subjective/Interval History
-
Date of Service: January 20, 2025
feeling fatigued and tired
no other issues overnight
Objective Data
-
Labs:
Laboratory Results
01/20/25
07:37
WBC 4.9
Hgb 11.6 L
Hct 36.4 L
Plt Count 189
Sodium 139
Potassium 4.8
Chloride 108 H
Carbon Dioxide 29
BUN 22 H
Creatinine 0.9
Glucose 95
Calcium 8.5
Vital Signs:
Vital Signs
Temp Pulse Resp BP Pulse Ox
98.0 F 85 16 112/64 96
01/20/25 07:45 01/20/25 07:45 01/20/25 07:45 01/20/25 07:45 01/20/25 07:45
I&O
01/19/25 01/20/25 01/21/25
06:59 06:59 06:59
Intake Total 780 / 780
Balance 780 / 780
Review of Systems
-
Respiratory: Reports No Symptoms
Cardiac: Reports No Symptoms
Abdomen/GI: Reports No Symptoms
Physical Exam
-
General: No Apparent Distress and Comfortable
HEENT: Negative Oxygen
Respiratory: Clear to Auscultation
Cardiac: Regular Rhythm and S1/S2; Negative Murmur or Rub
GI: Soft, Nontender, Nondistended and Normal Bowel Sounds
Musculoskeletal: No Edema
Neuro: Awake, Alert, Oriented, No Motor Deficits and Nonfocal/Grossly Intact
Psych: Calm
[2025-01-20] MEDS: ZOLOFT 75 MG PO (11:44)
[2025-01-20 15:40] VITALS: BP 90/55
[2025-01-20] MEDS: REMERON 15 MG PO (21:00)
[2025-01-20] MEDS: COLACE 200 MG PO (21:00)
[2025-01-20] MEDS: LIPITOR 20 MG PO (21:00)
[2025-01-20 23:47] VITALS: BP 112/59
[2025-01-21] MEDS: STERILE WATER FOR INJECTION 10 ML IV (05:02)
[2025-01-21] MEDS: SYNTHROID 100 MCG PO (05:02)
[2025-01-21] MEDS: MERREM 500 MG IV (05:02)
[2025-01-21 06:04] LABS: Hematocrit 34.6 % (37.0-47.0); Hemoglobin 10.9 g/dL (12.0-16.0); Mean Corp Hgb Conc. 31.5 g/dL (33.0-37.0); Mean Corpuscular Volume 95.6 fL (81.0-99.0); Platelet Count 191 10^3/uL (130-400); Red Cell Dist. Width 14.8 % (11.5-14.5)
[2025-01-21 06:29] LABS: Blood Urea Nitrogen 27 mg/dl (7-17); Calcium 8.0 mg/dl (8.4-10.2); Carbon Dioxide 24 mmol/L (22-30); Chloride 110 mmol/L (98-107); Estimated Creatinine Clearance 40 ml/min; Glucose 96 mg/dl (70-99); Potassium 5.0 mmol/L (3.5-5.1); Sodium 140 mmol/L (135-145); eGFR > 60.00
[2025-01-21 07:35] VITALS: BP 119/69
[2025-01-21] MEDS: FLOVENT 110 MCG INHALER 2 PUFF INH (08:19)
[2025-01-21] MEDS: PROTONIX 40 MG PO (08:50)
[2025-01-21] MEDS: FEOSOL 325 MG PO (08:50)
[2025-01-21] MEDS: PEPCID 20 MG PO (08:50)
[2025-01-21] MEDS: VITAMIN B-12 1000 MCG PO (08:50)
[2025-01-21] MEDS: ELIQUIS 5 MG PO (08:50)
--- NOTE | 2025-01-21 11:03 | CM ---
Addendum entered by Latanya Bowen 01/21/25 14:32:
ambulance curing pickling packer is 1700
Addendum entered by Latanya Bowen 01/21/25 12:11:
Daughter notified via phone of discharge plan
Addendum entered by Latanya Bowen 01/21/25 12:06:
[facility] Nursing Help Desk Representative called; reported that patient may return to facility today after 1700; Transport Forms completed to request ambulance.
Plan: Return to [facility] today via ambulance
Report: [facility] Unit #[phone]

Original Note:
Per Attending, patient is stable to return to [facility]; Covid +; needs isolation bed. Spoke with nursing extrusion supervisor @ facility; he will call back if able to accept patient today.
Report: [facility] Unit #[phone]
[2025-01-21] MEDS: KEFLEX 750 MG PO (11:20)
[2025-01-21] MEDS: ZOLOFT 75 MG PO (11:20)
[2025-01-21] MEDS: MIRALAX 17 GRAMS PO (11:21)
--- NOTE | 2025-01-21 11:35 | W.PN.HOSP.TC ---
Today's Communication/Plan
-
Discharge [facility] after 5 PM
Daughter updated
Change antibiotic to oral Keflex
Assessment / Plan
Assessment / Plan
#E coli UTI
#COVID 19 Viral infection
-Covid: positive, Influenza negative.
-CXR: No acute cardiopulmonary process.
-Pelvic x-ray: No acute osseous abnormality of the pelvis.
-Patient has a history of ESBL Klebsiella pneumonia UTI in the past
-Urine cs reported and have pansensitive E. coli, discontinue Merrem and at discharge will provide 3 more days of Keflex course to finish treatment.
#Mechanical fall
- Physical therapy evaluated and patient appropriate for going back to [facility]
#COPD
- continue Advair
#hyperlipidemia
- continue simvastatin
#hypothyroidism
- continue levothyroxine
#GERD
#depression/anxiety
- continue sertraline and mirtazapine
#hx DVT/PE
-Patient have DVT diagnosed in 2017 and 2021
-patient has been taken off of Eliquis on previous visit due to GI bleed from cecal polyp
-repeat venous doppler LE ordered for concern of swelling/pain
-Eliquis resumed back, daughter updated and had questions regarding holding Eliquis in future, all questions answered
#hypertension
#TIA
#Hx GI bleed
#Hx DE
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
Code status: DNR
DVT prophylaxis: heparin sq
More than 30 minutes spent in discharge including
Final examination of the patient
Summarizing hospital stay
Instructions for continuing care to all relevant caregivers
Preparation of discharge records, prescriptions, and referral forms
Total time spent (in minutes): 39 mins
Anticipated Discharge: Today
Subjective/Interval History
-
Date of Service: January 21, 2025
Continues to feel weak
Denies of having any cough/remains afebrile overnight
no other reported problems
Objective Data
-
Labs:
Laboratory Results
01/21/25
05:25
WBC 6.0
Hgb 10.9 L
Hct 34.6 L
Plt Count 191
Sodium 140
Potassium 5.0
Chloride 110 H
Carbon Dioxide 24
BUN 27 H
Creatinine 0.9
Glucose 96
Calcium 8.0 L
Vital Signs:
Vital Signs
Temp Pulse Resp BP Pulse Ox
98.7 F 87 16 119/69 97
01/21/25 07:35 01/21/25 08:22 01/21/25 08:22 01/21/25 07:35 01/21/25 08:22
I&O
01/20/25 01/21/25 01/22/25
06:59 06:59 06:59
Intake Total 780 / 780 1260 / 1260
Balance 780 / 780 1260 / 1260
Review of Systems
-
Respiratory: Reports No Symptoms
Cardiac: Reports No Symptoms
Abdomen/GI: Reports No Symptoms
Physical Exam
-
General: No Apparent Distress and Comfortable
HEENT: Negative Oxygen
Respiratory: Clear to Auscultation
Cardiac: Regular Rhythm and S1/S2; Negative Murmur or Rub
GI: Soft, Nontender, Nondistended and Normal Bowel Sounds
Musculoskeletal: No Edema
Neuro: Awake, Alert, Oriented, No Motor Deficits and Nonfocal/Grossly Intact
Psych: Calm
--- NOTE | 2025-01-21 14:15 | PTCARENOTE ---
Patient ambulating to bathroom with a walker and supervision. Patient is unsteady at times. Patient tolerated sitting in chair for meals. Patient less forgetful today. Patient using call wise appropriately. Patient had no c/o pain and want to go
back to [facility]. Patient informed of discharge today back to [facility] at 1700.
[2025-01-21 15:30] VITALS: BP 108/55
[2025-01-21] MEDS: FLOVENT 110 MCG INHALER INH (18:04)
--- NOTE | 2025-01-25 13:56 | W.DCSUMMARY ---
Discharge Summary
Discharge Data
Date of Admission: 01/19/25
Date of Discharge: 01/21/25
-
Pending Results: No
Hospital Course
Discharging Physician : Dr Guy Arreaga
Disposition : half-way
Primary care physician : Dr Nick Sainz
Principal Discharge diagnosis :
Escherichia coli urinary tract infection
Mechanical fall
Chronic Discharge diagnosis :
Chronic obstructive pulmonary disease
Hyperlipidemia
Hypothyroidism
Gastroesophageal reflux disease
Depression/anxiety
History of deep venous thrombosis/pulmonary embolism
Essential hypertension
Transient ischemic attack
History of gastrointestinal bleed
History of large cecal polyp
History of myocardial infarction
Hospital Course :
Patient is a 89-year-old female with no mentioned past medical history came to ER after having a mechanical fall at home. Patient was reported to be confused, no reported fever and chills. Patient was tested positive for COVID-19 viral infection.
Chest x-ray did not show any acute issues. Patient was complaining some hip pain and pelvic x-ray was done which did not show any abnormality. Patient UA showing some pyuria and bacteriuria and with history of ESBL organism isolated in the past
patient was started on Merrem. Patient was monitored in the hospital and urine culture reported later to be pansensitive E. coli. Patient was provided female days of oral antibiotics at discharge.
Of note patient was taken off of Eliquis on previous visit after cecal polypectomy. Patient have a history of recurrent DVT PE and after family discussion this was resumed back. Patient had a repeat lower extremity venous Doppler on family request
and was negative for any blood clot.
Important imaging findings :
None
Procedure findings :
None
Discharge Plan
-
Patient Disposition: Assisted/SNF
Discharge Diagnosis/Procedures: COVID-19 viral infection, E. coli UTI, generalized weakness
Condition: Fair
Diet: Regular
Activity: As tolerated
Driving Restrictions: No driving
Bathing Restrictions: OK to Shower
Referrals:
Nick Sainz DO [Family Provider, Family Practice]
Additional Discharge Medication Instructions: Resuming back on Eliquis, need to be held 48 hours before any planned invasive procedure
Prescriptions:
New
cephalexin 250 mg Capsule
750 mg PO BID Qty: 6 0RF
Rx Instructions:
Last dose 01/24/25
Eliquis 5 mg Tablet
5 mg PO BID Qty: 60 0RF
Continued
sertraline 50 MG tablet
75 mg PO DAILY@1230
simvastatin 40 MG tablet
40 mg PO HS
alendronate 70 MG tablet
70 mg PO PERSON
ondansetron HCl 4 mg tablet
4 mg PO Q8HPRN PRN (Reason: nausea)
acetaminophen [Tylenol] 325 mg Tablet
650 mg PO Q4HPRN PRN (Reason: mild pain)
famotidine [Pepcid] 20 mg Tablet
20 mg PO DAILY
magnesium hydroxide [Milk of Magnesia] 400 mg/5 mL Suspension
2,400 mg PO HSPRN PRN (Reason: constipation)
bisacodyl [Dulcolax (bisacodyl)] 10 mg Suppository
10 mg PA [id number] PRN (Reason: if no bm aftr mom)
docusate sodium [Colace] 100 mg Capsule
200 mg PO HS
mirtazapine 15 mg Tablet
15 mg PO HS
albuterol sulfate 90 mcg/actuation Hfa Aerosol Inhaler
2 puff INHALATION R Q4HPRN PRN (Reason: sob)
budesonide 0.5 mg/2 mL suspension for nebulization
0.5 mg inhalation R BID
cyanocobalamin (vitamin B-12) [Vitamin B-12] 1,000 mcg Tablet
1,000 mcg PO DAILY Qty: 100 0RF
pantoprazole [Protonix] 40 mg tablet,delayed release (DR/EC)
40 mg PO DAILY Qty: 30 0RF
levothyroxine [Synthroid] 125 mcg Tablet
100 mcg PO DAILY
cholecalciferol (vitamin D3) 1,250 mcg (50,000 unit) Tablet
1,250 mcg PO MO
ferrous sulfate [FeroSul] 325 mg (65 mg iron) tablet
325 mg PO DAILY
Discharge Orders:
Discharge Patient (As Directed); Ordered 01/21/25
Ordered By: Guy Arreaga
Discharge Date and Time
Discharge Date/Time: 01/21/25 18:40
Print Language: GRENADIAN
== END 2025-01-21 18:40 | DRG 689 ==
LOC: 2 NORTH 16:53
PROVIDERS: Nurse Practitioner Family; ADMITTING PHYSICIAN Internal Medicine; ATTENDING PHYSICIAN Hospitalist; EMERGENCY PHYSICIAN Emergency Medicine; FAMILY PHYSICIAN Student in an Organized Health Care Education/Training Program
DX: N39.0 Urinary tract infection, site not specified (principal); U07.1 COVID-19; B96.20 Unspecified Escherichia coli [E. coli] as the cause of diseases classified elsewhere; W19.XXXA Unspecified fall, initial encounter; J44.9 Chronic obstructive pulmonary disease, unspecified; E78.00 Pure hypercholesterolemia, unspecified; E03.9 Hypothyroidism, unspecified; K21.9 Gastro-esophageal reflux disease without esophagitis; F32.A Depression, unspecified; F41.9 Anxiety disorder, unspecified; Z86.718 Personal history of other venous thrombosis and embolism; I10 Essential (primary) hypertension; Z86.73 Personal history of transient ischemic attack (TIA), and cerebral infarction without residual deficits; I25.2 Old myocardial infarction; Z86.19 Personal history of other infectious and parasitic diseases; Z79.83 Long term (current) use of bisphosphonates; K59.00 Constipation, unspecified; Z79.899 Other long term (current) drug therapy; Z87.440 Personal history of urinary (tract) infections; Z88.0 Allergy status to penicillin; Z66 Do not resuscitate; Z79.890 Hormone replacement therapy; Z87.891 Personal history of nicotine dependence; Z95.5 Presence of coronary angioplasty implant and graft; Z96.612 Presence of left artificial shoulder joint; Z99.3 Dependence on wheelchair
CPT/HCPCS: 36415; 71046; 72170; 80048; 81003; 81015; 82306; 83605; 84132; 85025; 85027; 87040; 87070; 87077; 87086; 87147; 87186; 87502; 87811; 93970; 94640; 96361; 96374; 97162; 97166; 99285; J2185

== ENCOUNTER → 2025-01-24 11:16 | Outpatient (REF) | payer MEDICARE, BC, SELFPAY ==
[2025-01-24 11:48] LABS: Hematocrit 32.9 % (37.0-47.0); Hemoglobin 10.7 g/dL (12.0-16.0); Mean Corp Hgb Conc. 32.5 g/dL (33.0-37.0); Mean Corpuscular Volume 95.4 fL (81.0-99.0); Platelet Count 216 10^3/uL (130-400); Red Cell Dist. Width 14.4 % (11.5-14.5)
== END ==
LOC: OLABN 11:16
PROVIDERS: ATTENDING PHYSICIAN Student in an Organized Health Care Education/Training Program
DX: J44.9 Chronic obstructive pulmonary disease, unspecified (principal)
CPT/HCPCS: 36415; 85027

== ENCOUNTER 2025-02-14 06:16 | Day surgery (SDC) | payer MEDICARE, BC, SELFPAY ==
[2025-02-14 08:05] VITALS: BMI 25.5
[2025-02-14 08:21] VITALS: BP 110/55
[2025-02-14 08:30] VITALS: BMI 25.5
[2025-02-14 10:19] VITALS: BP 121/68
== END 2025-02-14 10:45 | disposition home or self-care (01) ==
LOC: GI 06:16
PROVIDERS: ATTENDING PHYSICIAN Internal Medicine Gastroenterology
DX: D12.6 Benign neoplasm of colon, unspecified (principal); K64.9 Unspecified hemorrhoids
CPT/HCPCS: 45378

== ENCOUNTER 2025-03-06 06:12 | Day surgery (SDC) | payer MEDICARE, BC, SELFPAY ==
[2025-03-06 09:44] VITALS: BP 119/68
[2025-03-06 10:01] VITALS: BMI 23.5
[2025-03-06 10:19] VITALS: BMI 23.5
[2025-03-06 11:54] VITALS: BP 140/82
[2025-03-06 12:00] VITALS: BP 141/102
[2025-03-06 12:15] VITALS: BP 122/74
[2025-03-06 12:30] VITALS: BP 129/75
== END 2025-03-06 13:37 | disposition home or self-care (01) ==
LOC: SDS 06:12
PROVIDERS: ATTENDING PHYSICIAN Internal Medicine Gastroenterology
DX: C18.0 Malignant neoplasm of cecum (principal); K57.30 Diverticulosis of large intestine without perforation or abscess without bleeding; K64.0 First degree hemorrhoids
CPT/HCPCS: 45390; 88305; 88342

== ENCOUNTER → 2025-03-07 11:14 | Outpatient (REF) | payer MEDICARE, BC, SELFPAY ==
[2025-03-07 12:06] LABS: Hematocrit 31.0 % (37.0-47.0); Hemoglobin 9.8 g/dL (12.0-16.0); Mean Corp Hgb Conc. 31.6 g/dL (33.0-37.0); Mean Corpuscular Volume 95.7 fL (81.0-99.0); Nucleated Red Blood Cells % 0 %; Platelet Count 183 10^3/uL (130-400); Red Cell Dist. Width 14.1 % (11.5-14.5)
[2025-03-07 13:37] LABS: Blood Urea Nitrogen 16 mg/dl (7-17); Calcium 8.4 mg/dl (8.4-10.2); Carbon Dioxide 27 mmol/L (22-30); Chloride 106 mmol/L (98-107); Glucose 109 mg/dl (70-99); Potassium 4.2 mmol/L (3.5-5.1); Sodium 138 mmol/L (135-145); eGFR > 60.00
== END ==
LOC: OLABN 11:14
PROVIDERS: ATTENDING PHYSICIAN Student in an Organized Health Care Education/Training Program
DX: R50.9 Fever, unspecified (principal)
CPT/HCPCS: 36415; 80048; 85025

== ENCOUNTER → 2025-03-29 10:36 | Outpatient (REF) | payer MEDICARE, BC, SELFPAY ==
[2025-03-29 12:47] LABS: ALT (SGPT) 13 U/L (0-35); AST (SGOT) 19 U/L (14-36); Albumin 3.6 g/dl (3.5-5.0); Alkaline Phosphatase 65 U/L (38-126); Blood Urea Nitrogen 22 mg/dl (7-17); Calcium 8.7 mg/dl (8.4-10.2); Carbon Dioxide 28 mmol/L (22-30); Chloride 107 mmol/L (98-107); Glucose 87 mg/dl (70-99); Potassium 4.9 mmol/L (3.5-5.1); Sodium 137 mmol/L (135-145); Total Protein 6.9 g/dl (6.3-8.2); eGFR > 60.00
[2025-03-29 13:04] LABS: CEA 8.51 ng/ml
== END ==
LOC: OLABN 10:36
PROVIDERS: ATTENDING PHYSICIAN Student in an Organized Health Care Education/Training Program
DX: C18.9 Malignant neoplasm of colon, unspecified (principal)
CPT/HCPCS: 36415; 80053; 82378

== ENCOUNTER → 2025-04-03 08:53 | Outpatient (REF) | payer MEDICARE, BC, SELFPAY ==
[2025-04-03 09:03] LABS: Hematocrit 37.4 % (37.0-47.0); Hemoglobin 11.2 g/dL (12.0-16.0); Mean Corp Hgb Conc. 29.9 g/dL (33.0-37.0); Mean Corpuscular Volume 99.5 fL (81.0-99.0); Nucleated Red Blood Cells % 0 %; Platelet Count 223 10^3/uL (130-400); Red Cell Dist. Width 14.3 % (11.5-14.5)
== END ==
LOC: OLABN 08:53
PROVIDERS: ATTENDING PHYSICIAN Student in an Organized Health Care Education/Training Program
DX: C18.9 Malignant neoplasm of colon, unspecified (principal)
CPT/HCPCS: 36415; 85025

== ENCOUNTER → 2025-04-09 12:49 | Outpatient (REF) | payer MEDICARE, BC, SELFPAY | LOC: RAD 12:49 | PROVIDERS: ATTENDING PHYSICIAN Surgery | DX: C18.9 Malignant neoplasm of colon, unspecified (principal) | CPT/HCPCS: 71260; 74177; Q9967 ==

== ENCOUNTER → 2025-05-01 12:50 | Outpatient (REF) | payer MEDICARE, BC, SELFPAY ==
[2025-05-01 17:56] LABS: Urine Character Cloudy (Clear)
[2025-05-01 18:21] LABS: Urine Squamous Cell 0-2 /LPF (Few)
[2025-05-01 18:22] LABS: Urine White Cell 50-60 /HPF (0-5)
== END ==
LOC: OLABN 12:50
PROVIDERS: ATTENDING PHYSICIAN Student in an Organized Health Care Education/Training Program
DX: R82.90 Unspecified abnormal findings in urine (principal)
CPT/HCPCS: 81003; 81015; 87077; 87086; 87186

== ENCOUNTER 2025-05-01 15:10 | Emergency (ER) | payer MEDICARE, BC, SELFPAY ==
[2025-05-01 15:21] VITALS: BMI 26.7
--- NOTE | 2025-05-01 15:34 | ED.GENMED ---
History of Present Illness
<Mel Lyn MD, Resident - Last Filed: 05/01/25 17:53>
General
Chief Complaint: Fever
Source: patient
Exam Limitations: none
Time Seen by Provider: 05/01/25 15:18
History of Present Illness
History of Present Illness:
89yo F with a hx of CAD, diverticulosis, COPD, & hypothyroidism who presents with subacute fever and n/v.
Pt lives at [facility] facility and was brought in due to low-grade fevers noted by staff. Patient denies ever feeling feverish. Patient states that starting last night & this morning she has been vomiting (produced a non-bloody mucous). Does not seem to
be triggered by eating; pt with poor appetite. Denies any sick contacts. Denies any overt diarrhea, although notes that for the last few days she has noted soft stool in her pull-ups (incontinence). She is typically constipated at baseline. Endorses
a mild sore throat a few days ago that self-resolved. Also endorses LLQ/L groin pain and LLE pain, which have been present for multiple weeks. Denies paresthesias radiating to LLE, but states that pain runs down to her foot from lateral-posterior
hip. Denies any dysuria, hematochezia, new cough, chest pain. Denies any pain radiating to low back; denies pain anywhere else in her abdomen. 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
invasive colonic adenocarcinoma. Pt has limited recollection of this and is not sure what the biopsy showed.
Past History
<Mel Lyn MD, Resident - Last Filed: 05/01/25 17:53>
Past History
ED Past Medical History: COPD, GERD, Hypercholesterolemia, [place], Hypothyroidism, Psychiatric and Other (PE/DVT, Diverticulitis)
ED Past Surgical History: Cardiac (Stents) and Orthopedic
Patient has exhibited threatening behavior?: No
Social History
Tobacco: Former smoker
Alcohol: Daily ( Wine 2 glasses)
Drug: None
Personal:
Living: alone
Employment: Retired
Family History
Family History: Hypertension and Other (Other was prostate cancer)
Review of Systems
<Mel Lyn MD, Resident - Last Filed: 05/01/25 17:53>
Review of Systems
Allergies reviewed?: Yes
All Other Systems: ROS reviewed and negative except as documented in HPI and ROS
Constitutional: Reports no symptoms
EENT: Reports sore throat
Respiratory: Reports no symptoms
Cardiac: Reports no symptoms
ABD/GI: Reports abdominal pain, nausea, vomiting, constipated and other (fecal incontinence)
: Reports no symptoms
Musculoskeletal: Reports other (LLE pain )
Skin: Reports no symptoms
Neurological: Reports no symptoms
Psychiatric: Reports no symptoms
Phy Exam
<Mel Lyn MD, Resident - Last Filed: 05/01/25 17:53>
General Physical Exam
General Presentation: no apparent distress
General age: appears stated age
General Skin: warm and dry
General Habitus: frail
General Mental: alert
Cardiovascular Exam
Cardiovascular Exam: regular rate/rhythm and no edema
Heart Sounds: normal
Pulmonary Exam
Pulmonary Exam: lungs clear and no respiratory distress
Gastrointestinal Exam
Gastrointestinal Exam: non tender, soft and non distended
Neurological Exam
Neurological Exam: alert and no motor deficits
Musculoskeletal Exam
Musculoskeletal Exam: no edema
Skin Exam
Skin Exam: normal color and warm/dry
Psychiatric Exam
Psychiatric Exam: normal mood/affect
Sepsis
<Mel Lyn MD, Resident - Last Filed: 05/01/25 17:53>
Sepsis Screening
Sepsis Assessment: Sepsis Ruled Out
Sepsis Screen
Sepsis Screen: Sepsis Ruled Out
Date: 05/01/25
Time: 17:52
Course
<Mel Lyn MD, Resident - Last Filed: 05/01/25 17:53>
Orders/Labs/Results
Orders:
Orders
05/01/25 15:48
CT Abd/pelvis W Iv Cont Urgent
Comment:
Reason For Exam: diverticulitis eval, LLQ pain
Urinalysis Reflex To Culture Urgent
0.9% Sodium Chloride 1000 ml [Nss] 1,000 ml IV BOLUS
05/01/25 15:49
Ondansetron Orally Disint [Zofran Odt (Orally Disintegrating)] 2 mg PO NOW STA
05/01/25 16:10
Complete Blood Count/With Diff Urgent
Comprehensive Metabolic Panel Urgent
05/01/25 16:21
Ondansetron Injectable [Zofran] 4 mg .ROUTE .STK-MED ONE
05/01/25 16:22
Ondansetron Injectable [Zofran] 4 mg IV NOW STA
Abnormal Lab Results
05/01/25
16:10
WBC 13.6 H 10^3/uL
(4.8-10.8)
RBC 3.64 L 10^6/uL
(4.20-5.40)
Hgb 11.3 L g/dL
(12.0-16.0)
Hct 35.3 L %
(37.0-47.0)
MCHC 32.0 L g/dL
(33.0-37.0)
Abs Immat Gran (auto) 0.1 H 10^3/uL
(0-0.05)
Absolute Neuts (auto) 10.6 H 10^3/uL
(1.4-6.5)
Absolute Monos (auto) 1.3 H 10^3/uL
(0.1-0.6)
Neutrophils % 77.8 H %
(42.2-75.2)
Lymphocytes % 11.8 L %
(20.5-51.1)
Monocytes % 9.4 H %
(1.7-9.3)
Sodium 134 L mmol/L
(135-145)
BUN 21 H mg/dl
(7-17)
Glucose 138 H mg/dl
(70-99)
05/01/25 16:10
05/01/25 16:10
Vital Signs
Initial and Last Documented VS:
Initial Vital Signs
Temp Pulse Resp Pulse Ox
98.8 F 103 20 97
05/01/25 15:13 05/01/25 15:13 05/01/25 15:13 05/01/25 15:13
Last Documented Vital Signs
Temp Pulse Resp Pulse Ox
98.8 F 103 20 97
05/01/25 15:13 05/01/25 15:13 05/01/25 15:13 05/01/25 15:45
<Juan David Cobb, DO - Last Filed: 05/01/25 15:50>
Orders/Labs/Results
Orders:
Orders
05/01/25 15:48
CT Abd/pelvis W Iv Cont Urgent
Comment:
Reason For Exam: diverticulitis eval, LLQ pain
Urinalysis Reflex To Culture Urgent
0.9% Sodium Chloride 1000 ml [Nss] 1,000 ml IV BOLUS
05/01/25 15:49
Ondansetron Orally Disint [Zofran Odt (Orally Disintegrating)] 2 mg PO NOW STA
05/01/25 16:10
Complete Blood Count/With Diff Urgent
Comprehensive Metabolic Panel Urgent
05/01/25 16:21
Ondansetron Injectable [Zofran] 4 mg .ROUTE .STK-MED ONE
05/01/25 16:22
Ondansetron Injectable [Zofran] 4 mg IV NOW STA
Abnormal Lab Results
05/01/25
16:10
WBC 13.6 H 10^3/uL
(4.8-10.8)
RBC 3.64 L 10^6/uL
(4.20-5.40)
Hgb 11.3 L g/dL
(12.0-16.0)
Hct 35.3 L %
(37.0-47.0)
MCHC 32.0 L g/dL
(33.0-37.0)
Abs Immat Gran (auto) 0.1 H 10^3/uL
(0-0.05)
Absolute Neuts (auto) 10.6 H 10^3/uL
(1.4-6.5)
Absolute Monos (auto) 1.3 H 10^3/uL
(0.1-0.6)
Neutrophils % 77.8 H %
(42.2-75.2)
Lymphocytes % 11.8 L %
(20.5-51.1)
Monocytes % 9.4 H %
(1.7-9.3)
Sodium 134 L mmol/L
(135-145)
BUN 21 H mg/dl
(7-17)
Glucose 138 H mg/dl
(70-99)
05/01/25 16:10
05/01/25 16:10
Vital Signs
Initial and Last Documented VS:
Initial Vital Signs
Temp Pulse Resp Pulse Ox
98.8 F 103 20 97
05/01/25 15:13 05/01/25 15:13 05/01/25 15:13 05/01/25 15:13
Last Documented Vital Signs
Temp Pulse Resp Pulse Ox
98.8 F 103 20 97
05/01/25 15:13 05/01/25 15:13 05/01/25 15:13 05/01/25 15:45
<Mel Lyn MD, Resident - Last Filed: 05/01/25 17:53>
MDM/Problems Addressed
Differential Diagnosis Includes:
Ddx:
- Viral gastroenteritis vs. Diverticulitis
Less likely:
- Sciatica
- UTI / pyelonephritis
- Renal calculus
- Spreading malignancy
MDM/Problems Addressed:
- CT a/p w IV contrast (eval diverticulitis; in s/o known diverticulosis)
- 1L bolus NSS (hypotensive, tachycardic, poor PO intake, vomiting)
- Zofran
- UA w reflex
<Mel Lyn MD, Resident - Last Filed: 05/01/25 17:53>
*Pulse Oximetry
SaO2: 97
Oxygen Mode of Delivery: Room air
Patient hypoxic: no
*Critical Care Note
Total Time (30-74mins, 75-104mins- exclusive of procedures): Not Applicable
<Mel Lyn MD, Resident - Last Filed: 05/01/25 17:53>
Update Note
Update Note:
5:45pm:
CT a/p with IV contrast read as negative for diverticulitis (although diverticula present), and small bowel with findings suspicious for enteritis. Also with finding of splenic lesion c/f malignancy in need of outpatient f/u.
IMPRESSION:
'Sigmoid diverticulosis with evaluation limited, particularly without oral contrast, without gross accompanying inflammatory changes.
Nonobstructed, nondilated fluid-filled loops of small bowel with some mild at least relative wall enhancement, findings at least suspicious for ENTERITIS. No free air.
Simple left renal cyst and subcentimeter low-attenuation right renal lesion too small to characterize. 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
Contracted gallbladder, likely postprandial.
At least two subcentimeter low-attenuation splenic lesions too small to characterize. And additional questionable 0.9 cm low-attenuation splenic lesion likely not a simple cyst, CANNOT EXCLUDE MALIGNANCY. Recommend MRI for more complete evaluation.'
ED Attending Note
<Mel Lyn MD, Resident - Last Filed: 05/01/25 17:53>
-
Portions of this chart may have been created with voice recognition software.� Occasional wrong word or��sound alike� substitutions may have occurred due to the inherent limitations of voice recognition software.
<Juan David Cobb, DO - Last Filed: 05/01/25 15:50>
ED Attending Note
Patient seen and examined by attending physician: Yes
I performed a history and physical exam of patient and discussed management with resident, I reviewed resident's note and agree with documented findings and plan of care.: Yes
ED Attending Note:
I have seen and evaluated the patient with a [id number] encounter. I have spoken to the advance practicer provider and involved in the medical history, the physical exam, medical decision making.
Evaluation and management service: agree unless noted differently below.
Results interpretation: agree unless noted differently below.
Focused HPI: 89-year-old female presenting with nausea, vomiting and left quadrant pain. Patient does admit to vomiting and nausea that improved
Physical exam: Sitting in bed comfortably. Mildly dry membranes. Mild left lower quadrant tenderness without rebound
Medical Decision Making: Prior CT scan shows severe diverticulosis. Will obtain CT looking for evidence of diverticulitis. Will provide IV fluid hydration obtain urinalysis. Based on exam, patient likely stable for discharge
Discharge Plan
Departure
Patient Disposition: Fpc/SNF
Date of Disposition: 05/01/25
Time of Disposition: 17:49
Patient with high blood pressure during this ER visit?: No
Condition: Fair
Covid-19: Not Applicable
Discharge Problem:
Gastroenteritis
Prescriptions:
No Action
sertraline 50 MG tablet
75 mg PO DAILY@1230
simvastatin 40 MG tablet
20 mg PO HS
alendronate 70 MG tablet
70 mg PO PERSON
ondansetron HCl 4 mg tablet
4 mg PO Q8HPRN PRN (Reason: nausea)
acetaminophen [Tylenol] 325 mg Tablet
650 mg PO Q4HPRN PRN (Reason: mild pain)
famotidine [Pepcid] 20 mg Tablet
20 mg PO DAILY
magnesium hydroxide [Milk of Magnesia] 400 mg/5 mL Suspension
2,400 mg PO HSPRN PRN (Reason: constipation)
bisacodyl [Dulcolax (bisacodyl)] 10 mg Suppository
10 mg MO [id number] PRN (Reason: if no bm aftr mom)
docusate sodium [Colace] 100 mg Capsule
200 mg PO HS
mirtazapine 15 mg Tablet
15 mg PO HS
albuterol sulfate 90 mcg/actuation Hfa Aerosol Inhaler
2 puff INHALATION R Q4HPRN PRN (Reason: sob)
budesonide 0.5 mg/2 mL suspension for nebulization
0.5 mg inhalation R BID
cyanocobalamin (vitamin B-12) [Vitamin B-12] 1,000 mcg Tablet
1,000 mcg PO DAILY Qty: 100 0RF
pantoprazole [Protonix] 40 mg tablet,delayed release (DR/EC)
40 mg PO DAILY Qty: 30 0RF
levothyroxine [Synthroid] 125 mcg Tablet
100 mcg PO DAILY
cholecalciferol (vitamin D3) 1,250 mcg (50,000 unit) Tablet
1,250 mcg PO MO
ferrous sulfate [FeroSul] 325 mg (65 mg iron) tablet
See Rx Instructions .ROUTE .COMPLEX
Rx Instructions:
325 mg orally, mon, wed , fri
Miralax
PO DAILY
Rx Instructions:
daily x 5 days per GI office inst, reported per nurse at [facility]
acetaminophen [Pharbetol] 500 mg Tablet
1,000 mg DAILY
Rx Instructions:
1000 mg daily for pain
Eliquis 5 mg Tablet
5 mg PO BID Qty: 60 0RF
simethicone 80 mg Tablet,Chewable
80 mg PO HS
GaviLyte-C 240-22.72-6.72 -5.84 gram Recon Soln
240 ml PO Q10M
Referrals:
Nick Sainz DO [Family Provider, [facility]] - Follow up in 5-7 days
Referral Note: CT a/p with splenic lesion c/f malignancy, requires further workup
Activity Restrictions/Additional Instructions:
You were seen for low-grade fevers and left lower abdominal pain with vomiting and some loose stools. This is most likely due to viral gastroenteritis, which will resolve with fluids and pain control. The CT scan of your abdomen was not concerning
for diverticulitis.
Of note, the CT scan picked up a lesion on your spleen that requires additional follow-up with MRI to rule out malignancy. Please follow up with your primary care provider as soon as able.
Return if you have worsening pain, high fevers, or significant blood in your stool.
Interventions
Interventions:
*Risk Screen - Suicide Last Done: 05/01/25 15:13
*General Assessment Last Done: 05/01/25 15:13
*Neglect/Abuse Screening Last Done: 05/01/25 15:13
Discharge Date and Time
Print Language: FRENCH
[2025-05-01] MEDS: ZOFRAN 4 MG IV (16:23)
[2025-05-01 16:24] LABS: Hematocrit 35.3 % (37.0-47.0); Hemoglobin 11.3 g/dL (12.0-16.0); Mean Corp Hgb Conc. 32.0 g/dL (33.0-37.0); Mean Corpuscular Volume 97.0 fL (81.0-99.0); Nucleated Red Blood Cells % 0 %; Platelet Count 185 10^3/uL (130-400); Red Cell Dist. Width 13.9 % (11.5-14.5)
[2025-05-01] MEDS: NSS 1000 IV (16:26)
[2025-05-01 16:30] LABS: ALT (SGPT) 12 U/L (0-35); AST (SGOT) 17 U/L (14-36); Albumin 3.9 g/dl (3.5-5.0); Alkaline Phosphatase 69 U/L (38-126); Blood Urea Nitrogen 21 mg/dl (7-17); Calcium 8.7 mg/dl (8.4-10.2); Carbon Dioxide 28 mmol/L (22-30); Chloride 102 mmol/L (98-107); Estimated Creatinine Clearance 36 ml/min; Glucose 138 mg/dl (70-99); Potassium 4.6 mmol/L (3.5-5.1); Sodium 134 mmol/L (135-145); Total Protein 7.9 g/dl (6.3-8.2); eGFR > 60.00
[2025-05-01 18:00] VITALS: BP 125/63
== END 2025-05-01 18:55 ==
LOC: EMR 15:10
PROVIDERS: EMERGENCY PHYSICIAN Student in an Organized Health Care Education/Training Program; FAMILY PHYSICIAN Student in an Organized Health Care Education/Training Program
DX: K52.9 Noninfective gastroenteritis and colitis, unspecified (principal); K57.30 Diverticulosis of large intestine without perforation or abscess without bleeding; N28.1 Cyst of kidney, acquired; I25.10 Atherosclerotic heart disease of native coronary artery without angina pectoris; E78.00 Pure hypercholesterolemia, unspecified; I25.2 Old myocardial infarction; J44.9 Chronic obstructive pulmonary disease, unspecified; E03.9 Hypothyroidism, unspecified; K21.9 Gastro-esophageal reflux disease without esophagitis; Z95.5 Presence of coronary angioplasty implant and graft; Z87.891 Personal history of nicotine dependence; Z86.718 Personal history of other venous thrombosis and embolism; Z86.711 Personal history of pulmonary embolism; Z85.038 Personal history of other malignant neoplasm of large intestine; Z82.49 Family history of ischemic heart disease and other diseases of the circulatory system
CPT/HCPCS: 99284; 96374; 96361; 74177; 80053; 81003; 81015; 85025; 87077; 87086; 87186; Q9967

== ENCOUNTER → 2025-05-02 07:21 | Outpatient (REF) | payer MEDICARE, BC, SELFPAY ==
[2025-05-02 08:18] LABS: Hematocrit 33.6 % (37.0-47.0); Hemoglobin 10.5 g/dL (12.0-16.0); Mean Corp Hgb Conc. 31.3 g/dL (33.0-37.0); Mean Corpuscular Volume 98.5 fL (81.0-99.0); Nucleated Red Blood Cells % 0 %; Platelet Count 189 10^3/uL (130-400); Red Cell Dist. Width 14.0 % (11.5-14.5)
[2025-05-02 08:50] LABS: ALT (SGPT) 11 U/L (0-35); AST (SGOT) 15 U/L (14-36); Albumin 3.7 g/dl (3.5-5.0); Alkaline Phosphatase 78 U/L (38-126); Blood Urea Nitrogen 18 mg/dl (7-17); Calcium 8.2 mg/dl (8.4-10.2); Carbon Dioxide 27 mmol/L (22-30); Chloride 103 mmol/L (98-107); Glucose 125 mg/dl (70-99); Potassium 4.0 mmol/L (3.5-5.1); Sodium 136 mmol/L (135-145); Total Protein 7.1 g/dl (6.3-8.2); eGFR > 60.00
== END ==
LOC: OLABN 07:21
PROVIDERS: ATTENDING PHYSICIAN Student in an Organized Health Care Education/Training Program
DX: R50.9 Fever, unspecified (principal)
CPT/HCPCS: 36415; 80053; 85025

== ENCOUNTER → 2025-05-08 09:18 | Outpatient (REF) | payer MEDICARE, BC, SELFPAY ==
[2025-05-08 11:39] LABS: TSH 0.62 uIU/ml (0.47-4.68)
[2025-05-10 16:42] LABS: Total T3 (Sendout) 73 ng/dL (80-200)
== END ==
LOC: OLABN 09:18
PROVIDERS: ATTENDING PHYSICIAN Student in an Organized Health Care Education/Training Program
DX: E03.9 Hypothyroidism, unspecified (principal)
CPT/HCPCS: 36415; 84439; 84443; 84480

== ENCOUNTER 2025-05-22 14:34 | Emergency (ER) | payer MEDICARE, BC, SELFPAY ==
[2025-05-22 15:19] VITALS: BP 105/87
[2025-05-22 15:46] LABS: Hematocrit 36.0 % (37.0-47.0); Hemoglobin 11.6 g/dL (12.0-16.0); Mean Corp Hgb Conc. 32.2 g/dL (33.0-37.0); Mean Corpuscular Volume 94.5 fL (81.0-99.0); Nucleated Red Blood Cells % 0 %; Platelet Count 241 10^3/uL (130-400); Red Cell Dist. Width 14.2 % (11.5-14.5)
[2025-05-22 16:08] LABS: ALT (SGPT) 13 U/L (0-35); AST (SGOT) 21 U/L (14-36); Albumin 3.8 g/dl (3.5-5.0); Alkaline Phosphatase 76 U/L (38-126); Blood Urea Nitrogen 18 mg/dl (7-17); Calcium 8.6 mg/dl (8.4-10.2); Carbon Dioxide 21 mmol/L (22-30); Chloride 104 mmol/L (98-107); Glucose 124 mg/dl (70-99); Lipase 61 U/L (23-300); Potassium 4.7 mmol/L (3.5-5.1); Sodium 133 mmol/L (135-145); Total Protein 7.7 g/dl (6.3-8.2); eGFR > 60.00
[2025-05-22 19:24] VITALS: BP 102/58
[2025-05-22 19:36] VITALS: BMI 23.5
[2025-05-22 20:00] VITALS: BP 110/59
--- NOTE | 2025-05-22 20:54 | ED.GENMED ---
History of Present Illness
<Lul Ballesteros MD, Resident - Last Filed: 05/22/25 23:12>
General
Time Seen by Provider: 05/22/25 20:53
History of Present Illness
History of Present Illness:
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
Vomit is greenish brown in consistency, last emesis earlier this afternoon. Diarrhea is also green-brown, last episode earlier this afternoon as well.
She reports abdominal pain (diffuse) during the episode of diarrhea, but she denies abdominal pain during my interview.
She denies sick contacts, denies changes in diet, or recent travel.
She denies dysuria.
She denies fevers/chills
She specifically denies hematochezia, melena.
She denies chest pain, headaches, dyspnea, focal weakness.
Past History
<Lul Ballesteros MD, Resident - Last Filed: 05/22/25 23:12>
Past History
ED Past Medical History: COPD, GERD, Hypercholesterolemia, AR, Hypothyroidism, Psychiatric and Other (PE/DVT, Diverticulitis)
ED Past Surgical History: Cardiac (Stents) and Orthopedic
Patient has exhibited threatening behavior?: No
Social History
Tobacco: Former smoker
Alcohol: Daily ( Wine 2 glasses)
Drug: None
Personal:
Living: alone
Employment: Retired
Family History
Family History: Hypertension and Other (Other was prostate cancer)
Review of Systems
<Lul Ballesteros MD, Resident - Last Filed: 05/22/25 23:12>
Review of Systems
Constitutional: Reports no symptoms
EENT: Reports no symptoms
Respiratory: Reports no symptoms
Cardiac: Reports no symptoms
ABD/GI: Reports vomiting and diarrhea
: Reports no symptoms
Musculoskeletal: Reports no symptoms
Neurological: Reports no symptoms
Phy Exam
<Lul Ballesteros MD, Resident - Last Filed: 05/22/25 23:12>
Physical Exam
Physical Exam:
VS 110/59; HR 106; T98.2
General: no acute distress
CV: no murmurs on my exam
Pulm: CTAB
GI: no tenderness to palpation x4 quadrants, + bowel sounds on my exam
MSK: no lower extremity edema
Neuro: AOx3, patient is not wearing dentures, but no dysarthria on my exam, grossly nonfocal
Course
<Lul Ballesteros MD, Resident - Last Filed: 05/22/25 23:12>
Orders/Labs/Results
Orders:
Orders
05/22/25 15:23
EKG [Electrocardiogram (*1)] Urgent
Reason for Study: Tachycardia
EKG- Treatment ONCE
05/22/25 15:38
Complete Blood Count/With Diff Urgent
Comprehensive Metabolic Panel Urgent
Lipase Urgent
05/22/25 22:09
0.9% Sodium Chloride 500 ml [Nss] 500 ml IV BOLUS
05/22/25 22:19
Urine Microscopic Reflex Cult Urgent
Urine Reflex Culture from UA [Urinalysis Reflex To Culture] Urgent
Date Specimen was Collected: 05/22/25
Time Specimen was Collected: 15:23
Urine Culture Urgent
VAISHALI Source: U
Specimen Description:
Date Specimen was Collected: 05/22/25
Time Specimen was Collected: 15:23
Abnormal Lab Results
05/22/25 05/22/25
15:38 22:19
RBC 3.81 L 10^6/uL
(4.20-5.40)
Hgb 11.6 L g/dL
(12.0-16.0)
Hct 36.0 L %
(37.0-47.0)
MCHC 32.2 L g/dL
(33.0-37.0)
Absolute Neuts (auto) 9.0 H 10^3/uL
(1.4-6.5)
Absolute Lymphs (auto) 0.4 L 10^3/uL
(1.2-3.4)
Neutrophils % 91.8 H %
(42.2-75.2)
Lymphocytes % 4.3 L %
(20.5-51.1)
Sodium 133 L mmol/L
(135-145)
Carbon Dioxide 21 L mmol/L
(22-30)
BUN 18 H mg/dl
(7-17)
Glucose 124 H mg/dl
(70-99)
Ur Occult Blood Reflex 3+ A
(Negative)
Leukocyte Esterase Rfl 1+ A
(Negative)
Urine WBC (Reflex) 16-20 A /HPF
(0-5)
Urine Bacteria (Reflex) Many A
(Negative)
Urine Albumin (Reflex) 1+ A
(Neg - Trace)
05/22/25 15:38
05/22/25 15:38
Vital Signs
Initial and Last Documented VS:
Initial Vital Signs
Temp Pulse Resp BP Pulse Ox
98.2 F 121 20 105/87 95
05/22/25 15:19 05/22/25 15:19 05/22/25 15:19 05/22/25 15:19 05/22/25 15:19
Last Documented Vital Signs
Temp Pulse Resp BP Pulse Ox
98.2 F 100 23 113/64 92
05/22/25 15:19 05/22/25 23:00 05/22/25 23:00 05/22/25 23:00 05/22/25 20:57
<Preet Jay MD - Last Filed: 05/22/25 23:48>
Orders/Labs/Results
Orders:
Orders
05/22/25 15:23
EKG [Electrocardiogram (*1)] Urgent
Reason for Study: Tachycardia
EKG- Treatment ONCE
05/22/25 15:38
Complete Blood Count/With Diff Urgent
Comprehensive Metabolic Panel Urgent
Lipase Urgent
05/22/25 22:09
0.9% Sodium Chloride 500 ml [Nss] 500 ml IV BOLUS
05/22/25 22:19
Urine Microscopic Reflex Cult Urgent
Urine Reflex Culture from UA [Urinalysis Reflex To Culture] Urgent
Date Specimen was Collected: 05/22/25
Time Specimen was Collected: 15:23
Urine Culture Urgent
VAISHALI Source: U
Specimen Description:
Date Specimen was Collected: 05/22/25
Time Specimen was Collected: 15:23
Abnormal Lab Results
05/22/25 05/22/25
15:38 22:19
RBC 3.81 L 10^6/uL
(4.20-5.40)
Hgb 11.6 L g/dL
(12.0-16.0)
Hct 36.0 L %
(37.0-47.0)
MCHC 32.2 L g/dL
(33.0-37.0)
Absolute Neuts (auto) 9.0 H 10^3/uL
(1.4-6.5)
Absolute Lymphs (auto) 0.4 L 10^3/uL
(1.2-3.4)
Neutrophils % 91.8 H %
(42.2-75.2)
Lymphocytes % 4.3 L %
(20.5-51.1)
Sodium 133 L mmol/L
(135-145)
Carbon Dioxide 21 L mmol/L
(22-30)
BUN 18 H mg/dl
(7-17)
Glucose 124 H mg/dl
(70-99)
Ur Occult Blood Reflex 3+ A
(Negative)
Leukocyte Esterase Rfl 1+ A
(Negative)
Urine WBC (Reflex) 16-20 A /HPF
(0-5)
Urine Bacteria (Reflex) Many A
(Negative)
Urine Albumin (Reflex) 1+ A
(Neg - Trace)
05/22/25 15:38
05/22/25 15:38
Vital Signs
Initial and Last Documented VS:
Initial Vital Signs
Temp Pulse Resp BP Pulse Ox
98.2 F 121 20 105/87 95
05/22/25 15:19 05/22/25 15:19 05/22/25 15:19 05/22/25 15:19 05/22/25 15:19
Last Documented Vital Signs
Temp Pulse Resp BP Pulse Ox
98.2 F 100 23 113/64 92
05/22/25 15:19 05/22/25 23:00 05/22/25 23:00 05/22/25 23:00 05/22/25 20:57
<Lul Ballesteros MD, Resident - Last Filed: 05/22/25 23:12>
MDM/Problems Addressed
Differential Diagnosis Includes:
gastroenteritis, diverticulitis, pancreatitis small bowel obstruction, colonic malignancy, IBS, UTI
MDM/Problems Addressed:
Normal WBC
Hgb stable 11.6
LFTs within normal limits
K 4.7
Cr 0.7
Lipase 61
HPI seems to suggest a gastroenteritis, likely viral with vomiting/diarrhea.
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
She does seem dehydrated too. Administer IV Fluids, 500 cc NS bolus
She appears improved after receiving the fluids.
Plan will be to discharge her back to her SNF.
<Lul Ballesteros MD, Resident - Last Filed: 05/22/25 23:12>
*Pulse Oximetry
SaO2: 92
Oxygen Mode of Delivery: Room air
Patient hypoxic: yes
*Critical Care Note
Total Time (30-74mins, 75-104mins- exclusive of procedures): Not Applicable
ED Attending Note
<Lul Ballesteros MD, Resident - Last Filed: 05/22/25 23:12>
-
Portions of this chart may have been created with voice recognition software.� Occasional wrong word or��sound alike� substitutions may have occurred due to the inherent limitations of voice recognition software.
<Preet Jay MD - Last Filed: 05/22/25 23:48>
ED Attending Note
Patient seen and examined by attending physician: Yes
ED Attending Note:
Patient presents to ED from shelter for evaluation secondary to multiple episodes of vomiting and diarrhea over the past 3 days. Patient denies fever or chills. Patient reports brief episode abdominal cramping with diarrhea, which now has
resolved. Patient reports 1 episode of vomiting and diarrhea, per day for the past 2 days. Patient reports having had normal meal today. Denies diarrhea today. Denies weakness. Denies shortness of breath. Denies dizziness. Denies sick
contact. Denies recent change in medications or diet. Denies recent travel.
Physical Exam
General: no apparent distress, not acutely ill. afebrile
Head: nc/at. eomi
Neck: supple. normal range of motion.
Heart: s1/s2 regular rate and rhythm
Lungs: no acute respiratory distress. clear bilaterally
Abdomen: normal bowel sounds. not tender.
Neuro: alert and oriented x 3. no focal neurological deficits
Skin: no rash
Psychiatric: well kept. interactive and cooperative
Extremities: no edema. no calf tenderness.
History and exam consistent with likely viral illness. Fortunately, patient is afebrile, hemodynamically stable, and is without any evidence of significant dehydration. Patient given IV fluids in ED. Patient will be discharged back to nursing
home for continued care, with return precautions provided.
Discharge Plan
Departure
Patient Disposition: Penitentiary[facility]SNF
Date of Disposition: 05/22/25
Time of Disposition: 23:10
Condition: Fair
Discharge Problem:
Acute gastroenteritis
Prescriptions:
No Action
sertraline 50 MG tablet
75 mg PO DAILY@1230
simvastatin 40 MG tablet
20 mg PO HS
alendronate 70 MG tablet
70 mg PO PERSON
ondansetron HCl 4 mg tablet
4 mg PO Q8HPRN PRN (Reason: nausea)
acetaminophen [Tylenol] 325 mg Tablet
650 mg PO Q4HPRN PRN (Reason: mild pain)
famotidine [Pepcid] 20 mg Tablet
20 mg PO DAILY
magnesium hydroxide [Milk of Magnesia] 400 mg/5 mL Suspension
2,400 mg PO HSPRN PRN (Reason: constipation)
bisacodyl [Dulcolax (bisacodyl)] 10 mg Suppository
10 mg VA [id number] PRN (Reason: if no bm aftr mom)
docusate sodium [Colace] 100 mg Capsule
200 mg PO HS
mirtazapine 15 mg Tablet
15 mg PO HS
albuterol sulfate 90 mcg/actuation Hfa Aerosol Inhaler
2 puff INHALATION R Q4HPRN PRN (Reason: sob)
budesonide 0.5 mg/2 mL suspension for nebulization
0.5 mg inhalation R BID
cyanocobalamin (vitamin B-12) [Vitamin B-12] 1,000 mcg Tablet
1,000 mcg PO DAILY Qty: 100 0RF
pantoprazole [Protonix] 40 mg tablet,delayed release (/EC)
40 mg PO DAILY Qty: 30 0RF
levothyroxine [Synthroid] 125 mcg Tablet
100 mcg PO DAILY
cholecalciferol (vitamin D3) 1,250 mcg (50,000 unit) Tablet
1,250 mcg PO MO
ferrous sulfate [FeroSul] 325 mg (65 mg iron) tablet
See Rx Instructions .ROUTE .COMPLEX
Rx Instructions:
325 mg orally, mon, wed , fri
Miralax
PO DAILY
Rx Instructions:
daily x 5 days per GI office inst, reported per nurse at [facility]
acetaminophen [Pharbetol] 500 mg Tablet
1,000 mg DAILY
Rx Instructions:
1000 mg daily for pain
Eliquis 5 mg Tablet
5 mg PO BID Qty: 60 0RF
simethicone 80 mg Tablet,Chewable
80 mg PO HS
GaviLyte-C 240-22.72-6.72 -5.84 gram Recon Soln
240 ml PO Q10M
Referrals:
Nick Sainz DO [Family Provider, Family Practice]
Activity Restrictions/Additional Instructions:
please stay hydrated. if symptoms worsen or develop new symptoms, please present to the emergency room.
Interventions
Interventions:
*General Assessment Last Done: 05/22/25 15:19
*Neglect/Abuse Screening Last Done: 05/22/25 15:19
[facility] Risk Assessment Tool Last Done: 05/22/25 19:36
*Risk Screen - Suicide (C-SSRS) Last Done: 05/22/25 15:19
Discharge Date and Time
Print Language: SINHALA
[2025-05-22 21:00] VITALS: BP 106/60
[2025-05-22 22:00] VITALS: BP 113/69
[2025-05-22] MEDS: NSS 500 IV (22:18)
[2025-05-22 22:27] LABS: Urine Character Clear (Clear)
[2025-05-22 22:51] LABS: Urine Red Blood Cell 0-2 /HPF (0-2); Urine White Cell 16-20 /HPF (0-5)
[2025-05-22 23:00] VITALS: BP 113/64
== END 2025-05-23 00:36 ==
LOC: EMR 14:34
PROVIDERS: Emergency Medicine; EMERGENCY PHYSICIAN Emergency Medicine; FAMILY PHYSICIAN Student in an Organized Health Care Education/Training Program
DX: K52.9 Noninfective gastroenteritis and colitis, unspecified (principal); E86.0 Dehydration; I25.10 Atherosclerotic heart disease of native coronary artery without angina pectoris; E78.00 Pure hypercholesterolemia, unspecified; I25.2 Old myocardial infarction; C18.9 Malignant neoplasm of colon, unspecified; J44.9 Chronic obstructive pulmonary disease, unspecified; E03.9 Hypothyroidism, unspecified; Z95.5 Presence of coronary angioplasty implant and graft; Z86.718 Personal history of other venous thrombosis and embolism; Z86.711 Personal history of pulmonary embolism; Z87.891 Personal history of nicotine dependence; Z82.49 Family history of ischemic heart disease and other diseases of the circulatory system
CPT/HCPCS: 99284; 96360; 80053; 81003; 81015; 83690; 85025; 87077; 87086; 93005